=== PATIENT | female | born 1995 | race Caucasian/White ===

== ENCOUNTER 2021-02-17 10:00 | Outpatient (CLI) | payer BC, SELFPAY ==
--- NOTE | ~2021-02-17 | US_ITS ---
EXAMINATION: US OB <=14 wk fetus w TV EXAM DATE: 02/17/2021 10:38 INDICATION: Threatened miscarriage. 1st trimester. TECHNIQUE: Pelvic obstetrical transabdominal and transvaginal sonogram was performed by a technkami rosado. There are multiple grayscale and Doppler images available for interpretation. There are no marina ier studies of this gestation for comparison. FINDINGS: Uterus measures 8.9 x 5.7 x 3.7 cm. There is intrauterine gestation sac. pole with heart rate confirmed at 122 beats per minute. The 6 mm crown-rump length corresponds to estimated ge stational age by ultrasound of 6 weeks 2 days. Yolk sac is identified. There is sizable heterogeneous hyperechoic region from subchorionic location extending along the lowe r uterine segment endometrium, region measuring 2.3 x 1.3 x 0.5 cm, suspicious for acute moderate siz e subchorionic hematoma. The ovaries are morphologically normal. IMPRESSION: Heterogeneously hyperechoic region suspicious for moderate-sized acute subchorionic praveen layla. Recommend follow-up exam. Reviewed, dictated and finalized at location B. [employer] IMPRESSION: Heterogeneously hyperechoic region suspicious for moderate-sized a cute subchorionic hematoma. Recommend follow-up exam.
== END 2021-02-17 10:01 | disposition home or self-care (01) ==
PROVIDERS: PCP Obstetrics & Gynecology; Visit Provider Obstetrics & Gynecology
DX: O20.0 Threatened abortion (principal); Z3A.01 Less than 8 weeks gestation of pregnancy
CPT/HCPCS: 76801; 76817

== ENCOUNTER 2021-10-04 06:50 | Inpatient (IN) | payer BC, SELFPAY ==
[2021-10-04] VITALS (137 sets, daily range): BP systolic 71–147; BP diastolic 38–83; PULSE 57–263; RESP 14–18; TEMP 36.6–37.4; O2SAT 96–100; BMI 46.3
--- NOTE | 2021-10-04 07:22 | LDADM ---
This patient, Noble Gar, was admitted to Labor/Delivery/Recovery 105 on 10/04/21 at 06:50. Plans for labor, pain management and were discussed with patient. Patient/family oriented to hospital policies and general routines including ID bracelet, bed and alarms, visiting hours, pain management, procedures, bathroom and other care routines, personal items, smoking policy, room service/diet and guest tray routines, infant security routines, and visiting hours. Patient/Family are encouraged to report perceived risks to care and to ask questions if they do not understand what they are told or what they should do. See OBIX for further documentation.
[2021-10-04 07:51] LABS: Basophils Percent Auto 0.2 % (0.2-1.2); Eosinophils Percent Auto 0.2 % (0-4.4); Hematocrit 36.8 % (37.0-47.0); Immature Granulocyte Absolute 0.04 K/mm3 (0.00-0.031); Immature Granulocyte Percent A 0.4 % (0-0.5); Lymphocytes Absolute Auto 2.19 K/mm3 (0.9-3.2); Lymphocytes Percent Auto 22.6 % (18.3-44.2); Mean Corpuscular HGB Conc 32.6 g/dl (32-36); Mean Corpuscular Volume 88.9 fl (80-100); Mean Platelet Volume 10.5 fl (7.4-10.4); Monocytes Absolute Auto 0.6 K/mm3 (0.1-0.6); Monocytes Percent Auto 5.7 % (2.6-8.5); Neutrophils Absolute Auto 6.9 K/mm3 (1.3-6.7); Neutrophils Percent Auto 70.9 % (45.5-73.1); Platelet Count Result 360 k/mm3 (150-375); Red Blood Count 4.14 M/mm3 (4.2-5.4); White Blood Count 9.7 K/mm3 (4.5-10.0)
--- NOTE | 2021-10-04 07:52 | WPDHPUPDATE1 ---
History and Physical Update Update Date/Time: 10/04/21 07:52This patient is a 25-year-old 1 at 39 weeks gestation who presents for elective induction of labor . Her cervix is 4 cm, 50%, -2. AROM was performed. Clear fluid. Reassuring heart tones. Pitocin started, expected management. History and Physical has been reviewed, including an updated exam of the patient. There are NO changes in the patient's condition. Risks, benefits, and alternatives have been discussed and questions answered. Patient agrees to proceed with procedure.
[2021-10-04] MEDS: LACTATED RINGERS 1,000 ML 125 ML IV CONT ×3 (08:21→18:05)
[2021-10-04] MEDS: OXYTOCIN 30 UNITS/NS 500 ML 30 UNITS/500 ML BAG 6 UNITS IV CONT (08:21)
--- NOTE | 2021-10-04 13:46 | WPDANESEPPF ---
Anes - Initial Pre Proc Eval Procedure: Labor epidural Date/Time: 10/04/21 13:46 Surgeon: Viki Awad CNM Pre Op Diagnosis: Labor pain Pre Op Diagnosis: IOL Patient Data Age: 25 Gender: F Height: 1.63 m Weight: 122.5 kg Last Vital Signs Temp 37.1 C 10/04/21 11:08 Pulse 70 10/04/21 13:45 BP 106/42 L 10/04/21 13:45 Pulse Ox 100 10/04/21 13:43 O2 Del Method Room Air 10/04/21 07:20 Allergies Allergy/AdvReac Type Severity Reaction Status Date / Time No Known Allergies Allergy Verified 09/15/21 12:29 Home Medications Medication Instructions Recorded Confirmed Type vits no.126-ferrous fum 1 tablet PO DAILY 10/04/21 10/04/21 History 28 mg iron-folic acid 800 mcg tablet (Classic ) Laboratory Tests 10/04/21 10/04/21 10/04/21 07:42 07:42 07:42 WBC 9.7 K/mm3 K/mm3 (4.5-10.0) RBC 4.14 M/mm3 L M/mm3 (4.2-5.4) Hgb 12.0 g/dL g/dL (12.0-15.0) Hct 36.8 % L % (37.0-47.0) MCV 88.9 fl fl (80-100) MCH 29.0 pg pg (26-34) MCHC 32.6 g/dl g/dl (32-36) RDW 15.0 % H % (11.5-14.5) Plt Count 360 k/mm3 k/mm3 (150-375) MPV 10.5 fl H fl (7.4-10.4) Immature Gran % (Auto) 0.4 % % (0-0.5) Neut % (Auto) 70.9 % % (45.5-73.1) Lymph % (Auto) 22.6 % % (18.3-44.2) Perkins % (Auto) 5.7 % % (2.6-8.5) Eos % (Auto) 0.2 % % (0-4.4) Baso % (Auto) 0.2 % % (0.2-1.2) Lymph # (Auto) 2.19 K/mm3 K/mm3 (0.9-3.2) Perkins # (Auto) 0.6 K/mm3 K/mm3 (0.1-0.6) Eos # (Auto) 0.0 K/mm3 K/mm3 (0-0.3) Baso # (Auto) 0.0 K/mm3 K/mm3 (0.0-0.1) Abs Immat Gran (auto) 0.04 K/mm3 H K/mm3 (0.00-0.031) Absolute Neuts (auto) 6.9 K/mm3 H K/mm3 (1.3-6.7) Absolute Nucleated RBC 0.0 K/mm3 K/mm3 (0.0-0.012) Nucleated RBC % 0.0 % % (0.0-0.2) RPR Pending Blood Type A Positive Antibody Screen Negative Patient hx anesthesia problems: none Family hx anesthesia problems: none Results Review: All pre-operative results and documents have been reviewed as part of the pre-operative evaluation. [facility] Family History Family History Father Multiple sclerosis Mother Diabetes mellitus Social History Social History Smoking status: Never smoker Substance use: never Spiritual care concerns: No Anes - Eval Final PreProcedure Day of Procedure 10/04/21 13:46 Heart: regular rate and rhythm Lungs: clear to auscultation and normal air movement Airway: Mallampati scale class II Neurological: alert and oriented Results Review: All pre-operative results and documents have been reviewed as part of the pre-operative evaluation. Informed Consent: The patient's anesthetic plan and its attendant risks and benefits were discussed with the patient/family/POA. Questions were solicited and answers provided to the satisfaction of the patient/family/POA.
--- NOTE | 2021-10-04 19:10 | PM.OBPRVD ---
OB - Delivery Note Procedure Delivery date: 10/04/21 Procedure: Induction method: AROM and Per Misoprostol Protocol Delivery monitor: External FHT and Internal Uterine Route of delivery: Episiotomy description: None Laceration Description: Perineal - 2nd Degree Delivery repair: vicryl Specimen: No Quantitative Blood Loss (ml): 300 Anesthesia type: Epidural Disposition: Floor Complications: none Baby Date of : 10/04/21 Time of : 18:50 Weeks of gestation at delivery: 39 gender: Female Weight (pounds): 7 Weight (ounces): 7 score one minute: 9 score five minutes: 9
[2021-10-04] MEDS: OXYTOCIN 30 UNITS/NS 500 ML 30 UNITS/500 ML BAG 125 UNITS IV CONT (19:19)
[2021-10-04] MEDS: IBUPROFEN 600 MG TABLET PO (21:02)
[2021-10-04] MEDS: BENZOCAINE 20% AER SPR (*SP) 56 GM CAN 1 SPRAY TOPICAL (21:03)
[2021-10-04] MEDS: WITCH HAZEL 40 PADS 1 PAD TOPICAL (21:03)
[2021-10-05 05:30] VITALS: BP 132/77; PULSE 74; RESP 16; TEMP 36.8; O2SAT 98
[2021-10-05 05:59] LABS: Hematocrit 29.3 % (37.0-47.0); Hemoglobin 9.4 g/dL (12.0-15.0)
[2021-10-05 08:00] VITALS: BP 131/72; PULSE 72; RESP 18; TEMP 36.6; O2SAT 98
[2021-10-05] MEDS: IBUPROFEN 600 MG TABLET PO ×2 (08:04→19:12)
[2021-10-05] MEDS: POLYSACCHARIDE IRON COMPLEX 150 MG CAPSULE PO ×2 (08:04→16:28)
--- NOTE | 2021-10-05 09:02 | PM.OBPNVD ---
OB - PN: Subj Subjective Date/time seen: 10/05/21 09:02 Patient comments: no complaints, pain well controlled, incisional pain, tolerating diet and flatus present OB - PN: Obj Data Labs CBC & Chem 7: 10/05/21 05:45 Labs: Laboratory Results - last 24 hr 10/05/21 05:45 Hgb 9.4 L Hct 29.3 L OB - PN A/P Plan day: 1 Plan: routine care Comments: No problems, routine care Time Spent With Patient Time: Total time spent is greater than 50% in coordination of care (as documented) at patient's floor/unit and/or counseling patient: Exam Const: General: comfortable, no acute distress and alert Resp: Effort & Inspection: normal respiratory effort Auscultation: no crackles, no rales and no rhonchi Cardio: Rate: regular rate Heart sounds: no click, no murmurs and no rubs GI: Inspection: non-distended GI Palp: No Tenderness to palpation present (GI) Auscultation: normal bowel sounds Other: Incision - CDI Extrem: General: normal to inspection, no pedal edema and no calf tenderness
--- NOTE | 2021-10-05 11:06 | WPDANLDPN2 ---
Anes-Prog Note L&D Date/Time: 10/05/21 11:06 Comfortable throughout: labor and delivery Neuraxial method: epidural Epidural/Spinal procedure site: clean & non-tender Neuro status: Neuro function grossly intact. Cardiovascular status: normal Respiratory status: normal Airway patency: baseline Mental status: baseline Post-Op hydration status: normal Vital Signs: Last Vital Signs Temp 36.6 C 10/05/21 08:00 Pulse 72 10/05/21 08:00 Resp 18 10/05/21 08:00 BP 131/72 10/05/21 08:00 Pulse Ox 98 10/05/21 08:00 O2 Del Method Room Air 10/04/21 07:20 Pain score (VAS): 03/17 I/O: Intake & Output 10/04/21 10/05/21 10/05/21 23:59 07:59 15:59 Intake Total 1600 240 Output Total 300 Balance 1300 240 Post-procedural complaints: none Patient feedback: Patient satisfied with anesthetic care.
[2021-10-05 12:00] VITALS: BP 119/74; PULSE 70; RESP 16; TEMP 36.8; O2SAT 99
[2021-10-05 16:00] VITALS: BP 116/62; PULSE 72; RESP 16; TEMP 36.7; O2SAT 100
[2021-10-05 19:15] VITALS: BP 128/65; PULSE 67; RESP 16; TEMP 36.5
[2021-10-06 07:35] VITALS: BP 124/74; PULSE 78; RESP 18; TEMP 36.7; O2SAT 95
--- NOTE | 2021-10-06 08:36 | PM.OBPNVD ---
OB - PN: Subj Subjective Date/time seen: 10/06/21 08:36 Patient comments: no complaints, pain well controlled and tolerating diet OB - PN: Obj Data Labs CBC & Chem 7: 10/05/21 05:45 OB - PN A/P Plan day: 2 Plan: routine care and discharge home Time Spent With Patient Time: Total time spent is greater than 50% in coordination of care (as documented) at patient's floor/unit and/or counseling patient: Exam Const: General: comfortable and no acute distress Resp: Effort & Inspection: normal respiratory effort Auscultation: no rales, no rhonchi and no wheezes Cardio: Rate: regular rate Heart sounds: no click, no murmurs and no rubs GI: GI Palp: Yes Soft to palpation and No Tenderness to palpation present (GI) Auscultation: normal bowel sounds Extrem: General: normal to inspection, no pedal edema and no calf tenderness
--- NOTE | 2021-10-06 08:37 | PM.OBDSVD ---
DS: Admitting Diagnosis Discharge Date 10/06/21 Admitting Diagnosis term OB - DS: Summary OB Procedures : None OB Procedures Intrapartum: Spontaneous Vag Delivery OB Procedures: : None Time Spent with Patient Time attestation: Total time spent providing and/or coordinating discharge services: Discharge Plan Discharge Attending physician on discharge: Georgia Rosas Discharging Clinician: Georgia Rosas Patient Disposition: Home, Self-Care Activity: pelvic rest Diet: regular Patient Instructions: Antibiotic Form Stand Alone Forms: General Discharge Information Follow-up/Referrals: Georgia Rosas MD [Primary Care Provider] - Discharge Medications: Continued Classic 28 mg iron- 800 mcg Tablet 1 tablet PO DAILY Date of admission: 10/04/21 06:50 Primary Care Provider: Georgia Rosas Admitting Provider: Georgia Rosas Attending physician on admission: Viki Awad Condition: Stable
[2021-10-06] MEDS: POLYSACCHARIDE IRON COMPLEX 150 MG CAPSULE PO (08:50)
[2021-10-06] MEDS: IBUPROFEN 600 MG TABLET PO (08:50)
--- NOTE | 2021-10-06 10:27 | PC.NURSE ---
Patient viewed the discharge video Mother & Baby Care, The First Two Weeks . Patient was given the opportunity and encouraged to ask questions. Patient verbalized understanding of information shared and has been given the mother/baby guide for home reference.
--- NOTE | 2021-10-06 11:37 | PC.NURSE ---
[id number] Introductions were made, then consulted with patient to assess needs related to . Mother led the conversation with her?plans to feed?her infant, the?experience so far, and question answered. Resources provided for inpatient and outpatient services using a resource guide and mom/baby guide. Mother voiced understanding of information and will call if there is a request for assistance. Reported to primary RN. [id number] Consulted with patient to assess needs related to . Mother works well with her infant and is on the right breast using football positioning. Educated mother on detaching related to latch observed less than 90 degrees. Nipples was slightly misshaped like new lipstick. Reviewed working with infant, breast, nipples and how to protect the nipples with an optimal deep latch, good positioning, and good hand washing. Encouraged understanding the benefits of skin to skin, responding to feeding cues, frequencies of feeding 8-12 times in 24 hours (approximately 2-3 hours), duration of feedings, milk production, intake/output feeding sheet and signs of adequate intake encouraging swallowing at the breast. Reviewed positioning and alignment, supporting breast, off-centered (asymmetrical latch) and leading with the chin with big open wide gape. latched optimally to the right breast in football position. Education given to the parents of how to visualize suck/swallow ratios and drinking at the breast. was able to maintain latch without discomfort to mother. After 20 minutes mother detached and placed skin to skin stimulating for a burp and feeding cues. demonstrated feeding cues, then mother positioned to the left breast using football positioning. latched with big, open , wide gape, maintained a rocking suck/swallow ratio of 2:1 and 3:1. Nipple care reviewed with optimal latch and good positioning. Mother is feeding appropriately for growth of and understands stimulating to eat if needed. has had appropriate feedings in the last 24 hours meets the outcomes for weight, output and jaundice at this time. Mother states she is confident to continue effectively her at home or when to call for assistance and denies any additional assistance or education at this time. Reinforced understanding of milk production, transition of milk, signs of adequate intake, prevention/relief of engorgement, responsive after visualizing feeding cues, the different methods of stimulating to breastfeed 2-3 hours after the start of the last feeding, community resources, medication information reviewed per [employer] and when to call a provider using the resource of the mom and baby guide/[facility] website. Reviewed educational resources from the visual handout and mom and baby guide. Parents voiced understanding of the education shared, calling for assistance if the does not latch or if there is discomfort with . Reported to the primary RN.
[2021-10-06 12:01] LABS: Rapid Plasma Reagin Non-Reactive (NonReactive)
[2021-10-08 10:31] VITALS: BP 136/77; PULSE 65; RESP 20; TEMP 36.9; O2SAT 99
== END 2021-10-06 11:55 | disposition home or self-care (01) | DRG 807 ==
LOC: ANHOB2 10-06 09:28 → ANHLDR 10-08 11:40
PROVIDERS: Advanced Practice Midwife; Admitting Provider Obstetrics & Gynecology; PCP Obstetrics & Gynecology; Visit Provider Obstetrics & Gynecology
DX: O69.81X0 Labor and delivery complicated by cord around neck, without compression, not applicable or unspecified (principal); Z37.0 Single live birth; O70.1 Second degree perineal laceration during delivery; Z3A.39 39 weeks gestation of pregnancy
CPT/HCPCS: 36415; 85014; 85018; 85025; 86592; 86850; 86900; 86901; A9270; J2590; J2795; J7120

== ENCOUNTER 2024-02-17 00:44 | Inpatient (IN) | payer BC, SELFPAY ==
[2024-02-17] VITALS (53 sets, daily range): BP systolic 91–149; BP diastolic 41–97; PULSE 42–142; RESP 16; TEMP 36.6–36.8; O2SAT 81–100; BMI 47.2
--- OUTSIDE RECORDS SUMMARY | 2024-02-17 01:18 | XMS_ITS | Continuity of Care Document ---
Author Organization [facility] [place] Address [address] [place] [address] Care Team Providers Care Tool Mechanic Name Role Phone PETE MARTINEZ Primary Care Provider [phone] Assessment No assessment recorded. Plan of Treatment Reminders Order Date Submit Date Provider Last Modified By Organization Details Last Modified Time Details Appointments INDUCTION 2023 12:01A Archie GALVAN MD Not available Not available Not available Lab None recorded. Referral None recorded. Procedures None recorded. Surgeries None recorded. Imaging None recorded. Medication Orders None recorded. Patient TargetsNo targets recorded. Patient InstructionsNo instructions recorded. Reason for Referral None Reported. Results Created Date Observation Date Name Description Value Unit Range Abnormal Flag Note LastModifiedBy Organization Detail LastModifiedTime 08/16/19 24 08/16/2023 US, obste tric, nucha l trans lucen cy No observ ation record ed. [email or web address] [place] [address], [place], [address], 08/16/2023 10:17:57 08/16/19 24 08/16/2023 US, obste tric, 1st trime ster No observ ation record ed. [email or web address] [place] [address], [place], [address], 08/16/2023 10:17:45 08/16/19 24 08/16/2023 US, obste tric, nucha l trans lucen cy No observ ation record ed. [email or web address] [address], [place], [address], 08/16/2023 20:31:53 10/12/19 24 10/12/2023 US, obste tric, 2nd or 3rd trime ster No observ ation record ed. [email or web address] [place] [address], [place], [address], 10/12/2023 12:33:34 10/12/19 24 10/12/2023 US, obste tric, 2nd or 3rd trime ster No observ ation record ed. [email or web address] [address], [place], [address], 10/13/2023 14:01:11 10/12/19 24 10/12/2023 US, obste tric, 2nd or 3rd trime ster No observ ation record ed. [email or web address] [address], [place], [address], 10/13/2023 07:42:16 11/09/19 24 11/09/2023 US, obste tric, follo w-up No observ ation record ed. [email or web address] [place] [address], [place], [address], 11/09/2023 18:27:48 11/09/19 24 11/09/2023 US, obste tric, follo w-up No observ ation record ed. [email or web address] [address], [place], [address], 11/10/2023 15:36:54 01/04/20 24 01/04/2024 US, obste tric, follo w-up No observ ation record ed. [email or web address] [place] [address], [place], [address], 01/04/2024 13:22:26 01/04/20 24 01/04/2024 US, obste tric, follo w-up No observ ation record ed. [email or web address] [address], [place], [address], 01/04/2024 12:54:21 01/18/20 24 01/18/2024 US, obste tric, bioph ysica l profi le + non-s tress test No observ ation record ed. [email or web address] [place] [address], [place], [address], 01/18/2024 10:54:49 01/18/20 24 01/18/2024 US, obste tric, bioph ysica l profi le + non-s tress test No observ ation record ed. [email or web address] [address], [place], [address], 01/20/2024 00:28:05 01/18/20 24 01/18/2024 non-s tress test No observ ation record ed. [email or web address] [place] [address], [place], [address], 01/18/2024 10:35:29 01/25/20 24 01/25/2024 non-s tress test No observ ation record ed. [email or web address] [place] [address], [place], [address], 01/25/2024 10:50:05 01/25/20 24 01/25/2024 US, obste tric, bioph ysica l profi le + non-s tress test No observ ation record ed. [email or web address] [place] [address], [place], [address], 01/25/2024 12:36:03 01/25/20 24 01/25/2024 US, obste tric, bioph ysica l profi le + non-s tress test No observ ation record ed. [email or web address] [address], [place], [address], 01/26/2024 05:27:30 02/01/20 24 02/01/2024 US, obste tric, follo w-up No observ ation record ed. [email or web address] [place] [address], [place], [address], 02/01/2024 14:50:11 02/01/20 24 02/01/2024 non-s tress test No observ ation record ed. [email or web address] [place] [address], [place], [address], 02/01/2024 10:39:26 02/01/2002/01/2024 US, obstdylan tric, follo w-up No observ ation record ed. IAN [address], [place], [address], 02/02/2024 10:36:33 02/08/20 24 02/08/2024 US, obste tric, bioph ysica l profi le + non-s tress test No observ ation record ed. [email or web address] [place] [address], [place], [address], 02/08/2024 13:02:43 02/08/20 24 02/08/2024 US, obste tric, bioph ysica l profi le + non-s tress test No observ ation record ed. [email or web address] [address], [place], [address], 02/10/2024 11:57:49 02/08/20 24 02/08/2024 non-s tress test No observ ation record ed. [email or web address] [place] [address], [place], [address], 02/08/2024 11:12:55 02/15/20 24 02/15/2024 US, obste tric, bioph ysica l profi le + non-s tress test No observ ation record ed. [email or web address] [place] [address], [place], [address], 02/15/2024 12:00:41 02/15/20 24 02/15/2024 US, obste tric, bioph ysica l profi le + non-s tress test No observ ation record ed. [email or web address] [address], [place], [address], 02/15/2024 21:51:48 02/15/20 24 02/15/2024 non-s tress test No observ ation record ed. [place] [address], [place], [address], 02/15/2024 19:02:15 02/15/20 non-s tress test No observ ation record ed. [email or web address] [place] [address], [place], [address], 02/15/2024 19:06:30 Result Notes None recorded. Problems Name Problem SNOMED Code Status Onset Date Resolution Date Notes Provider Name and Address Organization Details Recorded Time Subchori onic hematoma 661707259 Active 2020 Dixie Chavez [facility] 1 10:44:01 Pregnanc y 32876765 Completed 202110/24/2021 Shaneka Cuevas [facility] 4 09:59:33 Maternal obesity complica ting pregnanc y, childbir th and the puerperi um, antepart um 4838858644 07 Active BMI 44- ante testing at 34w Anca babb [facility] 2 13:48:38 Maternal obesity complica ting pregnanc y, childbir th and the puerperi um, antepart um 5778392627 07 Completed BMI 44- ante testing at 34w Anca babb [facility], [facility] 2 13:48:38 COVID-19 038451956 Completed 2021 Pt informed to take ASA per SP. Serial growth Anca babb [facility], [facility] 2 13:48:38 Pregnanc y 31774605 Active 2023 Shanekapedro luis Cuevas [facility], [facility] 4 09:59:33 Obesity 040117169 Active Antenata l testing 34wks AALIYAH GALVAN MD [address], [place], [address], [facility] 4 10:04:23 Prediabe [place] 876179523 Active A1c 5.7 - early GTT at 20wks AALIYAH GALVAN MD [address], [place], [address], [facility] 4 10:04:23 Problem Notes None recorded. Procedures Surgical History Date Name Laterality Status Provider Name and Address Organization Details Recorded Time 06/01/19 24 Date of Last Pap Smear completed Olga Larson [facility] 12/10/2023 10:42:52 03/08/19 02 Tonsillectomy completed Dixie Chavez [facility] 02/19/2021 09:31:00 Imaging Results None recorded. Procedure Notes None recorded. Medical Equipment None Reported. Allergies No known drug allergies Medications Name Sig Start Date Stop Date Status Note LastModified by Organization Details LastModified Time prednisone 20 mg tablet TAKE 3 TABLETS BY MOUTH EVERY DAY FOR 5 DAYS 02/18 completed Not Available Not Available Not Available methocarbam ol 750 mg tablet TAKE 2 TABLETS BY MOUTH THREE TIMES DAILY NEEDED 02/18 completed Not Available Not Available Not Available cephalexin 500 mg capsule TAKE 1 CAPSULE BY MOUTH THREE TIMES DAILY FOR 7 DAYS DIRECTED 01/23 completed Not Available Not Available Not Available cyclobenzap rine 5 mg tablet TAKE 1 TABLET BY MOUTH EVERY 8 HOURS NEEDED FOR HEADACHE 01/23 completed Not Available Not Available Not Available Tri-Sprinte c (28) 0.18 mg(7)/0.215 mg(7)/0.25 mg(7)-35 mcg tablet TAKE 1 TABLET BY MOUTH EVERY DAY 02/18 completed Not Available Not Available Not Available active Not Available Not Avai lable Not Available multivitami n 05/30 completed Not Available Not Available Not Available Classic 12/20 completed Not Available Not Available Not Available Hair, Skin and Nails (biotin) 05/30 completed Not Available Not Available Not Available Vitals Date Recorded Body height Body mass index (BMI) Body weight Systolic blood pressure Diastolic blood pressure Provider Name and Address Organization Details Last Updated DateTime 02/15/2024 162.56 cm 47 kg/m2 050369.3 0938 g 109 mm[Hg] 75 mm[Hg] Olga Larson [facility] 4 10:34:53 Date Recorded Body height Body mass index (BMI) Body weight Systolic blood pressure Diastolic blood pressure Provider Name and Address Organization Details Last Updated DateTime 02/15/2024 162.56 cm 47 kg/m2 696729.3 1 g 109 mm[Hg] 75 mm[Hg] Sylvie Reich [facility] 4 19:00:39 Social History Question Answer Notes LastModified by Organizat ion Details LastModified Time Tobacco Smoking Status Never Smoker Fartun Carmen [facility] 01/23/2022 12:22:48 Do You Have An Advance Directive? No Information n ot available 02/19/2021 What Is Your Level Of Alcohol Consumption? None [email or web address] Information not available 09/14/2023 If You Are , What Was Your Level Of Alcohol Consumption Prior To ? Occasional Information not available 01/23/2022 How Many Years Have You Consumed Alcohol? 10 [email or web address] Information not available 02/19/2021 Are You Blind Or Do You Have Difficulty Seeing? No [email or web address] Information n ot available 02/19/2021 What Is Your Level Of Caffeine Consumption? None [email or web address] Information not available 12/21/2023 How Much Tobacco Do You Chew? None [email or web address] Information not available 02/19/2021 In The 14 Days Before Symptom Onset, Have You Had Close Contact With A Laboratory-confirm ed COVID-19 While That Case Was Ill? No Information n ot available 02/19/2021 In The 14 Days Before Symptom Onset, Have You Had Close Contact With A Person Who Is Under Investigation For COVID-19 While That Person Was Ill? No Information not available 02/19/2021 Have You Been To An Area Known To Be High Risk For COVID-19? No Information not available 02/19/2021 Are You Deaf Or Do You Have Serious Difficulty Hearing? No [email or web address] Information not available 02/19/2021 What Type Of Diet Are You Following? REGULAR [email or web address] Information n ot available 02/19/2021 What Is The Highest Grade Or Level Of School You Have Completed Or The Highest Degree You Have Received? 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 No [email or web address] Information not available 02/19/2021 Do You Use Protection During Sex? No Information not available 02/19/2021 Do You Use Your Seat Belt Or Car Seat Routinely? Yes [email or web address] Information not available 02/19/2021 Do You Have Smoke And Carbon Monoxide Detectors In Your Home? Yes [email or web address] Information not available 02/19/2021 How Much Tobacco Do You Smoke? No [email or web address] Information not available 02/19/2021 Do You Feel Stressed (tense, Restless, Nervous, Or Anxious, Or Unable To Sleep At Night)? [id number] [email or web address] Information not available 02/19/2021 Do You Use Any Illicit Or Recreational Drugs? No [email or web address] Information not available 02/19/2021 Do You Use Sunscreen Routinely? No [email or web address] Information not available 02/19/2021 Have You Used IV Drugs? No [email or web address] Information not available 02/19/2021 Sex: Unknown Functional Status Question Answer Note LastModified by Organizat ion Details LastModified Time Do you have difficulty walking or climbing stairs? No [email or web address] Information not available 01/23/2022 Are you able to walk? YESWOREST [email or web address] Information not available 02/19/2021 Are you able to care for yourself? Yes [email or web address] Information not available 01/23/2022 Do you have difficulty dressing or bathing? No [email or web address] Information not available 01/23/2022 What is your exercise level? Occasional [email or web address] Information not available 02/19/2021 Mental Status None recorded. Family History Relationship Description Onset Age of this Age Resolved Age Notes LastModified by Organization Details LastModified Time Father Disorder of nervous system [email or web address] Not available 2020 09:30:09 Father Multiple sclerosis [email or web address] Not available 2020 09:30:09 Mother Diabetes mellitus [email or web address] Not available 2020 09:30:09 Mother High risk [email or web address] Not available 2020 09:30:09 Sister Substance abuse [email or web address] Not available 2020 09:30:09 Paternal Uncle Substance abuse [email or web address] Not available 2020 09:30:09 Notes:Cancer form complete 1 04/21/2020 Medical History Condition Response Allergies (Food, seasonal, environmental ) N Other Y Drug/Latex Allergies/Reactions N Blood Transfusion N Breast Cancer N Dermatologic Disorders N Lung Disease N Defects or Inherited Disease N Breast Problem N Gestational Diabetes N Hematologic disorders N Anesthesia Complications N History of STI N Deep Vein Thrombosis N Polycystic ovary syndrome N Anxiety Disorder N Autoimmune disease N Arthritis N Polyps N Infertility N Acid Reflux (GERD) N History of abnormal pap N Cancer N Varicosities N Stroke N Neurologic/Epilepsy Y Endometriosis N High Cholesterol N Fibromyalgia N Headaches N Kidney Disease N Heart Problems N Thyroid Problems N Kidney or Bladder Problems N GI Problems N Eating Disorder N Anemia N Art (IVF or FET) N Psychiatric Illness N Ovarian Cancer N Diabetes N Pulmonary (TB, Asthma) N Hepatitis/Liver Disease N No Past Medical History N Eczema N Urinary Tract Infection N Abuse/Domestic Violence N Asthma N Trauma/Violence N Depression/ depression N Heart Disease N Pre-Eclampsia N Hypertension N Osteoporosis N Thrombophilias N Gynecological History Statement/Question Response Date of Last Mammogram Flow Moderate Date of LMP 05/21/2023 N Was last menstrual period normal Y STIs/STDs N Desired Control Method None Abnormal Pap N On BCP's at Conception? N HPV Vaccine Y Duration of Flow (days) 4 Current Control Method Age at First Child 25 Are cycles usually normal Y Frequency of Cycle (Q days) 27 Sexually Active? Y Menses Monthly Y Date of DEXA bone scan Age of first menstrual cycle 11 Date of Last Pap Smear 06/01/2023 Sexual Problems? N LMP Definite N Obstetrics History GPAL:G 2 P 1 0 0 1 Type Value Full Term 1 Living 1 Total 2 Past Encounters Encounter ID Performer Location Encounter Start Date Encounter Closed Date Diagnosis/Indication Diagnosis SNOMED-CT Code Diagnosis ICD10 Code [id number] Jenna Velazquez [place] [address],[place] [address] 01/18/2024 09:18:59 01/18/2024 10:25:52 Maternal obesity complicating , childbirth and the puerperium, antepartum 9694599586 07 O99.213 O99.891 Z3A.34 [id number] Ruth Meaghan [place] [address],[place] [address] 01/18/2024 09:20:07 01/18/2024 10:36:16 Maternal obesity complicating , childbirth and the puerperium, antepartum 9742009407 07 O99.213 O36.60X0 Z3A.32 [id number] AALIYAH GALVAN MD [place] [address],[place] [address] 01/18/2024 09:20:25 01/18/2024 11:27:10 Polyhydramnios 49749188 O40.3XX0 Maternal o besity complicating , childbirth and the puerperium, antepartum 5463983306 07 O99.213 O36.60X0 Z3A.32 Gestation period, 34 weeks 87387792 Z3A.34 [id number] Ruchi Martinez [place] [address],[place] [address] 01/25/2024 09:18:22 01/25/2024 10:11:43 Maternal obesity complicating , childbirth and the puerperium, antepartum 6134092408 07 O99.213 Z3A.[id number] [facility] [address],[place] [address] 01/25/2024 09:18:50 01/25/2024 10:55:21 Maternal obesity complicating , childbirth and the puerperium, antepartum 9733588599 07 O99.213 O36.60X0 Z3A.32 [id number] AALIYAH GALVAN MD [place] [address],[place] [address] 01/25/2024 09:19:07 01/25/2024 10:59:24 Maternal obesity complicating , childbirth and the puerperium, antepartum 3940387591 07 O99.213 Z3A.35 Gestation period, 35 weeks 88858099 Z3A.35 [id number] [facility] [address],[place] [address] 02/01/2024 09:19:27 02/01/2024 10:06:24 Maternal obesity complicating , childbirth and the puerperium, antepartum 6912429862 07 O99.213 Z3A.[id number] [facility] [address],[place] [address] 02/01/2024 09:20:04 02/01/2024 10:43:00 Maternal obesity complicating , childbirth and the puerperium, antepartum 1915929156 07 O99.213 Z3A.35 [id number] AALIYAH GALVAN MD [place] [address] [place] [address] 02/01/2024 09:20:22 02/01/2024 11:13:01 Excessive growth affecting management of mother 55029492 O36.62X0 Gestation period, 36 weeks 37454432 Z3A.36 Polyhydramnios 99288037 O40.3XX0 [id number] [facility] [address],[place] [address] 02/08/2024 09:16:54 02/08/2024 10:17:19 Maternal obesity complicating , childbirth and the puerperium, antepartum 7475335606 07 O99.213 Z3A.37 [id number] Olga Larson [place] [address],[place] [address] 02/08/2024 09:17:13 02/08/2024 11:16:09 Maternal obesity complicating , childbirth and the puerperium, antepartum 2937030079 07 O99.213 Z3A.35 [id number] AALIYAH GALVAN MD [place] [address],[place] [address] 02/08/2024 09:17:28 02/08/2024 11:33:44 Maternal obesity complicating , childbirth and the puerperium, antepartum 5784562900 07 O99.213 Z3A.35 Gestation period, 37 weeks 05664370 Z3A.37 [id number] Jenna Velazquez [place] [address],[place] [address] 02/15/2024 09:23:22 02/15/2024 10:02:58 Maternal obesity complicating , childbirth and the puerperium, antepartum 9757370001 07 O99.213 Z3A.38 [id number] Sylvie Reich [place] [address],[place] [address] 02/15/2024 09:24:03 02/16/2024 09:44:34 Maternal obesity complicating , childbirth and the puerperium, antepartum 3825155318 07 O99.213 [id number] AALIYAH GALVAN MD [place] [address],[place] [address] 02/15/2024 09:25:10 02/15/2024 11:08:21 Maternal obesity complicating , childbirth and the puerperium, antepartum 3261743653 07 O99.213 Z3A.38 Gestation period, 38 weeks 96605929 Z3A.38 Health Concerns Section Related Observation LastModified by Organization Detai ls LastModified Time None Recorded Concern Status LastModified by Organization Details LastModified Time None Recorded Payers Encounter Date Sequence Insurance Name Policy Number Policy Patino Covered Member ID Patino Member ID Guarantor Name 02/15/2024 1 [place] [id number] Logyn Whitney Cong [id number] [employer]ck[employer] OBGyn Episode Ob Episode Information Episode Created Date Number of Fetuses Patient Bloodtype Patient rh Status Prepregnancy Weight lbs Domestic Partner Domestic Partner Phone Father Name Mechanical Handyman Status 08/16/19 24 1 A Positive 250.8 OPEN Fetus Data First Name Last Name Admitted to NICU Weight (g) Sex Living Outcome Pediatric Complications Fetus ID Race Codes Race Delivery Type [id number] Problems Problem Notes Problem Name Start Date End Date Resolution Snomed Code Not e Obesity 611921599 testing 34wks Prediabetes 284514159 A1c 5.7 - early GTT at 20wks Radha Calculation RADHA Calculation Method Initial Radha Date Initial Exam Date Initial Exam Provider Initial Ultrasound Date Last Menstrual Period Date Ultra Sound Weeks Gestation Conception by IVF Embryo Age at Transfer Date of Transfer 02/25/20 24 08/16/19 24 07/16/2023 05/21/2023 8 Eighteen To Twenty Week Radha Update Ultra Sound Date Fundal Height At Umbil Quickening Date Ultra Sound Latest Weeks Gestation Final Radha Confirmed By Final Radha Confirmed Date Final Radha Date Ultra Sound Latest Days Gestation 0 [email or web address] 08/16/2023 02/25/20 24 0 Pre- Flowsheet Flowsheet Date 08/16/2023 Castro Score Blood Edema Fundus Height Fundus Units Glucose Ketones Leukocytes Nitrite Labor Signs Protein Cervic Dilation Cervic Effacement Cervic Station Type Weight in lbs Pre/Post Dialysis Refused Weight 245.53054124735 BP Diastolic BP Location Tested BP Systolic BP Type 79 121 Fetus Heart Rate Present A 154 Fetus Movement Comments Presents to establish prenat al care. has been thus far uncomplicated. Nausea improved. Increased congestion, discussed symptomatic relief. hx significant for normal . PMH/PSH noncontributory. LR female NIPT! New OB labs wnl aside fraom prediabetic A1c. Discussed early 1h GCT at 20 weeks. RTC 4 weeks. Flowsheet Date 09/14/2023 Castro Score Blood Edema Fundus Height Fundus Units Glucose Ketones Leukocytes Nitrite Labor Signs Protein Cervic Dilation Cervic Effacement Cervic Station Type Weight in lbs Pre/Post Dialysis Refused Weight 251.953678261155 BP Diastolic BP Location Tested BP Systolic BP Type 83 119 Fetus Heart Rate Present A 145 Fetus Movement A Yes Comments Doing well, some flutters fe lt. No cramping or bleeding. Nausea resolved. Discussed anatomy US and early 1h GCT next visit. RTC 4 weeks. Flowsheet Date 10/12/2023 Castro Score Blood Edema Fundus Height Fundus Units Glucose Ketones Leukocytes Nitrite Labor Signs Protein Cervic Dilation Cervic Effacement Cervic Station Type Weight in lbs Pre/Post Dialysis Refused BP Diastolic BP Location Tested BP Systolic BP Type Fetus Heart Rate Present Fetus Movement Comments Flowsheet Date 10/12/2023 Castro Score Blood Edema Fundus Height Fundus Units Glucose Ketones Leukocytes Nitrite Labor Signs Protein Cervic Dilation Cervic Effacement Cervic Station Type Weight in lbs Pre/Post Dialysis Refused Weight 252.175355424815 BP Diastolic BP Location Tested BP Systolic BP Type 74 112 Fetus Heart Rate Present A 130 Fetus Movement A Yes Comments Good movement. No cram ping or bleeding. Early 1h GCT today. Discussed repeat at 28 weeks if normal. Anatomy US complete and normal today, aside from EFW 92%. Will schedule repeat growth US in 4 weeks to trend growth. RTC 4 weeks. Flowsheet Date 11/09/2023 Castro Score Blood Edema Fundus Height Fundus Units Glucose Ketones Leukocytes Nitrite Labor Signs Protein Cervic Dilation Cervic Effacement Cervic Station Type Weight in lbs Pre/Post Dialysis Refused BP Diastolic BP Location Tested BP Systolic BP Type Fetus Heart Rate Present Fetus Movement Comments Flowsheet Date 11/09/2023 Castro Score Blood Edema Fundus Height Fundus Units Glucose Ketones Leukocytes Nitrite Labor Signs Protein Cervic Dilation Cervic Effacement Cervic Station Type Weight in lbs Pre/Post Dialysis Refused Weight 256.004686786249 BP Diastolic BP Location Tested BP Systolic BP Type 82 119 Fetus Heart Rate Present Fetus Movement A Yes Comments Doing well, feeling dehydrat ed but drinking water. EFW 89%, stable from prior visit. Normal JEET. Passed GCT, will repeat next visit. Will repeat anatomy US at 32 weeks. Discussed travel restrictions around the holidays due to advanced gestation. RTC 4 weeks. Flowsheet Date 12/10/2023 Castro Score Blood Edema Fundus Height Fundus Units Glucose Ketones Leukocytes Nitrite Labor Signs Protein Cervic Dilation Cervic Effacement Cervic Station neg none none trace Type Weight in lbs Pre/Post Dialysis Refused 257.915370939742 BP Diastolic BP Location Tested BP Systolic BP Type 80 L arm 121 sitting Fetus Heart Rate Present A 145 Fetus Movement A Yes Comments Has a boil on her labia, has been present for 1 week. Painful with wiping and intercourse. Now draining spontaneously. Good movement. No cramping or bleeding. Tdap, flu and covid vaccine received. Labs and GCT today. RTC 2 weeks. Flowsheet Date 12/21/2023 Castro Score Blood Edema Fundus Height Fundus Units Glucose Ketones Leukocytes Nitrite Labor Signs Protein Cervic Dilation Cervic Effacement Cervic Station neg none none trace Type Weight in lbs Pre/Post Dialysis Refused Weight 257.929677464252 BP Diastolic BP Location Tested BP Systolic BP Type 74 L arm 109 sitting Fetus Heart Rate Present Fetus Movement A Yes Comments Doing well, good movem ent. Some BH contractions, no bleeding. No further boils. Passed GCT and labs. Discussed repeat growth US next visit. Will start testing at 34 weeks. RTC 2 weeks. Flowsheet Date 01/04/2024 Castro Score Blood Edema Fundus Height Fundus Units Glucose Ketones Leukocytes Nitrite Labor Signs Protein Cervic Dilation Cervic Effacement Cervic Station Type Weight in lbs Pre/Post Dialysis Refused BP Diastolic BP Location Tested BP Systolic BP Type Fetus Heart Rate Present Fetus Movement Comments Flowsheet Date 01/04/2024 Castro Score Blood Edema Fundus Height Fundus Units Glucose Ketones Leukocytes Nitrite Labor Signs Protein Cervic Dilation Cervic Effacement Cervic Station neg none none trace Type Weight in lbs Pre/Post Dialysis Refused Weight 262.230661614797 BP Diastolic BP Location Tested BP Systolic BP Type 76 L arm 112 sitting Fetus Heart Rate Present A 143 Fetus Movement A Yes Comments Patient c/o of [place] . Having some fatigue. Good movement. No cramping or bleeding. Growth US with EFW 82%, AC 87%. Will start testing at 34 weeks. Would like EIL at 39 weeks (02/17). RTC 2 weeks. Flowsheet Date 01/18/2024 Castro Score Blood Edema Fundus Height Fundus Units Glucose Ketones Leukocytes Nitrite Labor Signs Protein Cervic Dilation Cervic Effacement Cervic Station Type Weight in lbs Pre/Post Dialysis Refused BP Diastolic BP Location Tested BP Systolic BP Type Fetus Heart Rate Present Fetus Movement Comments Flowsheet Date 01/18/2024 Castro Score Blood Edema Fundus Height Fundus Units Glucose Ketones Leukocytes Nitrite Labor Signs Protein Cervic Dilation Cervic Effacement Cervic Station Type Weight in lbs Pre/Post Dialysis Refused BP Diastolic BP Location Tested BP Systolic BP Type Fetus Heart Rate Present Fetus Movement Comments Flowsheet Date 01/18/2024 Castro Score Blood Edema Fundus Height Fundus Units Glucose Ketones Leukocytes Nitrite Labor Signs Protein Cervic Dilation Cervic Effacement Cervic Station neg none none trace Type Weight in lbs Pre/Post Dialysis Refused Weight 267.326476136681 BP Diastolic BP Location Tested BP Systolic BP Type 74 L arm 117 sitting Fetus Heart Rate Present A 140 Fetus Movement A Yes Comments Patient c/o of [place] . Good movement. No bleeding or LOF. BPP 10/10, polyhydramnios 30cm. RSV vaccine received. Preadmission scheduled. scheduled for vasectomy on Wednesday. RTC 1 week. Flowsheet Date 01/25/2024 Castro Score Blood Edema Fundus Height Fundus Units Glucose Ketones Leukocytes Nitrite Labor Signs Protein Cervic Dilation Cervic Effacement Cervic Station Type Weight in lbs Pre/Post Dialysis Refused BP Diastolic BP Location Tested BP Systolic BP Type Fetus Heart Rate Present Fetus Movement Comments Flowsheet Date 01/25/2024 Castro Score Blood Edema Fundus Height Fundus Units Glucose Ketones Leukocytes Nitrite Labor Signs Protein Cervic Dilation Cervic Effacement Cervic Station Type Weight in lbs Pre/Post Dialysis Refused BP Diastolic BP Location Tested BP Systolic BP Type Fetus Heart Rate Present Fetus Movement Comments Flowsheet Date 01/25/2024 Castro Score Blood Edema Fundus Height Fundus Units Glucose Ketones Leukocytes Nitrite Labor Signs Protein Cervic Dilation Cervic Effacement Cervic Station neg none none trace Type Weight in lbs Pre/Post Dialysis Refused Weight 268.10618688189 BP Diastolic BP Location Tested BP Systolic BP Type 78 L arm 113 sitting Fetus Heart Rate Present A 135 Fetus Movement A Yes Comments Good movement. No ctx, LOF, VB. BPP 10/10, JEET 20.82cm. Vasectomy done, doing well. EIL scheduled 02/17. Labor precautions reviewed. Discussed GBS and SVE for next visit. Flowsheet Date 02/01/2024 Castro Score Blood Edema Fundus Height Fundus Units Glucose Ketones Leukocytes Nitrite Labor Signs Protein Cervic Dilation Cervic Effacement Cervic Station Type Weight in lbs Pre/Post Dialysis Refused BP Diastolic BP Location Tested BP Systolic BP Type Fetus Heart Rate Present Fetus Movement Comments Flowsheet Date 02/01/2024 Castro Score Blood Edema Fundus Height Fundus Units Glucose Ketones Leukocytes Nitrite Labor Signs Protein Cervic Dilation Cervic Effacement Cervic Station Type Weight in lbs Pre/Post Dialysis Refused BP Diastolic BP Location Tested BP Systolic BP Type Fetus Heart Rate Present Fetus Movement Comments Flowsheet Date 02/01/2024 Castro Score Blood Edema Fundus Height Fundus Units Glucose Ketones Leukocytes Nitrite Labor Signs Protein Cervic Dilation Cervic Effacement Cervic Station neg none none trace 3cm 50% -2 Type Weight in lbs Pre/Post Dialysis Refused Weight 268.01138206106 BP Diastolic BP Location Tested BP Systolic BP Type 80 L arm 115 sitting Fetus Heart Rate Present A 135 Fetus Movement A Yes Comments Patient c/o of [place] and swelling in hands and feet. Good movement. Had some irregular contractions over the weekend. No bleeding or LOF. GBS collected, SVE performed. EFW 92%, vertex, borderline high JEET. BPP 8/10. Continue weekly testing. RTC 1 week. Labor precautions reviewed. Flowsheet Date 02/08/2024 Castro Score Blood Edema Fundus Height Fundus Units Glucose Ketones Leukocytes Nitrite Labor Signs Protein Cervic Dilation Cervic Effacement Cervic Station Type Weight in lbs Pre/Post Dialysis Refused BP Diastolic BP Location Tested BP Systolic BP Type Fetus Heart Rate Present Fetus Movement Comments Flowsheet Date 02/08/2024 Castro Score Blood Edema Fundus Height Fundus Units Glucose Ketones Leukocytes Nitrite Labor Signs Protein Cervic Dilation Cervic Effacement Cervic Station Type Weight in lbs Pre/Post Dialysis Refused BP Diastolic BP Location Tested BP Systolic BP Type Fetus Heart Rate Present Fetus Movement Comments Flowsheet Date 02/08/2024 Castro Score Blood Edema Fundus Height Fundus Units Glucose Ketones Leukocytes Nitrite Labor Signs Protein Cervic Dilation Cervic Effacement Cervic Station neg none Type Weight in lbs Pre/Post Dialysis Refused Weight 271.047377152181 BP Diastolic BP Location Tested BP Systolic BP Type 77 L arm 111 sitting Fetus Heart Rate Present A 135 Fetus Movement A Yes Comments Patient c/o of [place] . Was diagnosed with COVID last week. Feeling better. Good movement. BPP 8/10, no movement. Labor precautions reviewed. Flowsheet Date 02/15/2024 Castro Score Blood Edema Fundus Height Fundus Units Glucose Ketones Leukocytes Nitrite Labor Signs Protein Cervic Dilation Cervic Effacement Cervic Station Type Weight in lbs Pre/Post Dialysis Refused BP Diastolic BP Location Tested BP Systolic BP Type Fetus Heart Rate Present Fetus Movement Comments Flowsheet Date 02/15/2024 Castro Score Blood Edema Fundus Height Fundus Units Glucose Ketones Leukocytes Nitrite Labor Signs Protein Cervic Dilation Cervic Effacement Cervic Station Type Weight in lbs Pre/Post Dialysis Refused Weight 274.166454994681 BP Diastolic BP Location Tested BP Systolic BP Type 75 109 Fetus Heart Rate Present Fetus Movement Comments Flowsheet Date 02/15/2024 Castro Score Blood Edema Fundus Height Fundus Units Glucose Ketones Leukocytes Nitrite Labor Signs Protein Cervic Dilation Cervic Effacement Cervic Station neg none Type Weight in lbs Pre/Post Dialysis Refused 274.743282125050 BP Diastolic BP Location Tested BP Systolic BP Type 75 L arm 109 sitting Fetus Heart Rate Present A 140 Fetus Movement A Yes Comments Patient c/o of [place] and swelling in hands and feet. Good movement. Intermittent contractions. No bleeding. Ready for induction Wednesday, plan for pitocin. Labor precautions reviewed. BPP 10. Menstrual History Last Menstrual Date Menses Monthly On Bcp Conception Prior Menses Frequency Hcg Plus Date Menarche Onset Age 0305/21/2023 Genetic Screening And Infection History Question Response Note Mental Retardation/Autism false Patient's Age Will Be 35 Years Or Older At Estim ated Date of Delivery false Thalassemia ([place], Occitan, Mediterranean, Or Background): MCV < 80 false Neural Tube Defect (Meningomyelocele, Spina Bifi da, Or Anencephaly) false Congenital Heart Defect false Down Syndrome false Domingo-Sachs (eg, Church, [place], [place]) f alse Donn Disease false Sickle Cell Disease Or Trait () false Hemophilia Or Other Blood Disorders false Muscular Dystrophy false Cystic Fibrosis false Ron's Chorea false Intellectual Disability/Autism false If Yes, Was Person Tested For Fragile X? false Other Inherited Genetic Or Chromosomal Disorder false Maternal Metabolic Disorder (eg, Type 1 Diabetes , PKU) false Patient Or Baby's Father Had A Child With Defects Not Listed Above false Recurrent Loss, Or A Stillbirth false Medications (including Suppl ements, Vitamins, Herbs, OTC Drugs), Illicit/Recreational Drugs, Alcohol false If Yes, Agent(s) And Strength/Dosage false Any Other Genetic History false Live With Someone With TB Or Exposed To TB false Patient Or Partner Has History Of Genital Herpes false Rash Or Viral Illness Since Last Menstrual Perio d false History Of STD, Gonorrhea, Chlamydia, HPV, Syphi lis false Other Infection History false History of HIV false History of Hepatitis false Prior GBS-infected child false Hemoglobinopathy Or Carrier false Other Structural Defect false Recent Travel History Outside of Country false Delivery Information Delivery Date Delivery Type Labor Anesthesia Weeks Gestation Incision Type Labor Labor Length Hrs Delivered By Post Complications Tubal Sterilization Discharge Date Comments Discharge Information Feeding Method Contraceptive Method Maternal HG B and HCT Levels
--- OUTSIDE RECORDS SUMMARY | 2024-02-17 01:18 | XMS_ITS | Data Portability ---
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 Plan of Treatment Reminders Order Date Submit Date Provider Last Modified By Organization Details Last Modified Time Details Appointments INDUCTION 2023 12:01A Archie GALVAN MD Not available Not available Not available Lab None recorded. Referral None recorded. Procedures None recorded. Surgeries None recorded. Imaging non-stres s test 20[email or web address], [address], [place], [address], 02/08/2024 23:25:05 US, obstetric , biophysic al profile + non-stres s test [address], [facility] [address], [place], [address], 02/08/2024 21:47:15 non-stres s test 2023 [email or web address], [facility] [address], [place], [address], 02/17/2024 00:04:49 US, obstetric , biophysic al profile + non-stres s test [email or web address] [facility] [address], [place], [address], 02/15/2024 18:03:42 Medication Orders None recorded. Patient TargetsNo targets recorded. Patient InstructionsNo instructions recorded. Reason for Referral None Reported. Results Created Date Observation Date Name Description Value Unit Range Abnormal Flag Note LastModifiedBy Organization Detail LastModifiedTime 02/01/20 24 02/01/2024 CULTU RE: GROUP B STREP SCREE N, REFLE X SUSCE PTIBI LITY result report SEE RESULT S BELOW Test: Cultu re: Group B Strep , Refle x Susce ptibi lity ([facility] ) Speci men Sourc e: Vagin a/Rec adelina Speci men Type: Vagin al/Re ctal Speci men Date: 01/31 1053 Resul t Date: 02/03 1109 Resul t Statu s: Final resul t Abnor mal: No Resul ting Lab: [facility] [address] [facility] [address] Tel: CULTU RE ----- ----- ----- --- No Group B strep isola bennie at 2 days (jessica ctive broth enhan cemen t) Not Available [facility] (Lab) [address] [facility], [place], [address], 02/04/2024 12:11:59 01/18/20 24 01/18/2024 US, wojciech thompson, bioph ysica l profi le + non-s tress test No observ ation record ed. [email or web address] [facility] [address], [place], [address], 01/18/2024 10:54:49 01/18/2001/18/2024 , wojciech thompson, bioph ysica l profi le + non-s tress test No observ ation record ed. [email or web address] [address], [place], [address], 01/20/2024 00:28:05 01/18/20 24 01/18/2024 non-s tress test No observ ation record ed. [email or web address] [facility] [address], [place], [address], 01/18/2024 10:35:29 01/25/20 24 01/25/2024 non-s tress test No observ ation record ed. [email or web address] [facility] [address], [place], [address], 01/25/2024 10:50:05 01/25/20 24 01/25/2024 US, obste tric, bioph ysica l profi le + non-s tress test No observ ation record ed. [email or web address] [facility] [address], [place], [address], 01/25/2024 12:36:03 01/25/20 24 01/25/2024 US, obste tric, bioph ysica l profi le + non-s tress test No observ ation record ed. [email or web address] [address], [place], [address], 01/26/2024 05:27:30 02/01/20 24 02/01/2024 US, obste tric, follo w-up No observ ation record ed. [email or web address] [facility] [address], [place], [address], 02/01/2024 14:50:11 02/01/20 24 02/01/2024 non-s tress test No observ ation record ed. [email or web address] [facility] [address], [place], [address], 02/01/2024 10:39:26 02/01/20 24 02/01/2024 US, obste tric, follo w-up No observ ation record ed. IAN [address], [place], [address], 02/02/2024 10:36:33 02/08/20 24 02/08/2024 US, obste tric, bioph ysica l profi le + non-s tress test No observ ation record ed. [email or web address] [facility] [address], [place], [address], 02/08/2024 13:02:43 02/08/20 24 02/08/2024 US, obste tric, bioph ysica l profi le + non-s tress test No observ ation record ed. [address], [place], [address], 02/10/2024 11:57:49 02/08/2002/08/2024 non-s tress test No observ ation record ed. [email or web address] [facility] [address], [place], [address], 02/08/2024 11:12:55 02/15/2002/15/2024 US, obste tric, bioph ysica l profi le + non-s tress test No observ ation record ed. [email or web address] [facility] [address], [place], [address], 02/15/2024 12:00:41 02/15/2002/15/2024 US, obste tric, bioph ysica l profi le + non-s tress test No observ ation record ed. [email or web address] [address], [place], [address], 02/15/2024 21:51:48 02/15/2002/15/2024 non-s tress test No observ ation record ed. [facility] [address], [place], [address], 02/15/2024 19:02:15 12/10/20 24 non-s tress test No observ ation record ed. [email or web address] [facility] [address], [place], [address], 02/15/2024 19:06:30 Result Notes None recorded. Problems Name Problem SNOMED Code Status Onset Date Resolution Date Notes Provider Name and Address Organization Details Recorded Time Subchori onic hematoma 438217356 Active 2020 Dixie Chavez [facility], [facility] 1 10:44:01 Pregnanc y 31229515 Completed 202110/24/2021 Shaneka Cuevas [facility] 4 09:59:33 Maternal obesity complica ting pregnanc y, childbir th and the puerperi um, antepart um 9995272023 07 Active BMI 44- ante testing at 34w Anca Blakevika babb [facility], [facility] 2 13:48:38 Maternal obesity complica ting pregnanc y, childbir th and the puerperi , antepart 8468160406 07 Completed BMI 44- ante testing at 34w Ancadaniella babb [facility], [facility] 2 13:48:38 COVID-19 484973391 Completed 2021 Pt informed to take ASA per SP. Serial growth Anca Blakevika babb [facility], [facility] 2 13:48:38 Pregnanc y 54278549 Active 2023 Shaneka Cuevas [facility], [facility] 4 09:59:33 Obesity 923671076 Active Antenata l testing 34wks AALIYAH GALVAN MD [address], [place], [address], , P.C. 4 10:04:23 Prediabe [place] 380621329 Active A1c 5.7 - early GTT at 20wks AALIYAH GALVAN MD [address], [place], [address], [place] [facility] 10:04:23 Problem Notes None recorded. Procedures Surgical History Date Name Laterality Status Provider Name and Address Organization Details Recorded Time 06/01/19 24 Date of Last Pap Smear completed Olga Larson [facility] 12/10/2023 10:42:52 03/08/19 02 Tonsillectomy completed Dixie Chavez [facility] 02/19/2021 09:31:00 Imaging Results Imaging Date Name Status LastModified by Organiz ation Details LastModified Time 01/18/2024 US, obstetric, biophysical profile + non-stress test completed [email or web address] [facility] [address], [place], [address], 01/18/2024 10:54:49 01/18/2024 US, obstetric, biophysical profile + non-stress test completed [email or web address] [address], [place], [address], 01/20/2024 00:28:05 01/18/2024 non-stress test completed [address], [place], [address], 01/18/2024 10:35:29 01/25/2024 non-stress test completed [facility] [address] [facility] [place] [address] [address], [place], [address], 01/25/2024 10:50:05 01/25/2024 US, obstetric, biophysical profile + non-stress test completed [email or web address] [facility] [address], [place], [address], 01/25/2024 12:36:03 01/25/2024 US, obstetric, biophysical profile + non-stress test completed [email or web address] [address], [place], [address], 01/26/2024 05:27:30 02/01/2024 US, obstetric, follow-up completed [email or web address] [place] [address], [place], [address], 02/01/2024 14:50:11 02/01/2024 non-stress test completed [email or web address] [address], [place], [address], 02/01/2024 10:39:26 02/01/2024 US, obstetric, follow-up completed IAN [address], [place], [address], 02/02/2024 10:36:33 02/08/2024 US, obstetric, biophysical profile + non-stress test completed [facility] [place] [address], [place], [address], 02/08/2024 13:02:43 02/08/2024 US, obstetric, biophysical profile + non-stress test completed [email or web address] [address], [place], [address], 02/10/2024 11:57:49 02/08/2024 non-stress test completed [email or web address] [place] [address], [place], [address], 02/08/2024 11:12:55 02/15/2024 US, obstetric, biophysical profile + non-stress test completed [place] [address], [place], [address], 02/15/2024 12:00:41 02/15/2024 US, obstetric, biophysical profile + non-stress test completed [email or web address] [address], [place], [address], 02/15/2024 21:51:48 02/15/2024 non-stress test completed [email or web address] [facility] [address], [place], [address], 02/15/2024 19:02:15 02/15/2024 non-stress test completed [email or web address] [facility] [address], [place], [address], 02/15/2024 19:06:30 Procedure Notes None recorded. Medical Equipment None [...] and Address Organization Details Last Updated DateTime 02/08/2024 162.56 cm 46.5 kg/m2 636893.5 3 g 111 mm[Hg] 77 mm[Hg] Olga Larson [facility] 10:49:57 Date Recorded Body height Body mass index (BMI) Body weight Systolic blood pressure Diastolic blood pressure Provider Name and Address Organization Details Last Updated DateTime 02/15/2024 162.56 cm 47 kg/m2 181897.3 0938 g 109 mm[Hg] 75 mm[Hg] Olga Marsha [facility] 4 10:34:53 Date Recorded Body height Body mass index (BMI) Body weight Systolic blood pressure Diastolic blood pressure Provider Name and Address Organization Details Last Updated DateTime 02/15/2024 162.56 cm 47 kg/m2 340055.3 1 g 109 mm[Hg] 75 mm[Hg] Sylvie Reich [facility] 4 19:00:39 Social History Question Answer Notes LastModified by Organizat ion Details LastModified Time Tobacco Smoking Status Never Smoker Fartun Carmen ana, [facility] 01/23/2022 12:22:48 Do You Have An Advance Directive? No Information n ot available 02/19/2021 What Is Your Level Of Alcohol Consumption? None [email or web address] Information not available 09/14/2023 If You Are , What Was Your Level Of Alcohol Consumption Prior To ? Occasional Information not available 01/23/2022 How Many Years Have You Consumed Alcohol? 10 Information not available 02/19/2021 Are You Blind Or Do You Have Difficulty Seeing? No [email or web address] Information n ot available 02/19/2021 What Is Your Level Of Caffeine Consumption? None [email or web address] Information not available 12/21/2023 How Much Tobacco Do You Chew? None [email or web address] Information not available 02/19/2021 In The 14 Days Before Symptom Onset, Have You Had Close Contact With A Laboratory-confirm ed COVID-19 While That Case Was Ill? No [email or web address] Information n ot available 02/19/2021 In The 14 Days Before Symptom Onset, Have You Had Close Contact With A Person Who Is Under Investigation For COVID-19 While That Person Was Ill? No Information not available 02/19/2021 Have You Been To An Area Known To Be High Risk For COVID-19? No [email or web address] Information not available 02/19/2021 Are You Deaf Or Do You Have Serious Difficulty Hearing? No Information not available 02/19/2021 What Type Of Diet Are You Following? REGULAR Information n ot available 02/19/2021 What Is The Highest Grade Or Level Of School You Have Completed Or The Highest Degree You Have Received? 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 No Information not available 02/19/2021 Do You Use Protection During Sex? No [email or web address] Information not available 02/19/2021 Do You Use Your Seat Belt Or Car Seat Routinely? Yes [email or web address] Information not available 02/19/2021 Do You Have Smoke And Carbon Monoxide Detectors In Your Home? Yes Information not available 02/19/2021 How Much Tobacco Do You Smoke? No [email or web address] Information not available 02/19/2021 Do You Feel Stressed (tense, Restless, Nervous, Or Anxious, Or Unable To Sleep At Night)? SC90885-1 [email or web address] Information not available 02/19/2021 Do You Use Any Illicit Or Recreational Drugs? No [email or web address] Information not available 02/19/2021 Do You Use Sunscreen Routinely? No Information not available 02/19/2021 Have You Used IV Drugs? No [email or web address] Information not available 02/19/2021 Sex: Unknown Functional Status Question Answer Note LastModified by Organizat ion Details LastModified Time Do you have difficulty walking or climbing stairs? No [email or web address] Information not available 01/23/2022 Are you able to walk? YESWOREST [email or web address] Information not available 02/19/2021 Are you able to care for yourself? Yes [email or web address] Information not available 01/23/2022 Do you have difficulty dressing or bathing? No Information not available 01/23/2022 What is your exercise level? Occasional [email or web address] Information not available 02/19/2021 Mental Status None recorded. Family History Relationship Description Onset Age of this Age Resolved Age Notes LastModified by Organization Details LastModified Time Father Disorder of nervous system Not available 2020 09:30:09 Father Multiple sclerosis [email or web address] Not available 2020 09:30:09 Mother Diabetes mellitus [email or web address] Not available 2020 09:30:09 Mother High risk [email or web address] Not available 2020 09:30:09 Sister Substance abuse [email or web address] Not available 2020 09:30:09 Paternal Uncle Substance abuse [email or web address] Not available 2020 09:30:09 Notes:Cancer form complete [...] Diagnosis/Indication Diagnosis SNOMED-CT Code Diagnosis ICD10 Code 77510 Viki Awad [facility] [address],[place] [address] 02/19/2021 09:17:28 02/19/2021 10:13:24 test positive 920331470 Z32.01 [id number] Jenna Velazquez [facility] [address],[place] [address] 02/24/2021 09:22:10 02/24/2021 10:03:26 [id number] Joellen Cormier [facility] [address],[place] [address] 03/21/2021 10:46:40 03/21/2021 11:33:16 [id number] Jazmyne Maldonado MD [facility] [address],[place] [address] 03/21/2021 10:46:57 03/21/2021 13:57:32 Routine care 702129252 Z34.91 Maternal o besity complicating , childbirth and the puerperium, antepartum 3933223607 07 O99.211 Subchorionic hematoma 60 1985256 O41.8X99 [id number] Radha Rivera CNM [facility] [address],[place] [address] 04/18/2021 14:45:34 04/18/2021 15:25:10 Routine care 386241126 Z34.92 [id number] Jazmyne Maldonado MD [facility] [address],[place] [address] 05/16/2021 12:16:35 07/07/2021 12:31:48 [id number] Radha Rivera CNM [facility] [address],[place] [address] 05/16/2021 12:50:48 05/16/2021 13:00:16 Routine care 048932691 Z34.92 [id number] Joellen Cormier [facility] [address],[place] [address] 05/30/2021 09:19:30 05/30/2021 10:39:07 screening 158916059 Z36.3 [id number] Radha [facility]hamDOMINGO [facility] [address],[place] [address] 05/30/2021 09:19:58 05/30/2021 10:53:00 Routine care 880022525 Z34.92 [id number] [facility] [address],[place] [address] 06/23/2021 16:34:30 06/24/2021 16:47:29 Routine care 300210913 Z34.92 [id number] [facility] [address],[place] [address] 06/23/2021 16:34:51 06/24/2021 15:40:59 screening 193349551 Z36.2 [id number] [facility] [address],[place] [address] 07/22/2021 09:30:15 07/24/2021 16:57:04 Routine care 954857377 Z34.92 [id number] [facility] [address],[place] [address] 08/07/2021 09:26:03 08/07/2021 10:17:58 Routine care 136442790 Z34.92 [id number] [facility] [address],[place] [address] 08/18/2021 09:50:44 08/18/2021 17:41:30 Routine care 865078293 Z34.92 [id number] Brie Lezama [facility] [address] [place] [place] [address] 09/01/2021 09:49:27 09/01/2021 12:03:10 Maternal obesity complicating , childbirth and the puerperium, antepartum 6940348382 07 O99.213 Z3A.34 [id number] [facility] [address] [place] [place] [address] 09/01/2021 09:49:49 09/01/2021 11:05:55 Maternal obesity complicating , childbirth and the puerperium, antepartum 8596724706 07 O99.213 Z3A.34 [id number] [facility] [address],[place] [address] 09/01/2021 09:50:06 09/01/2021 11:40:18 Routine care 094719615 Z34.92 [id number] Ruth Harding [facility] [address],[place] [address] 09/09/2021 10:49:23 09/09/2021 12:20:37 Maternal obesity complicating , childbirth and the puerperium, antepartum 1893170280 07 O99.213 Z3A.34 [id number] Joellen Cormier [facility] [address],[place] [address] 09/09/2021 10:50:16 09/09/2021 14:02:53 Maternal obesity complicating , childbirth and the puerperium, antepartum 9969784121 07 O99.213 Z3A.35 [id number] [facility] [address],[place] [address] 09/09/2021 10:50:29 09/10/2021 16:30:34 Routine care 089167329 Z34.92 [id number] [facility] [address],[place] [address] 09/22/2021 09:49:32 09/22/2021 10:32:27 Maternal obesity complicating , childbirth and the puerperium, antepartum 6913058176 07 O99.213 Z3A.37 [id number] Carlos Rosas MD [facility] [address],[place] [address] 09/22/2021 09:50:01 09/22/2021 11:28:34 Routine care 068914831 Z34.93 [id number] [facility] [address],[place] [address] 09/29/2021 09:50:22 09/29/2021 10:38:38 Maternal obesity complicating , childbirth and the puerperium, antepartum 5097904659 07 O99.213 U07.1 Z3A.38 [id number] Carlos Rosas MD [facility] [address],[place] [address] 09/29/2021 09:51:35 09/29/2021 11:48:11 Routine care 691996762 Z34.93 [id number] Carlos Rosas MD [facility] [address],[place] [address] 11/03/2021 12:20:14 11/03/2021 14:57:23 care 597574219 Z39.2 [id number] Carlos Rosas MD [facility] [address],[place] [address] 01/23/2022 12:22:33 01/23/2022 14:31:04 Gynecologic examination 98670179 Z01.419 [id number] BENNY Bertrand [facility] [address],[place] [address] 06/01/2023 10:57:16 06/01/2023 11:36:48 Gynecologic examination 80662493 Z01.419 Reproducti ve care management 803854211 Z31.9 [id number] Ruchi Martinez [facility] [address],[place] [address] 07/16/2023 11:14:51 07/16/2023 11:39:14 [id number] AALIYAH GALVAN MD [facility] [address],[place] [address] 07/19/2023 09:17:49 07/19/2023 11:15:24 Maternal obesity complicating , childbirth and the puerperium, antepartum 6836067372 07 O99.213 U07.1 Z3A.38 test positive 035479527 Z32.01 [id number] Jenna Velazquez [facility] [address],[place] [address] 08/16/2023 09:16:08 08/16/2023 09:41:47 screening 175751292 Z36.82 Z36.87 Z3A.12 [id number] Shaneka Cuevas [facility] [address],[place] [address] 08/16/2023 09:16:37 08/16/2023 10:47:07 Routine care 573659517 Z34.81 [id number] AALIYAH GALVAN MD [facility] [address],[place] [address] 09/14/2023 09:30:40 09/14/2023 10:09:53 Maternal obesity complicating , childbirth and the puerperium, antepartum 5339344768 07 O99.213 U07.1 Z3A.38 Prediabetes 972237512 R7 3.03 Gestation period, 16 weeks 86676917 Z3A.16 [id number] [facility] [address],[place] [address] 10/12/2023 09:16:03 10/12/2023 10:24:14 screening for malformation 161986407 Z36.3 O99.210 Z3A.20 [id number] AALIYAH GALVAN MD [facility] [address],[place] [address] 10/12/2023 09:16:53 10/12/2023 11:25:12 Excessive growth affecting management of mother 53390692 O36.62X0 Prediabetes 375892874 R7 3.03 Gestation period, 20 weeks 95843597 Z3A.20 [id number] Jenna Velazquez [facility] [address],[place] [address] 11/09/2023 14:54:24 11/09/2023 16:11:52 Large for gestation age fetus 289167892 O36.62X0 Z3A.24 [id number] AALIYAH GALVAN MD [facility] [address],[place] [address] 11/09/2023 14:54:46 11/09/2023 16:49:25 Prediabetes 992392491 R73.03 Gestation period, 24 weeks 949383002 Z3A.24 [id number] AALIYAH GALVAN MD [facility] [address],[place] [address] 12/10/2023 10:40:50 12/10/2023 12:00:58 Maternal obesity complicating , childbirth and the puerperium, antepartum 6873761481 07 O99.213 U07.1 Z3A.38 Prediabetes 851772785 R7 3.03 Gestation period, 29 weeks 15934830 Z3A.29 [id number] AALIYAH GALVAN MD [facility] [address],[place] [address] 12/21/2023 10:32:33 12/21/2023 11:16:14 Maternal obesity complicating , childbirth and the puerperium, antepartum 1847303092 07 O99.213 Gestation period, 30 weeks 74904197 Z3A.30 [id number] [facility] [address],[place] [address] 01/04/2024 09:41:43 01/04/2024 10:16:29 Maternal obesity complicating , childbirth and the puerperium, antepartum 8008971843 07 O99.213 O36.60X0 Z3A.32 [id number] AALIYAH GALVAN MD [facility] [address],[place] [address] 01/04/2024 09:42:01 01/04/2024 11:10:53 Maternal obesity complicating , childbirth and the puerperium, antepartum 9967458642 07 O99.213 O36.60X0 Z3A.32 Gestation period, 32 weeks 5297451 Z3A.32 [id number] Jenna Velazquez [facility] [address],[place] [address] 01/18/2024 09:18:59 01/18/2024 10:25:52 Maternal obesity complicating , childbirth and the puerperium, antepartum 8283194546 07 O99.213 O99.891 Z3A.34 [id number] Ruth Harding [facility] [address],[place] [address] 01/18/2024 09:20:07 01/18/2024 10:36:16 Maternal obesity complicating , childbirth and the puerperium, antepartum 0626097991 07 O99.213 O36.60X0 Z3A.32 [id number] AALIYAH GALVAN MD [facility] [address],[place] [address] 01/18/2024 09:20:25 01/18/2024 11:27:10 Polyhydramnios 57676996 O40.3XX0 Maternal o besity complicating , childbirth and the puerperium, antepartum 7221550646 07 O99.213 O36.60X0 Z3A.32 Gestation period, 34 weeks 89185281 Z3A.34 [id number] Ruchinasir Eduardoalexey [facility] [address],[place] [address] 01/25/2024 09:18:22 01/25/2024 10:11:43 Maternal obesity complicating , childbirth and the puerperium, antepartum [id number] 07 O99.213 Z3A.35 [id number] Ruth Meaghan Hoffmeister [address],[place] [address] 01/25/2024 09:18:50 01/25/2024 10:55:21 Maternal obesity complicating , childbirth and the puerperium, antepartum [id number] 07 O99.213 O36.60X0 Z3A.32 [id number] AALIYAH GALVAN MD Hoffmeister [address],[place] [address] 01/25/2024 09:19:07 01/25/2024 10:59:24 Maternal obesity complicating , childbirth and the puerperium, antepartum [id number] 07 O99.213 Z3A.35 Gestation period, 35 weeks [id number] Z3A.35 [id number] Jennadinah Velazquez Hoffmeister [address],[place] [address] 02/01/2024 09:19:27 02/01/2024 10:06:24 Maternal obesity complicating , childbirth and the puerperium, antepartum [id number] 07 O99.213 Z3A.36 [id number] Ruth Harding [facility] [address],[place] [address] 02/01/2024 09:20:04 02/01/2024 10:43:00 Maternal obesity complicating , childbirth and the puerperium, antepartum [id number] 07 O99.213 Z3A.35 [id number] AALIYAH GALVAN MD [facility] [address],[place] [address] 02/01/2024 09:20:22 02/01/2024 11:13:01 Excessive growth affecting management of mother [id number] O36.62X0 Gestation period, 36 weeks 99010428 Z3A.36 Polyhydramnios [id number] O40.3XX0 [id number] [facility] [address],[place] [address] 02/08/2024 09:16:54 02/08/2024 10:17:19 Maternal obesity complicating , childbirth and the puerperium, antepartum [id number] 07 O99.213 Z3A.37 [id number] Olgabari Larson [facility] [address],[place] [address] 02/08/2024 09:17:13 02/08/2024 11:16:09 Maternal obesity complicating , childbirth and the puerperium, antepartum [id number] 07 O99.213 Z3A.35 [id number] AALIYAH GALVAN MD [facility] [address],[place] [address] 02/08/2024 09:17:28 02/08/2024 11:33:44 Maternal obesity complicating , childbirth and the puerperium, antepartum [id number] 07 O99.213 Z3A.35 Gestation period, 37 weeks [id number] Z3A.37 [id number] [facility] [address],[place] [address] 02/15/2024 09:23:22 02/15/2024 10:02:58 Maternal obesity complicating , childbirth and the puerperium, antepartum [id number] 07 O99.213 Z3A.38 [id number] Sylvie Reich [facility] [address],[place] [address] 02/15/2024 09:24:03 02/16/2024 09:44:34 Maternal obesity complicating , childbirth and the puerperium, antepartum [id number] 07 O99.213 [id number] AALIYAH GALVAN MD [facility] [address],[place] [address] 02/15/2024 09:25:10 02/15/2024 11:08:21 Maternal obesity complicating , childbirth and the puerperium, antepartum [id number] 07 O99.213 Z3A.38 Gestation period, 38 weeks [id number] Z3A.38 Health Concerns Section Related Observation LastModified by Organization Detai ls LastModified Time None Recorded Concern Status LastModified by Organization Details LastModified Time None Recorded Advance Directives Directive N: Payers Encounter Date Sequence Insurance Name Policy Number Policy Patino Covered Member ID Patino Member ID Guarantor Name 02/08/2024 1 [place] [id number] Logyn A Gar [id number] Logyn Gar 02/08/2024 1 [place] [id number] Logyn A Gar [id number] Logyn Gar 02/15/2024 1 [place] [id number] Logyn A Gar [id number] Logyn Gar 02/15/2024 1 [place] [id number] Logyn A Gar [id number] Logyn Gar 02/15/2024 1 [place] [id number] Logyn A Gar [id number] Logyn Gar OBGyn Episode Ob Episode Information Episode Created Date Number of Fetuses Patient Bloodtype Patient rh Status Prepregnancy Weight lbs Domestic Partner Domestic Partner Phone Father Name Assistant Professor Of Nursing Status 03/21/19 22 1 A Positive 264 CLOSED Fetus Data First Name Last Name Admitted to NICU Weight (g) Sex Living Outcome Pediatric Complications Fetus ID Race Codes Race Delivery Type 3373.59 05 F true Full Term terminal meconium [id number] Vaginal Delivery Problems Problem Notes PNL WNL Problem Name Start Date End Date Resolution Snomed Code Not e Maternal obesity complicating , childbirth and the puerperium, antepartum 056068012579 BMI 4 4- ante testing at 34w COVID-19 09/14/2021 [id number] Pt inform ed to take ASA per SP. Serial growth Radha Calculation RADHA Calculation Method Initial Radha Date Initial Exam Date Initial Exam Provider Initial Ultrasound Date Last Menstrual Period Date Ultra Sound Weeks Gestation Conception by IVF Embryo Age at Transfer Date of Transfer 10/12/19 22 03/21/19 22 02/17/2021 12/29/2020 6 Eighteen To Twenty Week Radha Update Ultra Sound Date Fundal Height At Umbil Quickening Date Ultra Sound Latest Weeks Gestation Final Radha Confirmed By Final Radha Confirmed Date Final Radha Date Ultra Sound Latest Days Gestation 0 [email or web address] 03/21/2021 10/12/19 22 0 Pre- Flowsheet Flowsheet Date 03/21/2021 Castro Score Blood Edema Fundus Height Fundus Units Glucose Ketones Leukocytes Nitrite Labor Signs Protein Cervic Dilation Cervic Effacement Cervic Station neg none none trace Type Weight in lbs Pre/Post Dialysis Refused Weight 261.62773283855 BP Diastolic BP Location Tested BP Systolic BP Type 78 119 Fetus Heart Rate Present A 155 Fetus Movement A No Comments Noble is a 25yo G1 at 10.6 b y 6w US for care. Discussed the change in her dates due to early US not cw LMP. She had HAWA earlier which has resolved. US today normal progression but needs NT unable to be done. Pt declines repeat due to doing NIPT today with PNL. BMI 44- discussed risks of obesity in and testing at 34w. Flu shot done, COVID done and booster done. Questions answered. Flowsheet Date 04/18/2021 Castro Score Blood Edema Fundus Height Fundus Units Glucose Ketones Leukocytes Nitrite Labor Signs Protein Cervic Dilation Cervic Effacement Cervic Station neg none trace Type Weight in lbs Pre/Post Dialysis Refused Weight 261.35366181489 BP Diastolic BP Location Tested BP Systolic BP Type 80 118 Fetus Heart Rate Present Fetus Movement A Yes Comments patient states that having s ome hip pain, discharge and nausea. 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 Flowsheet Date 05/16/2021 Castro Score Blood Edema Fundus Height Fundus Units Glucose Ketones Leukocytes Nitrite Labor Signs Protein Cervic Dilation Cervic Effacement Cervic Station Type Weight in lbs Pre/Post Dialysis Refused BP Diastolic BP Location Tested BP Systolic BP Type Fetus Heart Rate Present Fetus Movement Comments Flowsheet Date 05/30/2021 Castro Score Blood Edema Fundus Height Fundus Units Glucose Ketones Leukocytes Nitrite Labor Signs Protein Cervic Dilation Cervic Effacement Cervic Station Type Weight in lbs Pre/Post Dialysis Refused BP Diastolic BP Location Tested BP Systolic BP Type Fetus Heart Rate Present Fetus Movement Comments Flowsheet Date 05/30/2021 Castro Score Blood Edema Fundus Height Fundus Units Glucose Ketones Leukocytes Nitrite Labor Signs Protein Cervic Dilation Cervic Effacement Cervic Station neg none trace Type Weight in lbs Pre/Post Dialysis Refused Weight 259.851819023591 BP Diastolic BP Location Tested BP Systolic BP Type 73 119 Fetus Heart Rate Present Fetus Movement A Yes Comments anatomy incomplete, cant nolan w labs today will be late for work, plan to draw next visit, doing well +FM f/u 4 weeks with US Flowsheet Date 06/23/2021 Castro Score Blood Edema Fundus Height Fundus Units Glucose Ketones Leukocytes Nitrite Labor Signs Protein Cervic Dilation Cervic Effacement Cervic Station neg none trace Type Weight in lbs Pre/Post Dialysis Refused Weight 265.507924499145 BP Diastolic BP Location Tested BP Systolic BP Type 76 110 Fetus Heart Rate Present Fetus Movement A Yes Comments Doing well. Follow up u/s to day. Will await results. AFP today. Plan 1 hour gtt at next visit. Having a girl Gweniviere Flowsheet Date 06/23/2021 Castro Score Blood Edema Fundus Height Fundus Units Glucose Ketones Leukocytes Nitrite Labor Signs Protein Cervic Dilation Cervic Effacement Cervic Station Type Weight in lbs Pre/Post Dialysis Refused BP Diastolic BP Location Tested BP Systolic BP Type Fetus Heart Rate Present Fetus Movement Comments Flowsheet Date 07/22/2021 Castro Score Blood Edema Fundus Height Fundus Units Glucose Ketones Leukocytes Nitrite Labor Signs Protein Cervic Dilation Cervic Effacement Cervic Station trace trace 29 none trace Type Weight in lbs Pre/Post Dialysis Refused Weight 266.317674508790 BP Diastolic BP Location Tested BP Systolic BP Type 75 111 Fetus Heart Rate Present A 146 Fetus Movement A Yes Comments Doing well. 1 hour gtt today . Planning natural approach to labor. Encouraged tdap. Encouraged to decide on pedi. Flowsheet Date 08/07/2021 Castro Score Blood Edema Fundus Height Fundus Units Glucose Ketones Leukocytes Nitrite Labor Signs Protein Cervic Dilation Cervic Effacement Cervic Station neg trace 31 none trace Type Weight in lbs Pre/Post Dialysis Refused Weight 269.069167527201 BP Diastolic BP Location Tested BP Systolic BP Type 68 108 Fetus Heart Rate Present A 138 Fetus Movement A Yes Comments Doing well. TDAP done. Insur tiffanie active as of yesterday. Planning to go to [facility]. Planning to call next week to schedule pre admission. Will start testing at 34 weeks per recommendation. OB given paperwork to schedule. Flowsheet Date 08/18/2021 Castro Score Blood Edema Fundus Height Fundus Units Glucose Ketones Leukocytes Nitrite Labor Signs Protein Cervic Dilation Cervic Effacement Cervic Station neg trace 33 none trace Type Weight in lbs Pre/Post Dialysis Refused Weight 270.76980883169 BP Diastolic BP Location Tested BP Systolic BP Type 71 107 Fetus Heart Rate Present A 133 Fetus Movement A Yes Comments Doing well. No contractions. Will call for pre admit. Discussed testing. Pt has asked to do once weekly testing. We discussed recommendations including risks and benefits of weekly vs twice weekly. We have agreed to once weekly testing. Pt desires 8 week leave after . Will recommend d/t bonding and . Flowsheet Date 09/01/2021 Castro Score Blood Edema Fundus Height Fundus Units Glucose Ketones Leukocytes Nitrite Labor Signs Protein Cervic Dilation Cervic Effacement Cervic Station Type Weight in lbs Pre/Post Dialysis Refused BP Diastolic BP Location Tested BP Systolic BP Type Fetus Heart Rate Present Fetus Movement Comments Flowsheet Date 09/01/2021 Castro Score Blood Edema Fundus Height Fundus Units Glucose Ketones Leukocytes Nitrite Labor Signs Protein Cervic Dilation Cervic Effacement Cervic Station Type Weight in lbs Pre/Post Dialysis Refused BP Diastolic BP Location Tested BP Systolic BP Type Fetus Heart Rate Present Fetus Movement Comments Flowsheet Date 09/01/2021 Castro Score Blood Edema Fundus Height Fundus Units Glucose Ketones Leukocytes Nitrite Labor Signs Protein Cervic Dilation Cervic Effacement Cervic Station neg trace none trace Type Weight in lbs Pre/Post Dialysis Refused Weight 274.385780459756 BP Diastolic BP Location Tested BP Systolic BP Type 81 125 Fetus Heart Rate Present Fetus Movement A Yes Comments Doing well. Does have lower extremity edema. Discussed ways to minimize. Otherwise doing well. Does see chiro for hip discomfort (not new). Flowsheet Date 09/03/2021 Castro Score Blood Edema Fundus Height Fundus Units Glucose Ketones Leukocytes Nitrite Labor Signs Protein Cervic Dilation Cervic Effacement Cervic Station Type Weight in lbs Pre/Post Dialysis Refused BP Diastolic BP Location Tested BP Systolic BP Type Fetus Heart Rate Present Fetus Movement Comments Flowsheet Date 09/09/2021 Castro Score Blood Edema Fundus Height Fundus Units Glucose Ketones Leukocytes Nitrite Labor Signs Protein Cervic Dilation Cervic Effacement Cervic Station Type Weight in lbs Pre/Post Dialysis Refused BP Diastolic BP Location Tested BP Systolic BP Type Fetus Heart Rate Present Fetus Movement Comments Flowsheet Date 09/09/2021 Castro Score Blood Edema Fundus Height Fundus Units Glucose Ketones Leukocytes Nitrite Labor Signs Protein Cervic Dilation Cervic Effacement Cervic Station Type Weight in lbs Pre/Post Dialysis Refused BP Diastolic BP Location Tested BP Systolic BP Type Fetus Heart Rate Present Fetus Movement Comments Flowsheet Date 09/09/2021 Castro Score Blood Edema Fundus Height Fundus Units Glucose Ketones Leukocytes Nitrite Labor Signs Protein Cervic Dilation Cervic Effacement Cervic Station neg trace trace trace Type Weight in lbs Pre/Post Dialysis Refused Weight 276.697833149386 BP Diastolic BP Location Tested BP Systolic BP Type 78 115 Fetus Heart Rate Present Fetus Movement A Yes Comments Doing well. No contractions. Chiro helping with hip discomfort.Pt has been doing testing weekly for increased BMI. Insurance is only covering a small portion and pt feels that the testing is a little excessive considering bmi is the only risk factor. Pt understands the recommendation and verbalized understanding of recommendations but we have agreed to discontinue NST's and do only the BPP at this time. She is paying about $400 out of pocket each week for both. Flowsheet Date 09/22/2021 Castro Score Blood Edema Fundus Height Fundus Units Glucose Ketones Leukocytes Nitrite Labor Signs Protein Cervic Dilation Cervic Effacement Cervic Station Type Weight in lbs Pre/Post Dialysis Refused BP Diastolic BP Location Tested BP Systolic BP Type Fetus Heart Rate Present Fetus Movement Comments Flowsheet Date 09/22/2021 Castro Score Blood Edema Fundus Height Fundus Units Glucose Ketones Leukocytes Nitrite Labor Signs Protein Cervic Dilation Cervic Effacement Cervic Station 37 2cm 50% -2 Type Weight in lbs Pre/Post Dialysis Refused Weight 278.003574868062 BP Diastolic BP Location Tested BP Systolic BP Type 84 R arm 124 sitting Fetus Heart Rate Present A 145 Fetus Movement A Yes Comments gbs, elective induction on 0 10/04/2021, Flowsheet Date 09/29/2021 Castro Score Blood Edema Fundus Height Fundus Units Glucose Ketones Leukocytes Nitrite Labor Signs Protein Cervic Dilation Cervic Effacement Cervic Station Type Weight in lbs Pre/Post Dialysis Refused BP Diastolic BP Location Tested BP Systolic BP Type Fetus Heart Rate Present Fetus Movement Comments Flowsheet Date 09/29/2021 Castro Score Blood Edema Fundus Height Fundus Units Glucose Ketones Leukocytes Nitrite Labor Signs Protein Cervic Dilation Cervic Effacement Cervic Station Type Weight in lbs Pre/Post Dialysis Refused Weight 279.732932152157 BP Diastolic BP Location Tested BP Systolic BP Type 80 R arm 127 sitting Fetus Heart Rate Present A 145 Fetus Movement Comments no complains, discussed arminda ction of labor process, discussed epidural. Good growth, estimated weight was 3500 g Menstrual History Last Menstrual Date Menses Monthly On Bcp Conception Prior Menses Frequency Hcg Plus Date Menarche Onset Age 1012/29/2020 Genetic Screening And Infection History Question Response Note Mental Retardation/Autism false Patient's Age Will Be 35 Years Or Older At Estim ated Date of Delivery false Thalassemia (Solomon Islander, Senegalese, Mediterranean, Or Background): MCV < 80 false Neural Tube Defect (Meningomyelocele, Spina Bifi da, Or Anencephaly) false Congenital Heart Defect false Down Syndrome false Domingo-Sachs (eg, Yazdanism, Cajun, Citizen Of [place]-Maltese) f alse Donn Disease false Sickle Cell Disease Or Trait () false Hemophilia Or Other Blood Disorders false Muscular Dystrophy false Cystic Fibrosis false [place]'s Chorea false Intellectual Disability/Autism false If Yes, [...] Post Complications Tubal Sterilization Discharge Date Comments 2 Induce d Regional-Ep idural 39 false Carlos Rosas MD Maternal Obesity Discharge Information Feeding Method Contraceptive Method Maternal HG B and HCT Levels Ob Episode Information Episode Created Date Number of Fetuses Patient Bloodtype Patient rh Status Prepregnancy Weight lbs Domestic Partner Domestic Partner Phone Father Name Assistant Professor Of Nursing Status 08/16/19 24 1 A Positive 250.8 OPEN Fetus Data First Name Last Name Admitted to NICU Weight (g) Sex Living Outcome Pediatric Complications Fetus ID Race Codes Race Delivery Type [id number] Problems Problem Notes Problem Name Start Date End Date Resolution Snomed Code Not e Obesity [id number] testing 34wks Prediabetes 511604992 A1c 5.7 - early GTT at 20wks [...] Weeks Gestation Final Radha Confirmed By Final Rahda Confirmed Date Final Radha Date Ultra Sound Latest Days Gestation 0 [email or web address] 08/16/2023 02/25/20 24 0 Pre-elizabeth Flowsheet Flowsheet Date 08/16/2023 Castro Score Blood Edema Fundus Height Fundus Units Glucose Ketones Leukocytes Nitrite Labor Signs Protein Cervic Dilation Cervic Effacement Cervic Station Type Weight in lbs Pre/Post Dialysis Refused Weight 245.73717608758 BP Diastolic BP Location Tested BP Systolic BP Type 79 121 Fetus Heart Rate Present A 154 Fetus Movement Comments Presents to establish prenat co care. has been thus far uncomplicated. Nausea [...] Weight in lbs Pre/Post Dialysis Refused Weight 251.682077737706 BP Diastolic BP Location Tested BP Systolic [...] Weight in lbs Pre/Post Dialysis Refused Weight 252.319428600970 BP Diastolic BP Location Tested BP Systolic [...] Weight in lbs Pre/Post Dialysis Refused Weight 256.430583013287 BP Diastolic BP Location Tested BP Systolic [...] Type Weight in lbs Pre/Post Dialysis Refused 257.540019840124 BP Diastolic BP Location Tested BP Systolic [...] Weight in lbs Pre/Post Dialysis Refused Weight 257.929806353019 BP Diastolic BP Location Tested BP Systolic [...] Weight in lbs Pre/Post Dialysis Refused Weight 262.606105766220 BP Diastolic BP Location Tested BP Systolic BP Type 76 L arm 112 sitting Fetus Heart Rate Present A 143 Fetus Movement A Yes Comments Patient c/o of [place] Bonilla . Having some fatigue. Good movement. [...] Weight in lbs Pre/Post Dialysis Refused Weight 267.067539528751 BP Diastolic BP Location Tested BP Systolic BP Type 74 L arm 117 sitting Fetus Heart Rate Present A 140 Fetus Movement A Yes Comments Patient c/o of [place] . Good movement. No bleeding or [...] Weight in lbs Pre/Post Dialysis Refused Weight 268.06752044855 BP Diastolic BP Location Tested BP Systolic [...] Weight in lbs Pre/Post Dialysis Refused Weight 268.47848754821 BP Diastolic BP Location Tested BP Systolic BP Type 80 L arm 115 sitting Fetus Heart Rate Present A 135 Fetus Movement A Yes Comments Patient c/o of [place] and swelling in hands and feet. [...] Present Fetus Movement Comments Flowsheet Date 02/08/2024 Catsro Score Blood Edema Fundus Height Fundus Units [...] Weight in lbs Pre/Post Dialysis Refused Weight 271.955985565462 BP Diastolic BP Location Tested BP Systolic BP Type 77 L arm 111 sitting Fetus Heart Rate Present A 135 Fetus Movement A Yes Comments Patient c/o of [place] Bon[place] . Was diagnosed with COVID last [...] Weight in lbs Pre/Post Dialysis Refused Weight 274.705844285960 BP Diastolic BP Location Tested BP Systolic BP Type 75 109 Fetus Heart Rate Present Fetus Movement Comments Flowsheet Date 02/15/2024 Castro Score Blood Edema Fundus Height Fundus Units Glucose Ketones Leukocytes Nitrite Labor Signs Protein Cervic Dilation Cervic Effacement Cervic Station neg none Type Weight in lbs Pre/Post Dialysis Refused 274.541672864507 BP Diastolic BP Location Tested BP Systolic BP Type 75 L arm 109 sitting Fetus Heart Rate Present A 140 Fetus Movement A Yes Comments Patient c/o of Raj Bonilla and swelling in hands and feet. Good movement. Intermittent contractions. No bleeding. Ready for induction Wednesday, plan for pitocin. Labor precautions reviewed. BPP 12/15. Menstrual History Last Menstrual Date Menses Monthly On Bcp Conception Prior Menses Frequency Hcg Plus Date Menarche Onset Age 0305/21/2023 Genetic Screening And Infection History Question Response Note Mental Retardation/Autism false Patient's Age Will Be 35 Years Or Older At Estim ated Date of Delivery false Thalassemia (Solomon Islander, Senegalese, Mediterranean, Or Background): MCV < 80 false Neural Tube Defect (Meningomyelocele, Spina Bifi da, Or Anencephaly) false Congenital Heart Defect false Down Syndrome false Domingo-Sachs (eg, Yazdanism, Cajun, Citizen Of [place]-M[place]) f alse Donn Disease false Sickle Cell [...]
--- OUTSIDE RECORDS SUMMARY | 2024-02-17 01:18 | XMS_ITS | Continuity of Care Document ---
Author Organization [facility] [place] Address [address] [place] [address] Care Team Providers Care Customer Assistant Name Role Phone PETE MARTINEZ Primary Care Provider Assessment No assessment recorded. Plan of Treatment Reminders Order Date Submit Date Provider Last Modified By Organization Details Last Modified Time Details Appointments INDUCTION 2023 12:01A Archie GALVAN MD Not available Not available Not available Lab None recorded. Referral None recorded. Procedures None recorded. Surgeries None recorded. Imaging non-stres s test 2023 024 [email or web address] [place], [address], [place], [address], 02/17/2024 00:04:49 Medication Orders None recorded. Patient TargetsNo targets recorded. Patient InstructionsNo instructions recorded. Reason for Referral None Reported. Results Created Date Observation Date Name Description Value Unit Range Abnormal Flag Note LastModifiedBy Organization Detail LastModifiedTime 08/16/1908/16/2023 US, obste tric, nucha l trans lucen cy No observ ation record ed. [email or web address] [place] [address], [place], [address], 08/16/2023 10:17:57 08/16/19 24 08/16/2023 US, obste tric, 1st trime ster No observ ation record ed. [email or web address] [place] [address], [place], [address], 08/16/2023 10:17:45 08/16/19 24 08/16/2023 US, obste tric, nucha l trans lucen cy No observ ation record ed. [email or web address] [address], [place], [address], 08/16/2023 20:31:53 10/12/19 24 10/12/2023 US, obste tric, 2nd or 3rd trime ster No observ ation record ed. [email or web address] [place] [address], [place], [address], 10/12/2023 12:33:34 10/12/19 24 10/12/2023 US, obste tric, 2nd or 3rd trime ster No observ ation record ed. [email or web address] [address], [place], [address], 10/13/2023 14:01:11 10/12/19 24 10/12/2023 US, obste tric, 2nd or 3rd trime ster No observ ation record ed. [email or web address] [address], [place], [address], 10/13/2023 07:42:16 11/09/19 24 11/09/2023 US, obste tric, follo w-up No observ ation record ed. [email or web address] [place] [address], [place], [address], 11/09/2023 18:27:48 11/09/1911/09/2023 US, obste tric, follo w-up No observ ation record ed. [email or web address] [address], [place], [address], 11/10/2023 15:36:54 01/04/20 24 01/04/2024 US, obste tric, follo w-up No observ ation record ed. [email or web address] [place] [address], [place], [address], 01/04/2024 13:22:26 01/04/2001/04/2024 US, obste tric, follo w-up No observ ation record ed. [email or web address] [address], [place], [address], 01/04/2024 12:54:21 01/18/20 24 01/18/2024 US, obste tric, bioph ysica l profi le + non-s tress test No observ ation record ed. [email or web address] [place] [address], [place], [address], 01/18/2024 10:54:49 01/18/20 24 01/18/2024 US, obste tric, bioph ysica l profi le + non-s tress test No observ ation record ed. [email or web address] [address], [place], [address], 01/20/2024 00:28:05 01/18/2001/18/2024 non-s tress test No observ ation record ed. [email or web address] [place] [address], [place], [address], 01/18/2024 10:35:29 01/25/20 24 01/25/2024 non-s tress test No observ ation record ed. [email or web address] [place] [address], [place], [address], 01/25/2024 10:50:05 01/25/20 24 01/25/2024 US, obste tric, bioph ysica l profi le + non-s tress test No observ ation record ed. [email or web address] [place] [address], [place], [address], 01/25/2024 12:36:03 01/25/20 24 01/25/2024 US, obste tric, bioph ysica l profi le + non-s tress test No observ ation record ed. [email or web address] [address], [place], [address], 01/26/2024 05:27:30 02/01/20 24 02/01/2024 US, obste tric, follo w-up No observ ation record ed. [email or web address] [place] [address], [place], [address], 02/01/2024 14:50:11 02/01/2002/01/2024 non-s tress test No observ ation record ed. [email or web address] [place] [address], [place], [address], 02/01/2024 10:39:26 02/01/20 24 02/01/2024 US, obste tric, follo w-up No observ ation record ed. IAN [address], [place], [address], 02/02/2024 10:36:33 02/08/20 24 02/08/2024 US, obste tric, bioph ysica l profi le + non-s tress test No observ ation record ed. [email or web address] [place] [address], [place], [address], 02/08/2024 13:02:43 02/08/20 24 02/08/2024 US, obste tric, bioph ysica l profi le + non-s tress test No observ ation record ed. [email or web address] [address], [place], [address], 02/10/2024 11:57:49 02/08/20 24 02/08/2024 non-s tress test No observ ation record ed. [place] [address], [place], [address], 02/08/2024 11:12:55 02/15/20 24 02/15/2024 US, obste tric, bioph ysica l profi le + non-s tress test No observ ation record ed. [email or web address] [place] [address], [place], [address], 02/15/2024 12:00:41 02/15/20 24 02/15/2024 US, obste tric, bioph ysica l profi le + non-s tress test No observ ation record ed. [email or web address] [address], [place], [address], 02/15/2024 21:51:48 02/15/20 24 02/15/2024 non-s tress test No observ ation record ed. [place] [address], [place], [address], 02/15/2024 19:02:15 02/15/20 non-s tress test No observ ation record ed. [email or web address] [place] [address], [place], [address], 02/15/2024 19:06:30 Result Notes None recorded. Problems Name Problem SNOMED Code Status Onset Date Resolution Date Notes Provider Name and Address Organization Details Recorded Time Subchori onic hematoma 925803312 Active 2020 Dixie perez [facility] 1 10:44:01 Pregnanc y 65998421 Completed 202110/24/2021 Shaneka perez [facility] 4 09:59:33 Maternal obesity complica ting pregnanc y, childbir th and the puerperi um, antepart um 4855858862 07 Active BMI 44- ante testing at 34w Anca babb null, [facility] 2 13:48:38 Maternal obesity complica ting pregnanc y, childbir th and the puerperi um, antepart um 0036711219 07 Completed BMI 44- ante testing at 34w Anca babb null, [facility] 2 13:48:38 COVID-19 004791751 Completed 2021 Pt informed to take ASA per SP. Serial growth Anca babb [facility], [facility] 2 13:48:38 Pregnanc y 53461857 Active 2023 Shaneka Cuevas [facility], [facility] 4 09:59:33 Obesity 400847800 Active Antenata l testing 34wks AALIYAH GALVAN MD [address], [place], [address], [facility] 4 10:04:23 Prediabe [place] 656296329 Active A1c 5.7 - early GTT at 20wks AALIYAH GALVAN MD [address], [place], [address], [facility] 4 10:04:23 Problem Notes None recorded. Procedures Surgical History Date Name Laterality Status Provider Name and Address Organization Details Recorded Time 06/01/19 24 Date of Last Pap Smear completed Olga Larson [facility] 12/10/2023 10:42:52 03/08/19 02 Tonsillectomy completed Dixie Chavez [facility] 02/19/2021 09:31:00 Imaging Results Imaging Date Name Status LastModified by [email or web address] Details LastModified Time 02/15/2024 non-stress test completed [email or web address] [place] [address], [place], [address], 02/15/2024 19:02:15 Procedure Notes None recorded. Medical Equipment None [...] Updated DateTime 02/15/2024 162.56 cm 47 kg/m2 229637.3 0938 g 109 mm[Hg] 75 mm[Hg] Olga Larson [facility] 4 10:34:53 Date Recorded Body height Body mass index (BMI) Body weight Systolic blood pressure Diastolic blood pressure Provider Name and Address Organization Details Last Updated DateTime 02/15/2024 162.56 cm 47 kg/m2 348288.3 1 g 109 mm[Hg] 75 mm[Hg] Sylvie Reich [facility] 4 19:00:39 Social History Question Answer Notes LastModified by Organizat ion Details LastModified Time Tobacco Smoking Status Never Smoker Fartun Kermit [facility] 01/23/2022 12:22:48 Do You Have An Advance Directive? No [email or web address] Information n ot available 02/19/2021 What Is Your Level Of Alcohol Consumption? None [email or web address] Information not available 09/14/2023 If You Are , What Was Your Level Of Alcohol Consumption Prior To ? Occasional [email or web address] Information not available 01/23/2022 How Many Years Have You Consumed Alcohol? 10 [email or web address] Information not available 02/19/2021 Are You Blind Or Do You Have Difficulty Seeing? No [email or web address] Information n ot available 02/19/2021 What Is Your Level Of Caffeine Consumption? None [email or web address] Information not available 12/21/2023 How Much Tobacco Do You Chew? None Information not available 02/19/2021 In The 14 Days Before Symptom Onset, Have You Had Close Contact With A Laboratory-confirm ed COVID-19 While That Case Was Ill? No [email or web address] Information n ot available 02/19/2021 In The 14 Days Before Symptom Onset, Have You Had Close Contact With A Person Who Is Under Investigation For COVID-19 While That Person Was Ill? No Information not available 02/19/2021 Have You Been To An Area Known To Be High Risk For COVID-19? No [email or web address] Information not available 02/19/2021 Are You Deaf Or Do You Have Serious Difficulty Hearing? No [email or web address] Information not available 02/19/2021 What Type Of Diet Are You Following? REGULAR [email or web address] Information n ot available 02/19/2021 What Is The Highest Grade Or Level Of School You Have Completed Or The Highest Degree You Have Received? 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 No [email or web address] Information not available 02/19/2021 Do You Use Protection During Sex? No [email or web address] Information not available 02/19/2021 Do You Use Your Seat Belt Or Car Seat Routinely? Yes Information not available 02/19/2021 Do You Have Smoke And Carbon Monoxide Detectors In Your Home? Yes [email or web address] Information not available 02/19/2021 How Much Tobacco Do You Smoke? No [email or web address] Information not available 02/19/2021 Do You Feel Stressed (tense, Restless, Nervous, Or Anxious, Or Unable To Sleep At Night)? MC45976-1 [email or web address] Information not available 02/19/2021 Do You Use Any Illicit Or Recreational Drugs? No [email or web address] Information not available 02/19/2021 Do You Use Sunscreen Routinely? No [email or web address] Information not available 02/19/2021 Have You Used IV Drugs? No [email or web address] Information not available 02/19/2021 Sex: Unknown Functional Status Question Answer Note LastModified by Organizat ion Details LastModified Time Do you have difficulty walking or climbing stairs? No [email or web address] Information not available 01/23/2022 Are you able to walk? [email or web address] Information not available 02/19/2021 Are you able to care for yourself? Yes [email or web address] Information not available 01/23/2022 Do you have difficulty dressing or bathing? No [email or web address] Information not available 01/23/2022 What is your exercise level? Occasional Information not available 02/19/2021 Mental Status None recorded. Family History Relationship Description Onset Age of this Age Resolved Age Notes LastModified by Organization Details LastModified Time Father Disorder of nervous system [email or web address] Not available 2020 09:30:09 Father Multiple sclerosis [email or web address] Not available 2020 09:30:09 Mother Diabetes mellitus [email or web address] Not available 2020 09:30:09 Mother High risk [email or web address] Not available 2020 09:30:09 Sister Substance abuse [email or web address] Not available 2020 09:30:09 Paternal Uncle Substance abuse [email or web address] Not available 2020 09:30:09 Notes:Cancer form complete 1 04/21/2020 Medical History Condition Response Allergies (Food, seasonal, environmental ) N Other Y Drug/Latex Allergies/Reactions N Breast Cancer N Blood Transfusion N Lung Disease N Dermatologic Disorders N Defects or Inherited Disease N Breast [...] Diagnosis/Indication Diagnosis SNOMED-CT Code Diagnosis ICD10 Code [id number] Jenna Velazquez [place] [address],[place] [address] 01/18/2024 09:18:59 01/18/2024 10:25:52 Maternal obesity complicating , childbirth and the puerperium, antepartum 1609415828 07 O99.213 O99.891 Z3A.34 [id number] Ruth Meaghan [place] [address],[place] [address] 01/18/2024 09:20:07 01/18/2024 10:36:16 Maternal obesity complicating , childbirth and the puerperium, antepartum 1113860902 07 O99.213 O36.60X0 Z3A.32 [id number] AALIYAH GALVAN MD [place] [address],[place] [address] 01/18/2024 09:20:25 01/18/2024 11:27:10 Polyhydramnios 07409526 O40.3XX0 Maternal o besity complicating , childbirth and the puerperium, antepartum 3811774347 07 O99.213 O36.60X0 Z3A.32 Gestation period, 34 weeks 45095434 Z3A.34 [id number] Ruchi aMrtinez [place] [address],[place] [address] 01/25/2024 09:18:22 01/25/2024 10:11:43 Maternal obesity complicating , childbirth and the puerperium, antepartum 0704290474 07 O99.213 Z3A.35 [id number] Ruth [facility] [address],[place] [address] 01/25/2024 09:18:50 01/25/2024 10:55:21 Maternal obesity complicating , childbirth and the puerperium, antepartum 7084626887 07 O99.213 O36.60X0 Z3A.32 [id number] AALIYAH GALVAN MD [place] [address],[place] [address] 01/25/2024 09:19:07 01/25/2024 10:59:24 Maternal obesity complicating , childbirth and the puerperium, antepartum 5651548516 07 O99.213 Z3A.35 Gestation period, 35 weeks 42554741 Z3A.35 [id number] Jenna Velazquez [place] [address],[place] [address] 02/01/2024 09:19:27 02/01/2024 10:06:24 Maternal obesity complicating , childbirth and the puerperium, antepartum 7754939717 07 O99.213 Z3A.36 [id number] [facility] [address],[place] [address] 02/01/2024 09:20:04 02/01/2024 10:43:00 Maternal obesity complicating , childbirth and the puerperium, antepartum 4978471406 07 O99.213 Z3A.35 [id number] AALIYAH GALVAN MD [place] [address],[place] [address] 02/01/2024 09:20:22 02/01/2024 11:13:01 Excessive growth affecting management of mother 13220857 O36.62X0 Gestation period, 36 weeks 37886249 Z3A.36 Polyhydramnios 75575650 O40.3XX0 [id number] [facility] [address],[place] [address] 02/08/2024 09:16:54 02/08/2024 10:17:19 Maternal obesity complicating , childbirth and the puerperium, antepartum 2259790976 07 O99.213 Z3A.37 [id number] Olga Larson [place] [address],[place] [address] 02/08/2024 09:17:13 02/08/2024 11:16:09 Maternal obesity complicating , childbirth and the puerperium, antepartum 4783133970 07 O99.213 Z3A.35 [id number] AALIYAH GALVAN MD [place] [address],[place] [address] 02/08/2024 09:17:28 02/08/2024 11:33:44 Maternal obesity complicating , childbirth and the puerperium, antepartum 7349655131 07 O99.213 Z3A.35 Gestation period, 37 weeks 10252004 Z3A.37 [id number] [facility] [address],[place] [address] 02/15/2024 09:23:22 02/15/2024 10:02:58 Maternal obesity complicating , childbirth and the puerperium, antepartum 1454892097 07 O99.213 Z3A.38 [id number] Sylvie Reich [place] [address],[place] [address] 02/15/2024 09:24:03 02/16/2024 09:44:34 Maternal obesity complicating , childbirth and the puerperium, antepartum 8629402211 07 O99.213 [id number] AALIYAH GALVAN MD [place] [address] [address] 02/15/2024 09:25:10 02/15/2024 11:08:21 Maternal obesity complicating , childbirth and the puerperium, antepartum 1193398491 07 O99.213 Z3A.38 Gestation period, 38 weeks 44199693 Z3A.38 Health Concerns Section Related Observation LastModified by Organization Detai ls LastModified Time None Recorded Concern Status LastModified by Organization Details LastModified Time None Recorded Payers Encounter Date Sequence Insurance Name Policy Number Policy Patino Covered Member ID Patino Member ID Guarantor Name 02/15/2024 1 [place] [id number] Logyn Whitney Gar [id number] Logyn Cong OBGyn Episode Ob Episode Information Episode Created Date Number of Fetuses Patient Bloodtype Patient rh Status Prepregnancy Weight lbs Domestic Partner Domestic Partner Phone Father Name 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 Status 08/16/19 24 1 A Positive 250.8 OPEN Fetus Data First Name Last Name Admitted to NICU Weight (g) Sex Living Outcome Pediatric Complications Fetus ID Race Codes Race Delivery Type [id number] Problems Problem Notes Problem Name Start Date End Date Resolution Snomed Code Not e Obesity 258917499 testing 34wks Prediabetes 688742612 A1c 5.7 - early GTT at 20wks [...] Date Ultra Sound Latest Days Gestation 0 [email or web address] 08/16/2023 02/25/20 24 0 Pre-elizabeth Flowsheet Flowsheet Date 08/16/2023 Castro Score Blood Edema Fundus Height Fundus Units Glucose Ketones Leukocytes Nitrite Labor Signs Protein Cervic Dilation Cervic Effacement Cervic Station Type Weight in lbs Pre/Post Dialysis Refused Weight 245.00421254336 BP Diastolic BP Location Tested BP Systolic [...] Weight in lbs Pre/Post Dialysis Refused Weight 251.157033401540 BP Diastolic BP Location Tested BP Systolic [...] Weight in lbs Pre/Post Dialysis Refused Weight 252.198809878179 BP Diastolic BP Location Tested BP Systolic [...] Weight in lbs Pre/Post Dialysis Refused Weight 256.519208653370 BP Diastolic BP Location Tested BP Systolic [...] Type Weight in lbs Pre/Post Dialysis Refused 257.820126926752 BP Diastolic BP Location Tested BP Systolic [...] Weight in lbs Pre/Post Dialysis Refused Weight 257.940829616405 BP Diastolic BP Location Tested BP Systolic [...] Weight in lbs Pre/Post Dialysis Refused Weight 262.687765901274 BP Diastolic BP Location Tested BP Systolic BP Type 76 L arm 112 sitting Fetus Heart Rate Present A 143 Fetus Movement A Yes Comments Patient c/o of [place] . Having some fatigue. Good movement. [...] Weight in lbs Pre/Post Dialysis Refused Weight 267.348769253566 BP Diastolic BP Location Tested BP Systolic BP Type 74 L arm 117 sitting Fetus Heart Rate Present A 140 Fetus Movement A Yes Comments Patient c/o of [place] . Good movement. No bleeding or [...] Weight in lbs Pre/Post Dialysis Refused Weight 268.21275744801 BP Diastolic BP Location Tested BP Systolic [...] Present Fetus Movement Comments Flowsheet Date 02/01/2024 Casrto Score Blood Edema Fundus Height Fundus Units [...] Weight in lbs Pre/Post Dialysis Refused Weight 268.51357418761 BP Diastolic BP Location Tested BP Systolic BP Type 80 L arm 115 sitting Fetus Heart Rate Present A 135 Fetus Movement A Yes Comments Patient c/o of [place] and swelling in hands and feet. [...] Weight in lbs Pre/Post Dialysis Refused Weight 271.144643417069 BP Diastolic BP Location Tested BP Systolic BP Type 77 L arm 111 sitting Fetus Heart Rate Present A 135 Fetus Movement A Yes Comments Patient c/o of [place] . Was diagnosed with COVID last week. Feeling better. Good movement. BPP 10/15, no movement. Labor precautions reviewed. Flowsheet Date [...] Weight in lbs Pre/Post Dialysis Refused Weight 274.495929192403 BP Diastolic BP Location Tested BP Systolic BP Type 75 109 Fetus Heart Rate Present Fetus Movement Comments Flowsheet Date 02/15/2024 Castro Score Blood Edema Fundus Height Fundus Units Glucose Ketones Leukocytes Nitrite Labor Signs Protein Cervic Dilation Cervic Effacement Cervic Station neg none Type Weight in lbs Pre/Post Dialysis Refused 274.759586246786 BP Diastolic BP Location Tested BP Systolic [...] Estim ated Date of Delivery false Thalassemia (Vietnamese, Zambian, Mediterranean, Or Background): MCV < 80 false Neural Tube Defect (Meningomyelocele, Spina Bifi da, Or Anencephaly) false Congenital Heart Defect false Down Syndrome false Domingo-Sachs (eg, Baptist, Cajun, Monegasque-Archer) f alse Donn Disease false Sickle Cell Disease Or Trait () false Hemophilia Or Other Blood Disorders false Muscular Dystrophy false Cystic Fibrosis false Pierce's Chorea false Intellectual Disability/Autism false If Yes, [...]
--- OUTSIDE RECORDS SUMMARY | 2024-02-17 01:19 | XMS_ITS | Continuity of Care Document ---
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 [email or web address] [place] [address], [place], [address], 08/16/2023 10:17:57 08/16/19 24 08/16/2023 US, obste tric, 1st trime ster No observ ation record ed. [email or web address] [place] [address], [place], [address], 08/16/2023 10:17:45 08/16/19 24 08/16/2023 US, obste tric, nucha l trans lucen cy No observ ation record ed. [email or web address] [address], [place], [address], 08/16/2023 20:31:53 10/12/19 24 10/12/2023 US, obste tric, 2nd or 3rd trime ster No observ ation record ed. [email or web address] [place] [address], [place], [address], 10/12/2023 12:33:34 10/12/19 24 10/12/2023 US, obste tric, 2nd or 3rd trime ster No observ ation record ed. [email or web address] [address], [place], [address], 10/13/2023 14:01:11 10/12/19 24 10/12/2023 US, obste tric, 2nd or 3rd trime ster No observ ation record ed. [email or web address] [address], [place], [address], 10/13/2023 07:42:16 11/09/19 24 11/09/2023 US, obste tric, follo w-up No observ ation record ed. [email or web address] [place] [address], [place], [address], 11/09/2023 18:27:48 11/09/19 24 11/09/2023 US, obste tric, follo w-up No observ ation record ed. [email or web address] [address], [place], [address], 11/10/2023 15:36:54 01/04/20 24 01/04/2024 US, obste tric, follo w-up No observ ation record ed. [email or web address] [place] [address], [place], [address], 01/04/2024 13:22:26 01/04/20 24 01/04/2024 US, obste tric, follo w-up No observ ation record ed. [email or web address] [address], [place], [address], 01/04/2024 12:54:21 01/18/20 24 01/18/2024 US, obste tric, bioph ysica l profi le + non-s tress test No observ ation record ed. [email or web address] [place] [address], [place], [address], 01/18/2024 10:54:49 01/18/20 24 01/18/2024 US, obste tric, bioph ysica l profi le + non-s tress test No observ ation record ed. [email or web address] [address], [place], [address], 01/20/2024 00:28:05 01/18/20 24 01/18/2024 non-s tress test No observ ation record ed. [email or web address] [place] [address], [place], [address], 01/18/2024 10:35:29 01/25/20 24 01/25/2024 non-s tress test No observ ation record ed. [email or web address] [place] [address], [place], [address], 01/25/2024 10:50:05 01/25/20 24 01/25/2024 US, obste tric, bioph ysica l profi le + non-s tress test No observ ation record ed. [email or web address] [place] [address], [place], [address], 01/25/2024 12:36:03 01/25/20 24 01/25/2024 US, obste tric, bioph ysica l profi le + non-s tress test No observ ation record ed. [email or web address] [address], [place], [address], 01/26/2024 05:27:30 02/01/20 24 02/01/2024 US, obste tric, follo w-up No observ ation record ed. [email or web address] [place] [address], [place], [address], 02/01/2024 14:50:11 02/01/20 24 02/01/2024 non-s tress test No observ ation record ed. [email or web address] [place] [address], [place], [address], 02/01/2024 10:39:26 02/01/2002/01/2024 US, obstdylan tric, follo w-up No observ ation record ed. IAN [address], [place], [address], 02/02/2024 10:36:33 02/08/20 24 02/08/2024 US, obste tric, bioph ysica l profi le + non-s tress test No observ ation record ed. [email or web address] [place] [address], [place], [address], 02/08/2024 13:02:43 02/08/20 24 02/08/2024 US, obste tric, bioph ysica l profi le + non-s tress test No observ ation record ed. [email or web address] [address], [place], [address], 02/10/2024 11:57:49 02/08/20 24 02/08/2024 non-s tress test No observ ation record ed. [email or web address] [place] [address], [place], [address], 02/08/2024 11:12:55 02/15/20 24 02/15/2024 US, obste tric, bioph ysica l profi le + non-s tress test No observ ation record ed. [email or web address] [place] [address], [place], [address], 02/15/2024 12:00:41 02/15/20 24 02/15/2024 US, obste tric, bioph ysica l profi le + non-s tress test No observ ation record ed. [address], [place], [address], 02/15/2024 21:51:48 02/15/20 24 02/15/2024 non-s tress test No observ ation record ed. [place] [address], [place], [address], 02/15/2024 19:02:15 02/15/20 non-s tress test No observ ation record ed. [email or web address] [place] [address], [place], [address], 02/15/2024 19:06:30 Result Notes None recorded. Problems Name Problem SNOMED Code Status Onset Date Resolution Date Notes Provider Name and Address Organization Details Recorded Time Subchori onic hematoma 182938222 Active [address] [facility] 1 10:44:01 Pregnanc y 82707551 Completed 202110/24/[address] [facility] 4 09:59:33 Maternal obesity complica ting pregnanc y, childbir th and the puerperi um, antepart um 0477831789 07 Active BMI 44- ante testing at 34w Anca babb [facility] 2 13:48:38 Maternal obesity complica ting pregnanc y, childbir th and the puerperi um, antepart um 1790280384 07 Completed BMI 44- ante testing at 34w Anca babb [facility], [facility] 2 13:48:38 COVID-19 186139906 Completed 2021 Pt informed to take ASA per SP. Serial growth Anca babb [facility], [facility] 2 13:48:38 Pregnanc y 67368440 Active 2023 Shanekapedro luis Cuevas [facility], [facility] 4 09:59:33 Obesity 496111734 Active Antenata l testing 34wks AALIYAH GALVAN MD [address], [place], [address], [facility] 4 10:04:23 Prediabe [place] 526013610 Active A1c 5.7 - early GTT at 20wks AALIYAH GALVAN MD [address], [place], [address], [facility] 4 10:04:23 Problem Notes None recorded. Procedures Surgical History Date Name Laterality Status Provider Name and Address Organization Details Recorded Time 06/01/19 24 Date of Last Pap Smear completed Olga Larson [facility] 12/10/2023 10:42:52 03/08/19 02 Tonsillectomy completed Dixie Chavez [facility] 02/19/2021 09:31:00 Imaging Results None recorded. [...] Updated DateTime 02/08/2024 162.56 cm 46.5 kg/m2 668183.5 3 g 111 mm[Hg] 77 mm[Hg] Olga Larson [facility] 10:49:57 Social History Question Answer Notes LastModified by Organizat ion Details LastModified Time Tobacco Smoking Status Never Smoker [facility] 01/23/2022 12:22:48 Do You Have An Advance Directive? No [email or web address] Information n ot available 02/19/2021 What Is Your Level Of Alcohol Consumption? None [email or web address] Information not available 09/14/2023 If You Are , What Was Your Level Of Alcohol Consumption Prior To ? Occasional [email or web address] Information not available 01/23/2022 How Many Years Have You Consumed Alcohol? 10 [email or web address] Information not available 02/19/2021 Are You Blind Or Do You Have Difficulty Seeing? No [email or web address] Information n ot available 02/19/2021 What Is Your Level Of Caffeine Consumption? None [email or web address] Information not available 12/21/2023 How Much Tobacco Do You Chew? None [email or web address] Information not available 02/19/2021 In The 14 [...] Do You Have Serious Difficulty Hearing? No [email or web address] Information not available 02/19/2021 What Type Of Diet Are You Following? REGULAR [email or web address] Information n ot available 02/19/2021 What Is The Highest Grade Or Level Of School You Have Completed Or The Highest Degree You Have Received? 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 No Information not available 02/19/2021 Do You Use Protection During Sex? No [email or web address] Information not available 02/19/2021 Do You Use Your Seat Belt Or Car Seat Routinely? Yes [email or web address] Information not available 02/19/2021 Do You Have Smoke And Carbon Monoxide Detectors In Your Home? Yes [email or web address] Information not available 02/19/2021 How Much Tobacco Do You Smoke? No [email or web address] Information not available 02/19/2021 Do You Feel Stressed (tense, Restless, Nervous, Or Anxious, Or Unable To Sleep At Night)? [id number] [email or web address] Information not available 02/19/2021 Do You Use Any Illicit Or Recreational Drugs? No [email or web address] Information not available 02/19/2021 Do You Use Sunscreen Routinely? No [email or web address] Information not available 02/19/2021 Have You Used IV Drugs? No Information not available 02/19/2021 Sex: Unknown Functional Status Question Answer Note LastModified by Organizat ion Details LastModified Time Do you have difficulty walking or climbing stairs? No Information not available 01/23/2022 Are you able to walk? [email or web address] Information not available 02/19/2021 Are you able to care for yourself? Yes [email or web address] Information not available 01/23/2022 Do you have difficulty dressing or bathing? No Information not available 01/23/2022 What is your exercise level? Occasional [email or web address] Information not available 02/19/2021 Mental Status None recorded. Family History Relationship Description Onset Age of this Age Resolved Age Notes LastModified by Organization Details LastModified Time Father Disorder of nervous system [email or web address] Not available 2020 09:30:09 Father Multiple sclerosis Not available 2020 09:30:09 Mother Diabetes mellitus [email or web address] Not available 2020 09:30:09 Mother High risk Not available 2020 09:30:09 Sister Substance abuse Not available 2020 09:30:09 Paternal Uncle Substance abuse Not available 2020 09:30:09 Notes:Cancer form complete [...] Diagnosis/Indication Diagnosis SNOMED-CT Code Diagnosis ICD10 Code 825539 Jenna Velazquez [place] [address],[place] [address] 01/18/2024 09:18:59 01/18/2024 10:25:52 Maternal obesity complicating , childbirth and the puerperium, antepartum 8888688514 07 O99.213 O99.891 Z3A.34 [id number] [facility] [address],[place] [address] 01/18/2024 09:20:07 01/18/2024 10:36:16 Maternal obesity complicating , childbirth and the puerperium, antepartum 5988159318 07 O99.213 O36.60X0 Z3A.32 [id number] AALIYAH GALVAN MD [place] [address],[place] [address] 01/18/2024 09:20:25 01/18/2024 11:27:10 Polyhydramnios 31024695 O40.3XX0 Maternal o besity complicating , childbirth and the puerperium, antepartum 6953483463 07 O99.213 O36.60X0 Z3A.32 Gestation period, 34 weeks 63563976 Z3A.34 [id number] Ruchi Martinez [place] [address],[place] [address] 01/25/2024 09:18:22 01/25/2024 10:11:43 Maternal obesity complicating , childbirth and the puerperium, antepartum 2608648603 07 O99.213 Z3A.35 [id number] Ruth [facility] [address],[place] [address] 01/25/2024 09:18:50 01/25/2024 10:55:21 Maternal obesity complicating , childbirth and the puerperium, antepartum 6866200469 07 O99.213 O36.60X0 Z3A.32 [id number] AALIYAH GALVAN MD [place] [address],[place] [address] 01/25/2024 09:19:07 01/25/2024 10:59:24 Maternal obesity complicating , childbirth and the puerperium, antepartum 4340334439 07 O99.213 Z3A.35 Gestation period, 35 weeks 25950363 Z3A.35 [id number] [facility] [address],[place] [address] 02/01/2024 09:19:27 02/01/2024 10:06:24 Maternal obesity complicating , childbirth and the puerperium, antepartum 3358901157 07 O99.213 Z3A.36 [id number] Ruth Harding [place] [address],[place] [address] 02/01/2024 09:20:04 02/01/2024 10:43:00 Maternal obesity complicating , childbirth and the puerperium, antepartum 8811121059 07 O99.213 Z3A.35 [id number] AALIYAH GALVAN MD [place] [address],[place] [address] 02/01/2024 09:20:22 02/01/2024 11:13:01 Excessive growth affecting management of mother 38697907 O36.62X0 Gestation period, 36 weeks 40353177 Z3A.36 Polyhydramnios 94232199 O40.3XX0 [id number] [facility] [address],[place] [address] 02/08/2024 09:16:54 02/08/2024 10:17:19 Maternal obesity complicating , childbirth and the puerperium, antepartum 5150687928 07 O99.213 Z3A.37 [id number] Olga Larson [place] [address],[place] [address] 02/08/2024 09:17:13 02/08/2024 11:16:09 Maternal obesity complicating , childbirth and the puerperium, antepartum 6182359643 07 O99.213 Z3A.35 [id number] AALIYAH GALVAN MD [place] [address] [address] 02/08/2024 09:17:28 02/08/2024 11:33:44 Maternal obesity complicating , childbirth and the puerperium, antepartum 4195590987 07 O99.213 Z3A.35 Gestation period, 37 weeks 68240429 Z3A.37 Health Concerns Section Related Observation LastModified by Organization Detai ls LastModified Time None Recorded Concern Status LastModified by Organization Details LastModified Time None Recorded Payers Encounter Date Sequence Insurance Name Policy Number Policy Patino Covered Member ID Patino Member ID Guarantor Name 02/08/2024 1 [place] [id number] Logyn Whitney Gar [id number] Logyn Cong OBGyn Episode Ob Episode Information Episode Created Date Number of Fetuses Patient Bloodtype Patient rh Status Prepregnancy Weight lbs Domestic Partner Domestic Partner Phone Father Name Lookback Coordinator Status 08/16/19 24 1 A Positive 250.8 OPEN Fetus Data First Name Last Name Admitted to NICU Weight (g) Sex Living Outcome Pediatric Complications Fetus ID Race Codes Race Delivery Type [id number] Problems Problem Notes Problem Name Start Date End Date Resolution Snomed Code Not e Obesity 794294392 testing 34wks Prediabetes 178651223 A1c 5.7 - early GTT at 20wks [...] Date Ultra Sound Latest Days Gestation 0 [email or web address] 08/16/2023 02/25/20 24 0 Pre- Flowsheet Flowsheet Date 08/16/2023 Castro Score Blood Edema Fundus Height Fundus Units Glucose Ketones Leukocytes Nitrite Labor Signs Protein Cervic Dilation Cervic Effacement Cervic Station Type Weight in lbs Pre/Post Dialysis Refused Weight 245.57964325075 BP Diastolic BP Location Tested BP Systolic BP Type 79 121 Fetus Heart Rate Present A 154 Fetus Movement Comments Presents to establish prenat oh care. has been thus far uncomplicated. Nausea [...] Weight in lbs Pre/Post Dialysis Refused Weight 251.180814896771 BP Diastolic BP Location Tested BP Systolic [...] Weight in lbs Pre/Post Dialysis Refused Weight 252.997278121210 BP Diastolic BP Location Tested BP Systolic [...] Weight in lbs Pre/Post Dialysis Refused Weight 256.018160451194 BP Diastolic BP Location Tested BP Systolic [...] Type Weight in lbs Pre/Post Dialysis Refused 257.171801405788 BP Diastolic BP Location Tested BP Systolic [...] Weight in lbs Pre/Post Dialysis Refused Weight 257.283230896542 BP Diastolic BP Location Tested BP Systolic [...] Weight in lbs Pre/Post Dialysis Refused Weight 262.971012798993 BP Diastolic BP Location Tested BP Systolic BP Type 76 L arm 112 sitting Fetus Heart Rate Present A 143 Fetus Movement A Yes Comments Patient c/o of Raj Bonilla . Having some fatigue. Good movement. [...] Weight in lbs Pre/Post Dialysis Refused Weight 267.821906325628 BP Diastolic BP Location Tested BP Systolic BP Type 74 L arm 117 sitting Fetus Heart Rate Present A 140 Fetus Movement A Yes Comments Patient c/o of Raj Bonilla . Good movement. No bleeding or [...] Weight in lbs Pre/Post Dialysis Refused Weight 268.60653520737 BP Diastolic BP Location Tested BP Systolic [...] Weight in lbs Pre/Post Dialysis Refused Weight 268.51137512283 BP Diastolic BP Location Tested BP Systolic BP Type 80 L arm 115 sitting Fetus Heart Rate Present A 135 Fetus Movement A Yes Comments Patient c/o of [place] Bonilla and swelling in hands and feet. [...] Weight in lbs Pre/Post Dialysis Refused Weight 271.489409927997 BP Diastolic BP Location Tested BP Systolic [...] Weight in lbs Pre/Post Dialysis Refused Weight 274.243699851672 BP Diastolic BP Location Tested BP Systolic BP Type 75 109 Fetus Heart Rate Present Fetus Movement Comments Flowsheet Date 02/15/2024 Castro Score Blood Edema Fundus Height Fundus Units Glucose Ketones Leukocytes Nitrite Labor Signs Protein Cervic Dilation Cervic Effacement Cervic Station neg none Type Weight in lbs Pre/Post Dialysis Refused 274.968669517094 BP Diastolic BP Location Tested BP Systolic BP Type 75 L arm 109 sitting Fetus Heart Rate Present A 140 Fetus Movement A Yes Comments Patient c/o of [place] Bon[place] and swelling in hands and feet. [...] Estim ated Date of Delivery false Thalassemia (Armenian, Italian, Mediterranean, Or Background): MCV < 80 false Neural Tube Defect (Meningomyelocele, Spina Bifi da, Or Anencephaly) false Congenital Heart Defect false Down Syndrome false Domingo-Sachs (eg, Latter-Day, Cajun, Portuguese-[place]) f alse Donn Disease false Sickle Cell Disease Or Trait () false Hemophilia Or Other Blood Disorders false Muscular Dystrophy false Cystic Fibrosis false [place]'s Chorea false Intellectual Disability/Autism false If Yes, [...]
--- OUTSIDE RECORDS SUMMARY | 2024-02-17 01:19 | XMS_ITS | Continuity of Care Document ---
Author Organization [facility] [place] Address [address] [place] [address] [place] [address] Care Team Providers Care Activity Therapist Name Role Phone PETE MARTINEZ Primary Care Provider [phone] Assessment No assessment recorded. Plan of Treatment Reminders Order Date Submit Date Provider Last Modified By Organization Details Last Modified Time Details Appointments INDUCTION 2023 12:01A Archie GALVAN MD Not available Not available Not available Lab None recorded. Referral None recorded. Procedures None recorded. Surgeries None recorded. Imaging US, obstetric , biophysic al profile + non-stres s test 2023 024 [email or web address] [address], [place], [address], 02/08/2024 21:47:15 Medication Orders None recorded. Patient TargetsNo targets recorded. Patient InstructionsNo instructions recorded. Reason for Referral None Reported. Results Created Date Observation Date Name Description Value Unit Range Abnormal Flag Note LastModifiedBy Organization Detail LastModifiedTime 08/16/19 24 08/16/2023 US, obste tric, nucha l trans lucen cy No observ ation record ed. [email or web address] [place] [address], [place], [address], 08/16/2023 10:17:57 08/16/19 24 08/16/2023 US, obste tric, 1st trime ster No observ ation record ed. [email or web address] [place] [address], [place], [address], 08/16/2023 10:17:45 08/16/19 24 08/16/2023 US, obste tric, nucha l trans lucen cy No observ ation record ed. [email or web address] [address], [place], [address], 08/16/2023 20:31:53 10/12/19 24 10/12/2023 US, obste tric, 2nd or 3rd trime ster No observ ation record ed. [email or web address] [place] [address], [place], [address], 10/12/2023 12:33:34 10/12/19 24 10/12/2023 US, obste tric, 2nd or 3rd trime ster No observ ation record ed. [email or web address] [address], [place], [address], 10/13/2023 14:01:11 10/12/19 24 10/12/2023 US, obste tric, 2nd or 3rd trime ster No observ ation record ed. [email or web address] [address], [place], [address], 10/13/2023 07:42:16 11/09/19 24 11/09/2023 US, obste tric, follo w-up No observ ation record ed. [email or web address] [place] [address], [place], [address], 11/09/2023 18:27:48 11/09/19 24 11/09/2023 US, obste tric, follo w-up No observ ation record ed. [email or web address] [address], [place], [address], 11/10/2023 15:36:54 01/04/20 24 01/04/2024 US, obste tric, follo w-up No observ ation record ed. [email or web address] [place] [address], [place], [address], 01/04/2024 13:22:26 01/04/2001/04/2024 US, obste tric, follo w-up No observ ation record ed. [email or web address] [address], [place], [address], 01/04/2024 12:54:21 01/18/2001/18/2024 US, obste tric, bioph ysica l profi le + non-s tress test No observ ation record ed. [email or web address] [place] [address], [place], [address], 01/18/2024 10:54:49 01/18/2001/18/2024 US, obste tric, bioph ysica l profi le + non-s tress test No observ ation record ed. [email or web address] [address], [place], [address], 01/20/2024 00:28:05 01/18/2001/18/2024 non-s tress test No observ ation record ed. [email or web address] [place] [address], [place], [address], 01/18/2024 10:35:29 01/25/20 24 01/25/2024 non-s tress test No observ ation record ed. [email or web address] [place] [address], [place], [address], 01/25/2024 10:50:05 01/25/20 24 01/25/2024 US, obste tric, bioph ysica l profi le + non-s tress test No observ ation record ed. [email or web address] [place] [address], [place], [address], 01/25/2024 12:36:03 01/25/20 24 01/25/2024 US, obste tric, bioph ysica l profi le + non-s tress test No observ ation record ed. [email or web address] [address], [place], [address], 01/26/2024 05:27:30 02/01/20 24 02/01/2024 US, obste tric, follo w-up No observ ation record ed. [email or web address] [place] [address], [place], [address], 02/01/2024 14:50:11 02/01/2002/01/2024 non-s tress test No observ ation record ed. [email or web address] [place] [address], [place], [address], 02/01/2024 10:39:26 02/01/20 24 02/01/2024 US, obste tric, follo w-up No observ ation record ed. IAN [address], [place], [address], 02/02/2024 10:36:33 02/08/20 24 02/08/2024 US, obste tric, bioph ysica l profi le + non-s tress test No observ ation record ed. [email or web address] [place] [address], [place], [address], 02/08/2024 13:02:43 02/08/20 24 02/08/2024 US, obste tric, bioph ysica l profi le + non-s tress test No observ ation record ed. [email or web address] [address], [place], [address], 02/10/2024 11:57:49 02/08/20 24 02/08/2024 non-s tress test No observ ation record ed. [email or web address] [place] [address], [place], [address], 02/08/2024 11:12:55 02/15/20 24 02/15/2024 US, obste tric, bioph ysica l profi le + non-s tress test No observ ation record ed. [email or web address] [place] [address], [place], [address], 02/15/2024 12:00:41 02/15/20 24 02/15/2024 US, obste tric, bioph ysica l profi le + non-s tress test No observ ation record ed. [email or web address] [address], [place], [address], 02/15/2024 21:51:48 02/15/20 24 02/15/2024 non-s tress test No observ ation record ed. [email or web address] [place] [address], [place], [address], 02/15/2024 19:02:15 02/15/20 non-s tress test No observ ation record ed. [email or web address] [place] [address], [place], [address], 02/15/2024 19:06:30 Result Notes None recorded. Problems Name Problem SNOMED Code Status Onset Date Resolution Date Notes Provider Name and Address Organization Details Recorded Time Subchori onic hematoma 134704030 Active 2020 Dixie perez [facility] 1 10:44:01 Pregnanc y 44236579 Completed 202110/24/2021 Shaneka perez [facility] 4 09:59:33 Maternal obesity complica ting pregnanc y, childbir th and the puerperi um, antepart um 0225052152 07 Active BMI 44- ante testing at 34w Anca Bohnenstieh l null, [facility] 2 13:48:38 Maternal obesity complica ting pregnanc y, childbir th and the puerperi um, antepart um 9924719784 07 Completed BMI 44- ante testing at 34w Anca babb null, [facility] 2 13:48:38 COVID-19 329832204 Completed 2021 Pt informed to take ASA per SP. Serial growth [facility], [facility] 2 13:48:38 Pregnanc y 57248186 Active 2023 [facility], [facility] 4 09:59:33 Obesity 675286446 Active Antenata l testing 34wks AALIYAH GALVAN MD [address], [place], [address], [facility] 4 10:04:23 Prediabe [place] 275117392 Active A1c 5.7 - early GTT at 20wks AALIYAH GALVAN MD [address], [place], [address], [facility] 4 10:04:23 Problem Notes None recorded. Procedures Surgical History Date Name Laterality Status Provider Name and Address Organization Details Recorded Time 06/01/19 24 Date of Last Pap Smear completed Olga Larson [facility] 12/10/2023 10:42:52 03/08/19 02 Tonsillectomy completed Dixie Chavez [facility] 02/19/2021 09:31:00 Imaging Results Imaging Date Name Status LastModified by Organiz ation Details LastModified Time 02/08/2024 US, obstetric, biophysical profile + non-stress test completed [email or web address] [place] [address], [place], [address], 02/08/2024 13:02:43 02/08/2024 US, obstetric, biophysical profile + non-stress test completed [email or web address] [address], [place], [address], 02/10/2024 11:57:49 Procedure Notes None recorded. Medical Equipment None [...] Updated DateTime 02/08/2024 162.56 cm 46.5 kg/m2 599473.5 3 g 111 mm[Hg] 77 mm[Hg] Olga Larson [facility] 10:49:57 Social History Question Answer Notes LastModified by Organizat ion Details LastModified Time Tobacco Smoking Status Never Smoker Fartun Kermit perez, [facility] 01/23/2022 12:22:48 Do You Have An Advance Directive? No [email or web address] Information n ot available 02/19/2021 What Is Your Level Of Alcohol Consumption? None [email or web address] Information not available 09/14/2023 If You Are , What Was Your Level Of Alcohol Consumption Prior To ? Occasional [email or web address] Information not available 01/23/2022 How Many Years Have You Consumed Alcohol? 10 Information not available 02/19/2021 Are You Blind Or Do You Have Difficulty Seeing? No [email or web address] Information n ot available 02/19/2021 What Is Your Level Of Caffeine Consumption? None [email or web address] Information not available 12/21/2023 How Much Tobacco Do You Chew? None [email or web address] Information not available 02/19/2021 In The 14 Days Before Symptom Onset, Have You Had Close Contact With A Laboratory-confirm ed COVID-19 While That Case Was Ill? No [email or web address] Information n ot available 02/19/2021 In The 14 Days Before Symptom Onset, Have You Had Close Contact With A Person Who Is Under Investigation For COVID-19 While That Person Was Ill? No Information not available 02/19/2021 Have You Been To An Area Known To Be High Risk For COVID-19? No [email or web address] Information not available 02/19/2021 Are You Deaf Or Do You Have Serious Difficulty Hearing? No [email or web address] Information not available 02/19/2021 What Type Of Diet Are You Following? REGULAR [email or web address] Information n ot available 02/19/2021 What Is The Highest Grade Or Level Of School You Have Completed Or The Highest Degree You Have Received? 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 No [email or web address] Information not available 02/19/2021 Do You Use Protection During Sex? No [email or web address] Information not available 02/19/2021 Do You Use Your Seat Belt Or Car Seat Routinely? Yes [email or web address] Information not available 02/19/2021 Do You Have Smoke And Carbon Monoxide Detectors In Your Home? Yes Information not available 02/19/2021 How Much Tobacco Do You Smoke? No [email or web address] Information not available 02/19/2021 Do You Feel Stressed (tense, Restless, Nervous, Or Anxious, Or Unable To Sleep At Night)? [id number] [email or web address] Information not available 02/19/2021 Do You Use Any Illicit Or Recreational Drugs? No Information not available 02/19/2021 Do You Use Sunscreen Routinely? No [email or web address] Information not available 02/19/2021 Have You Used IV Drugs? No [email or web address] Information not available 02/19/2021 Sex: Unknown Functional Status Question Answer Note LastModified by Organizat ion Details LastModified Time Do you have difficulty walking or climbing stairs? No Information not available 01/23/2022 Are you able to walk? YESWOREST [email or web address] Information not available 02/19/2021 Are you able to care for yourself? Yes [email or web address] Information not available 01/23/2022 Do you have difficulty dressing or bathing? No [email or web address] Information not available 01/23/2022 What is your exercise level? Occasional Information not available 02/19/2021 Mental Status None recorded. Family History Relationship Description Onset Age of this Age Resolved Age Notes LastModified by Organization Details LastModified Time Father Disorder of nervous system Not available 2020 09:30:09 Father Multiple sclerosis [email or web address] Not available 2020 09:30:09 Mother Diabetes mellitus [email or web address] Not available 2020 09:30:09 Mother High risk [email or web address] Not available 2020 09:30:09 Sister Substance abuse Not available 2020 09:30:09 Paternal Uncle Substance abuse [email or web address] Not available 2020 09:30:09 Notes:Cancer form complete [...] Diagnosis/Indication Diagnosis SNOMED-CT Code Diagnosis ICD10 Code [id number] Jenna Velazquez [place] [address] [address] 01/18/2024 09:18:59 01/18/2024 10:25:52 Maternal obesity complicating , childbirth and the puerperium, antepartum 2750261082 07 O99.213 O99.891 Z3A.34 [id number] Ruth Harding [place] [address],[place] [address] 01/18/2024 09:20:07 01/18/2024 10:36:16 Maternal obesity complicating , childbirth and the puerperium, antepartum 6499186534 07 O99.213 O36.60X0 Z3A.32 [id number] AALIYAH GALVAN MD [place] [address],[place] [address] 01/18/2024 09:20:25 01/18/2024 11:27:10 Polyhydramnios 30290452 O40.3XX0 Maternal o besity complicating , childbirth and the puerperium, antepartum 3257105566 07 O99.213 O36.60X0 Z3A.32 Gestation period, 34 weeks 56914206 Z3A.34 [id number] Ruchi Martinez [place] [address],[place] [address] 01/25/2024 09:18:22 01/25/2024 10:11:43 Maternal obesity complicating , childbirth and the puerperium, antepartum 7380146192 07 O99.213 Z3A.35 [id number] [facility] [address],[place] [address] 01/25/2024 09:18:50 01/25/2024 10:55:21 Maternal obesity complicating , childbirth and the puerperium, antepartum 8999752308 07 O99.213 O36.60X0 Z3A.32 [id number] AALIYAH GALVAN MD [place] [address],[place] [address] 01/25/2024 09:19:07 01/25/2024 10:59:24 Maternal obesity complicating , childbirth and the puerperium, antepartum 8712852399 07 O99.213 Z3A.35 Gestation period, 35 weeks 31094274 Z3A.35 [id number] Jenna Velazquez [place] [address],[place] [address] 02/01/2024 09:19:27 02/01/2024 10:06:24 Maternal obesity complicating , childbirth and the puerperium, antepartum 2475030912 07 O99.213 Z3A.36 [id number] [facility] [address],[place] [address] 02/01/2024 09:20:04 02/01/2024 10:43:00 Maternal obesity complicating , childbirth and the puerperium, antepartum 9701387146 07 O99.213 Z3A.35 [id number] AALIYAH GALVAN MD [place] [address],[place] [address] 02/01/2024 09:20:22 02/01/2024 11:13:01 Excessive growth affecting management of mother 08739645 O36.62X0 Gestation period, 36 weeks 27776802 Z3A.36 Polyhydramnios 72743954 O40.3XX0 [id number] Jenna Velazquez [place] [address],[place] [address] 02/08/2024 09:16:54 02/08/2024 10:17:19 Maternal obesity complicating , childbirth and the puerperium, antepartum 7554447830 07 O99.213 Z3A.37 [id number] Olga Larson [place] [address],[place] [address] 02/08/2024 09:17:13 02/08/2024 11:16:09 Maternal obesity complicating , childbirth and the puerperium, antepartum 1625839907 07 O99.213 Z3A.35 [id number] AALIYAH GALVAN MD [place] [address],[place] [address] 02/08/2024 09:17:28 02/08/2024 11:33:44 Maternal obesity complicating , childbirth and the puerperium, antepartum 9878976131 07 O99.213 Z3A.35 Gestation period, 37 weeks 62492781 Z3A.37 Health Concerns Section Related Observation LastModified by Organization Detai ls LastModified Time None Recorded Concern Status LastModified by Organization Details LastModified Time None Recorded Payers Encounter Date Sequence Insurance Name Policy Number Policy Patino Covered Member ID Patino Member ID Guarantor Name 02/08/2024 1 [place] [id number] Logyn Whitney Gar [id number] [place] Gar OBGylaya Episode Ob Episode Information Episode Created Date Number of Fetuses Patient Bloodtype Patient rh Status Prepregnancy Weight lbs Domestic Partner Domestic Partner Phone Father Name Rn Production Status 08/16/19 24 1 A Positive 250.8 OPEN Fetus Data First Name Last Name Admitted to NICU Weight (g) Sex Living Outcome Pediatric Complications Fetus ID Race Codes Race Delivery Type [id number] Problems Problem Notes Problem Name Start Date End Date Resolution Snomed Code Not e Obesity 192848309 testing 34wks Prediabetes 250753219 A1c 5.7 - early GTT at 20wks [...] Date Ultra Sound Latest Days Gestation 0 [email or web address] 08/16/2023 02/25/20 24 0 Pre- Flowsheet Flowsheet Date 08/16/2023 Castro Score Blood Edema Fundus Height Fundus Units Glucose Ketones Leukocytes Nitrite Labor Signs Protein Cervic Dilation Cervic Effacement Cervic Station Type Weight in lbs Pre/Post Dialysis Refused Weight 245.38292575495 BP Diastolic BP Location Tested BP Systolic BP Type 79 121 Fetus Heart Rate Present A 154 Fetus Movement Comments Presents to establish prenat or care. has been thus far uncomplicated. Nausea [...] Weight in lbs Pre/Post Dialysis Refused Weight 251.744899852692 BP Diastolic BP Location Tested BP Systolic [...] Weight in lbs Pre/Post Dialysis Refused Weight 252.155356370494 BP Diastolic BP Location Tested BP Systolic [...] Weight in lbs Pre/Post Dialysis Refused Weight 256.140640636400 BP Diastolic BP Location Tested BP Systolic [...] Type Weight in lbs Pre/Post Dialysis Refused 257.067389149833 BP Diastolic BP Location Tested BP Systolic [...] Weight in lbs Pre/Post Dialysis Refused Weight 257.048587110103 BP Diastolic BP Location Tested BP Systolic [...] Weight in lbs Pre/Post Dialysis Refused Weight 262.739833143279 BP Diastolic BP Location Tested BP Systolic BP Type 76 L arm 112 sitting Fetus Heart Rate Present A 143 Fetus Movement A Yes Comments Patient c/o of Wilburn Bonilla . Having some fatigue. Good movement. [...] Weight in lbs Pre/Post Dialysis Refused Weight 267.612187737285 BP Diastolic BP Location Tested BP Systolic [...] Weight in lbs Pre/Post Dialysis Refused Weight 268.53957497518 BP Diastolic BP Location Tested BP Systolic [...] Weight in lbs Pre/Post Dialysis Refused Weight 268.65026708691 BP Diastolic BP Location Tested BP Systolic BP Type 80 L arm 115 sitting Fetus Heart Rate Present A 135 Fetus Movement A Yes Comments Patient c/o of Wilburn Bonilla and swelling in hands and feet. [...] Weight in lbs Pre/Post Dialysis Refused Weight 271.951277580828 BP Diastolic BP Location Tested BP Systolic BP Type 77 L arm 111 sitting Fetus Heart Rate Present A 135 Fetus Movement A Yes Comments Patient c/o of Wilburn Bonilla . Was diagnosed with COVID last [...] Weight in lbs Pre/Post Dialysis Refused Weight 274.566803918798 BP Diastolic BP Location Tested BP Systolic BP Type 75 109 Fetus Heart Rate Present Fetus Movement Comments Flowsheet Date 02/15/2024 Castro Score Blood Edema Fundus Height Fundus Units Glucose Ketones Leukocytes Nitrite Labor Signs Protein Cervic Dilation Cervic Effacement Cervic Station neg none Type Weight in lbs Pre/Post Dialysis Refused 274.799311675377 BP Diastolic BP Location Tested BP Systolic [...] Estim ated Date of Delivery false Thalassemia (Australian, Maori, Mediterranean, Or Background): MCV < 80 false Neural Tube Defect (Meningomyelocele, Spina Bifi da, Or Anencephaly) false Congenital Heart Defect false Down Syndrome false Domingo-Sachs (eg, Moravian, Cajun, Albanian-[place]) f alse Donn Disease false Sickle Cell [...]
--- OUTSIDE RECORDS SUMMARY | 2024-02-17 01:19 | XMS_ITS | Continuity of Care Document ---
Author Organization [facility] [place] Address [address] [address] Care Team Providers Care Sales Manager [place] Name Role Phone PETE MARTINEZ Primary Care [...] + non-stres s test 2023 024 [email or web address] [place] [facility] [place] [address], [place], [address], 02/15/2024 18:03:42 Medication Orders None recorded. Patient TargetsNo targets recorded. Patient InstructionsNo instructions recorded. Reason for Referral None Reported. Results Created Date Observation Date Name Description Value Unit Range Abnormal Flag Note LastModifiedBy Organization Detail LastModifiedTime 08/16/19 24 08/16/2023 US, obste tric, nucha l trans lucen cy No observ ation record ed. [email or web address] [place] [address], [place], [address], 08/16/2023 10:17:57 08/16/19 24 08/16/2023 US, obste tric, 1st trime ster No observ ation record ed. [email or web address] [place] [address], [place], [address], 08/16/2023 10:17:45 08/16/19 24 08/16/2023 US, obste tric, nucha l trans lucen cy No observ ation record ed. [email or web address] [address], [place], [address], 08/16/2023 20:31:53 10/12/19 24 10/12/2023 US, obste tric, 2nd or 3rd trime ster No observ ation record ed. [email or web address] [place] [address], [place], [address], 10/12/2023 12:33:34 10/12/19 24 10/12/2023 US, obste tric, 2nd or 3rd trime ster No observ ation record ed. [email or web address] [address], [place], [address], 10/13/2023 14:01:11 10/12/19 24 10/12/2023 US, obste tric, 2nd or 3rd trime ster No observ ation record ed. [email or web address] [address], [place], [address], 10/13/2023 07:42:16 11/09/19 24 11/09/2023 US, obste tric, follo w-up No observ ation record ed. [email or web address] [place] [address], [place], [address], 11/09/2023 18:27:48 11/09/19 24 11/09/2023 US, obste tric, follo w-up No observ ation record ed. [email or web address] [address], [place], [address], 11/10/2023 15:36:54 01/04/20 24 01/04/2024 US, obste tric, follo w-up No observ ation record ed. [email or web address] [place] [address], [place], [address], 01/04/2024 13:22:26 01/04/2001/04/2024 US, obste tric, follo w-up No observ ation record ed. [email or web address] [address], [place], [address], 01/04/2024 12:54:21 01/18/2001/18/2024 US, obste tric, bioph ysica l profi le + non-s tress test No observ ation record ed. [email or web address] [place] [address], [place], [address], 01/18/2024 10:54:49 01/18/2001/18/2024 US, obste tric, bioph ysica l profi le + non-s tress test No observ ation record ed. [address], [place], [address], 01/20/2024 00:28:05 01/18/2001/18/2024 non-s tress test No observ ation record ed. [email or web address] [place] [address], [place], [address], 01/18/2024 10:35:29 01/25/20 24 01/25/2024 non-s tress test No observ ation record ed. [email or web address] [place] [address], [place], [address], 01/25/2024 10:50:05 01/25/20 24 01/25/2024 US, obste tric, bioph ysica l profi le + non-s tress test No observ ation record ed. [email or web address] [place] [address], [place], [address], 01/25/2024 12:36:03 01/25/20 24 01/25/2024 US, obste tric, bioph ysica l profi le + non-s tress test No observ ation record ed. [email or web address] [address], [place], [address], 01/26/2024 05:27:30 02/01/20 24 02/01/2024 US, obste tric, follo w-up No observ ation record ed. [email or web address] [place] [address], [place], [address], 02/01/2024 14:50:11 02/01/2002/01/2024 non-s tress test No observ ation record ed. [email or web address] [place] [address], [place], [address], 02/01/2024 10:39:26 02/01/20 24 02/01/2024 US, obste tric, follo w-up No observ ation record ed. IAN [address], [place], [address], 02/02/2024 10:36:33 02/08/20 24 02/08/2024 US, obste tric, bioph ysica l profi le + non-s tress test No observ ation record ed. [email or web address] [place] [address], [place], [address], 02/08/2024 13:02:43 02/08/20 24 02/08/2024 US, obste tric, bioph ysica l profi le + non-s tress test No observ ation record ed. [email or web address] [address], [place], [address], 02/10/2024 11:57:49 02/08/20 24 02/08/2024 non-s tress test No observ ation record ed. [email or web address] [place] [address], [place], [address], 02/08/2024 11:12:55 02/15/20 24 02/15/2024 US, obste tric, bioph ysica l profi le + non-s tress test No observ ation record ed. [email or web address] [place] [address], [place], [address], 02/15/2024 12:00:41 02/15/20 24 02/15/2024 US, obste tric, bioph ysica l profi le + non-s tress test No observ ation record ed. [email or web address] [address], [place], [address], 02/15/2024 21:51:48 02/15/20 24 02/15/2024 non-s tress test No observ ation record ed. [email or web address] [place] [address], [place], [address], 02/15/2024 19:02:15 02/15/20 non-s tress test No observ ation record ed. [email or web address] [place] [address], [place], [address], 02/15/2024 19:06:30 Result Notes None recorded. Problems Name Problem SNOMED Code Status Onset Date Resolution Date Notes Provider Name and Address Organization Details Recorded Time Subchori onic hematoma 121750404 Active 2020 Dixie perez [facility] 1 10:44:01 Pregnanc y 09825707 Completed 202110/24/2021 Shaneka perez [facility] 4 09:59:33 Maternal obesity complica ting pregnanc y, childbir th and the puerperi um, antepart um 6801313997 07 Active BMI 44- ante testing at 34w Anca Bohnenstieh l null, [facility] 2 13:48:38 Maternal obesity complica ting pregnanc y, childbir th and the puerperi um, antepart um 8903641099 07 Completed BMI 44- ante testing at 34w Anca babb null, [facility] 2 13:48:38 COVID-19 402602121 Completed 2021 Pt informed to take ASA per SP. Serial growth Anca babb [facility], [facility] 2 13:48:38 Pregnanc y 80586817 Active 2023 Shaneka Cuevas [facility], [facility] 4 09:59:33 Obesity 217375908 Active Antenata l testing 34wks AALIYAH GALVAN MD [address], [place], [address], [facility] 4 10:04:23 Prediabe [place] 052916295 Active A1c 5.7 - early GTT at 20wks AALIYAH GALVAN MD [address], [place], [address], [facility] 4 10:04:23 Problem Notes None recorded. Procedures Surgical History Date Name Laterality Status Provider Name and Address Organization Details Recorded Time 06/01/19 24 Date of Last Pap Smear completed Olga Larson [facility] 12/10/2023 10:42:52 03/08/19 02 Tonsillectomy completed Dixie Chavez [facility] 02/19/2021 09:31:00 Imaging Results Imaging Date Name Status LastModified by Organiz ation Details LastModified Time 02/15/2024 US, obstetric, biophysical profile + non-stress test completed [email or web address] [place] [address], [place], [address], 02/15/2024 12:00:41 02/15/2024 US, obstetric, biophysical profile + non-stress test completed [email or web address] [address], [place], [address], 02/15/2024 21:51:48 Procedure Notes None recorded. Medical Equipment None [...] Updated DateTime 02/15/2024 162.56 cm 47 kg/m2 389356.3 0938 g 109 mm[Hg] 75 mm[Hg] Olga Larson [facility] 10:34:53 Date Recorded Body height Body mass index (BMI) Body weight Systolic blood pressure Diastolic blood pressure Provider Name and Address Organization Details Last Updated DateTime 02/15/2024 162.56 cm 47 kg/m2 189104.3 1 g 109 mm[Hg] 75 mm[Hg] Sylvie Reich [facility] 19:00:39 Social History Question Answer Notes LastModified by Organizat ion Details LastModified Time Tobacco Smoking Status Never Smoker Fartun Carmen null, [facility] 01/23/2022 12:22:48 Do You Have An Advance Directive? No [email or web address] Information n ot available 02/19/2021 What Is Your Level Of Alcohol Consumption? None [email or web address] Information not available 09/14/2023 If You Are , What Was Your Level Of Alcohol Consumption Prior To ? Occasional [email or web address] Information not available 01/23/2022 How Many Years Have You Consumed Alcohol? 10 [email or web address] Information not available 02/19/2021 Are You Blind Or Do You Have Difficulty Seeing? No Information n ot available 02/19/2021 What Is Your Level Of Caffeine Consumption? None [email or web address] Information not available 12/21/2023 How Much Tobacco Do You Chew? None [email or web address] Information not available 02/19/2021 In The 14 Days Before Symptom Onset, Have You Had Close Contact With A Laboratory-confirm ed COVID-19 While That Case Was Ill? No Information n ot available 02/19/2021 In The 14 Days Before Symptom Onset, Have You Had Close Contact With A Person Who Is Under Investigation For COVID-19 While That Person Was Ill? No [email or web address] Information not available 02/19/2021 Have You Been To An Area Known To Be High Risk For COVID-19? No [email or web address] Information not available 02/19/2021 Are You Deaf Or Do You Have Serious Difficulty Hearing? No [email or web address] Information not available 02/19/2021 What Type Of Diet Are You Following? REGULAR [email or web address] Information n ot available 02/19/2021 What Is The Highest Grade Or Level Of School You Have Completed Or The Highest Degree You Have Received? 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 No Information not available 02/19/2021 Do You Use Protection During Sex? No [email or web address] Information not available 02/19/2021 Do You Use Your Seat Belt Or Car Seat Routinely? Yes Information not available 02/19/2021 Do You Have Smoke And Carbon Monoxide Detectors In Your Home? Yes [email or web address] Information not available 02/19/2021 How Much Tobacco Do You Smoke? No [email or web address] Information not available 02/19/2021 Do You Feel Stressed (tense, Restless, Nervous, Or Anxious, Or Unable To Sleep At Night)? [id number] Information not available 02/19/2021 Do You Use Any Illicit Or Recreational Drugs? No [email or web address] Information not available 02/19/2021 Do You Use Sunscreen Routinely? No [email or web address] Information not available 02/19/2021 Have You Used IV Drugs? No [email or web address] Information not available 02/19/2021 Sex: Unknown Functional Status Question Answer Note LastModified by Organizat ion Details LastModified Time Do you have difficulty walking or climbing stairs? No [email or web address] Information not available 01/23/2022 Are you able to walk? [email or web address] Information not available 02/19/2021 Are you able to care for yourself? Yes Information not available 01/23/2022 Do you have difficulty dressing or bathing? No [email or web address] Information not available 01/23/2022 What is your exercise level? Occasional [email or web address] Information not available 02/19/2021 Mental Status None recorded. Family History Relationship Description Onset Age of this Age Resolved Age Notes LastModified by Organization Details LastModified Time Father Disorder of nervous system [email or web address] Not available 2020 09:30:09 Father Multiple sclerosis [email or web address] Not available 2020 09:30:09 Mother Diabetes mellitus [email or web address] Not available 2020 09:30:09 Mother High risk [email or web address] Not available 2020 09:30:09 Sister Substance abuse [email or web address] Not available 2020 09:30:09 Paternal Uncle Substance abuse [email or web address] Not available 2020 09:30:09 Notes:Cancer form complete [...] Diagnosis/Indication Diagnosis SNOMED-CT Code Diagnosis ICD10 Code [id number] Jenna Velazquez [place] [address] [address] 01/18/2024 09:18:59 01/18/2024 10:25:52 Maternal obesity complicating , childbirth and the puerperium, antepartum 9078404511 07 O99.213 O99.891 Z3A.34 [id number] Ruth Harding [place] [address] [address] 01/18/2024 09:20:07 01/18/2024 10:36:16 Maternal obesity complicating , childbirth and the puerperium, antepartum 8304099683 07 O99.213 O36.60X0 Z3A.32 [id number] AALIYAH GALVAN MD [place] [address],[place] [address] 01/18/2024 09:20:25 01/18/2024 11:27:10 Polyhydramnios 99029215 O40.3XX0 Maternal o besity complicating , childbirth and the puerperium, antepartum 9542025708 07 O99.213 O36.60X0 Z3A.32 Gestation period, 34 weeks 39896094 Z3A.34 [id number] Ruchi Martinez [place] [address],[place] [address] 01/25/2024 09:18:22 01/25/2024 10:11:43 Maternal obesity complicating , childbirth and the puerperium, antepartum 3203079409 07 O99.213 Z3A.35 [id number] [facility] [address],[place] [address] 01/25/2024 09:18:50 01/25/2024 10:55:21 Maternal obesity complicating , childbirth and the puerperium, antepartum 6483737306 07 O99.213 O36.60X0 Z3A.32 [id number] AALIYAH GALVAN MD [place] [address],[place] [address] 01/25/2024 09:19:07 01/25/2024 10:59:24 Maternal obesity complicating , childbirth and the puerperium, antepartum 4812190963 07 O99.213 Z3A.35 Gestation period, 35 weeks 06486683 Z3A.35 [id number] Jenna Velazquez [place] [address],[place] [address] 02/01/2024 09:19:27 02/01/2024 10:06:24 Maternal obesity complicating , childbirth and the puerperium, antepartum 5539666821 07 O99.213 Z3A.36 [id number] Ruth [facility] [address],[place] [address] 02/01/2024 09:20:04 02/01/2024 10:43:00 Maternal obesity complicating , childbirth and the puerperium, antepartum 1773317544 07 O99.213 Z3A.35 [id number] AALIYAH GALVAN MD [place] [address],[place] [address] 02/01/2024 09:20:22 02/01/2024 11:13:01 Excessive growth affecting management of mother 05079220 O36.62X0 Gestation period, 36 weeks 99899013 Z3A.36 Polyhydramnios 04543310 O40.3XX0 [id number] [facility] [address],[place] [address] 02/08/2024 09:16:54 02/08/2024 10:17:19 Maternal obesity complicating , childbirth and the puerperium, antepartum 5995427813 07 O99.213 Z3A.37 [id number] Olgabari Larson [place] [address],[place] [address] 02/08/2024 09:17:13 02/08/2024 11:16:09 Maternal obesity complicating , childbirth and the puerperium, antepartum 7180842253 07 O99.213 Z3A.35 [id number] AALIYAH GALVAN MD [place] [address],[place] [address] 02/08/2024 09:17:28 02/08/2024 11:33:44 Maternal obesity complicating , childbirth and the puerperium, antepartum 4567705127 07 O99.213 Z3A.35 Gestation period, 37 weeks 57196486 Z3A.37 [id number] [facility] [address],[place] [address] 02/15/2024 09:23:22 02/15/2024 10:02:58 Maternal obesity complicating , childbirth and the puerperium, antepartum 4204285742 07 O99.213 Z3A.38 [id number] Sylvie Harristz [place] [address] [address] 02/15/2024 09:24:03 02/16/2024 09:44:34 Maternal obesity complicating , childbirth and the puerperium, antepartum 7026264279 07 O99.213 [id number] AALIYAH GALVAN MD [place] [address] [address] 02/15/2024 09:25:10 02/15/2024 11:08:21 Maternal obesity complicating , childbirth and the puerperium, antepartum 7276497256 07 O99.213 Z3A.38 Gestation period, 38 weeks 30269132 Z3A.38 Health Concerns Section Related Observation LastModified by Organization Detai ls LastModified Time None Recorded Concern Status LastModified by Organization Details LastModified Time None Recorded Payers Encounter Date Sequence Insurance Name Policy Number Policy Patino Covered Member ID Patino Member ID Guarantor Name 02/15/2024 1 [place] [id number] Logyn Whitney Gar [id number] [place] Gar OBGyn Episode Ob Episode Information Episode Created Date Number of Fetuses Patient Bloodtype Patient rh Status Prepregnancy Weight lbs Domestic Partner Domestic Partner Phone Father Name Credit Director Status 08/16/19 24 1 A Positive 250.8 OPEN Fetus Data First Name Last Name Admitted to NICU Weight (g) Sex Living Outcome Pediatric Complications Fetus ID Race Codes Race Delivery Type [id number] Problems Problem Notes Problem Name Start Date End Date Resolution Snomed Code Not e Obesity 837981575 testing 34wks Prediabetes 867363149 A1c 5.7 - early GTT at 20wks [...] Date Ultra Sound Latest Days Gestation 0 [email or web address] 08/16/2023 02/25/20 24 0 Pre- Flowsheet Flowsheet Date 08/16/2023 Castro Score Blood Edema Fundus Height Fundus Units Glucose Ketones Leukocytes Nitrite Labor Signs Protein Cervic Dilation Cervic Effacement Cervic Station Type Weight in lbs Pre/Post Dialysis Refused Weight 245.99843187754 BP Diastolic BP Location Tested BP Systolic [...] Weight in lbs Pre/Post Dialysis Refused Weight 251.248445508939 BP Diastolic BP Location Tested BP Systolic [...] Weight in lbs Pre/Post Dialysis Refused Weight 252.728719452814 BP Diastolic BP Location Tested BP Systolic [...] Weight in lbs Pre/Post Dialysis Refused Weight 256.911134146070 BP Diastolic BP Location Tested BP Systolic [...] Type Weight in lbs Pre/Post Dialysis Refused 257.668233857437 BP Diastolic BP Location Tested BP Systolic [...] Weight in lbs Pre/Post Dialysis Refused Weight 257.838995541723 BP Diastolic BP Location Tested BP Systolic [...] Weight in lbs Pre/Post Dialysis Refused Weight 262.981283443194 BP Diastolic BP Location Tested BP Systolic BP Type 76 L arm 112 sitting Fetus Heart Rate Present A 143 Fetus Movement A Yes Comments Patient c/o of [place] . Having some fatigue. Good movement. [...] Weight in lbs Pre/Post Dialysis Refused Weight 267.288212121937 BP Diastolic BP Location Tested BP Systolic BP Type 74 L arm 117 sitting Fetus Heart Rate Present A 140 Fetus Movement A Yes Comments Patient c/o of [place] . Good movement. No bleeding or [...] Weight in lbs Pre/Post Dialysis Refused Weight 268.85815820329 BP Diastolic BP Location Tested BP Systolic [...] Weight in lbs Pre/Post Dialysis Refused Weight 268.14503397969 BP Diastolic BP Location Tested BP Systolic BP Type 80 L arm 115 sitting Fetus Heart Rate Present A 135 Fetus Movement A Yes Comments Patient c/o of [place] and swelling in hands and feet. [...] Weight in lbs Pre/Post Dialysis Refused Weight 271.450541797528 BP Diastolic BP Location Tested BP Systolic BP Type 77 L arm 111 sitting Fetus Heart Rate Present A 135 Fetus Movement A Yes Comments Patient c/o of [place] . Was diagnosed with COVID last [...] Weight in lbs Pre/Post Dialysis Refused Weight 274.243616219968 BP Diastolic BP Location Tested BP Systolic BP Type 75 109 Fetus Heart Rate Present Fetus Movement Comments Flowsheet Date 02/15/2024 Castro Score Blood Edema Fundus Height Fundus Units Glucose Ketones Leukocytes Nitrite Labor Signs Protein Cervic Dilation Cervic Effacement Cervic Station neg none Type Weight in lbs Pre/Post Dialysis Refused 274.670756917763 BP Diastolic BP Location Tested BP Systolic [...] Estim ated Date of Delivery false Thalassemia (Paraguayan, Serbian, Mediterranean, Or Background): MCV < 80 false Neural Tube Defect (Meningomyelocele, Spina Bifi da, Or Anencephaly) false Congenital Heart Defect false Down Syndrome false Domingo-Sachs (eg, Spiritism, Cajun, Nauruan-[place]) f alse Donn Disease false Sickle Cell Disease Or Trait () false Hemophilia Or Other Blood Disorders false Muscular Dystrophy false Cystic Fibrosis false Lanier's Chorea false Intellectual Disability/Autism false If Yes, [...]
--- OUTSIDE RECORDS SUMMARY | 2024-02-17 01:19 | XMS_ITS | Continuity of Care Document ---
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 Plan of Treatment Reminders Order Date Submit Date Provider Last Modified By Organization Details Last Modified Time Details Appointments INDUCTION 2023 12:01A Archie GALVAN MD Not available Not available Not available Lab None recorded. Referral None recorded. Procedures None recorded. Surgeries None recorded. Imaging non-stres s test 2023 024 [email or web address] [place], [address], [place], [address], 02/08/2024 23:25:05 Medication Orders None recorded. Patient TargetsNo targets recorded. Patient InstructionsNo instructions recorded. Reason for Referral None Reported. Results Created Date Observation Date Name Description Value Unit Range Abnormal Flag Note LastModifiedBy Organization Detail LastModifiedTime 08/16/19 24 08/16/2023 US, obste tric, nucha l trans lucen cy No observ ation record ed. [email or web address] [place] [address], [place], [address], 08/16/2023 10:17:57 08/16/19 24 08/16/2023 US, obste tric, 1st trime ster No observ ation record ed. [email or web address] [place] [address], [place], [address], 08/16/2023 10:17:45 08/16/19 24 08/16/2023 US, obste tric, nucha l trans lucen cy No observ ation record ed. [email or web address] [address], [place], [address], 08/16/2023 20:31:53 10/12/19 24 10/12/2023 US, obste tric, 2nd or 3rd trime ster No observ ation record ed. [email or web address] [place] [address], [place], [address], 10/12/2023 12:33:34 10/12/19 24 10/12/2023 US, obste tric, 2nd or 3rd trime ster No observ ation record ed. [email or web address] [address], [place], [address], 10/13/2023 14:01:11 10/12/19 24 10/12/2023 US, obste tric, 2nd or 3rd trime ster No observ ation record ed. [email or web address] [address], [place], [address], 10/13/2023 07:42:16 11/09/19 24 11/09/2023 US, obste tric, follo w-up No observ ation record ed. [email or web address] [place] [address], [place], [address], 11/09/2023 18:27:48 11/09/1911/09/2023 US, obste tric, follo w-up No observ ation record ed. [email or web address] [address], [place], [address], 11/10/2023 15:36:54 01/04/20 24 01/04/2024 US, obste tric, follo w-up No observ ation record ed. [email or web address] [place] [address], [place], [address], 01/04/2024 13:22:26 01/04/2001/04/2024 US, obste tric, follo w-up No observ ation record ed. [email or web address] [address], [place], [address], 01/04/2024 12:54:21 01/18/20 24 01/18/2024 US, obste tric, bioph ysica l profi le + non-s tress test No observ ation record ed. [email or web address] [place] [address], [place], [address], 01/18/2024 10:54:49 01/18/20 24 01/18/2024 US, obste tric, bioph ysica l profi le + non-s tress test No observ ation record ed. [email or web address] [address], [place], [address], 01/20/2024 00:28:05 01/18/2001/18/2024 non-s tress test No observ ation record ed. [email or web address] [place] [address], [place], [address], 01/18/2024 10:35:29 01/25/20 24 01/25/2024 non-s tress test No observ ation record ed. [email or web address] [place] [address], [place], [address], 01/25/2024 10:50:05 01/25/20 24 01/25/2024 US, obste tric, bioph ysica l profi le + non-s tress test No observ ation record ed. [email or web address] [place] [address], [place], [address], 01/25/2024 12:36:03 01/25/20 24 01/25/2024 US, obste tric, bioph ysica l profi le + non-s tress test No observ ation record ed. [email or web address] [address], [place], [address], 01/26/2024 05:27:30 02/01/20 24 02/01/2024 US, obste tric, follo w-up No observ ation record ed. [email or web address] [place] [address], [place], [address], 02/01/2024 14:50:11 02/01/2002/01/2024 non-s tress test No observ ation record ed. [email or web address] [place] [address], [place], [address], 02/01/2024 10:39:26 02/01/20 24 02/01/2024 US, obste tric, follo w-up No observ ation record ed. IAN [address], [place], [address], 02/02/2024 10:36:33 02/08/20 24 02/08/2024 US, obste tric, bioph ysica l profi le + non-s tress test No observ ation record ed. [email or web address] [place] [address], [place], [address], 02/08/2024 13:02:43 02/08/20 24 02/08/2024 US, obste tric, bioph ysica l profi le + non-s tress test No observ ation record ed. [address], [place], [address], 02/10/2024 11:57:49 02/08/20 24 02/08/2024 non-s tress test No observ ation record ed. [email or web address] [place] [address], [place], [address], 02/08/2024 11:12:55 02/15/20 24 02/15/2024 US, obste tric, bioph ysica l profi le + non-s tress test No observ ation record ed. [email or web address] [place] [address], [place], [address], 02/15/2024 12:00:41 02/15/20 24 02/15/2024 US, obste tric, bioph ysica l profi le + non-s tress test No observ ation record ed. [email or web address] [address], [place], [address], 02/15/2024 21:51:48 02/15/20 24 02/15/2024 non-s tress test No observ ation record ed. [email or web address] [place] [address], [place], [address], 02/15/2024 19:02:15 02/15/20 non-s tress test No observ ation record ed. [email or web address] [place] [address], [place], [address], 02/15/2024 19:06:30 Result Notes None recorded. Problems Name Problem SNOMED Code Status Onset Date Resolution Date Notes Provider Name and Address Organization Details Recorded Time Subchori onic hematoma 390176906 Active 2020 Dixie perez [facility] 1 10:44:01 Pregnanc y 84152463 Completed 202110/24/2021 Shaneka perez [facility] 4 09:59:33 Maternal obesity complica ting pregnanc y, childbir th and the puerperi um, antepart um 0153486503 07 Active BMI 44- ante testing at 34w Anca babb null, [facility] 2 13:48:38 Maternal obesity complica ting pregnanc y, childbir th and the puerperi um, antepart um 4039200405 07 Completed BMI 44- ante testing at 34w Anca babb null, [facility] 2 13:48:38 COVID-19 340018087 Completed 2021 Pt informed to take ASA per SP. Serial growth Anca babb [facility], [facility] 2 13:48:38 Pregnanc y 48134878 Active 2023 Shaneka Cuevas [facility], [facility] 4 09:59:33 Obesity 202185215 Active Antenata l testing 34wks AALIYAH GALVAN MD [address], [place], [address], [facility] 4 10:04:23 Prediabe [place] 079246900 Active A1c 5.7 - early GTT at 20wks AALIYAH GALVAN MD [address], [place], [address], [facility] 4 10:04:23 Problem Notes None recorded. Procedures Surgical History Date Name Laterality Status Provider Name and Address Organization Details Recorded Time 06/01/19 24 Date of Last Pap Smear completed Olga Larson [facility] 12/10/2023 10:42:52 03/08/19 02 Tonsillectomy completed Dixie Chavez [facility] 02/19/2021 09:31:00 Imaging Results Imaging Date Name Status [facility] Details LastModified Time 02/08/2024 non-stress test completed [email or web address] [place] [address], [place], [address], 02/08/2024 11:12:55 Procedure Notes None recorded. Medical Equipment None [...] Updated DateTime 02/08/2024 162.56 cm 46.5 kg/m2 767706.5 3 g 111 mm[Hg] 77 mm[Hg] Olga Larson [facility] 10:49:57 Social History Question Answer Notes LastModified by Organizat ion Details LastModified Time Tobacco Smoking Status Never Smoker Fartun Carmen ana [facility] 01/23/2022 12:22:48 Do You Have An Advance Directive? No [email or web address] Information n ot available 02/19/2021 What Is Your Level Of Alcohol Consumption? None [email or web address] Information not available 09/14/2023 If You Are , What Was Your Level Of Alcohol Consumption Prior To ? Occasional Information not available 01/23/2022 How Many Years Have You Consumed Alcohol? 10 Information not available 02/19/2021 Are You Blind Or Do You Have Difficulty Seeing? No [email or web address] Information n ot available 02/19/2021 What Is Your Level Of Caffeine Consumption? None Information not available 12/21/2023 How Much Tobacco [...] To Be High Risk For COVID-19? No [email or web address] Information not available 02/19/2021 Are You Deaf Or Do You Have Serious Difficulty Hearing? No Information not available 02/19/2021 What Type Of Diet Are You Following? REGULAR [email or web address] Information n ot available 02/19/2021 What Is The Highest Grade Or Level Of School You Have Completed Or The Highest Degree You Have Received? 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 No [email or web address] Information not available 02/19/2021 Do You Use Protection During Sex? No [email or web address] Information not available 02/19/2021 Do You Use Your Seat Belt Or Car Seat Routinely? Yes [email or web address] Information not available 02/19/2021 Do You Have Smoke And Carbon Monoxide Detectors In Your Home? Yes Information not available 02/19/2021 How Much Tobacco Do You Smoke? No Information not available 02/19/2021 Do You Feel Stressed (tense, Restless, Nervous, Or Anxious, Or Unable To Sleep At Night)? [id number] [email or web address] Information not available 02/19/2021 Do You Use Any Illicit Or Recreational Drugs? No [email or web address] Information not available 02/19/2021 Do You Use Sunscreen Routinely? No Information not available 02/19/2021 Have You Used IV Drugs? No [email or web address] Information not available 02/19/2021 Sex: Unknown Functional Status Question Answer Note LastModified by Organizat ion Details LastModified Time Do you have difficulty walking or climbing stairs? No [email or web address] Information not available 01/23/2022 Are you able to walk? YESWOREST [email or web address] Information not available 02/19/2021 Are you able to care for yourself? Yes [email or web address] Information not available 01/23/2022 Do you have difficulty dressing or bathing? No [email or web address] Information not available 01/23/2022 What is your exercise level? Occasional [email or web address] Information not available 02/19/2021 Mental Status None recorded. Family History Relationship Description Onset Age of this Age Resolved Age Notes LastModified by Organization Details LastModified Time Father Disorder of nervous system [email or web address] Not available 2020 09:30:09 Father Multiple sclerosis [email or web address] Not available 2020 09:30:09 Mother Diabetes mellitus [email or web address] Not available 2020 09:30:09 Mother High risk [email or web address] Not available 2020 09:30:09 Sister Substance abuse [email or web address] Not available 2020 09:30:09 Paternal Uncle Substance abuse [email or web address] Not available 2020 09:30:09 Notes:Cancer form complete [...] Diagnosis/Indication Diagnosis SNOMED-CT Code Diagnosis ICD10 Code [id number] Jenna Velazquez [place] [address],[place] [address] 01/18/2024 09:18:59 01/18/2024 10:25:52 Maternal obesity complicating , childbirth and the puerperium, antepartum 5852005544 07 O99.213 O99.891 Z3A.34 [id number] Ruth Harding [place] [address],[place] [address] 01/18/2024 09:20:07 01/18/2024 10:36:16 Maternal obesity complicating , childbirth and the puerperium, antepartum 8535610287 07 O99.213 O36.60X0 Z3A.32 [id number] AALIYAH GALVAN MD [place] [address],[place] [address] 01/18/2024 09:20:25 01/18/2024 11:27:10 Polyhydramnios 91482276 O40.3XX0 Maternal o besity complicating , childbirth and the puerperium, antepartum 0658611729 07 O99.213 O36.60X0 Z3A.32 Gestation period, 34 weeks 64611299 Z3A.34 [id number] [facility] [address],[place] [address] 01/25/2024 09:18:22 01/25/2024 10:11:43 Maternal obesity complicating , childbirth and the puerperium, antepartum 0480773275 [id number] [facility] [address],[place] [address] 01/25/2024 09:18:50 01/25/2024 10:55:21 Maternal obesity complicating , childbirth and the puerperium, antepartum 5110482286 07 O99.213 O36.60X0 Z3A.32 [id number] AALIYAH GALVAN MD [place] [address],[place] [address] 01/25/2024 09:19:07 01/25/2024 10:59:24 Maternal obesity complicating , childbirth and the puerperium, antepartum 8854011669 07 O99.213 Z3A.35 Gestation period, 35 weeks 46035426 Z3A.35 [id number] Jennadinah Velazquez [place] [address],[place] [address] 02/01/2024 09:19:27 02/01/2024 10:06:24 Maternal obesity complicating , childbirth and the puerperium, antepartum 9448189762 07 O99.213 Z3A.36 [id number] [facility] [address],[place] [address] 02/01/2024 09:20:04 02/01/2024 10:43:00 Maternal obesity complicating , childbirth and the puerperium, antepartum 9181902756 07 O99.213 Z3A.35 [id number] AALIYAH GALVAN MD [place] [address],[place] [address] 02/01/2024 09:20:22 02/01/2024 11:13:01 Excessive growth affecting management of mother 70016914 O36.62X0 Gestation period, 36 weeks 39927451 Z3A.36 Polyhydramnios 83640617 O40.3XX0 [id number] Jenna Velazquez [place] [address],[place] [address] 02/08/2024 09:16:54 02/08/2024 10:17:19 Maternal obesity complicating , childbirth and the puerperium, antepartum 9883201825 07 O99.213 Z3A.37 [id number] Olga Larson [place] [address],[place] [address] 02/08/2024 09:17:13 02/08/2024 11:16:09 Maternal obesity complicating , childbirth and the puerperium, antepartum 3468318120 07 O99.213 Z3A.35 [id number] AALIYAH GALVAN MD [place] [address],[place] [address] 02/08/2024 09:17:28 02/08/2024 11:33:44 Maternal obesity complicating , childbirth and the puerperium, antepartum 5228019965 07 O99.213 Z3A.35 Gestation period, 37 weeks 21290124 Z3A.37 Health Concerns Section Related Observation LastModified by Organization Detai ls LastModified Time None Recorded Concern Status LastModified by Organization Details LastModified Time None Recorded Payers Encounter Date Sequence Insurance Name Policy Number Policy Patino Covered Member ID Patino Member ID Guarantor Name 02/08/2024 1 [place] [id number] Logmaya Gar [id number] [place] Gar [employer] Episode Ob Episode Information Episode Created Date Number of Fetuses Patient Bloodtype Patient rh Status Prepregnancy Weight lbs Domestic Partner Domestic Partner Phone Father Name Flower Stripper Status 08/16/19 24 1 A Positive 250.8 OPEN Fetus Data First Name Last Name Admitted to NICU Weight (g) Sex Living Outcome Pediatric Complications Fetus ID Race Codes Race Delivery Type [id number] Problems Problem Notes Problem Name Start Date End Date Resolution Snomed Code Not e Obesity 499985481 testing 34wks Prediabetes 739127071 A1c 5.7 - early GTT at 20wks [...] Date Ultra Sound Latest Days Gestation 0 [email or web address] 08/16/2023 02/25/20 24 0 Pre-elizabeth Flowsheet Flowsheet Date 08/16/2023 Castro Score Blood Edema Fundus Height Fundus Units Glucose Ketones Leukocytes Nitrite Labor Signs Protein Cervic Dilation Cervic Effacement Cervic Station Type Weight in lbs Pre/Post Dialysis Refused Weight 245.41791094450 BP Diastolic BP Location Tested BP Systolic [...] Weight in lbs Pre/Post Dialysis Refused Weight 251.293104082994 BP Diastolic BP Location Tested BP Systolic [...] Weight in lbs Pre/Post Dialysis Refused Weight 252.707595927005 BP Diastolic BP Location Tested BP Systolic [...] Weight in lbs Pre/Post Dialysis Refused Weight 256.617242939033 BP Diastolic BP Location Tested BP Systolic [...] Type Weight in lbs Pre/Post Dialysis Refused 257.057243774039 BP Diastolic BP Location Tested BP Systolic [...] Weight in lbs Pre/Post Dialysis Refused Weight 257.882855031582 BP Diastolic BP Location Tested BP Systolic [...] Weight in lbs Pre/Post Dialysis Refused Weight 262.706857991796 BP Diastolic BP Location Tested BP Systolic BP Type 76 L arm 112 sitting Fetus Heart Rate Present A 143 Fetus Movement A Yes Comments Patient c/o of Simla Bonilla . Having some fatigue. Good movement. [...] Weight in lbs Pre/Post Dialysis Refused Weight 267.738410481504 BP Diastolic BP Location Tested BP Systolic BP Type 74 L arm 117 sitting Fetus Heart Rate Present A 140 Fetus Movement A Yes Comments Patient c/o of Simla Bonilla . Good movement. No bleeding or LOF. BPP 12/15, polyhydramnios 30cm. RSV vaccine received. Preadmission scheduled. [...] Weight in lbs Pre/Post Dialysis Refused Weight 268.73516302362 BP Diastolic BP Location Tested BP Systolic [...] Weight in lbs Pre/Post Dialysis Refused Weight 268.22387177204 BP Diastolic BP Location Tested BP Systolic BP Type 80 L arm 115 sitting Fetus Heart Rate Present A 135 Fetus Movement A Yes Comments Patient c/o of Simla Bonilla and swelling in hands and feet. [...] Weight in lbs Pre/Post Dialysis Refused Weight 271.778494143407 BP Diastolic BP Location Tested BP Systolic [...] Weight in lbs Pre/Post Dialysis Refused Weight 274.587265296107 BP Diastolic BP Location Tested BP Systolic BP Type 75 109 Fetus Heart Rate Present Fetus Movement Comments Flowsheet Date 02/15/2024 Castro Score Blood Edema Fundus Height Fundus Units Glucose Ketones Leukocytes Nitrite Labor Signs Protein Cervic Dilation Cervic Effacement Cervic Station neg none Type Weight in lbs Pre/Post Dialysis Refused 274.111509273039 BP Diastolic BP Location Tested BP Systolic BP Type 75 L arm 109 sitting Fetus Heart Rate Present A 140 Fetus Movement A Yes Comments Patient c/o of Simla Bonilla and swelling in hands and feet. Good movement. Intermittent contractions. No bleeding. Ready for induction Wednesday, plan for pitocin. Labor precautions reviewed. BP 12/15. Menstrual History Last Menstrual Date Menses Monthly On Bcp Conception Prior Menses Frequency Hcg Plus Date Menarche Onset Age 0305/21/2023 Genetic Screening And Infection History Question Response Note Mental Retardation/Autism false Patient's Age Will Be 35 Years Or Older At Estim ated Date of Delivery false Thalassemia (Malay, Spanish, Mediterranean, Or Background): MCV < 80 false Neural Tube Defect (Meningomyelocele, Spina Bifi da, Or Anencephaly) false Congenital Heart Defect false Down Syndrome false Domingo-Sachs (eg, Yarsanism, Cajun, Trinidadian-[place]) f alse Donn Disease false Sickle Cell Disease Or Trait () false Hemophilia Or Other Blood Disorders false Muscular Dystrophy false Cystic Fibrosis false Whatcom's Chorea false Intellectual Disability/Autism false If Yes, [...]
--- OUTSIDE RECORDS SUMMARY | 2024-02-17 01:20 | XMS_ITS | Continuity of Care Document ---
Author Organization [facility] [place] Address [address] [place] [address] Care Team Providers Care Quality Assurance Intern Name Role Phone PETE MARTINEZ Primary Care Provider Assessment No assessment recorded. Plan of Treatment Reminders Order Date Submit Date Provider Last Modified By Organization Details Last Modified Time Details Appointments INDUCTION 2023 12:01A Archie GALVAN MD Not available Not available Not available Lab None recorded. Referral None recorded. Procedures None recorded. Surgeries None recorded. Imaging US, obstetric , follow-up 2023 024 [email or web address] [address], [place], [address], 02/01/2024 18:14:52 Medication Orders None recorded. Patient TargetsNo targets recorded. Patient InstructionsNo instructions recorded. Reason for Referral None Reported. Results Created Date Observation Date Name Description Value Unit Range Abnormal Flag Note LastModifiedBy Organization Detail LastModifiedTime 08/16/19 24 08/16/2023 US, obste tric, nucha l trans lucen cy No observ ation record ed. [email or web address] [place] [address], [place], [address], 08/16/2023 10:17:57 08/16/19 24 08/16/2023 US, obste tric, 1st trime ster No observ ation record ed. [email or web address] [place] [address], [place], [address], 08/16/2023 10:17:45 08/16/19 24 08/16/2023 US, obste tric, nucha l trans lucen cy No observ ation record ed. [email or web address] [address], [place], [address], 08/16/2023 20:31:53 10/12/19 24 10/12/2023 US, obste tric, 2nd or 3rd trime ster No observ ation record ed. [email or web address] [place] [address], [place], [address], 10/12/2023 12:33:34 10/12/19 24 10/12/2023 US, obste tric, 2nd or 3rd trime ster No observ ation record ed. [email or web address] [address], [place], [address], 10/13/2023 14:01:11 10/12/19 24 10/12/2023 US, obste tric, 2nd or 3rd trime ster No observ ation record ed. [email or web address] [address], [place], [address], 10/13/2023 07:42:16 11/09/19 24 11/09/2023 US, obste tric, follo w-up No observ ation record ed. [email or web address] [place] [address], [place], [address], 11/09/2023 18:27:48 11/09/19 24 11/09/2023 US, obste tric, follo w-up No observ ation record ed. [email or web address] [address], [place], [address], 11/10/2023 15:36:54 01/04/20 24 01/04/2024 US, obste tric, follo w-up No observ ation record ed. [email or web address] [place] [address], [place], [address], 01/04/2024 13:22:26 01/04/2001/04/2024 US, obste tric, follo w-up No observ ation record ed. [email or web address] [address], [place], [address], 01/04/2024 12:54:21 01/18/20 24 01/18/2024 US, obste tric, bioph ysica l profi le + non-s tress test No observ ation record ed. [email or web address] [place] [address], [place], [address], 01/18/2024 10:54:49 01/18/20 24 01/18/2024 US, obste tric, bioph ysica l profi le + non-s tress test No observ ation record ed. [email or web address] [address], [place], [address], 01/20/2024 00:28:05 01/18/20 24 01/18/2024 non-s tress test No observ ation record ed. [email or web address] [place] [address], [place], [address], 01/18/2024 10:35:29 01/25/20 24 01/25/2024 non-s tress test No observ ation record ed. [email or web address] [place] [address], [place], [address], 01/25/2024 10:50:05 01/25/20 24 01/25/2024 US, obste tric, bioph ysica l profi le + non-s tress test No observ ation record ed. [email or web address] [place] [address], [place], [address], 01/25/2024 12:36:03 01/25/20 24 01/25/2024 US, obste tric, bioph ysica l profi le + non-s tress test No observ ation record ed. [email or web address] [address], [place], [address], 01/26/2024 05:27:30 02/01/20 24 02/01/2024 US, obste tric, follo w-up No observ ation record ed. [email or web address] [place] [address], [place], [address], 02/01/2024 14:50:11 02/01/2002/01/2024 non-s tress test No observ ation record ed. [email or web address] [place] [address], [place], [address], 02/01/2024 10:39:26 02/01/20 24 02/01/2024 US, obste tric, follo w-up No observ ation record ed. IAN [address], [place], [address], 02/02/2024 10:36:33 02/08/20 24 02/08/2024 US, obste tric, bioph ysica l profi le + non-s tress test No observ ation record ed. [email or web address] [place] [address], [place], [address], 02/08/2024 13:02:43 02/08/20 24 02/08/2024 US, obste tric, bioph ysica l profi le + non-s tress test No observ ation record ed. [email or web address] [address], [place], [address], 02/10/2024 11:57:49 02/08/20 24 02/08/2024 non-s tress test No observ ation record ed. [place] [address], [place], [address], 02/08/2024 11:12:55 02/15/20 24 02/15/2024 US, obste tric, bioph ysica l profi le + non-s tress test No observ ation record ed. [email or web address] [place] [address], [place], [address], 02/15/2024 12:00:41 02/15/20 24 02/15/2024 US, obste tric, bioph ysica l profi le + non-s tress test No observ ation record ed. [email or web address] [address], [place], [address], 02/15/2024 21:51:48 02/15/20 24 02/15/2024 non-s tress test No observ ation record ed. [email or web address] [place] [address], [place], [address], 02/15/2024 19:02:15 02/15/20 non-s tress test No observ ation record ed. [place] [address], [place], [address], 02/15/2024 19:06:30 Result Notes None recorded. Problems Name Problem SNOMED Code Status Onset Date Resolution Date Notes Provider Name and Address Organization Details Recorded Time Subchori onic hematoma 069406817 Active 2020 Dixie perez [facility] 1 10:44:01 Pregnanc y 52609955 Completed 202110/24/2021 Shaneka perez [facility] 4 09:59:33 Maternal obesity complica ting pregnanc y, childbir th and the puerperi um, antepart um 0890724086 07 Active BMI 44- ante testing at 34w Anca perez, [facility] 2 13:48:38 Maternal obesity complica ting pregnanc y, childbir th and the puerperi um, antepart um 6686259059 07 Completed BMI 44- ante testing at 34w Anca perez, [facility] 2 13:48:38 COVID-19 063409560 Completed 2021 Pt informed to take ASA per SP. Serial growth Anca babb null, [facility] 2 13:48:38 Pregnanc y 59090246 Active 2023 Shaneka Cuevas [facility], [facility] 4 09:59:33 Obesity 996782782 Active Antenata l testing 34wks AALIYAH GALVAN MD [address], [place], [address], [facility] 4 10:04:23 Prediabe [place] 918973314 Active A1c 5.7 - early GTT at 20wks AALIYAH GALVAN MD [address], [place], [address], [facility] 4 10:04:23 Problem Notes None recorded. Procedures Surgical History Date Name Laterality Status Provider Name and Address Organization Details Recorded Time 06/01/19 24 Date of Last Pap Smear completed Olga Larson [facility] 12/10/2023 10:42:52 03/08/19 02 Tonsillectomy completed Dixie Chavez [facility] 02/19/2021 09:31:00 Imaging Results Imaging Date Name Status LastModified by Organiz ation Details LastModified Time 02/01/2024 US, obstetric, follow-up completed [email or web address] [place] [address], [place], [address], 02/01/2024 14:50:11 02/01/2024 US, obstetric, follow-up completed IAN [address], [place], [address], 02/02/2024 10:36:33 Procedure Notes None recorded. Medical Equipment None [...] and Address Organization Details Last Updated DateTime 02/01/2024 162.56 cm 46 kg/m2 288655.7 6 g 115 mm[Hg] 80 mm[Hg] Olga Larson [facility] 10:41:31 Social History Question Answer Notes LastModified by Organizat ion Details LastModified Time Tobacco Smoking Status Never Smoker Fartun Carmen ana, [facility] 01/23/2022 12:22:48 Do You Have An Advance Directive? No [email or web address] Information n ot available 02/19/2021 What Is Your Level Of Alcohol Consumption? None [email or web address] Information not available 09/14/2023 If You Are , What Was Your Level Of Alcohol Consumption Prior To ? Occasional [email or web address] Information not available 01/23/2022 How Many Years Have You Consumed Alcohol? 10 Information not available 02/19/2021 Are You Blind Or Do You Have Difficulty Seeing? No [email or web address] Information n ot available 02/19/2021 What Is Your Level Of Caffeine Consumption? None [email or web address] Information not available 12/21/2023 How Much Tobacco Do You Chew? None [email or web address] Information not available 02/19/2021 In The 14 [...] To Be High Risk For COVID-19? No [email or web address] Information not available 02/19/2021 Are You Deaf Or Do You Have Serious Difficulty Hearing? No [email or web address] Information not available 02/19/2021 What Type Of Diet Are You Following? REGULAR [email or web address] Information n ot available 02/19/2021 What Is The Highest Grade Or Level Of School You Have Completed Or The Highest Degree You Have Received? 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 No [email or web address] Information not available 02/19/2021 Do You Use Protection During Sex? No Information not available 02/19/2021 Do You Use Your Seat Belt Or Car Seat Routinely? Yes [email or web address] Information not available 02/19/2021 Do You Have Smoke And Carbon Monoxide Detectors In Your Home? Yes [email or web address] Information not available 02/19/2021 How Much Tobacco Do You Smoke? No [email or web address] Information not available 02/19/2021 Do You Feel Stressed (tense, Restless, Nervous, Or Anxious, Or Unable To Sleep At Night)? OK03727-9 [email or web address] Information not available 02/19/2021 Do You Use Any Illicit Or Recreational Drugs? No [email or web address] Information not available 02/19/2021 Do You Use Sunscreen Routinely? No [email or web address] Information not available 02/19/2021 Have You Used IV Drugs? No [email or web address] Information not available 02/19/2021 Sex: Unknown Functional Status Question Answer Note LastModified by Organizat ion Details LastModified Time Do you have difficulty walking or climbing stairs? No [email or web address] Information not available 01/23/2022 Are you able to walk? YESWOREST [email or web address] Information not available 02/19/2021 Are you able to care for yourself? Yes [email or web address] Information not available 01/23/2022 Do you have difficulty dressing or bathing? No [email or web address] Information not available 01/23/2022 What is your exercise level? Occasional [email or web address] Information not available 02/19/2021 Mental Status None recorded. Family History Relationship Description Onset Age of this Age Resolved Age Notes LastModified by Organization Details LastModified Time Father Disorder of nervous system [email or web address] Not available 2020 09:30:09 Father Multiple sclerosis Not available 2020 09:30:09 Mother Diabetes mellitus [email or web address] Not available 2020 09:30:09 Mother High risk [email or web address] Not available 2020 09:30:09 Sister Substance abuse [email or web address] Not available 2020 09:30:09 Paternal Uncle Substance [...] Diagnosis/Indication Diagnosis SNOMED-CT Code Diagnosis ICD10 Code [id number] Ruchi Martinez [place] [address] [address] 01/04/2024 09:41:43 01/04/2024 10:16:29 Maternal obesity complicating , childbirth and the puerperium, antepartum 0053553578 07 O99.213 O36.60X0 Z3A.32 [id number] AALIYAH GALVAN MD [place] [address],[facility] [place] [address] 01/04/2024 09:42:01 01/04/2024 11:10:53 Maternal obesity complicating , childbirth and the puerperium, antepartum 2200538822 07 O99.213 O36.60X0 Z3A.32 Gestation period, 32 weeks 4076021 Z3A.32 [id number] Jenna Velazquez [place] [address],[facility] [place] [address] 01/18/2024 09:18:59 01/18/2024 10:25:52 Maternal obesity complicating , childbirth and the puerperium, antepartum 2775897692 07 O99.213 O99.891 Z3A.34 [id number] [facility] [address],[place] [address] 01/18/2024 09:20:07 01/18/2024 10:36:16 Maternal obesity complicating , childbirth and the puerperium, antepartum 5974848176 07 O99.213 O36.60X0 Z3A.32 [id number] AALIYAH GALVAN MD [place] [address],[place] [address] 01/18/2024 09:20:25 01/18/2024 11:27:10 Polyhydramnios 39101540 O40.3XX0 Maternal o besity complicating , childbirth and the puerperium, antepartum 3476204139 07 O99.213 O36.60X0 Z3A.32 Gestation period, 34 weeks 70869115 Z3A.34 [id number] Ruchi Martinez [place] [address],[place] [address] 01/25/2024 09:18:22 01/25/2024 10:11:43 Maternal obesity complicating , childbirth and the puerperium, antepartum 3037710572 07 O99.213 Z3A.35 [id number] [facility] [address],[place] [address] 01/25/2024 09:18:50 01/25/2024 10:55:21 Maternal obesity complicating , childbirth and the puerperium, antepartum 1103456866 07 O99.213 O36.60X0 Z3A.32 [id number] AALIYAH GALVAN MD [place] [address],[place] [address] 01/25/2024 09:19:07 01/25/2024 10:59:24 Maternal obesity complicating , childbirth and the puerperium, antepartum 5609024486 07 O99.213 Z3A.35 Gestation period, 35 weeks 73166122 Z3A.35 [id number] Jenna Velazquez [place] [address] [address] 02/01/2024 09:19:27 02/01/2024 10:06:24 Maternal obesity complicating , childbirth and the puerperium, antepartum 8656608322 07 O99.213 Z3A.36 [id number] Ruth Harding [place] [address],[facility] [place] [address] 02/01/2024 09:20:04 02/01/2024 10:43:00 Maternal obesity complicating , childbirth and the puerperium, antepartum 8320207025 07 O99.213 Z3A.35 [id number] AALIYAH GALVAN MD [place] [address],[place] [address] 02/01/2024 09:20:22 02/01/2024 11:13:01 Excessive growth affecting management of mother 61133965 O36.62X0 Gestation period, 36 weeks 32354761 Z3A.36 Polyhydramnios 85997136 O40.3XX0 Health Concerns Section Related Observation LastModified by Organization Detai ls LastModified Time None Recorded Concern Status LastModified by Organization Details LastModified Time None Recorded Payers Encounter Date Sequence Insurance Name Policy Number Policy Patino Covered Member ID Patino Member ID Guarantor Name 02/01/2024 1 [place] [id number] Logyn Whitney Gar [id number] [place] Gar OBGyn Episode Ob Episode Information Episode Created Date Number of Fetuses Patient Bloodtype Patient rh Status Prepregnancy Weight lbs Domestic Partner Domestic Partner Phone Father Name 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 Status 08/16/19 24 1 A Positive 250.8 OPEN Fetus Data First Name Last Name Admitted to NICU Weight (g) Sex Living Outcome Pediatric Complications Fetus ID Race Codes Race Delivery Type [id number] Problems Problem Notes Problem Name Start Date End Date Resolution Snomed Code Not e Obesity 426420036 testing 34wks Prediabetes 506719648 A1c 5.7 - early GTT at 20wks [...] Date Ultra Sound Latest Days Gestation 0 [email or web address] 08/16/2023 02/25/20 24 0 Pre-elizabeth Flowsheet Flowsheet Date 08/16/2023 Castro Score Blood Edema Fundus Height Fundus Units Glucose Ketones Leukocytes Nitrite Labor Signs Protein Cervic Dilation Cervic Effacement Cervic Station Type Weight in lbs Pre/Post Dialysis Refused Weight 245.87127434826 BP Diastolic BP Location Tested BP Systolic BP Type 79 121 Fetus Heart Rate Present A 154 Fetus Movement Comments Presents to establish prenat id care. has been thus far uncomplicated. Nausea [...] Weight in lbs Pre/Post Dialysis Refused Weight 251.803926433211 BP Diastolic BP Location Tested BP Systolic [...] Weight in lbs Pre/Post Dialysis Refused Weight 252.741081368516 BP Diastolic BP Location Tested BP Systolic [...] Weight in lbs Pre/Post Dialysis Refused Weight 256.993919348263 BP Diastolic BP Location Tested BP Systolic [...] Type Weight in lbs Pre/Post Dialysis Refused 257.035032376464 BP Diastolic BP Location Tested BP Systolic [...] Weight in lbs Pre/Post Dialysis Refused Weight 257.046191207820 BP Diastolic BP Location Tested BP Systolic [...] Weight in lbs Pre/Post Dialysis Refused Weight 262.655873437976 BP Diastolic BP Location Tested BP Systolic [...] Weight in lbs Pre/Post Dialysis Refused Weight 267.553204807227 BP Diastolic BP Location Tested BP Systolic BP Type 74 L arm 117 sitting Fetus Heart Rate Present A 140 Fetus Movement A Yes Comments Patient c/o of [place] . Good movement. No bleeding or [...] Weight in lbs Pre/Post Dialysis Refused Weight 268.55093427756 BP Diastolic BP Location Tested BP Systolic BP Type 78 L arm 113 sitting Fetus Heart Rate Present A 135 Fetus Movement A Yes Comments Good movement. No ctx, LOF, VB. BPP 10/, JEET 20.82cm. Vasectomy done, doing well. EIL [...] Weight in lbs Pre/Post Dialysis Refused Weight 268.09999550710 BP Diastolic BP Location Tested BP Systolic [...] Weight in lbs Pre/Post Dialysis Refused Weight 271.258177799120 BP Diastolic BP Location Tested BP Systolic [...] Weight in lbs Pre/Post Dialysis Refused Weight 274.695845263161 BP Diastolic BP Location Tested BP Systolic BP Type 75 109 Fetus Heart Rate Present Fetus Movement Comments Flowsheet Date 02/15/2024 Castro Score Blood Edema Fundus Height Fundus Units Glucose Ketones Leukocytes Nitrite Labor Signs Protein Cervic Dilation Cervic Effacement Cervic Station neg none Type Weight in lbs Pre/Post Dialysis Refused 274.174865464584 BP Diastolic BP Location Tested BP Systolic BP Type 75 L arm 109 sitting Fetus Heart Rate Present A 140 Fetus Movement A Yes Comments Patient c/o of [place] and swelling in hands and feet. [...] Estim ated Date of Delivery false Thalassemia (Romanian, Trinidadian, Mediterranean, Or Background): MCV < 80 false Neural Tube Defect (Meningomyelocele, Spina Bifi da, Or Anencephaly) false Congenital Heart Defect false Down Syndrome false Domingo-Sachs (eg, Anglican, Cajun, Turkish-Mcclain) f alse Donn Disease false Sickle Cell Disease Or Trait () false Hemophilia Or Other Blood Disorders false Muscular Dystrophy false Cystic Fibrosis false Lawrence's Chorea false Intellectual Disability/Autism false If Yes, [...]
--- OUTSIDE RECORDS SUMMARY | 2024-02-17 01:20 | XMS_ITS | Continuity of Care Document ---
Author Organization [facility] [place] Address [address] [place] [address] Care Team Providers Care [employer] Hand Finisher Name Role Phone PETE MARTINEZ Primary Care Provider [phone] Assessment No assessment recorded. Plan of Treatment Reminders Order Date Submit Date Provider Last Modified By Organization Details Last Modified Time Details Appointments INDUCTION 2023 12:01A Archie GALVAN MD Not available Not available Not available Lab None recorded. Referral None recorded. Procedures None recorded. Surgeries None recorded. Imaging non-stres s test 2023 024 [email or web address] [place], [address], [place], [address], 01/26/2024 06:08:58 Medication Orders None recorded. Patient TargetsNo targets recorded. Patient InstructionsNo instructions recorded. Reason for Referral None Reported. Results Created Date Observation Date Name Description Value Unit Range Abnormal Flag Note LastModifiedBy Organization Detail LastModifiedTime 08/16/1908/16/2023 US, obste tric, nucha l trans lucen cy No observ ation record ed. [email or web address] [place] [address], [place], [address], 08/16/2023 10:17:57 08/16/19 24 08/16/2023 US, obste tric, 1st trime ster No observ ation record ed. [email or web address] [place] [address], [place], [address], 08/16/2023 10:17:45 08/16/19 24 08/16/2023 US, obste tric, nucha l trans lucen cy No observ ation record ed. [email or web address] [address], [place], [address], 08/16/2023 20:31:53 10/12/19 24 10/12/2023 US, obste tric, 2nd or 3rd trime ster No observ ation record ed. [email or web address] [place] [address], [place], [address], 10/12/2023 12:33:34 10/12/19 24 10/12/2023 US, obste tric, 2nd or 3rd trime ster No observ ation record ed. [email or web address] [address], [place], [address], 10/13/2023 14:01:11 10/12/19 24 10/12/2023 US, obste tric, 2nd or 3rd trime ster No observ ation record ed. [email or web address] [address], [place], [address], 10/13/2023 07:42:16 11/09/19 24 11/09/2023 US, obste tric, follo w-up No observ ation record ed. [email or web address] [place] [address], [place], [address], 11/09/2023 18:27:48 11/09/1911/09/2023 US, obste tric, follo w-up No observ ation record ed. [address], [place], [address], 11/10/2023 15:36:54 01/04/20 24 01/04/2024 US, obste tric, follo w-up No observ ation record ed. [email or web address] [place] [address], [place], [address], 01/04/2024 13:22:26 01/04/2001/04/2024 US, obste tric, follo w-up No observ ation record ed. [email or web address] [address], [place], [address], 01/04/2024 12:54:21 01/18/20 24 01/18/2024 US, obste tric, bioph ysica l profi le + non-s tress test No observ ation record ed. [email or web address] [place] [address], [place], [address], 01/18/2024 10:54:49 01/18/20 24 01/18/2024 US, obste tric, bioph ysica l profi le + non-s tress test No observ ation record ed. [email or web address] [address], [place], [address], 01/20/2024 00:28:05 01/18/2001/18/2024 non-s tress test No observ ation record ed. [email or web address] [place] [address], [place], [address], 01/18/2024 10:35:29 01/25/20 24 01/25/2024 non-s tress test No observ ation record ed. [email or web address] [place] [address], [place], [address], 01/25/2024 10:50:05 01/25/20 24 01/25/2024 US, obste tric, bioph ysica l profi le + non-s tress test No observ ation record ed. [email or web address] [place] [address], [place], [address], 01/25/2024 12:36:03 01/25/20 24 01/25/2024 US, obste tric, bioph ysica l profi le + non-s tress test No observ ation record ed. [email or web address] [address], [place], [address], 01/26/2024 05:27:30 02/01/20 24 02/01/2024 US, obste tric, follo w-up No observ ation record ed. [email or web address] [place] [address], [place], [address], 02/01/2024 14:50:11 02/01/2002/01/2024 non-s tress test No observ ation record ed. [email or web address] [place] [address], [place], [address], 02/01/2024 10:39:26 02/01/20 24 02/01/2024 US, obste tric, follo w-up No observ ation record ed. IAN [address], [place], [address], 02/02/2024 10:36:33 02/08/20 24 02/08/2024 US, obste tric, bioph ysica l profi le + non-s tress test No observ ation record ed. [email or web address] [place] [address], [place], [address], 02/08/2024 13:02:43 02/08/20 24 02/08/2024 US, obste tric, bioph ysica l profi le + non-s tress test No observ ation record ed. [email or web address] [address], [place], [address], 02/10/2024 11:57:49 02/08/20 24 02/08/2024 non-s tress test No observ ation record ed. [email or web address] [place] [address], [place], [address], 02/08/2024 11:12:55 02/15/20 24 02/15/2024 US, obste tric, bioph ysica l profi le + non-s tress test No observ ation record ed. [email or web address] [place] [address], [place], [address], 02/15/2024 12:00:41 02/15/20 24 02/15/2024 US, obste tric, bioph ysica l profi le + non-s tress test No observ ation record ed. [email or web address] [address], [place], [address], 02/15/2024 21:51:48 02/15/20 24 02/15/2024 non-s tress test No observ ation record ed. [email or web address] [place] [address], [place], [address], 02/15/2024 19:02:15 02/15/20 non-s tress test No observ ation record ed. [email or web address] [place] [address], [place], [address], 02/15/2024 19:06:30 Result Notes None recorded. Problems Name Problem SNOMED Code Status Onset Date Resolution Date Notes Provider Name and Address Organization Details Recorded Time Subchori onic hematoma 192504771 Active 2020 Dixie perez [facility] 1 10:44:01 Pregnanc y 78139334 Completed 202110/24/2021 Shaneka perez [facility] 4 09:59:33 Maternal obesity complica ting pregnanc y, childbir th and the puerperi um, antepart um 7896954399 07 Active BMI 44- ante testing at 34w Anca babb null, [facility] 2 13:48:38 Maternal obesity complica ting pregnanc y, childbir th and the puerperi um, antepart um 6379912762 07 Completed BMI 44- ante testing at 34w Anca perez, [facility] 2 13:48:38 COVID-19 359616138 Completed 2021 Pt informed to take ASA per SP. Serial growth Anca babb [facility], [facility] 2 13:48:38 Pregnanc y 61892845 Active 2023 Shaneka Cuevas [facility], [facility] 4 09:59:33 Obesity 757185682 Active Antenata l testing 34wks AALIYAH GALVAN MD [address], [place], [address], [facility] 4 10:04:23 Prediabe [place] 352813415 Active A1c 5.7 - early GTT at 20wks AALIYAH GALVAN MD [address], [place], [address], [facility] 4 10:04:23 Problem Notes None recorded. Procedures Surgical History Date Name Laterality Status Provider Name and Address Organization Details Recorded Time 06/01/19 24 Date of Last Pap Smear completed Olga Larson [facility] 12/10/2023 10:42:52 03/08/19 02 Tonsillectomy completed Dixie Chavez [facility] 02/19/2021 09:31:00 Imaging Results Imaging Date Name Status LastModified by Organiz [facility] Details LastModified Time 01/25/2024 non-stress test completed [address], [place], [address], 01/25/2024 10:50:05 Procedure Notes None recorded. Medical Equipment None [...] and Address Organization Details Last Updated DateTime 01/25/2024 162.56 cm 46 kg/m2 331892.7 6 g 113 mm[Hg] 78 mm[Hg] Olga Larson [facility] 10:32:25 Social History Question Answer Notes LastModified by Organizat ion Details LastModified Time Tobacco Smoking Status Never Smoker Fartun Carmen ana [facility] 01/23/2022 12:22:48 Do You Have An Advance Directive? No [email or web address] Information n ot available 02/19/2021 What Is Your Level Of Alcohol Consumption? None [email or web address] Information not available 09/14/2023 If You Are , What Was Your Level Of Alcohol Consumption Prior To ? Occasional [email or web address] Information not available 01/23/2022 How Many Years Have You Consumed Alcohol? 10 [email or web address] Information not available 02/19/2021 Are You Blind Or Do You Have Difficulty Seeing? No [email or web address] Information n ot available 02/19/2021 What Is Your Level Of Caffeine Consumption? None [email or web address] Information not available 12/21/2023 How Much Tobacco Do You Chew? None Information not available 02/19/2021 In The 14 Days Before Symptom Onset, Have You Had Close Contact With A Laboratory-confirm ed COVID-19 While That Case Was Ill? No [email or web address] Information n ot available 02/19/2021 In The 14 Days Before Symptom Onset, Have You Had Close Contact With A Person Who Is Under Investigation For COVID-19 While That Person Was Ill? No [email or web address] Information not available 02/19/2021 Have You Been To An Area Known To Be High Risk For COVID-19? No [email or web address] Information not available 02/19/2021 Are You Deaf Or Do You Have Serious Difficulty Hearing? No Information not available 02/19/2021 What Type Of Diet Are You Following? REGULAR [email or web address] Information n ot available 02/19/2021 What Is The Highest Grade Or Level Of School You Have Completed Or The Highest Degree You Have Received? 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 No [email or web address] Information not available 02/19/2021 Do You Use Protection During Sex? No [email or web address] Information not available 02/19/2021 Do You Use Your Seat Belt Or Car Seat Routinely? Yes [email or web address] Information not available 02/19/2021 Do You Have Smoke And Carbon Monoxide Detectors In Your Home? Yes Information not available 02/19/2021 How Much Tobacco Do You Smoke? No [email or web address] Information not available 02/19/2021 Do You Feel Stressed (tense, Restless, Nervous, Or Anxious, Or Unable To Sleep At Night)? [id number] [email or web address] Information not available 02/19/2021 Do You Use Any Illicit Or Recreational Drugs? No [email or web address] Information not available 02/19/2021 Do You Use Sunscreen Routinely? No [email or web address] Information not available 02/19/2021 Have You Used IV Drugs? No [email or web address] Information not available 02/19/2021 Sex: Unknown Functional Status Question Answer Note LastModified by Organizat ion Details LastModified Time Do you have difficulty walking or climbing stairs? No Information not available 01/23/2022 Are you able to walk? YESWOREST [email or web address] Information not available 02/19/2021 Are you able to care for yourself? Yes [email or web address] Information not available 01/23/2022 Do you have difficulty dressing or bathing? No [email or web address] Information not available 01/23/2022 What is your exercise level? Occasional [email or web address] Information not available 02/19/2021 Mental Status None recorded. Family History Relationship Description Onset Age of this Age Resolved Age Notes LastModified by Organization Details LastModified Time Father Disorder of nervous system [email or web address] Not available 2020 09:30:09 Father Multiple sclerosis Not available 2020 09:30:09 Mother Diabetes mellitus [email or web address] Not available 2020 09:30:09 Mother High risk [email or web address] Not available 2020 09:30:09 Sister Substance abuse [email or web address] Not available 2020 09:30:09 Paternal Uncle Substance abuse [email or web address] Not available 2020 09:30:09 Notes:Cancer form complete [...] Diagnosis/Indication Diagnosis SNOMED-CT Code Diagnosis ICD10 Code [id number] Ruchi Martinez [place] [address],[place] [address] 01/04/2024 09:41:43 01/04/2024 10:16:29 Maternal obesity complicating , childbirth and the puerperium, antepartum 0747515530 07 O99.213 O36.60X0 Z3A.32 [id number] AALIYAH GALVAN MD [place] [address],[place] [address] 01/04/2024 09:42:01 01/04/2024 11:10:53 Maternal obesity complicating , childbirth and the puerperium, antepartum 6495893474 07 O99.213 O36.60X0 Z3A.32 Gestation period, 32 weeks 4545558 Z3A.32 [id number] Jenna Moss [place] [address],[place] [address] 01/18/2024 09:18:59 01/18/2024 10:25:52 Maternal obesity complicating , childbirth and the puerperium, antepartum 9010680563 07 O99.213 O99.891 Z3A.34 [id number] Ruth Harding [place] [address],[place] [address] 01/18/2024 09:20:07 01/18/2024 10:36:16 Maternal obesity complicating , childbirth and the puerperium, antepartum 9547169569 07 O99.213 O36.60X0 Z3A.32 [id number] AALIYAH GALVAN MD [place] [address],[place] [address] 01/18/2024 09:20:25 01/18/2024 11:27:10 Polyhydramnios 11595028 O40.3XX0 Maternal o besity complicating , childbirth and the puerperium, antepartum 1324613197 07 O99.213 O36.60X0 Z3A.32 Gestation period, 34 weeks 59187049 Z3A.34 [id number] Ruchi Martinez [place] [address],[place] [address] 01/25/2024 09:18:22 01/25/2024 10:11:43 Maternal obesity complicating , childbirth and the puerperium, antepartum 6436382061 07 O99.213 Z3A.35 [id number] Ruth Harding [place] [address],[place] [address] 01/25/2024 09:18:50 01/25/2024 10:55:21 Maternal obesity complicating , childbirth and the puerperium, antepartum 8704278833 07 O99.213 O36.60X0 Z3A.32 [id number] AALIYAH GALVAN MD [place] [address],[place] [address] 01/25/2024 09:19:07 01/25/2024 10:59:24 Maternal obesity complicating , childbirth and the puerperium, antepartum 7851168727 07 O99.213 Z3A.35 Gestation period, 35 weeks 81068813 Z3A.35 Health Concerns Section Related Observation LastModified by Organization Detai ls LastModified Time None Recorded Concern Status LastModified by Organization Details LastModified Time None Recorded Payers Encounter Date Sequence Insurance Name Policy Number Policy Patino Covered Member ID Patino Member ID Guarantor Name 01/25/2024 1 [place] [id number] Logmaya Gar [id number] [place] [facility] OBGyn Episode Ob Episode Information Episode Created Date Number of Fetuses Patient Bloodtype Patient rh Status Prepregnancy Weight lbs Domestic Partner Domestic Partner Phone Father Name Product Finisher Status 08/16/19 24 1 A Positive 250.8 OPEN Fetus Data First Name Last Name Admitted to NICU Weight (g) Sex Living Outcome Pediatric Complications Fetus ID Race Codes Race Delivery Type [id number] Problems Problem Notes Problem Name Start Date End Date Resolution Snomed Code Not e Obesity 876799617 testing 34wks Prediabetes 441541803 A1c 5.7 - early GTT at 20wks [...] Date Ultra Sound Latest Days Gestation 0 [email or web address] 08/16/2023 02/25/20 24 0 Pre-elizabeth Flowsheet Flowsheet Date 08/16/2023 Castro Score Blood Edema Fundus Height Fundus Units Glucose Ketones Leukocytes Nitrite Labor Signs Protein Cervic Dilation Cervic Effacement Cervic Station Type Weight in lbs Pre/Post Dialysis Refused Weight 245.74877372759 BP Diastolic BP Location Tested BP Systolic BP Type 79 121 Fetus Heart Rate Present A 154 Fetus Movement Comments Presents to establish prenat wa care. has been thus far uncomplicated. Nausea [...] Weight in lbs Pre/Post Dialysis Refused Weight 251.717163405777 BP Diastolic BP Location Tested BP Systolic [...] Weight in lbs Pre/Post Dialysis Refused Weight 252.104266121013 BP Diastolic BP Location Tested BP Systolic [...] Weight in lbs Pre/Post Dialysis Refused Weight 256.814224201508 BP Diastolic BP Location Tested BP Systolic [...] Type Weight in lbs Pre/Post Dialysis Refused 257.593216748511 BP Diastolic BP Location Tested BP Systolic [...] Weight in lbs Pre/Post Dialysis Refused Weight 257.418758666422 BP Diastolic BP Location Tested BP Systolic [...] Weight in lbs Pre/Post Dialysis Refused Weight 262.152411747452 BP Diastolic BP Location Tested BP Systolic [...] Weight in lbs Pre/Post Dialysis Refused Weight 267.333674614863 BP Diastolic BP Location Tested BP Systolic [...] Weight in lbs Pre/Post Dialysis Refused Weight 268.20937514045 BP Diastolic BP Location Tested BP Systolic [...] Weight in lbs Pre/Post Dialysis Refused Weight 268.83488125925 BP Diastolic BP Location Tested BP Systolic [...] Weight in lbs Pre/Post Dialysis Refused Weight 271.608990923443 BP Diastolic BP Location Tested BP Systolic [...] Weight in lbs Pre/Post Dialysis Refused Weight 274.533568628982 BP Diastolic BP Location Tested BP Systolic BP Type 75 109 Fetus Heart Rate Present Fetus Movement Comments Flowsheet Date 02/15/2024 Castro Score Blood Edema Fundus Height Fundus Units Glucose Ketones Leukocytes Nitrite Labor Signs Protein Cervic Dilation Cervic Effacement Cervic Station neg none Type Weight in lbs Pre/Post Dialysis Refused 274.169542663911 BP Diastolic BP Location Tested BP Systolic BP Type 75 L arm 109 sitting Fetus Heart Rate Present A 140 Fetus Movement A Yes Comments Patient c/o of [place] and swelling in hands and feet. [...] Estim ated Date of Delivery false Thalassemia (Cuban, Swedish, Mediterranean, Or Background): MCV < 80 false Neural Tube Defect (Meningomyelocele, Spina Bifi da, Or Anencephaly) false Congenital Heart Defect false Down Syndrome false Domingo-Sachs (eg, Religious, Cajun, Icelandic-Conyers) f alse Donn Disease false Sickle Cell [...]
--- OUTSIDE RECORDS SUMMARY | 2024-02-17 01:20 | XMS_ITS | Continuity of Care Document ---
Author Organization [facility] [place] Address [address] [place] [address] Care Team Providers Care Relocation Associate Name Role Phone PETE MARTINEZ Primary Care Provider Assessment No assessment recorded. Plan of Treatment Reminders Order Date Submit Date Provider Last Modified By Organization Details Last Modified Time Details Appointments INDUCTION 2023 12:01A Archie GALVAN MD Not available Not available Not available Lab None recorded. Referral None recorded. Procedures None recorded. Surgeries None recorded. Imaging non-stres s test 2023 024 [email or web address] [place], [address], [place], [address], 02/03/2024 01:56:59 Medication Orders None recorded. Patient TargetsNo targets recorded. Patient InstructionsNo instructions recorded. Reason for Referral None Reported. Results Created Date Observation Date Name Description Value Unit Range Abnormal Flag Note LastModifiedBy Organization Detail LastModifiedTime 08/16/1908/16/2023 US, obste tric, nucha l trans lucen cy No observ ation record ed. [email or web address] [place] [address], [place], [address], 08/16/2023 10:17:57 08/16/1908/16/2023 US, obste tric, 1st trime ster No observ ation record ed. [email or web address] [place] [address], [place], [address], 08/16/2023 10:17:45 08/16/19 24 08/16/2023 US, obste tric, nucha l trans lucen cy No observ ation record ed. [email or web address] [address], [place], [address], 08/16/2023 20:31:53 10/12/19 24 10/12/2023 US, obste tric, 2nd or 3rd trime ster No observ ation record ed. [email or web address] [place] [address], [place], [address], 10/12/2023 12:33:34 10/12/19 24 10/12/2023 US, obste tric, 2nd or 3rd trime ster No observ ation record ed. [email or web address] [address], [place], [address], 10/13/2023 14:01:11 10/12/19 24 10/12/2023 US, obste tric, 2nd or 3rd trime ster No observ ation record ed. [address], [place], [address], 10/13/2023 07:42:16 11/09/19 24 11/09/2023 US, obste tric, follo w-up No observ ation record ed. [email or web address] [place] [address], [place], [address], 11/09/2023 18:27:48 11/09/1911/09/2023 US, obste tric, follo w-up No observ ation record ed. [email or web address] [address], [place], [address], 11/10/2023 15:36:54 01/04/20 24 01/04/2024 US, obste tric, follo w-up No observ ation record ed. [email or web address] [place] [address], [place], [address], 01/04/2024 13:22:26 01/04/2001/04/2024 US, obste tric, follo w-up No observ ation record ed. [email or web address] [address], [place], [address], 01/04/2024 12:54:21 01/18/20 24 01/18/2024 US, obste tric, bioph ysica l profi le + non-s tress test No observ ation record ed. [email or web address] [place] [address], [place], [address], 01/18/2024 10:54:49 01/18/20 24 01/18/2024 US, obste tric, bioph ysica l profi le + non-s tress test No observ ation record ed. [email or web address] [address], [place], [address], 01/20/2024 00:28:05 01/18/2001/18/2024 non-s tress test No observ ation record ed. [email or web address] [place] [address], [place], [address], 01/18/2024 10:35:29 01/25/20 24 01/25/2024 non-s tress test No observ ation record ed. [email or web address] [place] [address], [place], [address], 01/25/2024 10:50:05 01/25/20 24 01/25/2024 US, obste tric, bioph ysica l profi le + non-s tress test No observ ation record ed. [email or web address] [place] [address], [place], [address], 01/25/2024 12:36:03 01/25/20 24 01/25/2024 US, obste tric, bioph ysica l profi le + non-s tress test No observ ation record ed. [email or web address] [address], [place], [address], 01/26/2024 05:27:30 02/01/20 24 02/01/2024 US, obste tric, follo w-up No observ ation record ed. [email or web address] [place] [address], [place], [address], 02/01/2024 14:50:11 02/01/2002/01/2024 non-s tress test No observ ation record ed. [email or web address] [place] [address], [place], [address], 02/01/2024 10:39:26 02/01/20 24 02/01/2024 US, obste tric, follo w-up No observ ation record ed. [email or web address] [address], [place], [address], 02/02/2024 10:36:33 02/08/20 24 02/08/2024 US, obste tric, bioph ysica l profi le + non-s tress test No observ ation record ed. [email or web address] [place] [address], [place], [address], 02/08/2024 13:02:43 02/08/20 24 02/08/2024 US, obste tric, bioph ysica l profi le + non-s tress test No observ ation record ed. [email or web address] [address], [place], [address], 02/10/2024 11:57:49 02/08/20 24 02/08/2024 non-s tress test No observ ation record ed. [email or web address] [place] [address], [place], [address], 02/08/2024 11:12:55 02/15/20 24 02/15/2024 US, obste tric, bioph ysica l profi le + non-s tress test No observ ation record ed. [email or web address] [place] [address], [place], [address], 02/15/2024 12:00:41 02/15/20 24 02/15/2024 US, obste tric, bioph ysica l profi le + non-s tress test No observ ation record ed. [email or web address] [address], [place], [address], 02/15/2024 21:51:48 02/15/20 24 02/15/2024 non-s tress test No observ ation record ed. [email or web address] [place] [address], [place], [address], 02/15/2024 19:02:15 02/15/20 non-s tress test No observ ation record ed. [email or web address] [place] [address], [place], [address], 02/15/2024 19:06:30 Result Notes None recorded. Problems Name Problem SNOMED Code Status Onset Date Resolution Date Notes Provider Name and Address Organization Details Recorded Time Subchori onic hematoma 177497966 Active 2020 Dixie perez [facility] 1 10:44:01 Pregnanc y 97464329 Completed 202110/24/2021 Shaneka perez [facility] 4 09:59:33 Maternal obesity complica ting pregnanc y, childbir th and the puerperi um, antepart um 6854816478 07 Active BMI 44- ante testing at 34w Anca babb null, [facility] 2 13:48:38 Maternal obesity complica ting pregnanc y, childbir th and the puerperi um, antepart um 0947012910 07 Completed BMI 44- ante testing at 34w Anca babb null, [facility] 2 13:48:38 COVID-19 150117480 Completed 2021 Pt informed to take ASA per SP. Serial growth Anca babb [facility], [facility] 2 13:48:38 Pregnanc y 79456294 Active 2023 Shaneka Cuevas [facility], [facility] 4 09:59:33 Obesity 166518288 Active Antenata l testing 34wks AALIYAH GALVAN MD [address], [place], [address], [facility] 4 10:04:23 Prediabe [place] 890938211 Active A1c 5.7 - early GTT at 20wks AALIYAH GALVAN MD [address], [place], [address], [facility] 4 10:04:23 Problem Notes None recorded. Procedures Surgical History Date Name Laterality Status Provider Name and Address Organization Details Recorded Time 06/01/19 24 Date of Last Pap Smear completed Olga Larson [facility] 12/10/2023 10:42:52 03/08/19 02 Tonsillectomy completed Dixie Chavez [facility] 02/19/2021 09:31:00 Imaging Results Imaging Date Name Status LastModified by [facility] Details LastModified Time 02/01/2024 non-stress test completed [address], [place], [address], 02/01/2024 10:39:26 Procedure Notes None recorded. Medical Equipment None [...] Updated DateTime 02/01/2024 162.56 cm 46 kg/m2 864475.7 6 g 115 mm[Hg] 80 mm[Hg] Olga Larson [facility] 10:41:31 Social History Question Answer Notes LastModified by Organizat ion Details LastModified Time Tobacco Smoking Status Never Smoker Fartun Carmen ana [facility] 01/23/2022 12:22:48 Do You Have An Advance Directive? No Information n ot available 02/19/2021 What Is Your Level Of Alcohol Consumption? None [email or web address] Information not available 09/14/2023 If You Are , What Was Your Level Of Alcohol Consumption Prior To ? Occasional Information not available 01/23/2022 How Many Years Have You Consumed Alcohol? 10 [email or web address] Information not available 02/19/2021 Are You Blind Or Do You Have Difficulty Seeing? No [email or web address] Information n ot available 02/19/2021 What Is Your Level Of Caffeine Consumption? None [email or web address] Information not available 12/21/2023 How Much Tobacco Do You Chew? None [email or web address] Information not available 02/19/2021 In The 14 Days Before Symptom Onset, Have You Had Close Contact With A Laboratory-confirm ed COVID-19 While That Case Was Ill? No [email or web address] Information n ot available 02/19/2021 In The 14 Days Before Symptom Onset, Have You Had Close Contact With A Person Who Is Under Investigation For COVID-19 While That Person Was Ill? No [email or web address] Information not available 02/19/2021 Have You Been To An Area Known To Be High Risk For COVID-19? No [email or web address] Information not available 02/19/2021 Are You Deaf Or Do You Have Serious Difficulty Hearing? No [email or web address] Information not available 02/19/2021 What Type Of Diet Are You Following? REGULAR [email or web address] Information n ot available 02/19/2021 What Is The Highest Grade Or Level Of School You Have Completed Or The Highest Degree You Have Received? 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 No [email or web address] Information not available 02/19/2021 Do You Use Protection During Sex? No [email or web address] Information not available 02/19/2021 Do You Use Your Seat Belt Or Car Seat Routinely? Yes [email or web address] Information not available 02/19/2021 Do You Have Smoke And Carbon Monoxide Detectors In Your Home? Yes [email or web address] Information not available 02/19/2021 How Much Tobacco Do You Smoke? No [email or web address] Information not available 02/19/2021 Do You Feel Stressed (tense, Restless, Nervous, Or Anxious, Or Unable To Sleep At Night)? [id number] Information not available 02/19/2021 Do You Use Any Illicit Or Recreational Drugs? No [email or web address] Information not available 02/19/2021 Do You Use Sunscreen Routinely? No [email or web address] Information not available 02/19/2021 Have You Used IV Drugs? No [email or web address] Information not available 02/19/2021 Sex: Unknown Functional Status Question Answer Note LastModified by Organizat ion Details LastModified Time Do you have difficulty walking or climbing stairs? No [email or web address] Information not available 01/23/2022 Are you able to walk? YESWOREST [email or web address] Information not available 02/19/2021 Are you able to care for yourself? Yes [email or web address] Information not available 01/23/2022 Do you have difficulty dressing or bathing? No [email or web address] Information not available 01/23/2022 What is your exercise level? Occasional [email or web address] Information not available 02/19/2021 Mental Status None recorded. Family History Relationship Description Onset Age of this Age Resolved Age Notes LastModified by Organization Details LastModified Time Father Disorder of nervous system Not available 2020 09:30:09 Father Multiple sclerosis [email or web address] Not available 2020 09:30:09 Mother Diabetes mellitus [email or web address] Not available 2020 09:30:09 Mother High risk [email or web address] Not available 2020 09:30:09 Sister Substance abuse [email or web address] Not available 2020 09:30:09 Paternal Uncle Substance abuse [email or web address] Not available 2020 09:30:09 Notes:Cancer form complete [...] Diagnosis/Indication Diagnosis SNOMED-CT Code Diagnosis ICD10 Code [id number] Ruchi Martinez [place] [address] [address] 01/04/2024 09:41:43 01/04/2024 10:16:29 Maternal obesity complicating , childbirth and the puerperium, antepartum 0220509475 07 O99.213 O36.60X0 Z3A.32 [id number] AALIYAH GALVAN MD [place] [address],[place] [address] 01/04/2024 09:42:01 01/04/2024 11:10:53 Maternal obesity complicating , childbirth and the puerperium, antepartum 4773826172 07 O99.213 O36.60X0 Z3A.32 Gestation period, 32 weeks 2828149 Z3A.32 [id number] Jenna Moss [place] [address],[place] [address] 01/18/2024 09:18:59 01/18/2024 10:25:52 Maternal obesity complicating , childbirth and the puerperium, antepartum 8666101229 07 O99.213 O99.891 Z3A.34 [id number] Ruth Harding [place] [address],[place] [address] 01/18/2024 09:20:07 01/18/2024 10:36:16 Maternal obesity complicating , childbirth and the puerperium, antepartum 8141742292 07 O99.213 O36.60X0 Z3A.32 [id number] AALIYAH GALVAN MD [place] [address],[place] [address] 01/18/2024 09:20:25 01/18/2024 11:27:10 Polyhydramnios 93569210 O40.3XX0 Maternal o besity complicating , childbirth and the puerperium, antepartum 2309581801 07 O99.213 O36.60X0 Z3A.32 Gestation period, 34 weeks 17037848 Z3A.34 [id number] Ruchi Eduardoalexey [place] [address],[place] [address] 01/25/2024 09:18:22 01/25/2024 10:11:43 Maternal obesity complicating , childbirth and the puerperium, antepartum 0055885866 07 O99.213 Z3A.35 [id number] Ruth Meaghan [place] [address],[place] [address] 01/25/2024 09:18:50 01/25/2024 10:55:21 Maternal obesity complicating , childbirth and the puerperium, antepartum 3393331466 07 O99.213 O36.60X0 Z3A.32 [id number] AALIYAH GALVAN MD [place] [address],[place] [address] 01/25/2024 09:19:07 01/25/2024 10:59:24 Maternal obesity complicating , childbirth and the puerperium, antepartum 8521179787 07 O99.213 Z3A.35 Gestation period, 35 weeks 70532915 Z3A.35 [id number] Jennadinah Velazquez [place] [address],[place] [address] 02/01/2024 09:19:27 02/01/2024 10:06:24 Maternal obesity complicating , childbirth and the puerperium, antepartum 7691822504 07 O99.213 Z3A.36 [id number] Ruth Harding [place] [address],[place] [address] 02/01/2024 09:20:04 02/01/2024 10:43:00 Maternal obesity complicating , childbirth and the puerperium, antepartum 1863813980 07 O99.213 Z3A.35 [id number] AALIYAH GALVAN MD [place] [address] [address] 02/01/2024 09:20:22 02/01/2024 11:13:01 Excessive growth affecting management of mother 59146759 O36.62X0 Gestation period, 36 weeks 56430595 Z3A.36 Polyhydramnios 88342967 O40.3XX0 Health Concerns Section Related Observation LastModified by Organization Detai ls LastModified Time None Recorded Concern Status LastModified by Organization Details LastModified Time None Recorded Payers Encounter Date Sequence Insurance Name Policy Number Policy Patino Covered Member ID Patino Member ID Guarantor Name 02/01/2024 1 [place] [id number] Logyn Whitney Gar [id number] Logyn Cong OBGyn Episode Ob Episode Information Episode Created Date Number of Fetuses Patient Bloodtype Patient rh Status Prepregnancy Weight lbs Domestic Partner Domestic Partner Phone Father Name Legal Manager Status 08/16/19 24 1 A Positive 250.8 OPEN Fetus Data First Name Last Name Admitted to NICU Weight (g) Sex Living Outcome Pediatric Complications Fetus ID Race Codes Race Delivery Type [id number] Problems Problem Notes Problem Name Start Date End Date Resolution Snomed Code Not e Obesity 551265526 testing 34wks Prediabetes 419201923 A1c 5.7 - early GTT at 20wks [...] Date Ultra Sound Latest Days Gestation 0 [email or web address] 08/16/2023 12/20/20 24 0 Pre-elizabeth Flowsheet Flowsheet Date 08/16/2023 Castro Score Blood Edema Fundus Height Fundus Units Glucose Ketones Leukocytes Nitrite Labor Signs Protein Cervic Dilation Cervic Effacement Cervic Station Type Weight in lbs Pre/Post Dialysis Refused Weight 245.06435218547 BP Diastolic BP Location Tested BP Systolic BP Type 79 121 Fetus Heart Rate Present A 154 Fetus Movement Comments Presents to establish [facility] [address] [facility]. has been thus far uncomplicated. Nausea [...] Weight in lbs Pre/Post Dialysis Refused Weight 251.135495783182 BP Diastolic BP Location Tested BP Systolic [...] Weight in lbs Pre/Post Dialysis Refused Weight 252.870262985454 BP Diastolic BP Location Tested BP Systolic [...] Weight in lbs Pre/Post Dialysis Refused Weight 256.765214681855 BP Diastolic BP Location Tested BP Systolic [...] Type Weight in lbs Pre/Post Dialysis Refused 257.157580287411 BP Diastolic BP Location Tested BP Systolic [...] Weight in lbs Pre/Post Dialysis Refused Weight 257.951654712081 BP Diastolic BP Location Tested BP Systolic [...] Weight in lbs Pre/Post Dialysis Refused Weight 262.696033488392 BP Diastolic BP Location Tested BP Systolic BP Type 76 L arm 112 sitting Fetus Heart Rate Present A 143 Fetus Movement A Yes Comments Patient c/o of [place] . Having some fatigue. Good movement. [...] Weight in lbs Pre/Post Dialysis Refused Weight 267.755664168358 BP Diastolic BP Location Tested BP Systolic [...] Weight in lbs Pre/Post Dialysis Refused Weight 268.31272050586 BP Diastolic BP Location Tested BP Systolic [...] Weight in lbs Pre/Post Dialysis Refused Weight 268.46659809434 BP Diastolic BP Location Tested BP Systolic [...] Weight in lbs Pre/Post Dialysis Refused Weight 271.603136003009 BP Diastolic BP Location Tested BP Systolic [...] Weight in lbs Pre/Post Dialysis Refused Weight 274.192108124229 BP Diastolic BP Location Tested BP Systolic BP Type 75 109 Fetus Heart Rate Present Fetus Movement Comments Flowsheet Date 02/15/2024 Castro Score Blood Edema Fundus Height Fundus Units Glucose Ketones Leukocytes Nitrite Labor Signs Protein Cervic Dilation Cervic Effacement Cervic Station neg none Type Weight in lbs Pre/Post Dialysis Refused 274.323722728041 BP Diastolic BP Location Tested BP Systolic [...] Estim ated Date of Delivery false Thalassemia (Greek, Macanese, Mediterranean, Or Background): MCV < 80 false Neural Tube Defect (Meningomyelocele, Spina Bifi da, Or Anencephaly) false Congenital Heart Defect false Down Syndrome false Domingo-Sachs (eg, Buddhism, Cajun, Romansh-Romanian) f alse Donn Disease false Sickle Cell Disease Or Trait () false Hemophilia Or Other Blood Disorders false Muscular Dystrophy false Cystic Fibrosis false Clifton's Chorea false Intellectual Disability/Autism false If Yes, [...]
--- OUTSIDE RECORDS SUMMARY | 2024-02-17 01:20 | XMS_ITS | Continuity of Care Document ---
Author Organization [facility] [place] Address [address] [address] Care Team Providers Care Arts Therapist Name Role Phone PETE MARTINEZ Primary [...] cy No observ ation record ed. [email or web address] [place] [address], [place], [address], 08/16/2023 10:17:57 08/16/19 24 08/16/2023 US, obste tric, 1st trime ster No observ ation record ed. [email or web address] [place] [address], [place], [address], 08/16/2023 10:17:45 08/16/19 24 08/16/2023 US, obste tric, nucha l trans lucen cy No observ ation record ed. [email or web address] [address], [place], [address], 08/16/2023 20:31:53 10/12/19 24 10/12/2023 US, obste tric, 2nd or 3rd trime ster No observ ation record ed. [email or web address] [place] [address], [place], [address], 10/12/2023 12:33:34 10/12/19 24 10/12/2023 US, obste tric, 2nd or 3rd trime ster No observ ation record ed. [email or web address] [address], [place], [address], 10/13/2023 14:01:11 10/12/19 24 10/12/2023 US, obste tric, 2nd or 3rd trime ster No observ ation record ed. [email or web address] [address], [place], [address], 10/13/2023 07:42:16 11/09/19 24 11/09/2023 US, obste tric, follo w-up No observ ation record ed. [email or web address] [place] [address], [place], [address], 11/09/2023 18:27:48 11/09/19 24 11/09/2023 US, obste tric, follo w-up No observ ation record ed. [email or web address] [address], [place], [address], 11/10/2023 15:36:54 01/04/20 24 01/04/2024 US, obste tric, follo w-up No observ ation record ed. [email or web address] [place] [address], [place], [address], 01/04/2024 13:22:26 01/04/20 24 01/04/2024 US, obste tric, follo w-up No observ ation record ed. [email or web address] [address], [place], [address], 01/04/2024 12:54:21 01/18/20 24 01/18/2024 US, obste tric, bioph ysica l profi le + non-s tress test No observ ation record ed. [email or web address] [place] [address], [place], [address], 01/18/2024 10:54:49 01/18/20 24 01/18/2024 US, obste tric, bioph ysica l profi le + non-s tress test No observ ation record ed. [email or web address] [address], [place], [address], 01/20/2024 00:28:05 01/18/20 24 01/18/2024 non-s tress test No observ ation record ed. [email or web address] [place] [address], [place], [address], 01/18/2024 10:35:29 01/25/20 24 01/25/2024 non-s tress test No observ ation record ed. [email or web address] [place] [address], [place], [address], 01/25/2024 10:50:05 01/25/20 24 01/25/2024 US, obste tric, bioph ysica l profi le + non-s tress test No observ ation record ed. [email or web address] [place] [address], [place], [address], 01/25/2024 12:36:03 01/25/20 24 01/25/2024 US, obste tric, bioph ysica l profi le + non-s tress test No observ ation record ed. [address], [place], [address], 01/26/2024 05:27:30 02/01/20 24 02/01/2024 US, obste tric, follo w-up No observ ation record ed. [email or web address] [place] [address], [place], [address], 02/01/2024 14:50:11 02/01/20 24 02/01/2024 non-s tress test No observ ation record ed. [email or web address] [place] [address], [place], [address], 02/01/2024 10:39:26 02/01/2002/01/2024 US, obstdylan tric, follo w-up No observ ation record ed. IAN [address], [place], [address], 02/02/2024 10:36:33 02/08/20 24 02/08/2024 US, obste tric, bioph ysica l profi le + non-s tress test No observ ation record ed. [email or web address] [place] [address], [place], [address], 02/08/2024 13:02:43 02/08/20 24 02/08/2024 US, obste tric, bioph ysica l profi le + non-s tress test No observ ation record ed. [email or web address] [address], [place], [address], 02/10/2024 11:57:49 02/08/20 24 02/08/2024 non-s tress test No observ ation record ed. [email or web address] [place] [address], [place], [address], 02/08/2024 11:12:55 02/15/20 24 02/15/2024 US, obste tric, bioph ysica l profi le + non-s tress test No observ ation record ed. [email or web address] [place] [address], [place], [address], 02/15/2024 12:00:41 02/15/20 24 02/15/2024 US, obste tric, bioph ysica l profi le + non-s tress test No observ ation record ed. [email or web address] [address], [place], [address], 02/15/2024 21:51:48 02/15/20 24 02/15/2024 non-s tress test No observ ation record ed. [email or web address] [place] [address], [place], [address], 02/15/2024 19:02:15 02/15/20 non-s tress test No observ ation record ed. [email or web address] [place] [address], [place], [address], 02/15/2024 19:06:30 Result Notes None recorded. Problems Name Problem SNOMED Code Status Onset Date Resolution Date Notes Provider Name and Address Organization Details Recorded Time Subchori onic hematoma 205365891 Active [address] [facility] 1 10:44:01 Pregnanc y 52991300 Completed 202110/24/[address] [facility] 4 09:59:33 Maternal obesity complica ting pregnanc y, childbir th and the puerperi um, antepart um 5361499959 07 Active BMI 44- ante testing at 34w Anca babb [facility] 2 13:48:38 Maternal obesity complica ting pregnanc y, childbir th and the puerperi um, antepart um 6326905652 07 Completed BMI 44- ante testing at 34w Anca babb [facility], [facility] 2 13:48:38 COVID-19 472232915 Completed 2021 Pt informed to take ASA per SP. Serial growth Anca babb [facility], [facility] 2 13:48:38 Pregnanc y 28294499 Active 2023 Shanekapedro luis Cuevas [facility], [facility] 4 09:59:33 Obesity 114776708 Active Antenata l testing 34wks AALIYAH GALVAN MD [address], [place], [address], [facility] 4 10:04:23 Prediabe [place] 858848192 Active A1c 5.7 - early GTT at 20wks AALIYAH GALAVN MD [address], [place], [address], [facility] 4 10:04:23 Problem Notes None recorded. Procedures Surgical History Date Name Laterality Status Provider Name and Address Organization Details Recorded Time 06/01/19 24 Date of Last Pap Smear completed Olga Larson [facility] 12/10/2023 10:42:52 03/08/19 02 Tonsillectomy completed Dxiie Chavez [facility] 02/19/2021 09:31:00 Imaging Results [...] Updated DateTime 02/01/2024 162.56 cm 46 kg/m2 721718.7 6 g 115 mm[Hg] 80 mm[Hg] Olga Larson [facility] 10:41:31 Social History Question Answer Notes LastModified by Organizat ion Details LastModified Time Tobacco Smoking Status Never Smoker Fartun Carmen ana, [facility] 01/23/2022 12:22:48 Do You Have An Advance Directive? No [email or web address] Information n ot available 02/19/2021 What Is Your Level Of Alcohol Consumption? None [email or web address] Information not available 09/14/2023 If You Are , What Was Your Level Of Alcohol Consumption Prior To ? Occasional [email or web address] Information not available 01/23/2022 How Many Years Have You Consumed Alcohol? 10 [email or web address] Information not available 02/19/2021 Are You Blind Or Do You Have Difficulty Seeing? No [email or web address] Information n ot available 02/19/2021 What Is Your Level Of Caffeine Consumption? None [email or web address] Information not available 12/21/2023 How Much Tobacco Do You Chew? None [email or web address] Information not available 02/19/2021 In The 14 Days Before Symptom Onset, Have You Had Close Contact With A Laboratory-confirm ed COVID-19 While That Case Was Ill? No [email or web address] Information n ot available 02/19/2021 In The 14 Days Before Symptom Onset, Have You Had Close Contact With A Person Who Is Under Investigation For COVID-19 While That Person Was Ill? No [email or web address] Information not available 02/19/2021 Have You Been To An Area Known To Be High Risk For COVID-19? No [email or web address] Information not available 02/19/2021 Are You Deaf Or Do You Have Serious Difficulty Hearing? No Information not available 02/19/2021 What Type Of Diet Are You Following? REGULAR [email or web address] Information n ot available 02/19/2021 What Is The Highest Grade Or Level Of School You Have Completed Or The Highest Degree You Have Received? 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 No [email or web address] Information not available 02/19/2021 Do You Use Protection During Sex? No [email or web address] Information not available 02/19/2021 Do You Use Your Seat Belt Or Car Seat Routinely? Yes Information not available 02/19/2021 Do You Have Smoke And Carbon Monoxide Detectors In Your Home? Yes [email or web address] Information not available 02/19/2021 How Much Tobacco Do You Smoke? No [email or web address] Information not available 02/19/2021 Do You Feel Stressed (tense, Restless, Nervous, Or Anxious, Or Unable To Sleep At Night)? [id number] [email or web address] Information not available 02/19/2021 Do You Use Any Illicit Or Recreational Drugs? No [email or web address] Information not available 02/19/2021 Do You Use Sunscreen Routinely? No [email or web address] Information not available 02/19/2021 Have You Used IV Drugs? No [email or web address] Information not available 02/19/2021 Sex: Unknown Functional Status Question Answer Note LastModified by Organizat ion Details LastModified Time Do you have difficulty walking or climbing stairs? No [email or web address] Information not available 01/23/2022 Are you able to walk? YESWOREST [email or web address] Information not available 02/19/2021 Are you able to care for yourself? Yes [email or web address] Information not available 01/23/2022 Do you have difficulty dressing or bathing? No [email or web address] Information not available 01/23/2022 What is your exercise level? Occasional [email or web address] Information not available 02/19/2021 Mental Status None recorded. Family History Relationship Description Onset Age of this Age Resolved Age Notes LastModified by Organization Details LastModified Time Father Disorder of nervous system [email or web address] Not available 2020 09:30:09 Father Multiple sclerosis Not available 2020 09:30:09 Mother Diabetes mellitus [email or web address] Not available 2020 09:30:09 Mother High risk [email or web address] Not available 2020 09:30:09 Sister Substance abuse [email or web address] Not available 2020 09:30:09 Paternal Uncle Substance abuse Not available 2020 09:30:09 Notes:Cancer form complete 1 04/21/2020 Medical History Condition Response Allergies (Food, seasonal, environmental ) N Other Y Breast Cancer N Blood Transfusion N Drug/Latex Allergies/Reactions N Dermatologic Disorders N Lung Disease N [...] Diagnosis/Indication Diagnosis SNOMED-CT Code Diagnosis ICD10 Code [id number] Ruchi Martinez [place] [address],[place] [address] 01/04/2024 09:41:43 01/04/2024 10:16:29 Maternal obesity complicating , childbirth and the puerperium, antepartum 1924865920 07 O99.213 O36.60X0 Z3A.32 [id number] AALIYAH GALVAN MD [place] [address],[place] [address] 01/04/2024 09:42:01 01/04/2024 11:10:53 Maternal obesity complicating , childbirth and the puerperium, antepartum 2911591200 07 O99.213 O36.60X0 Z3A.32 Gestation period, 32 weeks 2998541 Z3A.32 [id number] Jenna Velazquez [place] [address],[place] [address] 01/18/2024 09:18:59 01/18/2024 10:25:52 Maternal obesity complicating , childbirth and the puerperium, antepartum 3164473111 07 O99.213 O99.891 Z3A.34 [id number] Ruth Meaghan [place] [address],[place] [address] 01/18/2024 09:20:07 01/18/2024 10:36:16 Maternal obesity complicating , childbirth and the puerperium, antepartum 4559438487 07 O99.213 O36.60X0 Z3A.32 [id number] AALIYAH GALVAN MD [place] [address],[place] [address] 01/18/2024 09:20:25 01/18/2024 11:27:10 Polyhydramnios 82365284 O40.3XX0 Maternal o besity complicating , childbirth and the puerperium, antepartum 1867500615 07 O99.213 O36.60X0 Z3A.32 Gestation period, 34 weeks 28879110 Z3A.34 [id number] Ruchi Martinez [place] [address],[place] [address] 01/25/2024 09:18:22 01/25/2024 10:11:43 Maternal obesity complicating , childbirth and the puerperium, antepartum 6414346671 07 O99.213 Z3A.35 [id number] [facility] [address],[place] [address] 01/25/2024 09:18:50 01/25/2024 10:55:21 Maternal obesity complicating , childbirth and the puerperium, antepartum 7378762848 07 O99.213 O36.60X0 Z3A.32 [id number] AALIYAH GALVAN MD [place] [address],[place] [address] 01/25/2024 09:19:07 01/25/2024 10:59:24 Maternal obesity complicating , childbirth and the puerperium, antepartum 2985637653 07 O99.213 Z3A.35 Gestation period, 35 weeks 02761018 Z3A.35 [id number] Jenna Velazquez [place] [address],[place] [address] 02/01/2024 09:19:27 02/01/2024 10:06:24 Maternal obesity complicating , childbirth and the puerperium, antepartum 7779515471 07 O99.213 Z3A.36 [id number] [facility] [address],[place] [address] 02/01/2024 09:20:04 02/01/2024 10:43:00 Maternal obesity complicating , childbirth and the puerperium, antepartum 0390261112 07 O99.213 Z3A.35 [id number] AALIYAH GALVAN MD [place] [address],[place] [address] 02/01/2024 09:20:22 02/01/2024 11:13:01 Excessive growth affecting management of mother 46179055 O36.62X0 Gestation period, 36 weeks 94278952 Z3A.36 Polyhydramnios 13749019 O40.3XX0 Health Concerns Section Related Observation LastModified by Organization Detai ls LastModified Time None Recorded Concern Status LastModified by Organization Details LastModified Time None Recorded Payers Encounter Date Sequence Insurance Name Policy Number Policy Patino Covered Member ID Patino Member ID Guarantor Name 02/01/2024 1 [place] [id number] Logyn A Cong [id number] Logyn Cong OBGyn Episode Ob Episode Information Episode Created Date Number of Fetuses Patient Bloodtype Patient rh Status Prepregnancy Weight lbs Domestic Partner Domestic Partner Phone Father Name Mammography Tech Status 08/16/19 24 1 A Positive 250.8 OPEN Fetus Data First Name Last Name Admitted to NICU Weight (g) Sex Living Outcome Pediatric Complications Fetus ID Race Codes Race Delivery Type [id number] Problems Problem Notes Problem Name Start Date End Date Resolution Snomed Code Not e Obesity 266713480 testing 34wks Prediabetes 177103888 A1c 5.7 - early GTT at 20wks [...] Date Ultra Sound Latest Days Gestation 0 [email or web address] 08/16/2023 02/25/20 24 0 Pre-elizabeth Flowsheet Flowsheet Date 08/16/2023 Castro Score Blood Edema Fundus Height Fundus Units Glucose Ketones Leukocytes Nitrite Labor Signs Protein Cervic Dilation Cervic Effacement Cervic Station Type Weight in lbs Pre/Post Dialysis Refused Weight 245.58877645495 BP Diastolic BP Location Tested BP Systolic [...] Weight in lbs Pre/Post Dialysis Refused Weight 251.924697872264 BP Diastolic BP Location Tested BP Systolic [...] Weight in lbs Pre/Post Dialysis Refused Weight 252.631539792657 BP Diastolic BP Location Tested BP Systolic [...] Weight in lbs Pre/Post Dialysis Refused Weight 256.072083673980 BP Diastolic BP Location Tested BP Systolic [...] Type Weight in lbs Pre/Post Dialysis Refused 257.755812777357 BP Diastolic BP Location Tested BP Systolic [...] Weight in lbs Pre/Post Dialysis Refused Weight 257.265196648233 BP Diastolic BP Location Tested BP Systolic [...] Weight in lbs Pre/Post Dialysis Refused Weight 262.231913421895 BP Diastolic BP Location Tested BP Systolic BP Type 76 L arm 112 sitting Fetus Heart Rate Present A 143 Fetus Movement A Yes Comments Patient c/o of [place] . Having some fatigue. Good movement. [...] Weight in lbs Pre/Post Dialysis Refused Weight 267.212006342604 BP Diastolic BP Location Tested BP Systolic BP Type 74 L arm 117 sitting Fetus Heart Rate Present A 140 Fetus Movement A Yes Comments Patient c/o of [place] . Good movement. No bleeding or [...] Weight in lbs Pre/Post Dialysis Refused Weight 268.42069106831 BP Diastolic BP Location Tested BP Systolic [...] Weight in lbs Pre/Post Dialysis Refused Weight 268.85153020673 BP Diastolic BP Location Tested BP Systolic BP Type 80 L arm 115 sitting Fetus Heart Rate Present A 135 Fetus Movement A Yes Comments Patient c/o of [place] and swelling in hands and feet. [...] Weight in lbs Pre/Post Dialysis Refused Weight 271.298359214092 BP Diastolic BP Location Tested BP Systolic [...] Weight in lbs Pre/Post Dialysis Refused Weight 274.918305583372 BP Diastolic BP Location Tested BP Systolic BP Type 75 109 Fetus Heart Rate Present Fetus Movement Comments Flowsheet Date 02/15/2024 Castro Score Blood Edema Fundus Height Fundus Units Glucose Ketones Leukocytes Nitrite Labor Signs Protein Cervic Dilation Cervic Effacement Cervic Station neg none Type Weight in lbs Pre/Post Dialysis Refused 274.330976718128 BP Diastolic BP Location Tested BP Systolic BP Type 75 L arm 109 sitting Fetus Heart Rate Present A 140 Fetus Movement A Yes Comments Patient c/o of [place] and swelling in hands and feet. [...] Estim ated Date of Delivery false Thalassemia (Kosovan, Montenegrin, Mediterranean, Or Background): MCV < 80 false Neural Tube Defect (Meningomyelocele, Spina Bifi da, Or Anencephaly) false Congenital Heart Defect false Down Syndrome false Domingo-Sachs (eg, Amish, Cajun, Moldovan-Maldivian) f alse Donn Disease false Sickle Cell Disease Or Trait () false Hemophilia Or Other Blood Disorders false Muscular Dystrophy false Cystic Fibrosis false Young's Chorea false Intellectual Disability/Autism false If Yes, [...]
--- OUTSIDE RECORDS SUMMARY | 2024-02-17 01:20 | XMS_ITS | Continuity of Care Document ---
Author Organization [facility] [place] Address [address] [place] [address] Care Team Providers Care Molecular Physicist Name Role Phone PETE MARTINEZ Primary Care Provider [phone] Assessment No assessment recorded. Plan of Treatment [...] cy No observ ation record ed. [email or web address] [place] [address], [place], [address], 08/16/2023 10:17:57 08/16/19 24 08/16/2023 US, obste tric, 1st trime ster No observ ation record ed. [email or web address] [place] [address], [place], [address], 08/16/2023 10:17:45 08/16/19 24 08/16/2023 US, obste tric, nucha l trans lucen cy No observ ation record ed. [email or web address] [address], [place], [address], 08/16/2023 20:31:53 10/12/19 24 10/12/2023 US, obste tric, 2nd or 3rd trime ster No observ ation record ed. [email or web address] [place] [address], [place], [address], 10/12/2023 12:33:34 10/12/19 24 10/12/2023 US, obste tric, 2nd or 3rd trime ster No observ ation record ed. [email or web address] [address], [place], [address], 10/13/2023 14:01:11 10/12/19 24 10/12/2023 US, obste tric, 2nd or 3rd trime ster No observ ation record ed. [email or web address] [address], [place], [address], 10/13/2023 07:42:16 11/09/19 24 11/09/2023 US, obste tric, follo w-up No observ ation record ed. [email or web address] [place] [address], [place], [address], 11/09/2023 18:27:48 11/09/19 24 11/09/2023 US, obste tric, follo w-up No observ ation record ed. [email or web address] [address], [place], [address], 11/10/2023 15:36:54 01/04/20 24 01/04/2024 US, obste tric, follo w-up No observ ation record ed. [email or web address] [place] [address], [place], [address], 01/04/2024 13:22:26 01/04/20 24 01/04/2024 US, obste tric, follo w-up No observ ation record ed. [email or web address] [address], [place], [address], 01/04/2024 12:54:21 01/18/20 24 01/18/2024 US, obste tric, bioph ysica l profi le + non-s tress test No observ ation record ed. [email or web address] [place] [address], [place], [address], 01/18/2024 10:54:49 01/18/20 24 01/18/2024 US, obste tric, bioph ysica l profi le + non-s tress test No observ ation record ed. [email or web address] [address], [place], [address], 01/20/2024 00:28:05 01/18/20 24 01/18/2024 non-s tress test No observ ation record ed. [email or web address] [place] [address], [place], [address], 01/18/2024 10:35:29 01/25/20 24 01/25/2024 non-s tress test No observ ation record ed. [email or web address] [place] [address], [place], [address], 01/25/2024 10:50:05 01/25/20 24 01/25/2024 US, obste tric, bioph ysica l profi le + non-s tress test No observ ation record ed. [email or web address] [place] [address], [place], [address], 01/25/2024 12:36:03 01/25/20 24 01/25/2024 US, obste tric, bioph ysica l profi le + non-s tress test No observ ation record ed. [email or web address] [address], [place], [address], 01/26/2024 05:27:30 02/01/20 24 02/01/2024 US, obste tric, follo w-up No observ ation record ed. [email or web address] [place] [address], [place], [address], 02/01/2024 14:50:11 02/01/20 24 02/01/2024 non-s tress test No observ ation record ed. [email or web address] [place] [address], [place], [address], 02/01/2024 10:39:26 02/01/2002/01/2024 US, obstdylan tric, follo w-up No observ ation record ed. IAN [address], [place], [address], 02/02/2024 10:36:33 02/08/20 24 02/08/2024 US, obste tric, bioph ysica l profi le + non-s tress test No observ ation record ed. [email or web address] [place] [address], [place], [address], 02/08/2024 13:02:43 02/08/20 24 02/08/2024 US, obste tric, bioph ysica l profi le + non-s tress test No observ ation record ed. [address], [place], [address], 02/10/2024 11:57:49 02/08/20 24 02/08/2024 non-s tress test No observ ation record ed. [email or web address] [place] [address], [place], [address], 02/08/2024 11:12:55 02/15/20 24 02/15/2024 US, obste tric, bioph ysica l profi le + non-s tress test No observ ation record ed. [email or web address] [place] [address], [place], [address], 02/15/2024 12:00:41 02/15/20 24 02/15/2024 US, obste tric, bioph ysica l profi le + non-s tress test No observ ation record ed. [email or web address] [address], [place], [address], 02/15/2024 21:51:48 02/15/20 24 02/15/2024 non-s tress test No observ ation record ed. [email or web address] [place] [address], [place], [address], 02/15/2024 19:02:15 02/15/20 non-s tress test No observ ation record ed. [email or web address] [place] [address], [place], [address], 02/15/2024 19:06:30 Result Notes None recorded. Problems Name Problem SNOMED Code Status Onset Date Resolution Date Notes Provider Name and Address Organization Details Recorded Time Subchori onic hematoma 168735403 Active 2020 Dixie Chavez [facility] 1 10:44:01 Pregnanc y 61997380 Completed 202110/24/2021 Shaneka Cuevas [facility] 4 09:59:33 Maternal obesity complica ting pregnanc y, childbir th and the puerperi um, antepart um 2918847675 07 Active BMI 44- ante testing at 34w Anca babb [facility] 2 13:48:38 Maternal obesity complica ting pregnanc y, childbir th and the puerperi um, antepart um 4926489564 07 Completed BMI 44- ante testing at 34w Anca babb [facility], [facility] 2 13:48:38 COVID-19 941938673 Completed 2021 Pt informed to take ASA per SP. Serial growth Anca babb [facility], [facility] 2 13:48:38 Pregnanc y 37056847 Active 2023 Shanekapedro luis Cuevas [facility], [facility] 4 09:59:33 Obesity 769780279 Active Antenata l testing 34wks AALIYAH GALVAN MD [address], [place], [address], [facility] 4 10:04:23 Prediabe [place] 570374721 Active A1c 5.7 - early GTT at 20wks AALIYAH GALVAN MD [address], [place], [address], [facility] 4 10:04:23 Problem Notes None recorded. Procedures Surgical History Date Name Laterality Status Provider Name and Address Organization Details Recorded Time 06/01/19 24 Date of Last Pap Smear completed Olga Larson [facility] 12/10/2023 10:42:52 03/08/19 02 Tonsillectomy completed Dixie Chavez [facility] 02/19/2021 09:31:00 Imaging Results None [...] Updated DateTime 01/25/2024 162.56 cm 46 kg/m2 190379.7 6 g 113 mm[Hg] 78 mm[Hg] Olga Larson [facility] 10:32:25 Social History Question Answer Notes LastModified by Organizat ion Details LastModified Time Tobacco Smoking Status Never Smoker Fartun Carmen ana, [facility] 01/23/2022 12:22:48 Do You Have An Advance Directive? No [email or web address] Information n ot available 02/19/2021 What Is Your Level Of Alcohol Consumption? None [email or web address] Information not available 09/14/2023 If You Are , What Was Your Level Of Alcohol Consumption Prior To ? Occasional [email or web address] Information not available 01/23/2022 How Many Years Have You Consumed Alcohol? 10 [email or web address] Information not available 02/19/2021 Are You Blind Or Do You Have Difficulty Seeing? No [email or web address] Information n ot available 02/19/2021 What Is Your Level Of Caffeine Consumption? None [email or web address] Information not available 12/21/2023 How Much Tobacco Do You Chew? None [email or web address] Information not available 02/19/2021 In The 14 Days Before Symptom Onset, Have You Had Close Contact With A Laboratory-confirm ed COVID-19 While That Case Was Ill? No [email or web address] Information n ot available 02/19/2021 In The 14 Days Before Symptom Onset, Have You Had Close Contact With A Person Who Is Under Investigation For COVID-19 While That Person Was Ill? No Information not available 02/19/2021 Have You Been To An Area Known To Be High Risk For COVID-19? No [email or web address] Information not available 02/19/2021 Are You Deaf Or Do You Have Serious Difficulty Hearing? No [email or web address] Information not available 02/19/2021 What Type Of Diet Are You Following? REGULAR [email or web address] Information n ot available 02/19/2021 What Is The Highest Grade Or Level Of School You Have Completed Or The Highest Degree You Have Received? 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 No [email or web address] Information not available 02/19/2021 Do You Use Protection During Sex? No [email or web address] Information not available 02/19/2021 Do You Use Your Seat Belt Or Car Seat Routinely? Yes [email or web address] Information not available 02/19/2021 Do You Have Smoke And Carbon Monoxide Detectors In Your Home? Yes Information not available 02/19/2021 How Much Tobacco Do You Smoke? No [email or web address] Information not available 02/19/2021 Do You Feel Stressed (tense, Restless, Nervous, Or Anxious, Or Unable To Sleep At Night)? SD77923-4 [email or web address] Information not available 02/19/2021 Do You Use Any Illicit Or Recreational Drugs? No [email or web address] Information not available 02/19/2021 Do You Use Sunscreen Routinely? No [email or web address] Information not available 02/19/2021 Have You Used IV Drugs? No [email or web address] Information not available 02/19/2021 Sex: Unknown Functional Status Question Answer Note LastModified by Organizat ion Details LastModified Time Do you have difficulty walking or climbing stairs? No [email or web address] Information not available 01/23/2022 Are you able to walk? YESWOREST [email or web address] Information not available 02/19/2021 Are you able to care for yourself? Yes [email or web address] Information not available 01/23/2022 Do you have difficulty dressing or bathing? No [email or web address] Information not available 01/23/2022 What is your exercise level? Occasional [email or web address] Information not available 02/19/2021 Mental Status None recorded. Family History Relationship Description Onset Age of this Age Resolved Age Notes LastModified by Organization Details LastModified Time Father Disorder of nervous system [email or web address] Not available 2020 09:30:09 Father Multiple sclerosis [email or web address] Not available 2020 09:30:09 Mother Diabetes mellitus [email or web address] Not available 2020 09:30:09 Mother High risk [email or web address] Not available 2020 09:30:09 Sister Substance abuse [email or web address] Not available 2020 09:30:09 Paternal Uncle Substance abuse [email or web address] Not available 2020 09:30:09 Notes:Cancer form complete [...] Diagnosis/Indication Diagnosis SNOMED-CT Code Diagnosis ICD10 Code [id number] Ruchi Martinez [place] [address],[place] [address] 01/04/2024 09:41:43 01/04/2024 10:16:29 Maternal obesity complicating , childbirth and the puerperium, antepartum 0328525474 07 O99.213 O36.60X0 Z3A.32 [id number] AALIYAH GALVAN MD [place] [address],[place] [address] 01/04/2024 09:42:01 01/04/2024 11:10:53 Maternal obesity complicating , childbirth and the puerperium, antepartum 6141123705 07 O99.213 O36.60X0 Z3A.32 Gestation period, 32 weeks 5538373 Z3A.32 [id number] Jenna Velazquez [place] [address],[place] [address] 01/18/2024 09:18:59 01/18/2024 10:25:52 Maternal obesity complicating , childbirth and the puerperium, antepartum 0029228827 07 O99.213 O99.891 Z3A.34 [id number] Ruth Meaghan [place] [address],[place] [address] 01/18/2024 09:20:07 01/18/2024 10:36:16 Maternal obesity complicating , childbirth and the puerperium, antepartum 3986959823 07 O99.213 O36.60X0 Z3A.32 [id number] AALIYAH GALVAN MD [place] [address],[place] [address] 01/18/2024 09:20:25 01/18/2024 11:27:10 Polyhydramnios 77970377 O40.3XX0 Maternal o besity complicating , childbirth and the puerperium, antepartum 6454642992 07 O99.213 O36.60X0 Z3A.32 Gestation period, 34 weeks 05590211 Z3A.34 [id number] Ruchi Martniez [place] [address],[place] [address] 01/25/2024 09:18:22 01/25/2024 10:11:43 Maternal obesity complicating , childbirth and the puerperium, antepartum 5178679487 07 O99.213 Z3A.35 [id number] Ruth Hard[address] [place] [address],[place] [address] 01/25/2024 09:18:50 01/25/2024 10:55:21 Maternal obesity complicating , childbirth and the puerperium, antepartum 3904622213 07 O99.213 O36.60X0 Z3A.32 [id number] AALIYAH GALVAN MD [place] [address],[place] [address] 01/25/2024 09:19:07 01/25/2024 10:59:24 Maternal obesity complicating , childbirth and the puerperium, antepartum 1028089667 07 O99.213 Z3A.35 Gestation period, 35 weeks 50628122 Z3A.35 Health Concerns Section Related Observation LastModified by Organization Detai ls LastModified Time None Recorded Concern Status LastModified by Organization Details LastModified Time None Recorded Payers Encounter Date Sequence Insurance Name Policy Number Policy Patino Covered Member ID Patino Member ID Guarantor Name 01/25/2024 1 [place] [id number] Logyn Whitney Gar [id number] Logyn Cong OBGyn Episode Ob Episode Information Episode Created Date Number of Fetuses Patient Bloodtype Patient rh Status Prepregnancy Weight lbs Domestic Partner Domestic Partner Phone Father Name Marketing Database Consultant Status 08/16/19 24 1 A Positive 250.8 OPEN Fetus Data First Name Last Name Admitted to NICU Weight (g) Sex Living Outcome Pediatric Complications Fetus ID Race Codes Race Delivery Type [id number] Problems Problem Notes Problem Name Start Date End Date Resolution Snomed Code Not e Obesity 017411019 testing 34wks Prediabetes 560527945 A1c 5.7 - early GTT at 20wks Rahda Calculation RADHA Calculation Method Initial Radha Date [...] Date Ultra Sound Latest Days Gestation 0 [email or web address] 08/16/2023 02/25/20 24 0 Pre- Flowsheet Flowsheet Date 08/16/2023 Castro Score Blood Edema Fundus Height Fundus Units Glucose Ketones Leukocytes Nitrite Labor Signs Protein Cervic Dilation Cervic Effacement Cervic Station Type Weight in lbs Pre/Post Dialysis Refused Weight 245.65710227017 BP Diastolic BP Location Tested BP Systolic BP Type 79 121 Fetus Heart Rate Present A 154 Fetus Movement Comments Presents to establish prenat sd care. has been thus far uncomplicated. Nausea [...] Weight in lbs Pre/Post Dialysis Refused Weight 251.723721944954 BP Diastolic BP Location Tested BP Systolic [...] Weight in lbs Pre/Post Dialysis Refused Weight 252.648035885336 BP Diastolic BP Location Tested BP Systolic [...] Weight in lbs Pre/Post Dialysis Refused Weight 256.557308559245 BP Diastolic BP Location Tested BP Systolic [...] Type Weight in lbs Pre/Post Dialysis Refused 257.871454506137 BP Diastolic BP Location Tested BP Systolic [...] Weight in lbs Pre/Post Dialysis Refused Weight 257.320114170198 BP Diastolic BP Location Tested BP Systolic [...] Weight in lbs Pre/Post Dialysis Refused Weight 262.898460752523 BP Diastolic BP Location Tested BP Systolic BP Type 76 L arm 112 sitting Fetus Heart Rate Present A 143 Fetus Movement A Yes Comments Patient c/o of [place] . Having some fatigue. Good movement. [...] Weight in lbs Pre/Post Dialysis Refused Weight 267.115397676657 BP Diastolic BP Location Tested BP Systolic BP Type 74 L arm 117 sitting Fetus Heart Rate Present A 140 Fetus Movement A Yes Comments Patient c/o of [place] . Good movement. No bleeding or [...] Weight in lbs Pre/Post Dialysis Refused Weight 268.89194817147 BP Diastolic BP Location Tested BP Systolic [...] Weight in lbs Pre/Post Dialysis Refused Weight 268.59494912198 BP Diastolic BP Location Tested BP Systolic BP Type 80 L arm 115 sitting Fetus Heart Rate Present A 135 Fetus Movement A Yes Comments Patient c/o of [place] and swelling in hands and feet. [...] Weight in lbs Pre/Post Dialysis Refused Weight 271.598290819238 BP Diastolic BP Location Tested BP Systolic BP Type 77 L arm 111 sitting Fetus Heart Rate Present A 135 Fetus Movement A Yes Comments Patient c/o of [place] . Was diagnosed with COVID last [...] Weight in lbs Pre/Post Dialysis Refused Weight 274.550161246922 BP Diastolic BP Location Tested BP Systolic BP Type 75 109 Fetus Heart Rate Present Fetus Movement Comments Flowsheet Date 02/15/2024 Castro Score Blood Edema Fundus Height Fundus Units Glucose Ketones Leukocytes Nitrite Labor Signs Protein Cervic Dilation Cervic Effacement Cervic Station neg none Type Weight in lbs Pre/Post Dialysis Refused 274.385982634082 BP Diastolic BP Location Tested BP Systolic [...] Estim ated Date of Delivery false Thalassemia (Wolof, Georgian, Mediterranean, Or Background): MCV < 80 false Neural Tube Defect (Meningomyelocele, Spina Bifi da, Or Anencephaly) false Congenital Heart Defect false Down Syndrome false Domingo-Sachs (eg, Presybeterian, Cajun, Welsh-Icelandic) f alse Donn Disease false Sickle Cell [...]
--- NOTE | 2024-02-17 01:21 | LDADM ---
This patient, Noble Gar, was admitted to Labor/Delivery/Recovery 105 on 02/17/24 at 00:44. Plans for labor, pain management and were discussed with patient. Patient/family oriented to hospital policies and general routines including ID bracelet, bed and alarms, visiting hours, pain management, procedures, bathroom and other care routines, personal items, smoking policy, room service/diet and guest tray routines, infant security routines, and visiting hours. Patient/Family are encouraged to report perceived risks to care and to ask questions if they do not understand what they are told or what they should do. See OBIX for further documentation.
--- OUTSIDE RECORDS SUMMARY | 2024-02-17 01:21 | XMS_ITS | Continuity of Care Document ---
Author Organization [facility] [place] Address [address] [place] [address] Care Team Providers Care Commercial Reporter Name Role Phone PETE MARTINEZ Primary Care [...] cy No observ ation record ed. [email or web address] [place] [address], [place], [address], 08/16/2023 10:17:57 08/16/19 24 08/16/2023 US, obste tric, 1st trime ster No observ ation record ed. [email or web address] [place] [address], [place], [address], 08/16/2023 10:17:45 08/16/19 24 08/16/2023 US, obste tric, nucha l trans lucen cy No observ ation record ed. [email or web address] [address], [place], [address], 08/16/2023 20:31:53 10/12/19 24 10/12/2023 US, obste tric, 2nd or 3rd trime ster No observ ation record ed. [email or web address] [place] [address], [place], [address], 10/12/2023 12:33:34 10/12/19 24 10/12/2023 US, obste tric, 2nd or 3rd trime ster No observ ation record ed. [email or web address] [address], [place], [address], 10/13/2023 14:01:11 10/12/19 24 10/12/2023 US, obste tric, 2nd or 3rd trime ster No observ ation record ed. [email or web address] [address], [place], [address], 10/13/2023 07:42:16 11/09/19 24 11/09/2023 US, obste tric, follo w-up No observ ation record ed. [email or web address] [place] [address], [place], [address], 11/09/2023 18:27:48 11/09/19 24 11/09/2023 US, obste tric, follo w-up No observ ation record ed. [email or web address] [address], [place], [address], 11/10/2023 15:36:54 01/04/20 24 01/04/2024 US, obste tric, follo w-up No observ ation record ed. [email or web address] [place] [address], [place], [address], 01/04/2024 13:22:26 01/04/20 24 01/04/2024 US, obste tric, follo w-up No observ ation record ed. [email or web address] [address], [place], [address], 01/04/2024 12:54:21 01/18/20 24 01/18/2024 US, obste tric, bioph ysica l profi le + non-s tress test No observ ation record ed. [email or web address] [place] [address], [place], [address], 01/18/2024 10:54:49 01/18/20 24 01/18/2024 US, obste tric, bioph ysica l profi le + non-s tress test No observ ation record ed. [address], [place], [address], 01/20/2024 00:28:05 01/18/20 24 01/18/2024 non-s tress test No observ ation record ed. [email or web address] [place] [address], [place], [address], 01/18/2024 10:35:29 01/25/20 24 01/25/2024 non-s tress test No observ ation record ed. [email or web address] [place] [address], [place], [address], 01/25/2024 10:50:05 01/25/20 24 01/25/2024 US, obste tric, bioph ysica l profi le + non-s tress test No observ ation record ed. [email or web address] [place] [address], [place], [address], 01/25/2024 12:36:03 01/25/20 24 01/25/2024 US, obste tric, bioph ysica l profi le + non-s tress test No observ ation record ed. [email or web address] [address], [place], [address], 01/26/2024 05:27:30 02/01/20 24 02/01/2024 US, obste tric, follo w-up No observ ation record ed. [email or web address] [place] [address], [place], [address], 02/01/2024 14:50:11 02/01/20 24 02/01/2024 non-s tress test No observ ation record ed. [email or web address] [place] [address], [place], [address], 02/01/2024 10:39:26 02/01/2002/01/2024 US, obstdylan tric, follo w-up No observ ation record ed. IAN [address], [place], [address], 02/02/2024 10:36:33 02/08/20 24 02/08/2024 US, obste tric, bioph ysica l profi le + non-s tress test No observ ation record ed. [email or web address] [place] [address], [place], [address], 02/08/2024 13:02:43 02/08/20 24 02/08/2024 US, obste tric, bioph ysica l profi le + non-s tress test No observ ation record ed. [email or web address] [address], [place], [address], 02/10/2024 11:57:49 02/08/20 24 02/08/2024 non-s tress test No observ ation record ed. [email or web address] [place] [address], [place], [address], 02/08/2024 11:12:55 02/15/20 24 02/15/2024 US, obste tric, bioph ysica l profi le + non-s tress test No observ ation record ed. [email or web address] [place] [address], [place], [address], 02/15/2024 12:00:41 02/15/20 24 02/15/2024 US, obste tric, bioph ysica l profi le + non-s tress test No observ ation record ed. [email or web address] [address], [place], [address], 02/15/2024 21:51:48 02/15/20 24 02/15/2024 non-s tress test No observ ation record ed. [email or web address] [place] [address], [place], [address], 02/15/2024 19:02:15 02/15/20 non-s tress test No observ ation record ed. [email or web address] [place] [address], [place], [address], 02/15/2024 19:06:30 Result Notes None recorded. Problems Name Problem SNOMED Code Status Onset Date Resolution Date Notes Provider Name and Address Organization Details Recorded Time Subchori onic hematoma 402470151 Active 2020 Dixie Chavez [facility] 1 10:44:01 Pregnanc y 32601222 Completed 202110/24/2021 Shaneka Cuevsa [facility] 4 09:59:33 Maternal obesity complica ting pregnanc y, childbir th and the puerperi um, antepart um 6246635777 07 Active BMI 44- ante testing at 34w Anca babb [facility] 2 13:48:38 Maternal obesity complica ting pregnanc y, childbir th and the puerperi um, antepart um 2628533246 07 Completed BMI 44- ante testing at 34w Anca [facility]b [facility], [facility] 2 13:48:38 COVID-19 765998223 Completed 2021 Pt informed to take ASA per SP. Serial growth Anca babb [facility], [facility] 2 13:48:38 Pregnanc y 25145413 Active 2023 Shanekapedro luis Cuevas [facility], [facility] 4 09:59:33 Obesity 667867313 Active Antenata l testing 34wks AALIYAH GALVAN MD [address], [place], [address], [facility] 4 10:04:23 Prediabe [place] 269530171 Active A1c 5.7 - early GTT at 20wks AALIYAH GALVAN MD [address], [place], [address], [facility] 4 10:04:23 Problem Notes None recorded. Procedures Surgical History Date Name Laterality Status Provider Name and Address Organization Details Recorded Time 06/01/19 24 Date of Last Pap Smear completed Olga Larson [facility] 12/10/2023 10:42:52 03/08/19 02 Tonsillectomy completed Dixie Chavez [facility] 02/19/2021 09:31:00 Imaging Results None recorded. [...] and Address Organization Details Last Updated DateTime 01/18/2024 162.56 cm 45.8 kg/m2 860782.1 6 g 117 mm[Hg] 74 mm[Hg] Olga Larson [facility] 10:28:52 Social History Question Answer Notes LastModified by Organizat ion Details LastModified Time Tobacco Smoking Status Never Smoker [facility] 01/23/2022 12:22:48 Do You Have An Advance Directive? No [email or web address] Information n ot available 02/19/2021 What Is Your Level Of Alcohol Consumption? None [email or web address] Information not available 09/14/2023 If You Are , What Was Your Level Of Alcohol Consumption Prior To ? Occasional Information not available 01/23/2022 How Many Years Have You Consumed Alcohol? 10 [email or web address] Information not available 02/19/2021 Are You Blind Or Do You Have Difficulty Seeing? No Information n ot available 02/19/2021 What Is Your Level Of Caffeine Consumption? None [email or web address] Information not available 12/21/2023 How Much Tobacco Do You Chew? None [email or web address] Information not available 02/19/2021 In The 14 Days Before Symptom Onset, Have You Had Close Contact With A Laboratory-confirm ed COVID-19 While That Case Was Ill? No Information n ot available 02/19/2021 In The 14 Days Before Symptom Onset, Have You Had Close Contact With A Person Who Is Under Investigation For COVID-19 While That Person Was Ill? No [email or web address] Information not available 02/19/2021 Have You Been To An Area Known To Be High Risk For COVID-19? No [email or web address] Information not available 02/19/2021 Are You Deaf Or Do You Have Serious Difficulty Hearing? No [email or web address] Information not available 02/19/2021 What Type Of Diet Are You Following? REGULAR [email or web address] Information n ot available 02/19/2021 What Is The Highest Grade Or Level Of School You Have Completed Or The Highest Degree You Have Received? 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 No [email or web address] Information not available 02/19/2021 Do You Use Protection During Sex? No [email or web address] Information not available 02/19/2021 Do You Use Your Seat Belt Or Car Seat Routinely? Yes [email or web address] Information not available 02/19/2021 Do You Have Smoke And Carbon Monoxide Detectors In Your Home? Yes [email or web address] Information not available 02/19/2021 How Much Tobacco Do You Smoke? No [email or web address] Information not available 02/19/2021 Do You Feel Stressed (tense, Restless, Nervous, Or Anxious, Or Unable To Sleep At Night)? [id number] Information not available 02/19/2021 Do You Use Any Illicit Or Recreational Drugs? No [email or web address] Information not available 02/19/2021 Do You Use Sunscreen Routinely? No [email or web address] Information not available 02/19/2021 Have You Used IV Drugs? No [email or web address] Information not available 02/19/2021 Sex: Unknown Functional Status Question Answer Note LastModified by Organizat ion Details LastModified Time Do you have difficulty walking or climbing stairs? No [email or web address] Information not available 01/23/2022 Are you able to walk? [email or web address] Information not available 02/19/2021 Are you able to care for yourself? Yes [email or web address] Information not available 01/23/2022 Do you have difficulty dressing or bathing? No [email or web address] Information not available 01/23/2022 What is your exercise level? Occasional Information not available 02/19/2021 Mental Status None recorded. Family History Relationship Description Onset Age of this Age Resolved Age Notes LastModified by Organization Details LastModified Time Father Disorder of nervous system [email or web address] Not available 2020 09:30:09 Father Multiple sclerosis [email or web address] Not available 2020 09:30:09 Mother Diabetes mellitus [email or web address] Not available 2020 09:30:09 Mother High risk [email or web address] Not available 2020 09:30:09 Sister Substance abuse [email or web address] Not available 2020 09:30:09 Paternal Uncle Substance abuse [email or web address] Not available 2020 09:30:09 Notes:Cancer form complete 1 04/21/2020 Medical History Condition Response Allergies (Food, seasonal, environmental ) N Other Y Breast Cancer N Drug/Latex Allergies/Reactions N Blood Transfusion N Dermatologic Disorders N Lung Disease N Defects or Inherited Disease N Breast Problem N Gestational Diabetes N Hematologic disorders N Anesthesia Complications N History of STI N Deep Vein Thrombosis N Polycystic ovary syndrome N Anxiety Disorder N Autoimmune disease N Arthritis N Infertility N Polyps N Acid Reflux (GERD) N History of abnormal pap N Cancer N Stroke N Varicosities N Neurologic/Epilepsy Y Endometriosis N High Cholesterol N Headaches N Fibromyalgia N Kidney Disease N Heart Problems N Kidney or Bladder Problems N Thyroid Problems N GI Problems N Eating Disorder [...] Diagnosis/Indication Diagnosis SNOMED-CT Code Diagnosis ICD10 Code [id number] AALIYAH GALVAN MD [place] [address],[place] [address] 12/21/2023 10:32:33 12/21/2023 11:16:14 Maternal obesity complicating , childbirth and the puerperium, antepartum 8201760434 07 O99.213 Gestation period, 30 weeks 47448923 Z3A.30 [id number] Ruchi Martinez [place] [address],[place] [address] 01/04/2024 09:41:43 01/04/2024 10:16:29 Maternal obesity complicating , childbirth and the puerperium, antepartum 2218928675 07 O99.213 O36.60X0 Z3A.32 [id number] AALIYAH GALVAN MD [place] [address],[place] [address] 01/04/2024 09:42:01 01/04/2024 11:10:53 Maternal obesity complicating , childbirth and the puerperium, antepartum 6311080976 07 O99.213 O36.60X0 Z3A.32 Gestation period, 32 weeks 2639357 Z3A.32 [id number] Jenna [facility] [address],[place] [address] 01/18/2024 09:18:59 01/18/2024 10:25:52 Maternal obesity complicating , childbirth and the puerperium, antepartum 5418930809 07 O99.213 O99.891 Z3A.34 [id number] Ruth Meaghan [place] [address],[place] [address] 01/18/2024 09:20:07 01/18/2024 10:36:16 Maternal obesity complicating , childbirth and the puerperium, antepartum 2498748058 07 O99.213 O36.60X0 Z3A.32 [id number] AALIYAH GALVAN MD [place] [address] [address] 01/18/2024 09:20:25 01/18/2024 11:27:10 Polyhydramnios 99998164 O40.3XX0 Maternal o besity complicating , childbirth and the puerperium, antepartum 3326827542 07 O99.213 O36.60X0 Z3A.32 Gestation period, 34 weeks 10391446 Z3A.34 Health Concerns Section Related Observation LastModified by Organization Detai ls LastModified Time None Recorded Concern Status LastModified by Organization Details LastModified Time None Recorded Payers Encounter Date Sequence Insurance Name Policy Number Policy Patino Covered Member ID Patino Member ID Guarantor Name 01/18/2024 1 [place] [id number] Logyn Whitney Gar [id number] Logyn Cong OBGyn Episode Ob Episode Information Episode Created Date Number of Fetuses Patient Bloodtype Patient rh Status Prepregnancy Weight lbs Domestic Partner Domestic Partner Phone Father Name Development Architect Status 08/16/19 24 1 A Positive 250.8 OPEN Fetus Data First Name Last Name Admitted to NICU Weight (g) Sex Living Outcome Pediatric Complications Fetus ID Race Codes Race Delivery Type [id number] Problems Problem Notes Problem Name Start Date End Date Resolution Snomed Code Not e Obesity 783204013 testing 34wks Prediabetes 986068460 A1c 5.7 - early GTT at 20wks [...] Date Ultra Sound Latest Days Gestation 0 [email or web address] 08/16/2023 02/25/20 24 0 Pre- Flowsheet Flowsheet Date 08/16/2023 Castro Score Blood Edema Fundus Height Fundus Units Glucose Ketones Leukocytes Nitrite Labor Signs Protein Cervic Dilation Cervic Effacement Cervic Station Type Weight in lbs Pre/Post Dialysis Refused Weight 245.64884377780 BP Diastolic BP Location Tested BP Systolic BP Type 79 121 Fetus Heart Rate Present A 154 Fetus Movement Comments Presents to establish prenat ca care. has been thus far uncomplicated. Nausea [...] Weight in lbs Pre/Post Dialysis Refused Weight 251.721684281303 BP Diastolic BP Location Tested BP Systolic [...] Weight in lbs Pre/Post Dialysis Refused Weight 252.118528545333 BP Diastolic BP Location Tested BP Systolic [...] Weight in lbs Pre/Post Dialysis Refused Weight 256.227535689011 BP Diastolic BP Location Tested BP Systolic [...] Type Weight in lbs Pre/Post Dialysis Refused 257.091418292423 BP Diastolic BP Location Tested BP Systolic [...] Weight in lbs Pre/Post Dialysis Refused Weight 257.936679228601 BP Diastolic BP Location Tested BP Systolic [...] Weight in lbs Pre/Post Dialysis Refused Weight 262.733520512869 BP Diastolic BP Location Tested BP Systolic [...] Weight in lbs Pre/Post Dialysis Refused Weight 267.396514077433 BP Diastolic BP Location Tested BP Systolic BP Type 74 L arm 117 sitting Fetus Heart Rate Present A 140 Fetus Movement A Yes Comments Patient c/o of Kidder Bonilla . Good movement. No bleeding or [...] Weight in lbs Pre/Post Dialysis Refused Weight 268.00755025816 BP Diastolic BP Location Tested BP Systolic [...] Weight in lbs Pre/Post Dialysis Refused Weight 268.32936032543 BP Diastolic BP Location Tested BP Systolic BP Type 80 L arm 115 sitting Fetus Heart Rate Present A 135 Fetus Movement A Yes Comments Patient c/o of Kidder Bonilla and swelling in hands and feet. [...] Weight in lbs Pre/Post Dialysis Refused Weight 271.881968972784 BP Diastolic BP Location Tested BP Systolic BP Type 77 L arm 111 sitting Fetus Heart Rate Present A 135 Fetus Movement A Yes Comments Patient c/o of Kidder Bonilla . Was diagnosed with COVID last [...] Weight in lbs Pre/Post Dialysis Refused Weight 274.169907823231 BP Diastolic BP Location Tested BP Systolic BP Type 75 109 Fetus Heart Rate Present Fetus Movement Comments Flowsheet Date 02/15/2024 Castro Score Blood Edema Fundus Height Fundus Units Glucose Ketones Leukocytes Nitrite Labor Signs Protein Cervic Dilation Cervic Effacement Cervic Station neg none Type Weight in lbs Pre/Post Dialysis Refused 274.483061412670 BP Diastolic BP Location Tested BP Systolic BP Type 75 L arm 109 sitting Fetus Heart Rate Present A 140 Fetus Movement A Yes Comments Patient c/o of Kidder Bonilla and swelling in hands and feet. [...] Estim ated Date of Delivery false Thalassemia (Kiswahili, Slovak, Mediterranean, Or Background): MCV < 80 false Neural Tube Defect (Meningomyelocele, Spina Bifi da, Or Anencephaly) false Congenital Heart Defect false Down Syndrome false Domingo-Sachs (eg, Jain, Cajun, Bengali-Nicollet) f alse Donn Disease false Sickle Cell [...]
--- OUTSIDE RECORDS SUMMARY | 2024-02-17 01:21 | XMS_ITS | Continuity of Care Document ---
Author Organization [facility] [place] Address [address] [place] [address] Care Team Providers Care Sap Pi Developer Name Role Phone PETE MARTINEZ Primary Care Provider Assessment No assessment recorded. Plan of Treatment Reminders Order Date Submit Date Provider Last Modified By Organization Details Last Modified Time Details Appointments INDUCTION 2023 12:01A Archie GALVAN MD Not available Not available Not available Lab None recorded. Referral None recorded. Procedures None recorded. Surgeries None recorded. Imaging non-stres s test 2023 024 [email or web address] [place], [address], [place], [address], 01/19/2024 03:48:33 Medication Orders None recorded. Patient TargetsNo targets recorded. Patient InstructionsNo instructions recorded. Reason for Referral None Reported. Results Created Date Observation Date Name Description Value Unit Range Abnormal Flag Note LastModifiedBy Organization Detail LastModifiedTime 08/16/1908/16/2023 US, obste tric, nucha l trans lucen cy No observ ation record ed. [email or web address] [place] [address], [place], [address], 08/16/2023 10:17:57 08/16/19 24 08/16/2023 US, obste tric, 1st trime ster No observ ation record ed. [email or web address] [place] [address], [place], [address], 08/16/2023 10:17:45 08/16/19 24 08/16/2023 US, obste tric, nucha l trans lucen cy No observ ation record ed. [email or web address] [address], [place], [address], 08/16/2023 20:31:53 10/12/19 24 10/12/2023 US, obste tric, 2nd or 3rd trime ster No observ ation record ed. [email or web address] [place] [address], [place], [address], 10/12/2023 12:33:34 10/12/19 24 10/12/2023 US, obste tric, 2nd or 3rd trime ster No observ ation record ed. [email or web address] [address], [place], [address], 10/13/2023 14:01:11 10/12/19 24 10/12/2023 US, obste tric, 2nd or 3rd trime ster No observ ation record ed. [email or web address] [address], [place], [address], 10/13/2023 07:42:16 11/09/19 24 11/09/2023 US, obste tric, follo w-up No observ ation record ed. [email or web address] [place] [address], [place], [address], 11/09/2023 18:27:48 11/09/1911/09/2023 US, obste tric, follo w-up No observ ation record ed. [email or web address] [address], [place], [address], 11/10/2023 15:36:54 01/04/20 24 01/04/2024 US, obste tric, follo w-up No observ ation record ed. [email or web address] [place] [address], [place], [address], 01/04/2024 13:22:26 01/04/2001/04/2024 US, obste tric, follo w-up No observ ation record ed. [email or web address] [address], [place], [address], 01/04/2024 12:54:21 01/18/20 24 01/18/2024 US, obste tric, bioph ysica l profi le + non-s tress test No observ ation record ed. [email or web address] [place] [address], [place], [address], 01/18/2024 10:54:49 01/18/20 24 01/18/2024 US, obste tric, bioph ysica l profi le + non-s tress test No observ ation record ed. [email or web address] [address], [place], [address], 01/20/2024 00:28:05 01/18/2001/18/2024 non-s tress test No observ ation record ed. [email or web address] [place] [address], [place], [address], 01/18/2024 10:35:29 01/25/20 24 01/25/2024 non-s tress test No observ ation record ed. [email or web address] [place] [address], [place], [address], 01/25/2024 10:50:05 01/25/20 24 01/25/2024 US, obste tric, bioph ysica l profi le + non-s tress test No observ ation record ed. [email or web address] [place] [address], [place], [address], 01/25/2024 12:36:03 01/25/20 24 01/25/2024 US, obste tric, bioph ysica l profi le + non-s tress test No observ ation record ed. [email or web address] [address], [place], [address], 01/26/2024 05:27:30 02/01/20 24 02/01/2024 US, obste tric, follo w-up No observ ation record ed. [email or web address] [place] [address], [place], [address], 02/01/2024 14:50:11 02/01/2002/01/2024 non-s tress test No observ ation record ed. [email or web address] [place] [address], [place], [address], 02/01/2024 10:39:26 02/01/20 24 02/01/2024 US, obste tric, follo w-up No observ ation record ed. IAN [address], [place], [address], 02/02/2024 10:36:33 02/08/20 24 02/08/2024 US, obste tric, bioph ysica l profi le + non-s tress test No observ ation record ed. [email or web address] [place] [address], [place], [address], 02/08/2024 13:02:43 02/08/20 24 02/08/2024 US, obste tric, bioph ysica l profi le + non-s tress test No observ ation record ed. [email or web address] [address], [place], [address], 02/10/2024 11:57:49 02/08/20 24 02/08/2024 non-s tress test No observ ation record ed. [email or web address] [place] [address], [place], [address], 02/08/2024 11:12:55 02/15/20 24 02/15/2024 US, obste tric, bioph ysica l profi le + non-s tress test No observ ation record ed. [email or web address] [place] [address], [place], [address], 02/15/2024 12:00:41 02/15/20 24 02/15/2024 US, obste tric, bioph ysica l profi le + non-s tress test No observ ation record ed. [email or web address] [address], [place], [address], 02/15/2024 21:51:48 02/15/20 24 02/15/2024 non-s tress test No observ ation record ed. [email or web address] [place] [address], [place], [address], 02/15/2024 19:02:15 02/15/20 non-s tress test No observ ation record ed. [email or web address] [place] [address], [place], [address], 02/15/2024 19:06:30 Result Notes None recorded. Problems Name Problem SNOMED Code Status Onset Date Resolution Date Notes Provider Name and Address Organization Details Recorded Time Subchori onic hematoma 985058561 Active 2020 Dixie perez [facility] 1 10:44:01 Pregnanc y 60077739 Completed 202110/24/2021 Shaneka perez [facility] 4 09:59:33 Maternal obesity complica ting pregnanc y, childbir th and the puerperi um, antepart um 1218196340 07 Active BMI 44- ante testing at 34w Anca babb null, [facility] 2 13:48:38 Maternal obesity complica ting pregnanc y, childbir th and the puerperi um, antepart um 5662500666 07 Completed BMI 44- ante testing at 34w Anca babb null, [facility] 2 13:48:38 COVID-19 564101538 Completed 2021 Pt informed to take ASA per SP. Serial growth Anca babb [facility], [facility] 2 13:48:38 Pregnanc y 62341054 Active 2023 Shaneka Cuevas [facility], [facility] 4 09:59:33 Obesity 665331408 Active Antenata l testing 34wks AALIYAH GALVAN MD [address], [place], [address], [facility] 4 10:04:23 Prediabe [place] 809834652 Active A1c 5.7 - early GTT at 20wks AALIYAH GALVAN MD [address], [place], [address], [facility] 4 10:04:23 Problem Notes None recorded. Procedures Surgical History Date Name Laterality Status Provider Name and Address Organization Details Recorded Time 06/01/19 24 Date of Last Pap Smear completed Olga Larson [facility] 12/10/2023 10:42:52 03/08/19 02 Tonsillectomy completed Dixie Chavez [facility] 02/19/2021 09:31:00 Imaging Results Imaging Date Name Status LastModified by Organiz [facility] Details LastModified Time 01/18/2024 non-stress test completed [address], [place], [address], 01/18/2024 10:35:29 Procedure Notes None recorded. Medical Equipment None [...] Updated DateTime 01/18/2024 162.56 cm 45.8 kg/m2 869639.1 6 g 117 mm[Hg] 74 mm[Hg] Olga Larson [facility] 10:28:52 Social History Question Answer Notes LastModified by Organizat ion Details LastModified Time Tobacco Smoking Status Never Smoker Fartun Carmen ana [facility] 01/23/2022 12:22:48 Do You Have An Advance Directive? No [email or web address] Information n ot available 02/19/2021 What Is Your Level Of Alcohol Consumption? None [email or web address] Information not available 09/14/2023 If You Are , What Was Your Level Of Alcohol Consumption Prior To ? Occasional [email or web address] Information not available 01/23/2022 How Many Years Have You Consumed Alcohol? 10 [email or web address] Information not available 02/19/2021 Are You Blind Or Do You Have Difficulty Seeing? No [email or web address] Information n ot available 02/19/2021 What Is Your Level Of Caffeine Consumption? None [email or web address] Information not available 12/21/2023 How Much Tobacco Do You Chew? None [email or web address] Information not available 02/19/2021 In The 14 Days Before Symptom Onset, Have You Had Close Contact With A Laboratory-confirm ed COVID-19 While That Case Was Ill? No [email or web address] Information n ot available 02/19/2021 In The 14 Days Before Symptom Onset, Have You Had Close Contact With A Person Who Is Under Investigation For COVID-19 While That Person Was Ill? No [email or web address] Information not available 02/19/2021 Have You Been [...] Or The Highest Degree You Have Received? 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 No Information not available 02/19/2021 Do You Use Protection During Sex? No [email or web address] Information not available 02/19/2021 Do You Use Your Seat Belt Or Car Seat Routinely? Yes Information not available 02/19/2021 Do You Have Smoke And Carbon Monoxide Detectors In Your Home? Yes Information not available 02/19/2021 How Much Tobacco Do You Smoke? No Information not available 02/19/2021 Do You Feel Stressed (tense, Restless, Nervous, Or Anxious, Or Unable To Sleep At Night)? [id number] Information not available 02/19/2021 Do You Use Any Illicit Or Recreational Drugs? No [email or web address] Information not available 02/19/2021 Do You Use Sunscreen Routinely? No [email or web address] Information not available 02/19/2021 Have You Used IV Drugs? No Information not available 02/19/2021 Sex: Unknown Functional Status Question Answer Note LastModified by Organizat ion Details LastModified Time Do you have difficulty walking or climbing stairs? No [email or web address] Information not available 01/23/2022 Are you able to walk? [email or web address] Information not available 02/19/2021 Are you able to care for yourself? Yes [email or web address] Information not available 01/23/2022 Do you have difficulty dressing or bathing? No [email or web address] Information not available 01/23/2022 What is your exercise level? Occasional [email or web address] Information not available 02/19/2021 Mental Status None recorded. Family History Relationship Description Onset Age of this Age Resolved Age Notes LastModified by Organization Details LastModified Time Father Disorder of nervous system [email or web address] Not available 2020 09:30:09 Father Multiple sclerosis Not available 2020 09:30:09 Mother Diabetes mellitus [email or web address] Not available 2020 09:30:09 Mother High risk [email or web address] Not available 2020 09:30:09 Sister Substance abuse [email or web address] Not available 2020 09:30:09 Paternal Uncle Substance abuse [email or web address] Not available 2020 09:30:09 Notes:Cancer form complete [...] N Arthritis N Polyps N Infertility N History of abnormal pap N Acid Reflux (GERD) N Cancer N Varicosities N Stroke N [...] Diagnosis/Indication Diagnosis SNOMED-CT Code Diagnosis ICD10 Code [id number] AALIYAH GALVAN MD [place] [address],[place] [address] 12/21/2023 10:32:33 12/21/2023 11:16:14 Maternal obesity complicating , childbirth and the puerperium, antepartum 0731235871 07 O99.213 Gestation period, 30 weeks 00002173 Z3A.30 [id number] Ruchi [facility] [address],[place] [address] 01/04/2024 09:41:43 01/04/2024 10:16:29 Maternal obesity complicating , childbirth and the puerperium, antepartum 9318029798 07 O99.213 O36.60X0 Z3A.32 [id number] AALIYAH GALVAN MD [place] [address],[place] [address] 01/04/2024 09:42:01 01/04/2024 11:10:53 Maternal obesity complicating , childbirth and the puerperium, antepartum 7801879082 07 O99.213 O36.60X0 Z3A.32 Gestation period, 32 weeks 4526471 Z3A.32 [id number] [facility] [address],[place] [address] 01/18/2024 09:18:59 01/18/2024 10:25:52 Maternal obesity complicating , childbirth and the puerperium, antepartum 1105558108 07 O99.213 O99.891 Z3A.34 [id number] Ruth Harding [place] [address],[facility] [place] [address] 01/18/2024 09:20:07 01/18/2024 10:36:16 Maternal obesity complicating , childbirth and the puerperium, antepartum 5832515862 07 O99.213 O36.60X0 Z3A.32 [id number] AALIYAH GALVAN MD [place] [address],[place] [address] 01/18/2024 09:20:25 01/18/2024 11:27:10 Polyhydramnios 82464993 O40.3XX0 Maternal o besity complicating , childbirth and the puerperium, antepartum 6975892379 07 O99.213 O36.60X0 Z3A.32 Gestation period, 34 weeks 37762645 Z3A.34 Health Concerns Section Related Observation LastModified by Organization Detai ls LastModified Time None Recorded Concern Status LastModified by Organization Details LastModified Time None Recorded Payers Encounter Date Sequence Insurance Name Policy Number Policy Patino Covered Member ID Patino Member ID Guarantor Name 01/18/2024 1 [place] [id number] Logmaya Gar [id number] OBGyn Episode Ob Episode Information Episode Created Date Number of Fetuses Patient Bloodtype Patient rh Status Prepregnancy Weight lbs Domestic Partner Domestic Partner Phone Father Name Sports Marketing Coordinator Status 08/16/19 24 1 A Positive 250.8 OPEN Fetus Data First Name Last Name Admitted to NICU Weight (g) Sex Living Outcome Pediatric Complications Fetus ID Race Codes Race Delivery Type [id number] Problems Problem Notes Problem Name Start Date End Date Resolution Snomed Code Not e Obesity 789328490 testing 34wks Prediabetes 082346144 A1c 5.7 - early GTT at 20wks [...] Date Ultra Sound Latest Days Gestation 0 [email or web address] 08/16/2023 02/25/20 24 0 Pre- Flowsheet Flowsheet Date 08/16/2023 Castro Score Blood Edema Fundus Height Fundus Units Glucose Ketones Leukocytes Nitrite Labor Signs Protein Cervic Dilation Cervic Effacement Cervic Station Type Weight in lbs Pre/Post Dialysis Refused Weight 245.76915825807 BP Diastolic BP Location Tested BP Systolic [...] Weight in lbs Pre/Post Dialysis Refused Weight 251.338862597563 BP Diastolic BP Location Tested BP Systolic [...] Weight in lbs Pre/Post Dialysis Refused Weight 252.316543905148 BP Diastolic BP Location Tested BP Systolic [...] Weight in lbs Pre/Post Dialysis Refused Weight 256.369352377287 BP Diastolic BP Location Tested BP Systolic [...] Type Weight in lbs Pre/Post Dialysis Refused 257.291405590188 BP Diastolic BP Location Tested BP Systolic [...] Weight in lbs Pre/Post Dialysis Refused Weight 257.030429893257 BP Diastolic BP Location Tested BP Systolic [...] Weight in lbs Pre/Post Dialysis Refused Weight 262.132207850548 BP Diastolic BP Location Tested BP Systolic BP Type 76 L arm 112 sitting Fetus Heart Rate Present A 143 Fetus Movement A Yes Comments Patient c/o of [place] . Having some fatigue. Good movement. [...] Weight in lbs Pre/Post Dialysis Refused Weight 267.817426621102 BP Diastolic BP Location Tested BP Systolic BP Type 74 L arm 117 sitting Fetus Heart Rate Present A 140 Fetus Movement A Yes Comments Patient c/o of [place] . Good movement. No bleeding [...] Weight in lbs Pre/Post Dialysis Refused Weight 268.55077151860 BP Diastolic BP Location Tested BP Systolic [...] Weight in lbs Pre/Post Dialysis Refused Weight 268.58369698251 BP Diastolic BP Location Tested BP Systolic BP Type 80 L arm 115 sitting Fetus Heart Rate Present A 135 Fetus Movement A Yes Comments Patient c/o of [place] and swelling in hands and [...] Weight in lbs Pre/Post Dialysis Refused Weight 271.723887402597 BP Diastolic BP Location Tested BP Systolic BP Type 77 L arm 111 sitting Fetus Heart Rate Present A 135 Fetus Movement A Yes Comments Patient c/o of [place] . Was diagnosed with COVID last [...] Weight in lbs Pre/Post Dialysis Refused Weight 274.764155685998 BP Diastolic BP Location Tested BP Systolic BP Type 75 109 Fetus Heart Rate Present Fetus Movement Comments Flowsheet Date 02/15/2024 Castro Score Blood Edema Fundus Height Fundus Units Glucose Ketones Leukocytes Nitrite Labor Signs Protein Cervic Dilation Cervic Effacement Cervic Station neg none Type Weight in lbs Pre/Post Dialysis Refused 274.092105057859 BP Diastolic BP Location Tested BP Systolic [...] Estim ated Date of Delivery false Thalassemia (Jordanian, Tongan, Mediterranean, Or Background): MCV < 80 false Neural Tube Defect (Meningomyelocele, Spina Bifi da, Or Anencephaly) false Congenital Heart Defect false Down Syndrome false Domingo-Sachs (eg, Christianity, Cajun, Syriac-Zimbabwean) f alse Donn Disease false Sickle Cell Disease Or Trait () false Hemophilia Or Other Blood Disorders false Muscular Dystrophy false Cystic Fibrosis false [place]'s Chorea false Intellectual Disability/Autism false If Yes, [...]
--- OUTSIDE RECORDS SUMMARY | 2024-02-17 01:21 | XMS_ITS | Continuity of Care Document ---
Author Organization [facility] [place] Address [address] [place] [address] Care Team Providers Care Loan Originator Name Role Phone PETE MARTINEZ Primary Care Provider [phone] Assessment No assessment recorded. Plan of Treatment Reminders Order Date Submit Date Provider Last Modified By Organization Details Last Modified Time Details Appointments INDUCTION 2023 12:01A Archie GALVAN MD Not available Not available Not available Lab None recorded. Referral None recorded. Procedures None recorded. Surgeries None recorded. Imaging US, obstetric , biophysic al profile + non-stres s test 2023 024 [email or web address] [place], [address], [place], [address], 01/18/2024 15:42:49 Medication Orders None recorded. Patient TargetsNo targets recorded. Patient InstructionsNo instructions recorded. Reason for Referral None Reported. Results Created Date Observation Date Name Description Value Unit Range Abnormal Flag Note LastModifiedBy Organization Detail LastModifiedTime 08/16/19 24 08/16/2023 US, obste tric, nucha l trans lucen cy No observ ation record ed. [email or web address] [place] [address], [place], [address], 08/16/2023 10:17:57 08/16/19 24 08/16/2023 US, obste tric, 1st trime ster No observ ation record ed. [email or web address] [place] [address], [place], [address], 08/16/2023 10:17:45 08/16/19 24 08/16/2023 US, obste tric, nucha l trans lucen cy No observ ation record ed. [email or web address] [address], [place], [address], 08/16/2023 20:31:53 10/12/19 24 10/12/2023 US, obste tric, 2nd or 3rd trime ster No observ ation record ed. [email or web address] [place] [address], [place], [address], 10/12/2023 12:33:34 10/12/19 24 10/12/2023 US, obste tric, 2nd or 3rd trime ster No observ ation record ed. [email or web address] [address], [place], [address], 10/13/2023 14:01:11 10/12/19 24 10/12/2023 US, obste tric, 2nd or 3rd trime ster No observ ation record ed. [address], [place], [address], 10/13/2023 07:42:16 11/09/19 24 11/09/2023 US, obste tric, follo w-up No observ ation record ed. [email or web address] [place] [address], [place], [address], 11/09/2023 18:27:48 11/09/19 24 11/09/2023 US, obste tric, follo w-up No observ ation record ed. [email or web address] [address], [place], [address], 11/10/2023 15:36:54 01/04/20 24 01/04/2024 US, obste tric, follo w-up No observ ation record ed. [email or web address] [place] [address], [place], [address], 01/04/2024 13:22:26 01/04/2001/04/2024 US, obste tric, follo w-up No observ ation record ed. [email or web address] [address], [place], [address], 01/04/2024 12:54:21 01/18/2001/18/2024 US, obste tric, bioph ysica l profi le + non-s tress test No observ ation record ed. [email or web address] [place] [address], [place], [address], 01/18/2024 10:54:49 01/18/2001/18/2024 US, obste tric, bioph ysica l profi le + non-s tress test No observ ation record ed. [address], [place], [address], 01/20/2024 00:28:05 01/18/2001/18/2024 non-s tress test No observ ation record ed. [email or web address] [place] [address], [place], [address], 01/18/2024 10:35:29 01/25/20 24 01/25/2024 non-s tress test No observ ation record ed. [email or web address] [place] [address], [place], [address], 01/25/2024 10:50:05 01/25/20 24 01/25/2024 US, obste tric, bioph ysica l profi le + non-s tress test No observ ation record ed. [email or web address] [place] [address], [place], [address], 01/25/2024 12:36:03 01/25/20 24 01/25/2024 US, obste tric, bioph ysica l profi le + non-s tress test No observ ation record ed. [email or web address] [address], [place], [address], 01/26/2024 05:27:30 02/01/20 24 02/01/2024 US, obste tric, follo w-up No observ ation record ed. [email or web address] [place] [address], [place], [address], 02/01/2024 14:50:11 02/01/2002/01/2024 non-s tress test No observ ation record ed. [email or web address] [place] [address], [place], [address], 02/01/2024 10:39:26 02/01/20 24 02/01/2024 US, obste tric, follo w-up No observ ation record ed. IAN [address], [place], [address], 02/02/2024 10:36:33 02/08/20 24 02/08/2024 US, obste tric, bioph ysica l profi le + non-s tress test No observ ation record ed. [email or web address] [place] [address], [place], [address], 02/08/2024 13:02:43 02/08/20 24 02/08/2024 US, obste tric, bioph ysica l profi le + non-s tress test No observ ation record ed. [email or web address] [address], [place], [address], 02/10/2024 11:57:49 02/08/20 24 02/08/2024 non-s tress test No observ ation record ed. [place] [address], [place], [address], 02/08/2024 11:12:55 02/15/20 24 02/15/2024 US, obste tric, bioph ysica l profi le + non-s tress test No observ ation record ed. [email or web address] [place] [address], [place], [address], 02/15/2024 12:00:41 02/15/20 24 02/15/2024 US, obste tric, bioph ysica l profi le + non-s tress test No observ ation record ed. [email or web address] [address], [place], [address], 02/15/2024 21:51:48 02/15/20 24 02/15/2024 non-s tress test No observ ation record ed. [email or web address] [place] [address], [place], [address], 02/15/2024 19:02:15 02/15/20 non-s tress test No observ ation record ed. [email or web address] [place] [address], [place], [address], 02/15/2024 19:06:30 Result Notes None recorded. Problems Name Problem SNOMED Code Status Onset Date Resolution Date Notes Provider Name and Address Organization Details Recorded Time Subchori onic hematoma 139913038 Active 2020 Dixie perez [facility] 1 10:44:01 Pregnanc y 18351661 Completed 202110/24/2021 Shaneka perez [facility] 4 09:59:33 Maternal obesity complica ting pregnanc y, childbir th and the puerperi um, antepart um 4214517497 07 Active BMI 44- ante testing at 34w Anca Bohnenstieh l null, [facility] 2 13:48:38 Maternal obesity complica ting pregnanc y, childbir th and the puerperi um, antepart um 2806362109 07 Completed BMI 44- ante testing at 34w Anca babb null, [facility] 2 13:48:38 COVID-19 499194070 Completed 2021 Pt informed to take ASA per SP. Serial growth Anca babb [facility], [facility] 2 13:48:38 Pregnanc y 68881071 Active 2023 Shaneka Cuevas [facility], [facility] 4 09:59:33 Obesity 802890627 Active Antenata l testing 34wks AALIYAH GALVAN MD [address], [place], [address], [facility] 4 10:04:23 Prediabe [place] 250574180 Active A1c 5.7 - early GTT at 20wks AALIYAH GALVAN MD [address], [place], [address], [facility] 4 10:04:23 Problem Notes None recorded. Procedures Surgical History Date Name Laterality Status Provider Name and Address Organization Details Recorded Time 06/01/19 24 Date of Last Pap Smear completed Olga Larson [facility] 12/10/2023 10:42:52 03/08/19 02 Tonsillectomy completed Dixie Chavez [facility] 02/19/2021 09:31:00 Imaging Results Imaging Date Name Status LastModified by Organiz ation Details LastModified Time 01/18/2024 US, obstetric, biophysical profile + non-stress test completed [email or web address] [place] [address], [place], [address], 01/18/2024 10:54:49 01/18/2024 US, obstetric, biophysical profile + non-stress test completed [email or web address] [address], [place], [address], 01/20/2024 00:28:05 Procedure Notes None recorded. Medical Equipment None [...] Updated DateTime 01/18/2024 162.56 cm 45.8 kg/m2 646157.1 6 g 117 mm[Hg] 74 mm[Hg] Olga Larson [facility] 10:28:52 Social History Question Answer Notes LastModified by Organizat ion Details LastModified Time Tobacco Smoking Status Never Smoker Fartun Kermit perez, [facility] 01/23/2022 12:22:48 Do You Have An Advance Directive? No Information n ot available 02/19/2021 What Is Your Level Of Alcohol Consumption? None [email or web address] Information not available 09/14/2023 If You Are , What Was Your Level Of Alcohol Consumption Prior To ? Occasional [email or web address] Information not available 01/23/2022 How Many Years Have You Consumed Alcohol? 10 [email or web address] Information not available 02/19/2021 Are You Blind Or Do You Have Difficulty Seeing? No Information n ot available 02/19/2021 What Is Your Level Of Caffeine Consumption? None [email or web address] Information not available 12/21/2023 How Much Tobacco Do You Chew? None Information not available 02/19/2021 In The 14 Days Before Symptom Onset, Have You Had Close Contact With A Laboratory-confirm ed COVID-19 While That Case Was Ill? No [email or web address] Information n ot available 02/19/2021 In The 14 Days Before Symptom Onset, Have You Had Close Contact With A Person Who Is Under Investigation For COVID-19 While That Person Was Ill? No [email or web address] Information not available 02/19/2021 Have You Been To An Area Known To Be High Risk For COVID-19? No Information not available 02/19/2021 Are You Deaf Or Do You Have Serious Difficulty Hearing? No Information not available 02/19/2021 What Type Of Diet Are You Following? REGULAR [email or web address] Information n ot available 02/19/2021 What Is The Highest Grade Or Level Of School You Have Completed Or The Highest Degree You Have Received? 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 No Information not available 02/19/2021 Do You Use Protection During Sex? No Information not available 02/19/2021 Do You Use Your Seat Belt Or Car Seat Routinely? Yes [email or web address] Information not available 02/19/2021 Do You Have Smoke And Carbon Monoxide Detectors In Your Home? Yes Information not available 02/19/2021 How Much Tobacco Do You Smoke? No Information not available 02/19/2021 Do You Feel Stressed (tense, Restless, Nervous, Or Anxious, Or Unable To Sleep At Night)? [id number] [email or web address] Information not available 02/19/2021 Do You Use Any Illicit Or Recreational Drugs? No [email or web address] Information not available 02/19/2021 Do You Use Sunscreen Routinely? No [email or web address] Information not available 02/19/2021 Have You Used IV Drugs? No [email or web address] Information not available 02/19/2021 Sex: Unknown Functional Status Question Answer Note LastModified by Organizat ion Details LastModified Time Do you have difficulty walking or climbing stairs? No [email or web address] Information not available 01/23/2022 Are you able to walk? YESWOREST [email or web address] Information not available 02/19/2021 Are you able to care for yourself? Yes [email or web address] Information not available 01/23/2022 Do you have difficulty dressing or bathing? No [email or web address] Information not available 01/23/2022 What is your exercise level? Occasional [email or web address] Information not available 02/19/2021 Mental Status None recorded. Family History Relationship Description Onset Age of this Age Resolved Age Notes LastModified by Organization Details LastModified Time Father Disorder of nervous system [email or web address] Not available 2020 09:30:09 Father Multiple sclerosis [email or web address] Not available 2020 09:30:09 Mother Diabetes mellitus [email or web address] Not available 2020 09:30:09 Mother High risk [email or web address] Not available 2020 09:30:09 Sister Substance abuse [email or web address] Not available 2020 09:30:09 Paternal Uncle Substance abuse [email or web address] Not available 2020 09:30:09 Notes:Cancer form complete 1 04/21/2020 Medical History Condition Response Allergies (Food, seasonal, environmental ) N Other Y Drug/Latex Allergies/Reactions N Breast Cancer N Blood Transfusion N Dermatologic Disorders N [...] Diagnosis/Indication Diagnosis SNOMED-CT Code Diagnosis ICD10 Code [id number] AALIYAH GALVAN MD [place] [address] [address] 12/21/2023 10:32:33 12/21/2023 11:16:14 Maternal obesity complicating , childbirth and the puerperium, antepartum 3106956164 07 O99.213 Gestation period, 30 weeks 84448715 Z3A.30 [id number] [facility] [address],[facility] [address] 01/04/2024 09:41:43 01/04/2024 10:16:29 Maternal obesity complicating , childbirth and the puerperium, antepartum 5407795069 07 O99.213 O36.60X0 Z3A.32 [id number] AALIYAH GALVAN MD [place] [address] [address] 01/04/2024 09:42:01 01/04/2024 11:10:53 Maternal obesity complicating , childbirth and the puerperium, antepartum 2712365864 07 O99.213 O36.60X0 Z3A.32 Gestation period, 32 weeks 6070774 Z3A.32 [id number] Jenna Velazquez [place] [address],[place] [address] 01/18/2024 09:18:59 01/18/2024 10:25:52 Maternal obesity complicating , childbirth and the puerperium, antepartum 3089503083 07 O99.213 O99.891 Z3A.34 [id number] Ruth Harding [place] [address],[place] [address] 01/18/2024 09:20:07 01/18/2024 10:36:16 Maternal obesity complicating , childbirth and the puerperium, antepartum 3710159501 07 O99.213 O36.60X0 Z3A.32 [id number] AALIYAH GALVAN MD [place] [address],[place] [address] 01/18/2024 09:20:25 01/18/2024 11:27:10 Polyhydramnios 57065541 O40.3XX0 Maternal o besity complicating , childbirth and the puerperium, antepartum 4815028029 07 O99.213 O36.60X0 Z3A.32 Gestation period, 34 weeks 37236731 Z3A.34 Health Concerns Section Related Observation LastModified by Organization Detai ls LastModified Time None Recorded Concern Status LastModified by Organization Details LastModified Time None Recorded Payers Encounter Date Sequence Insurance Name Policy Number Policy Patino Covered Member ID Patino Member ID Guarantor Name 01/18/2024 1 [place] [id number] Logmaya Gar [id number] [place] [facility] O[facility] Episode Ob Episode Information Episode Created Date Number of Fetuses Patient Bloodtype Patient rh Status Prepregnancy Weight lbs Domestic Partner Domestic Partner Phone Father Name Inspector [employer] Status 08/16/19 24 1 A Positive 250.8 OPEN Fetus Data First Name Last Name Admitted to NICU Weight (g) Sex Living Outcome Pediatric Complications Fetus ID Race Codes Race Delivery Type [id number] Problems Problem Notes Problem Name Start Date End Date Resolution Snomed Code Not e Obesity 553622712 testing 34wks Prediabetes 303988187 A1c 5.7 - early GTT at 20wks [...] Date Ultra Sound Latest Days Gestation 0 [email or web address] 08/16/2023 02/25/20 24 0 Pre- Flowsheet Flowsheet Date 08/16/2023 Castro Score Blood Edema Fundus Height Fundus Units Glucose Ketones Leukocytes Nitrite Labor Signs Protein Cervic Dilation Cervic Effacement Cervic Station Type Weight in lbs Pre/Post Dialysis Refused Weight 245.52250915118 BP Diastolic BP Location Tested BP Systolic [...] Weight in lbs Pre/Post Dialysis Refused Weight 251.858353033130 BP Diastolic BP Location Tested BP Systolic [...] Weight in lbs Pre/Post Dialysis Refused Weight 252.360451060928 BP Diastolic BP Location Tested BP Systolic [...] Weight in lbs Pre/Post Dialysis Refused Weight 256.437408895731 BP Diastolic BP Location Tested BP Systolic [...] Type Weight in lbs Pre/Post Dialysis Refused 257.046396980506 BP Diastolic BP Location Tested BP Systolic [...] Weight in lbs Pre/Post Dialysis Refused Weight 257.760253449038 BP Diastolic BP Location Tested BP Systolic [...] Weight in lbs Pre/Post Dialysis Refused Weight 262.236636067482 BP Diastolic BP Location Tested BP Systolic BP Type 76 L arm 112 sitting Fetus Heart Rate Present A 143 Fetus Movement A Yes Comments Patient c/o of [place] . Having some fatigue. Good movement. [...] Weight in lbs Pre/Post Dialysis Refused Weight 267.097550499666 BP Diastolic BP Location Tested BP Systolic [...] Weight in lbs Pre/Post Dialysis Refused Weight 268.37146693684 BP Diastolic BP Location Tested BP Systolic [...] Weight in lbs Pre/Post Dialysis Refused Weight 268.98920629521 BP Diastolic BP Location Tested BP Systolic [...] Weight in lbs Pre/Post Dialysis Refused Weight 271.479693895888 BP Diastolic BP Location Tested BP Systolic BP Type 77 L arm 111 sitting Fetus Heart Rate Present A 135 Fetus Movement A Yes Comments Patient c/o of [place] . Was diagnosed with COVID last [...] Weight in lbs Pre/Post Dialysis Refused Weight 274.341979103007 BP Diastolic BP Location Tested BP Systolic BP Type 75 109 Fetus Heart Rate Present Fetus Movement Comments Flowsheet Date 02/15/2024 Castro Score Blood Edema Fundus Height Fundus Units Glucose Ketones Leukocytes Nitrite Labor Signs Protein Cervic Dilation Cervic Effacement Cervic Station neg none Type Weight in lbs Pre/Post Dialysis Refused 274.998107891459 BP Diastolic BP Location Tested BP Systolic BP Type 75 L arm 109 sitting Fetus Heart Rate Present A 140 Fetus Movement A Yes Comments Patient c/o of [place] and swelling in hands and feet. [...] Estim ated Date of Delivery false Thalassemia (Bermudian, Urdu, Mediterranean, Or Background): MCV < 80 false Neural Tube Defect (Meningomyelocele, Spina Bifi da, Or Anencephaly) false Congenital Heart Defect false Down Syndrome false Domingo-Sachs (eg, Sikhism, Cajun, Tanzanian-[place]) f alse Donn Disease false Sickle Cell Disease Or Trait () false Hemophilia Or Other Blood Disorders false Muscular Dystrophy false Cystic Fibrosis false Yoakum's Chorea false Intellectual Disability/Autism false If Yes, [...]
--- OUTSIDE RECORDS SUMMARY | 2024-02-17 01:21 | XMS_ITS | Continuity of Care Document ---
Author Organization [facility] [place] Address [address] [place] [address] Care Team Providers Care Buckle Sewer Name Role Phone PETE MARTINEZ Primary Care Provider [phone] Assessment No assessment recorded. Plan of Treatment Reminders Order Date Submit Date Provider Last Modified By Organization Details Last Modified Time Details Appointments INDUCTION 2023 12:01A Archie GALVAN MD Not available Not available Not available Lab None recorded. Referral None recorded. Procedures None recorded. Surgeries None recorded. Imaging US, obstetric , biophysic al profile + non-stres s test 2023 024 [email or web address] [address], [address], [place], [address], 01/25/2024 19:54:30 Medication Orders None recorded. Patient TargetsNo targets recorded. Patient InstructionsNo instructions recorded. Reason for Referral None Reported. Results Created Date Observation Date Name Description Value Unit Range Abnormal Flag Note LastModifiedBy Organization Detail LastModifiedTime 08/16/19 24 08/16/2023 US, obste tric, nucha l trans lucen cy No observ ation record ed. [email or web address] [place] [address], [place], [address], 08/16/2023 10:17:57 08/16/19 24 08/16/2023 US, obste tric, 1st trime ster No observ ation record ed. [email or web address] [place] [address], [place], [address], 08/16/2023 10:17:45 08/16/19 24 08/16/2023 US, obste tric, nucha l trans lucen cy No observ ation record ed. [email or web address] [address], [place], [address], 08/16/2023 20:31:53 10/12/19 24 10/12/2023 US, obste tric, 2nd or 3rd trime ster No observ ation record ed. [email or web address] [place] [address], [place], [address], 10/12/2023 12:33:34 10/12/19 24 10/12/2023 US, obste tric, 2nd or 3rd trime ster No observ ation record ed. [email or web address] [address], [place], [address], 10/13/2023 14:01:11 10/12/19 24 10/12/2023 US, obste tric, 2nd or 3rd trime ster No observ ation record ed. [email or web address] [address], [place], [address], 10/13/2023 07:42:16 11/09/19 24 11/09/2023 US, obste tric, follo w-up No observ ation record ed. [email or web address] [place] [address], [place], [address], 11/09/2023 18:27:48 11/09/19 24 11/09/2023 US, obste tric, follo w-up No observ ation record ed. [email or web address] [address], [place], [address], 11/10/2023 15:36:54 01/04/20 24 01/04/2024 US, obste tric, follo w-up No observ ation record ed. [email or web address] [place] [address], [place], [address], 01/04/2024 13:22:26 01/04/2001/04/2024 US, obste tric, follo w-up No observ ation record ed. [email or web address] [address], [place], [address], 01/04/2024 12:54:21 01/18/2001/18/2024 US, obste tric, bioph ysica l profi le + non-s tress test No observ ation record ed. [email or web address] [place] [address], [place], [address], 01/18/2024 10:54:49 01/18/2001/18/2024 US, obste tric, bioph ysica l profi le + non-s tress test No observ ation record ed. [email or web address] [address], [place], [address], 01/20/2024 00:28:05 01/18/2001/18/2024 non-s tress test No observ ation record ed. [email or web address] [place] [address], [place], [address], 01/18/2024 10:35:29 01/25/20 24 01/25/2024 non-s tress test No observ ation record ed. [email or web address] [place] [address], [place], [address], 01/25/2024 10:50:05 01/25/20 24 01/25/2024 US, obste tric, bioph ysica l profi le + non-s tress test No observ ation record ed. [email or web address] [place] [address], [place], [address], 01/25/2024 12:36:03 01/25/20 24 01/25/2024 US, obste tric, bioph ysica l profi le + non-s tress test No observ ation record ed. [email or web address] [address], [place], [address], 01/26/2024 05:27:30 02/01/20 24 02/01/2024 US, obste tric, follo w-up No observ ation record ed. [email or web address] [place] [address], [place], [address], 02/01/2024 14:50:11 02/01/2002/01/2024 non-s tress test No observ ation record ed. [email or web address] [place] [address], [place], [address], 02/01/2024 10:39:26 02/01/20 24 02/01/2024 US, obste tric, follo w-up No observ ation record ed. IAN [address], [place], [address], 02/02/2024 10:36:33 02/08/20 24 02/08/2024 US, obste tric, bioph ysica l profi le + non-s tress test No observ ation record ed. [email or web address] [place] [address], [place], [address], 02/08/2024 13:02:43 02/08/20 24 02/08/2024 US, obste tric, bioph ysica l profi le + non-s tress test No observ ation record ed. [email or web address] [address], [place], [address], 02/10/2024 11:57:49 02/08/20 24 02/08/2024 non-s tress test No observ ation record ed. [email or web address] [place] [address], [place], [address], 02/08/2024 11:12:55 02/15/20 24 02/15/2024 US, obste tric, bioph ysica l profi le + non-s tress test No observ ation record ed. [email or web address] [place] [address], [place], [address], 02/15/2024 12:00:41 02/15/20 24 02/15/2024 US, obste tric, bioph ysica l profi le + non-s tress test No observ ation record ed. [address], [place], [address], 02/15/2024 21:51:48 02/15/20 24 02/15/2024 non-s tress test No observ ation record ed. [email or web address] [place] [address], [place], [address], 02/15/2024 19:02:15 02/15/20 non-s tress test No observ ation record ed. [email or web address] [place] [address], [place], [address], 02/15/2024 19:06:30 Result Notes None recorded. Problems Name Problem SNOMED Code Status Onset Date Resolution Date Notes Provider Name and Address Organization Details Recorded Time Subchori onic hematoma 447459785 Active 2020 Dixie perez [facility] 1 10:44:01 Pregnanc y 50379669 Completed 202110/24/2021 Shaneka perez [facility] 4 09:59:33 Maternal obesity complica ting pregnanc y, childbir th and the puerperi um, antepart um 5813039023 07 Active BMI 44- ante testing at 34w Anca Bohnenstieh l null, [facility] 2 13:48:38 Maternal obesity complica ting pregnanc y, childbir th and the puerperi um, antepart um 6520249718 07 Completed BMI 44- ante testing at 34w Anca babb null, [facility] 2 13:48:38 COVID-19 183723212 Completed 2021 Pt informed to take ASA per SP. Serial growth Anca babb [facility], [facility] 2 13:48:38 Pregnanc y 74627751 Active 2023 Shaneka Cuevas [facility], [facility] 4 09:59:33 Obesity 735678927 Active Antenata l testing 34wks AALIYAH GALVAN MD [address], [place], [address], [facility] 4 10:04:23 Prediabe [place] 924009903 Active A1c 5.7 - early GTT at 20wks AALIYAH GALVAN MD [address], [place], [address], [facility] 4 10:04:23 Problem Notes None recorded. Procedures Surgical History Date Name Laterality Status Provider Name and Address Organization Details Recorded Time 06/01/19 24 Date of Last Pap Smear completed Olga Larson [facility] 12/10/2023 10:42:52 03/08/19 02 Tonsillectomy completed Dixie Chavez [facility] 02/19/2021 09:31:00 Imaging Results Imaging Date Name Status LastModified by Organiz ation Details LastModified Time 01/25/2024 US, obstetric, biophysical profile + non-stress test completed [email or web address] [place] [address], [place], [address], 01/25/2024 12:36:03 01/25/2024 US, obstetric, biophysical profile + non-stress test completed [address], [place], [address], 01/26/2024 05:27:30 Procedure Notes None recorded. Medical Equipment None [...] Updated DateTime 01/25/2024 162.56 cm 46 kg/m2 858952.7 6 g 113 mm[Hg] 78 mm[Hg] Olga Larson [facility] 10:32:25 Social History Question Answer Notes LastModified by Organizat ion Details LastModified Time Tobacco Smoking Status Never Smoker Fartun perez [facility] 01/23/2022 12:22:48 Do You Have An Advance Directive? No [email or web address] Information n ot available 02/19/2021 What Is Your Level Of Alcohol Consumption? None [email or web address] Information not available 09/14/2023 If You Are , What Was Your Level Of Alcohol Consumption Prior To ? Occasional Information not available 01/23/2022 How Many Years Have You Consumed Alcohol? 10 [email or web address] Information not available 02/19/2021 Are You Blind Or Do You Have Difficulty Seeing? No [email or web address] Information n ot available 02/19/2021 What Is Your Level Of Caffeine Consumption? None [email or web address] Information not available 12/21/2023 How Much Tobacco Do You Chew? None [email or web address] Information not available 02/19/2021 In The 14 Days Before Symptom Onset, Have You Had Close Contact With A Laboratory-confirm ed COVID-19 While That Case Was Ill? No [email or web address] Information n ot available 02/19/2021 In The 14 Days Before Symptom Onset, Have You Had Close Contact With A Person Who Is Under Investigation For COVID-19 While That Person Was Ill? No Information not available 02/19/2021 Have You Been To An Area Known To Be High Risk For COVID-19? No [email or web address] Information not available 02/19/2021 Are You Deaf Or Do You Have Serious Difficulty Hearing? No [email or web address] Information not available 02/19/2021 What Type Of Diet Are You Following? REGULAR [email or web address] Information n ot available 02/19/2021 What Is The Highest Grade Or Level Of School You Have Completed Or The Highest Degree You Have Received? 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 No Information not available 02/19/2021 Do You Use Protection During Sex? No Information not available 02/19/2021 Do You Use Your Seat Belt Or Car Seat Routinely? Yes [email or web address] Information not available 02/19/2021 Do You Have Smoke And Carbon Monoxide Detectors In Your Home? Yes [email or web address] Information not available 02/19/2021 How Much Tobacco Do You Smoke? No [email or web address] Information not available 02/19/2021 Do You Feel Stressed (tense, Restless, Nervous, Or Anxious, Or Unable To Sleep At Night)? [id number] Information not available 02/19/2021 Do You Use Any Illicit Or Recreational Drugs? No [email or web address] Information not available 02/19/2021 Do You Use Sunscreen Routinely? No Information not available 02/19/2021 Have You Used IV Drugs? No [email or web address] Information not available 02/19/2021 Sex: Unknown Functional Status Question Answer Note LastModified by Organizat ion Details LastModified Time Do you have difficulty walking or climbing stairs? No Information not available 01/23/2022 Are you able to walk? [email or web address] Information not available 02/19/2021 Are you able to care for yourself? Yes Information not available 01/23/2022 Do you have difficulty dressing or bathing? No [email or web address] Information not available 01/23/2022 What is your exercise level? Occasional Information not available 02/19/2021 Mental Status None recorded. Family History Relationship Description Onset Age of this Age Resolved Age Notes LastModified by Organization Details LastModified Time Father Disorder of nervous system [email or web address] Not available 2020 09:30:09 Father Multiple sclerosis Not available 2020 09:30:09 Mother Diabetes mellitus [email or web address] Not available 2020 09:30:09 Mother High risk Not available 2020 09:30:09 Sister Substance abuse Not available 2020 09:30:09 Paternal Uncle Substance abuse [email or web address] Not available 2020 09:30:09 Notes:Cancer form complete [...] Diagnosis/Indication Diagnosis SNOMED-CT Code Diagnosis ICD10 Code [id number] Ruchi Martinez [place] [address],[facility] [place] [address] 01/04/2024 09:41:43 01/04/2024 10:16:29 Maternal obesity complicating , childbirth and the puerperium, antepartum 9551280662 07 O99.213 O36.60X0 Z3A.32 [id number] AALIYAH GALVAN MD [place] [address] [address] 01/04/2024 09:42:01 01/04/2024 11:10:53 Maternal obesity complicating , childbirth and the puerperium, antepartum 4085018354 07 O99.213 O36.60X0 Z3A.32 Gestation period, 32 weeks 8099370 Z3A.32 [id number] Jenna Velazquez [place] [address] [address] 01/18/2024 09:18:59 01/18/2024 10:25:52 Maternal obesity complicating , childbirth and the puerperium, antepartum 6714934916 07 O99.213 O99.891 Z3A.34 [id number] [facility] [address],[place] [address] 01/18/2024 09:20:07 01/18/2024 10:36:16 Maternal obesity complicating , childbirth and the puerperium, antepartum 5539735772 07 O99.213 O36.60X0 Z3A.32 [id number] AALIYAH GALVAN MD [place] [address],[place] [address] 01/18/2024 09:20:25 01/18/2024 11:27:10 Polyhydramnios 35340787 O40.3XX0 Maternal o besity complicating , childbirth and the puerperium, antepartum 3130850073 07 O99.213 O36.60X0 Z3A.32 Gestation period, 34 weeks 53238228 Z3A.34 [id number] Ruchi Martinez [place] [address],[place] [address] 01/25/2024 09:18:22 01/25/2024 10:11:43 Maternal obesity complicating , childbirth and the puerperium, antepartum 8184921010 07 O99.213 Z3A.35 [id number] [facility] [address],[place] [address] 01/25/2024 09:18:50 01/25/2024 10:55:21 Maternal obesity complicating , childbirth and the puerperium, antepartum 5783602432 07 O99.213 O36.60X0 Z3A.32 [id number] AALIYAH GALVAN MD [place] [address],[place] [address] 01/25/2024 09:19:07 01/25/2024 10:59:24 Maternal obesity complicating , childbirth and the puerperium, antepartum 5344015573 07 O99.213 Z3A.35 Gestation period, 35 weeks 67881100 Z3A.35 Health Concerns Section Related Observation LastModified by Organization Detai ls LastModified Time None Recorded Concern Status LastModified by Organization Details LastModified Time None Recorded Payers Encounter Date Sequence Insurance Name Policy Number Policy Patino Covered Member ID Patino Member ID Guarantor Name 01/25/2024 1 [place] [id number] Logyn Whitney Gar [id number] Logyn Cong OBGyn Episode Ob Episode Information Episode Created Date Number of Fetuses Patient Bloodtype Patient rh Status Prepregnancy Weight lbs Domestic Partner Domestic Partner Phone Father Name Fur Mixer 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 Status 08/16/19 24 1 A Positive 250.8 OPEN Fetus Data First Name Last Name Admitted to NICU Weight (g) Sex Living Outcome Pediatric Complications Fetus ID Race Codes Race Delivery Type [id number] Problems Problem Notes Problem Name Start Date End Date Resolution Snomed Code Not e Obesity 805959094 testing 34wks Prediabetes 943019392 A1c 5.7 - early GTT at 20wks [...] Date Ultra Sound Latest Days Gestation 0 [email or web address] 08/16/2023 02/25/20 24 0 Pre- Flowsheet Flowsheet Date 08/16/2023 Castro Score Blood Edema Fundus Height Fundus Units Glucose Ketones Leukocytes Nitrite Labor Signs Protein Cervic Dilation Cervic Effacement Cervic Station Type Weight in lbs Pre/Post Dialysis Refused Weight 245.99912004697 BP Diastolic BP Location Tested BP Systolic [...] Weight in lbs Pre/Post Dialysis Refused Weight 251.339455625481 BP Diastolic BP Location Tested BP Systolic BP Type 83 119 Fetus Heart Rate Present A 145 Fetus Movement A Yes Comments Doing well, some flutters fe lt. No cramping or bleeding. Nausea resolved. Discussed anatomy US and early 1h GCT next visit. RTC 4 weeks. Flowsheet Date 10/12/2023 Csatro Score Blood Edema Fundus Height Fundus Units [...] Weight in lbs Pre/Post Dialysis Refused Weight 252.132522812641 BP Diastolic BP Location Tested BP Systolic [...] Weight in lbs Pre/Post Dialysis Refused Weight 256.499283871672 BP Diastolic BP Location Tested BP Systolic [...] Type Weight in lbs Pre/Post Dialysis Refused 257.519349089255 BP Diastolic BP Location Tested BP Systolic [...] Weight in lbs Pre/Post Dialysis Refused Weight 257.084096134679 BP Diastolic BP Location Tested BP Systolic [...] Weight in lbs Pre/Post Dialysis Refused Weight 262.005831550088 BP Diastolic BP Location Tested BP Systolic [...] Weight in lbs Pre/Post Dialysis Refused Weight 267.046313354415 BP Diastolic BP Location Tested BP Systolic BP Type 74 L arm 117 sitting Fetus Heart Rate Present A 140 Fetus Movement A Yes Comments Patient c/o of [place] . Good movement. No bleeding or [...] Weight in lbs Pre/Post Dialysis Refused Weight 268.27742213191 BP Diastolic BP Location Tested BP Systolic [...] Weight in lbs Pre/Post Dialysis Refused Weight 268.88194616617 BP Diastolic BP Location Tested BP Systolic BP Type 80 L arm 115 sitting Fetus Heart Rate Present A 135 Fetus Movement A Yes Comments Patient c/o of [place] and swelling in hands and feet. [...] Weight in lbs Pre/Post Dialysis Refused Weight 271.982222394890 BP Diastolic BP Location Tested BP Systolic BP Type 77 L arm 111 sitting Fetus Heart Rate Present A 135 Fetus Movement A Yes Comments Patient c/o of [place] . Was diagnosed with COVID last [...] Weight in lbs Pre/Post Dialysis Refused Weight 274.010284167193 BP Diastolic BP Location Tested BP Systolic BP Type 75 109 Fetus Heart Rate Present Fetus Movement Comments Flowsheet Date 02/15/2024 Castro Score Blood Edema Fundus Height Fundus Units Glucose Ketones Leukocytes Nitrite Labor Signs Protein Cervic Dilation Cervic Effacement Cervic Station neg none Type Weight in lbs Pre/Post Dialysis Refused 274.656200542157 BP Diastolic BP Location Tested BP Systolic [...] Estim ated Date of Delivery false Thalassemia (Hungarian, Slovenian, Mediterranean, Or Background): MCV < 80 false Neural Tube Defect (Meningomyelocele, Spina Bifi da, Or Anencephaly) false Congenital Heart Defect false Down Syndrome false Domingo-Sachs (eg, Taoism, Cajun, Japanese-Guinean) f alse Donn Disease false Sickle Cell Disease Or Trait () false Hemophilia Or Other Blood Disorders false Muscular Dystrophy false Cystic Fibrosis false [place]'s Chorea false Intellectual Disability/Autism false If Yes, [...]
--- OUTSIDE RECORDS SUMMARY | 2024-02-17 01:22 | XMS_ITS | Continuity of Care Document ---
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 Discussed plan. [email or web address] Not available 12/10/2023 10:51:40 Plan of Treatment Reminders Order Date Submit [...] cy No observ ation record ed. [email or web address] [place] [address], [place], [address], 08/16/2023 10:17:57 08/16/19 24 08/16/2023 US, obste tric, 1st trime ster No observ ation record ed. [email or web address] [place] [address], [place], [address], 08/16/2023 10:17:45 08/16/19 24 08/16/2023 US, obste tric, nucha l trans lucen cy No observ ation record ed. [email or web address] [address], [place], [address], 08/16/2023 20:31:53 10/12/1910/12/2023 US, obste tric, 2nd or 3rd trime ster No observ ation record ed. [email or web address] [place] [address], [place], [address], 10/12/2023 12:33:34 10/12/19 24 10/12/2023 US, obste tric, 2nd or 3rd trime ster No observ ation record ed. [email or web address] [address], [place], [address], 10/13/2023 14:01:11 10/12/19 24 10/12/2023 US, obste tric, 2nd or 3rd trime ster No observ ation record ed. [address], [place], [address], 10/13/2023 07:42:16 11/09/1911/09/2023 US, obste tric, follo w-up No observ ation record ed. [email or web address] [place] [address], [place], [address], 11/09/2023 18:27:48 11/09/1911/09/2023 US, obste tric, follo w-up No observ ation record ed. [email or web address] [address], [place], [address], 11/10/2023 15:36:54 01/04/20 24 01/04/2024 US, obste tric, follo w-up No observ ation record ed. [email or web address] [place] [address], [place], [address], 01/04/2024 13:22:26 01/04/20 24 01/04/2024 US, obste tric, follo w-up No observ ation record ed. [email or web address] [address], [place], [address], 01/04/2024 12:54:21 01/18/2001/18/2024 US, obste tric, bioph ysica l profi le + non-s tress test No observ ation record ed. [email or web address] [place] [address], [place], [address], 01/18/2024 10:54:49 01/18/2001/18/2024 US, obste tric, bioph ysica l profi le + non-s tress test No observ ation record ed. [address], [place], [address], 01/20/2024 00:28:05 01/18/20 24 01/18/2024 non-s tress test No observ ation record ed. [email or web address] [place] [address], [place], [address], 01/18/2024 10:35:29 01/25/20 24 01/25/2024 non-s tress test No observ ation record ed. [email or web address] [place] [address], [place], [address], 01/25/2024 10:50:05 01/25/20 24 01/25/2024 US, obste tric, bioph ysica l profi le + non-s tress test No observ ation record ed. [email or web address] [place] [address], [place], [address], 01/25/2024 12:36:03 01/25/20 24 01/25/2024 US, obste tric, bioph ysica l profi le + non-s tress test No observ ation record ed. [address], [place], [address], 01/26/2024 05:27:30 02/01/20 24 02/01/2024 US, obste tric, follo w-up No observ ation record ed. [email or web address] [place] [address], [place], [address], 02/01/2024 14:50:11 02/01/20 24 02/01/2024 non-s tress test No observ ation record ed. [email or web address] [place] [address], [place], [address], 02/01/2024 10:39:26 02/01/20 24 02/01/2024 US, obste tric, follo w-up No observ ation record ed. IAN [address], [place], [address], 02/02/2024 10:36:33 02/08/20 24 02/08/2024 US, obste tric, bioph ysica l profi le + non-s tress test No observ ation record ed. [email or web address] [place] [address], [place], [address], 02/08/2024 13:02:43 02/08/20 24 02/08/2024 US, obste tric, bioph ysica l profi le + non-s tress test No observ ation record ed. [address], [place], [address], 02/10/2024 11:57:49 02/08/20 24 02/08/2024 non-s tress test No observ ation record ed. [email or web address] [place] [address], [place], [address], 02/08/2024 11:12:55 02/15/20 24 02/15/2024 US, obste tric, bioph ysica l profi le + non-s tress test No observ ation record ed. [email or web address] [place] [address], [place], [address], 02/15/2024 12:00:41 02/15/20 24 02/15/2024 US, obste tric, bioph ysica l profi le + non-s tress test No observ ation record ed. [email or web address] [address], [place], [address], 02/15/2024 21:51:48 02/15/20 24 02/15/2024 non-s tress test No observ ation record ed. [email or web address] [place] [address], [place], [address], 02/15/2024 19:02:15 02/15/20 non-s tress test No observ ation record ed. [email or web address] [place] [address], [place], [address], 02/15/2024 19:06:30 Result Notes None recorded. Problems Name Problem SNOMED Code Status Onset Date Resolution Date Notes Provider Name and Address Organization Details Recorded Time Subchori onic hematoma 890358279 Active 2020 Dixie perez [facility] 1 10:44:01 Pregnanc y 68070105 Completed 202110/24/2021 Shaneka perez [facility] 4 09:59:33 Maternal obesity complica ting pregnanc y, childbir th and the puerperi um, antepart um 4517272243 07 Active BMI 44- ante testing at 34w Anca perez [facility] 2 13:48:38 Maternal obesity complica ting pregnanc y, childbir th and the puerperi um, antepart um 6236590193 07 Completed BMI 44- ante testing at 34w Anca perez, [facility] 2 13:48:38 COVID-19 528051074 Completed 2021 Pt informed to take ASA per SP. Serial growth Anca babb [facility], [facility] 2 13:48:38 Pregnanc y 43778993 Active 2023 Shanekara Cuevas [facility], [facility] 4 09:59:33 Obesity 796721995 Active Antenata l testing 34wks AALIYAH GALVAN MD [address], [place], [address], [facility] 4 10:04:23 Prediabe [place] 701517083 Active A1c 5.7 - early GTT at 20wks AALIYAH GALVAN MD [address], [place], [address], [facility] 4 10:04:23 Problem Notes None recorded. Procedures Surgical History Date Name Laterality Status Provider Name and Address Organization Details Recorded Time 06/01/19 24 Date of Last Pap Smear completed Olga Larson [facility] 12/10/2023 10:42:52 03/08/19 02 Tonsillectomy completed Dixie Chavez [facility] 02/19/2021 09:31:00 Imaging Results None [...] Recorded Body height Body mass index (BMI) Systolic blood pressure Diastolic blood pressure Provider Name and Address Organization Details Last Updated DateTime 12/10/2023 162.56 cm 44.1 kg/m2 121 mm[Hg] 80 mm[Hg] Olga Larson [facility] 12/10/2023 10:54:58 Date Recorded Body weight Provider Name an d Address Organization Details Last Updated DateTime 12/10/2023 908398.06163 g Archie BECERRA [address], [place], [address], [facility] 12/10/2023 11:41:09 Social History Question Answer Notes LastModified by Organizat ion Details LastModified Time Tobacco Smoking Status Never Smoker Fartun Carmen null, [facility] 01/23/2022 12:22:48 Do You Have An Advance Directive? No [email or web address] Information n ot available 02/19/2021 What Is Your Level Of Alcohol Consumption? None [email or web address] Information not available 09/14/2023 If You Are , What Was Your Level Of Alcohol Consumption Prior To ? Occasional [email or web address] Information not available 01/23/2022 How Many Years Have You Consumed Alcohol? 10 Information not available 02/19/2021 Are You Blind Or Do You Have Difficulty Seeing? No Information n ot available 02/19/2021 What Is Your Level Of Caffeine Consumption? None [email or web address] Information not available 12/21/2023 How Much Tobacco Do You Chew? None Information not available 02/19/2021 In The 14 Days Before Symptom Onset, Have You Had Close Contact With A Laboratory-confirm ed COVID-19 While That Case Was Ill? No [email or web address] Information n ot available 02/19/2021 In The [...] Do You Have Serious Difficulty Hearing? No [email or web address] Information not available 02/19/2021 What Type Of Diet Are You Following? REGULAR [email or web address] Information n ot available 02/19/2021 What Is The Highest Grade Or Level Of School You Have Completed Or The Highest Degree You Have Received? 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 No Information not available 02/19/2021 Do You Use Protection During Sex? No [email or web address] Information not available 02/19/2021 Do You Use Your Seat Belt Or Car Seat Routinely? Yes [email or web address] Information not available 02/19/2021 Do You Have Smoke And Carbon Monoxide Detectors In Your Home? Yes [email or web address] Information not available 02/19/2021 How Much Tobacco Do You Smoke? No [email or web address] Information not available 02/19/2021 Do You Feel Stressed (tense, Restless, Nervous, Or Anxious, Or Unable To Sleep At Night)? [id number] Information not available 02/19/2021 Do You Use Any Illicit Or Recreational Drugs? No [email or web address] Information not available 02/19/2021 Do You Use Sunscreen Routinely? No [email or web address] Information not available 02/19/2021 Have You Used IV Drugs? No Information not available 02/19/2021 Sex: Unknown Functional Status Question Answer Note LastModified by Organizat ion Details LastModified Time Do you have difficulty walking or climbing stairs? No [email or web address] Information not available 01/23/2022 Are you able to walk? YESWOREST [email or web address] Information not available 02/19/2021 Are you able to care for yourself? Yes [email or web address] Information not available 01/23/2022 Do you have difficulty dressing or bathing? No [email or web address] Information not available 01/23/2022 What is your exercise level? Occasional Information not available 02/19/2021 Mental Status None recorded. Family History Relationship Description Onset Age of this Age Resolved Age Notes LastModified by Organization Details LastModified Time Father Disorder of nervous system [email or web address] Not available 2020 09:30:09 Father Multiple sclerosis [email or web address] Not available 2020 09:30:09 Mother Diabetes mellitus [email or web address] Not available 2020 09:30:09 Mother High risk [email or web address] Not available 2020 09:30:09 Sister Substance abuse Not available 2020 09:30:09 Paternal Uncle Substance abuse [email or web address] Not available 2020 09:30:09 Notes:Cancer form complete [...] Diagnosis/Indication Diagnosis SNOMED-CT Code Diagnosis ICD10 Code 238471 AALIYAH GALVAN MD [place] [address] [address] 12/10/2023 10:40:50 12/10/2023 12:00:58 Maternal obesity complicating , childbirth and the puerperium, antepartum 9170742353 07 O99.213 U07.1 Z3A.38 Prediabetes 543021348 R7 3.03 Gestation period, 29 weeks 46043494 Z3A.29 Health Concerns Section Related Observation LastModified by Organization Detai ls LastModified Time None Recorded Concern Status LastModified by Organization Details LastModified Time None Recorded Payers Encounter Date Sequence Insurance Name Policy Number Policy Patino Covered Member ID Patino Member ID Guarantor Name 12/10/2023 1 [place] [id number] Logyn A Cong [id number] Logyn Cong OBGyn Episode Ob Episode Information Episode Created Date Number of Fetuses Patient Bloodtype Patient rh Status Prepregnancy Weight lbs Domestic Partner Domestic Partner Phone Father Name Heel Shaver Status 08/16/19 24 1 A Positive 250.8 OPEN Fetus Data First Name Last Name Admitted to NICU Weight (g) Sex Living Outcome Pediatric Complications Fetus ID Race Codes Race Delivery Type [id number] Problems Problem Notes Problem Name Start Date End Date Resolution Snomed Code Not e Obesity 786546564 testing 34wks Prediabetes 303049956 A1c 5.7 - early GTT at 20wks [...] Date Ultra Sound Latest Days Gestation 0 [email or web address] 08/16/2023 02/25/20 24 0 Pre- Flowsheet Flowsheet Date 08/16/2023 Castro Score Blood Edema Fundus Height Fundus Units Glucose Ketones Leukocytes Nitrite Labor Signs Protein Cervic Dilation Cervic Effacement Cervic Station Type Weight in lbs Pre/Post Dialysis Refused Weight 245.32050774030 BP Diastolic BP Location Tested BP Systolic BP Type 79 121 Fetus Heart Rate Present A 154 Fetus Movement Comments [facility] has been thus far uncomplicated. Nausea [...] Weight in lbs Pre/Post Dialysis Refused Weight 251.250914124435 BP Diastolic BP Location Tested BP Systolic [...] Weight in lbs Pre/Post Dialysis Refused Weight 252.049649324549 BP Diastolic BP Location Tested BP Systolic [...] Weight in lbs Pre/Post Dialysis Refused Weight 256.942923453943 BP Diastolic BP Location Tested BP Systolic [...] Type Weight in lbs Pre/Post Dialysis Refused 257.526364107410 BP Diastolic BP Location Tested BP Systolic [...] Weight in lbs Pre/Post Dialysis Refused Weight 257.603679933301 BP Diastolic BP Location Tested BP Systolic [...] Weight in lbs Pre/Post Dialysis Refused Weight 262.997120235864 BP Diastolic BP Location Tested BP Systolic [...] Weight in lbs Pre/Post Dialysis Refused Weight 267.488989875047 BP Diastolic BP Location Tested BP Systolic [...] Weight in lbs Pre/Post Dialysis Refused Weight 268.78419535625 BP Diastolic BP Location Tested BP Systolic [...] Weight in lbs Pre/Post Dialysis Refused Weight 268.63714426715 BP Diastolic BP Location Tested BP Systolic BP Type 80 L arm 115 sitting Fetus Heart Rate Present A 135 Fetus Movement A Yes Comments Patient c/o of [place] and swelling in hands and feet. [...] Weight in lbs Pre/Post Dialysis Refused Weight 271.668261755944 BP Diastolic BP Location Tested BP Systolic BP Type 77 L arm 111 sitting Fetus Heart Rate Present A 135 Fetus Movement A Yes Comments Patient c/o of [place] . Was diagnosed with COVID last [...] Weight in lbs Pre/Post Dialysis Refused Weight 274.399551721059 BP Diastolic BP Location Tested BP Systolic BP Type 75 109 Fetus Heart Rate Present Fetus Movement Comments Flowsheet Date 02/15/2024 Castro Score Blood Edema Fundus Height Fundus Units Glucose Ketones Leukocytes Nitrite Labor Signs Protein Cervic Dilation Cervic Effacement Cervic Station neg none Type Weight in lbs Pre/Post Dialysis Refused 274.058693846595 BP Diastolic BP Location Tested BP Systolic BP Type 75 L arm 109 sitting Fetus Heart Rate Present A 140 Fetus Movement A Yes Comments Patient c/o of [place] and swelling in hands and feet. [...] Estim ated Date of Delivery false Thalassemia (Belizean, Serbian, Mediterranean, Or Background): MCV < 80 false Neural Tube Defect (Meningomyelocele, Spina Bifi da, Or Anencephaly) false Congenital Heart Defect false Down Syndrome false Domingo-Sachs (eg, Bahai, Cajun, Nigerien-Nigerien) f alse Donn Disease false Sickle Cell [...]
--- OUTSIDE RECORDS SUMMARY | 2024-02-17 01:22 | XMS_ITS | Continuity of Care Document ---
Author Organization [facility] Address [address] [place] [address] Care Team Providers Care Mix Maker Name Role Phone PETE MARTINEZ Primary Care [...] cy No observ ation record ed. [email or web address] [facility] [address], [place], [address], 08/16/2023 10:17:57 08/16/19 24 08/16/2023 US, obste tric, 1st trime ster No observ ation record ed. [email or web address] [facility] [address], [place], [address], 08/16/2023 10:17:45 08/16/19 24 08/16/2023 US, obste tric, nucha l trans lucen cy No observ ation record ed. [email or web address] [address], [place], [address], 08/16/2023 20:31:53 10/12/19 24 10/12/2023 US, obste tric, 2nd or 3rd trime ster No observ ation record ed. [email or web address] [facility] [address], [place], [address], 10/12/2023 12:33:34 10/12/19 24 10/12/2023 US, obste tric, 2nd or 3rd trime ster No observ ation record ed. [email or web address] [address], [place], [address], 10/13/2023 14:01:11 10/12/19 24 10/12/2023 US, obste tric, 2nd or 3rd trime ster No observ ation record ed. [email or web address] [address], [place], [address], 10/13/2023 07:42:16 11/09/19 24 11/09/2023 US, obste tric, follo w-up No observ ation record ed. [email or web address] [facility] [address], [place], [address], 11/09/2023 18:27:48 11/09/19 24 11/09/2023 US, obste tric, follo w-up No observ ation record ed. [email or web address] [address], [place], [address], 11/10/2023 15:36:54 01/04/20 24 01/04/2024 US, obste tric, follo w-up No observ ation record ed. [email or web address] [facility] [address], [place], [address], 01/04/2024 13:22:26 01/04/20 24 01/04/2024 US, obste tric, follo w-up No observ ation record ed. [email or web address] [address], [place], [address], 01/04/2024 12:54:21 01/18/20 24 01/18/2024 US, obste tric, bioph ysica l profi le + non-s tress test No observ ation record ed. [email or web address] [facility] [address], [place], [address], 01/18/2024 10:54:49 01/18/20 24 01/18/2024 US, obste tric, bioph ysica l profi le + non-s tress test No observ ation record ed. [email or web address] [address], [place], [address], 01/20/2024 00:28:05 01/18/20 24 01/18/2024 non-s tress test No observ ation record ed. [email or web address] [facility] [address], [place], [address], 01/18/2024 10:35:29 01/25/20 24 01/25/2024 non-s tress test No observ ation record ed. [email or web address] [facility] [address], [place], [address], 01/25/2024 10:50:05 01/25/20 24 01/25/2024 US, obste tric, bioph ysica l profi le + non-s tress test No observ ation record ed. [email or web address] [facility] [address], [place], [address], 01/25/2024 12:36:03 01/25/20 24 01/25/2024 US, obste tric, bioph ysica l profi le + non-s tress test No observ ation record ed. [email or web address] [address], [place], [address], 01/26/2024 05:27:30 02/01/20 24 02/01/2024 US, obste tric, follo w-up No observ ation record ed. [email or web address] [facility] [address], [place], [address], 02/01/2024 14:50:11 02/01/20 24 02/01/2024 non-s tress test No observ ation record ed. [email or web address] [facility] [address], [place], [address], 02/01/2024 10:39:26 02/01/2002/01/2024 US, obstdylan tric, follo w-up No observ ation record ed. IAN [address], [place], [address], 02/02/2024 10:36:33 02/08/20 24 02/08/2024 US, obste tric, bioph ysica l profi le + non-s tress test No observ ation record ed. [email or web address] [facility] [address], [place], [address], 02/08/2024 13:02:43 02/08/20 24 02/08/2024 US, obste tric, bioph ysica l profi le + non-s tress test No observ ation record ed. [email or web address] [address], [place], [address], 02/10/2024 11:57:49 02/08/20 24 02/08/2024 non-s tress test No observ ation record ed. [email or web address] [facility] [address], [place], [address], 02/08/2024 11:12:55 02/15/20 24 02/15/2024 US, obste tric, bioph ysica l profi le + non-s tress test No observ ation record ed. [email or web address] [facility] [address], [place], [address], 02/15/2024 12:00:41 02/15/20 24 02/15/2024 US, obste tric, bioph ysica l profi le + non-s tress test No observ ation record ed. [email or web address] [address], [place], [address], 02/15/2024 21:51:48 02/15/20 24 02/15/2024 non-s tress test No observ ation record ed. [email or web address] [facility] [address], [place], [address], 02/15/2024 19:02:15 02/15/20 non-s tress test No observ ation record ed. [facility] [address], [place], [address], 02/15/2024 19:06:30 Result Notes None recorded. Problems Name Problem SNOMED Code Status Onset Date Resolution Date Notes Provider Name and Address Organization Details Recorded Time Subchori onic hematoma 763595708 Active 2020 Dixie Chavez [facility] 1 10:44:01 Pregnanc y 12686931 Completed 202110/24/2021 Shaneka Cuevas [facility] 4 09:59:33 Maternal obesity complica ting pregnanc y, childbir th and the puerperi um, antepart um 8328766289 07 Active BMI 44- ante testing at 34w Anca babb [facility] 2 13:48:38 Maternal obesity complica ting pregnanc y, childbir th and the puerperi um, antepart um 7126594434 07 Completed BMI 44- ante testing at 34w Anca babb [facility], [facility] 2 13:48:38 COVID-19 092071175 Completed 2021 Pt informed to take ASA per SP. Serial growth Anca babb [facility], [facility] 2 13:48:38 Pregnanc y 06166519 Active 2023 Shanekapedro luis Cuevas [facility], [facility] 4 09:59:33 Obesity 475148019 Active Antenata l testing 34wks AALIYAH GALVAN MD [address], [place], [address], [facility] 4 10:04:23 Prediabe [place] 884357754 Active A1c 5.7 - early GTT at 20wks AALIYAH GALVAN MD [address], [place], [address], [facility] 4 10:04:23 Problem Notes None recorded. Procedures Surgical History Date Name Laterality Status Provider Name and Address Organization Details Recorded Time 06/01/19 24 Date of Last Pap Smear completed Olga Larson [facility] 12/10/2023 10:42:52 03/08/19 02 Tonsillectomy completed Dixie Chavez [facility] 02/19/2021 09:31:00 Imaging Results None [...] and Address Organization Details Last Updated DateTime 01/04/2024 162.56 cm 45 kg/m2 657759.2 g 112 mm[Hg] 76 mm[Hg] Olga Larson [facility] 10:41:31 Social History Question Answer Notes LastModified by Organizat ion Details LastModified Time Tobacco Smoking Status Never Smoker Fartun Carmen ana, [facility] 01/23/2022 12:22:48 Do You Have An Advance Directive? No Information n ot available 02/19/2021 What Is Your Level Of Alcohol Consumption? None [email or web address] Information not available 09/14/2023 If You Are , What Was Your Level Of Alcohol Consumption Prior To ? Occasional [email or web address] Information not available 01/23/2022 How Many Years Have You Consumed Alcohol? 10 [email or web address] Information not available 02/19/2021 Are You Blind Or Do You Have Difficulty Seeing? No [email or web address] Information n ot available 02/19/2021 What Is Your Level Of Caffeine Consumption? None [email or web address] Information not available 12/21/2023 How Much Tobacco Do You Chew? None Information not available 02/19/2021 In The 14 Days Before Symptom Onset, Have You Had Close Contact With A Laboratory-confirm ed COVID-19 While That Case Was Ill? No [email or web address] Information n ot available 02/19/2021 In The 14 Days Before Symptom Onset, Have You Had Close Contact With A Person Who Is Under Investigation For COVID-19 While That Person Was Ill? No Information not available 02/19/2021 Have You Been To An Area Known To Be High Risk For COVID-19? No [email or web address] Information not available 02/19/2021 Are You Deaf Or Do You Have Serious Difficulty Hearing? No [email or web address] Information not available 02/19/2021 What Type Of Diet Are You Following? REGULAR [email or web address] Information n ot available 02/19/2021 What Is The Highest Grade Or Level Of School You Have Completed Or The Highest Degree You Have Received? 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 No Information not available 02/19/2021 Do You Use Protection During Sex? No [email or web address] Information not available 02/19/2021 Do You Use Your Seat Belt Or Car Seat Routinely? Yes [email or web address] Information not available 02/19/2021 Do You Have Smoke And Carbon Monoxide Detectors In Your Home? Yes [email or web address] Information not available 02/19/2021 How Much Tobacco Do You Smoke? No [email or web address] Information not available 02/19/2021 Do You Feel Stressed (tense, Restless, Nervous, Or Anxious, Or Unable To Sleep At Night)? [id number] [email or web address] Information not available 02/19/2021 Do You Use Any Illicit Or Recreational Drugs? No [email or web address] Information not available 02/19/2021 Do You Use Sunscreen Routinely? No [email or web address] Information not available 02/19/2021 Have You Used IV Drugs? No [email or web address] Information not available 02/19/2021 Sex: Unknown Functional Status Question Answer Note LastModified by Organizat ion Details LastModified Time Do you have difficulty walking or climbing stairs? No [email or web address] Information not available 01/23/2022 Are you able to walk? [email or web address] Information not available 02/19/2021 Are you able to care for yourself? Yes [email or web address] Information not available 01/23/2022 Do you have difficulty dressing or bathing? No [email or web address] Information not available 01/23/2022 What is your exercise level? Occasional [email or web address] Information not available 02/19/2021 Mental Status None recorded. Family History Relationship Description Onset Age of this Age Resolved Age Notes LastModified by Organization Details LastModified Time Father Disorder of nervous system [email or web address] Not available 2020 09:30:09 Father Multiple sclerosis [email or web address] Not available 2020 09:30:09 Mother Diabetes mellitus [email or web address] Not available 2020 09:30:09 Mother High risk [email or web address] Not available 2020 09:30:09 Sister Substance abuse [email or web address] Not available 2020 09:30:09 Paternal Uncle Substance abuse [email or web address] Not available 2020 09:30:09 Notes:Cancer form complete [...] Diagnosis/Indication Diagnosis SNOMED-CT Code Diagnosis ICD10 Code 331011 AALIYAH GALVAN MD [facility] [address],[place] [address] 12/10/2023 10:40:50 12/10/2023 12:00:58 Maternal obesity complicating , childbirth and the puerperium, antepartum 7753858404 07 O99.213 U07.1 Z3A.38 Prediabetes 949329856 R7 3.03 Gestation period, 29 weeks 53458257 Z3A.29 [id number] AALIYAH GALVAN MD [facility] [address],[place] [address] 12/21/2023 10:32:33 12/21/2023 11:16:14 Maternal obesity complicating , childbirth and the puerperium, antepartum 1823397690 07 O99.213 Gestation period, 30 weeks 77851270 Z3A.30 [id number] Ruchi Martinez [facility] [address],[place] [address] 01/04/2024 09:41:43 01/04/2024 10:16:29 Maternal obesity complicating , childbirth and the puerperium, antepartum 7888842608 07 O99.213 O36.60X0 Z3A.32 [id number] AALIYAH GALVAN MD [facility] [address],[place] [address] 01/04/2024 09:42:01 01/04/2024 11:10:53 Maternal obesity complicating , childbirth and the puerperium, antepartum 8946498350 07 O99.213 O36.60X0 Z3A.32 Gestation period, 32 weeks 9450758 Z3A.32 Health Concerns Section Related Observation LastModified by Organization Detai ls LastModified Time None Recorded Concern Status LastModified by Organization Details LastModified Time None Recorded Payers Encounter Date Sequence Insurance Name Policy Number Policy Patino Covered Member ID Patino Member ID Guarantor Name 01/04/2024 1 [place] [id number] Logyn Whitney Gar [id number] Logmaya Gar OBGyn Episode Ob Episode Information Episode Created Date Number of Fetuses Patient Bloodtype Patient rh Status Prepregnancy Weight lbs Domestic Partner Domestic Partner Phone Father Name 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 Status 08/16/19 24 1 A Positive 250.8 OPEN Fetus Data First Name Last Name Admitted to NICU Weight (g) Sex Living Outcome Pediatric Complications Fetus ID Race Codes Race Delivery Type [id number] Problems Problem Notes Problem Name Start Date End Date Resolution Snomed Code Not e Obesity 999367673 testing 34wks Prediabetes 082981820 A1c 5.7 - early GTT at 20wks [...] Date Ultra Sound Latest Days Gestation 0 [email or web address] 08/16/2023 02/25/20 24 0 Pre-elizabeth Flowsheet Flowsheet Date 08/16/2023 Castro Score Blood Edema Fundus Height Fundus Units Glucose Ketones Leukocytes Nitrite Labor Signs Protein Cervic Dilation Cervic Effacement Cervic Station Type Weight in lbs Pre/Post Dialysis Refused Weight 245.35574627097 BP Diastolic BP Location Tested BP Systolic [...] Weight in lbs Pre/Post Dialysis Refused Weight 251.394128519564 BP Diastolic BP Location Tested BP Systolic [...] Weight in lbs Pre/Post Dialysis Refused Weight 252.782500195397 BP Diastolic BP Location Tested BP Systolic [...] Weight in lbs Pre/Post Dialysis Refused Weight 256.254276647148 BP Diastolic BP Location Tested BP Systolic [...] Type Weight in lbs Pre/Post Dialysis Refused 257.950253604255 BP Diastolic BP Location Tested BP Systolic [...] Weight in lbs Pre/Post Dialysis Refused Weight 257.752414277001 BP Diastolic BP Location Tested BP Systolic [...] Weight in lbs Pre/Post Dialysis Refused Weight 262.910142915396 BP Diastolic BP Location Tested BP Systolic BP Type 76 L arm 112 sitting Fetus Heart Rate Present A 143 Fetus Movement A Yes Comments Patient c/o of Squires Bonilla . Having some fatigue. Good movement. [...] Weight in lbs Pre/Post Dialysis Refused Weight 267.336208020007 BP Diastolic BP Location Tested BP Systolic BP Type 74 L arm 117 sitting Fetus Heart Rate Present A 140 Fetus Movement A Yes Comments Patient c/o of Raj Bonilla . Good movement. No bleeding or LOF. BPP 10/10, polyhydramnios 30cm. RSV vaccine received. Preadmission scheduled. scheduled for vasectomy on Wednesday. RTC 1 week. Flowsheet Date 01/25/2024 Casrto Score Blood Edema Fundus Height Fundus [...] Weight in lbs Pre/Post Dialysis Refused Weight 268.83753133458 BP Diastolic BP Location Tested BP Systolic [...] Weight in lbs Pre/Post Dialysis Refused Weight 268.66797532386 BP Diastolic BP Location Tested BP Systolic BP Type 80 L arm 115 sitting Fetus Heart Rate Present A 135 Fetus Movement A Yes Comments Patient c/o of Squires Bonilla and swelling in hands and feet. [...] Weight in lbs Pre/Post Dialysis Refused Weight 271.692909207434 BP Diastolic BP Location Tested BP Systolic BP Type 77 L arm 111 sitting Fetus Heart Rate Present A 135 Fetus Movement A Yes Comments Patient c/o of Squires Bonilla . Was diagnosed with COVID last [...] Weight in lbs Pre/Post Dialysis Refused Weight 274.465328015886 BP Diastolic BP Location Tested BP Systolic BP Type 75 109 Fetus Heart Rate Present Fetus Movement Comments Flowsheet Date 02/15/2024 Castro Score Blood Edema Fundus Height Fundus Units Glucose Ketones Leukocytes Nitrite Labor Signs Protein Cervic Dilation Cervic Effacement Cervic Station neg none Type Weight in lbs Pre/Post Dialysis Refused 274.488616689388 BP Diastolic BP Location Tested BP Systolic BP Type 75 L arm 109 sitting Fetus Heart Rate Present A 140 Fetus Movement A Yes Comments Patient c/o of Squires Bonilla and swelling in hands and feet. [...] Estim ated Date of Delivery false Thalassemia (Indonesian, Ghanaian, Mediterranean, Or Background): MCV < 80 false Neural Tube Defect (Meningomyelocele, Spina Bifi da, Or Anencephaly) false Congenital Heart Defect false Down Syndrome false Domingo-Sachs (eg, Jehovah'S Witness, Cajun, Angolan-Togolese) f alse Donn Disease false Sickle Cell Disease Or Trait () false Hemophilia Or Other Blood Disorders false Muscular Dystrophy false Cystic Fibrosis false [place]'s Chorea false Intellectual Disability/Autism false If Yes, [...]
--- OUTSIDE RECORDS SUMMARY | 2024-02-17 01:22 | XMS_ITS | Continuity of Care Document ---
Author Organization [facility] [place] Address [address] [place] [address] Care Team Providers Care Telephone Operator Receptionist Name Role Phone PETE MARTINEZ Primary Care Provider Assessment No assessment recorded. Plan of Treatment Reminders Order Date Submit Date Provider Last Modified By Organization Details Last Modified Time Details Appointments INDUCTION 2023 12:01A Archie GALVAN MD Not available Not available Not available Lab None recorded. Referral None recorded. Procedures None recorded. Surgeries None recorded. Imaging US, obstetric , follow-up 2023 024 [email or web address] [place], [place], [address], 01/04/2024 11:04:54 Medication Orders None recorded. Patient TargetsNo targets recorded. Patient InstructionsNo instructions recorded. Reason for Referral None Reported. Results Created Date Observation Date Name Description Value Unit Range Abnormal Flag Note LastModifiedBy Organization Detail LastModifiedTime 08/16/1908/16/2023 US, obste tric, nucha l trans lucen cy No observ ation record ed. [email or web address] [place] [address], [place], [address], 08/16/2023 10:17:57 08/16/19 24 08/16/2023 US, obste tric, 1st trime ster No observ ation record ed. [email or web address] [place] [address], [place], [address], 08/16/2023 10:17:45 08/16/19 24 08/16/2023 US, obste tric, nucha l trans lucen cy No observ ation record ed. [email or web address] [address], [place], [address], 08/16/2023 20:31:53 10/12/19 24 10/12/2023 US, obste tric, 2nd or 3rd trime ster No observ ation record ed. [email or web address] [place] [address], [place], [address], 10/12/2023 12:33:34 10/12/19 24 10/12/2023 US, obste tric, 2nd or 3rd trime ster No observ ation record ed. [email or web address] [address], [place], [address], 10/13/2023 14:01:11 10/12/19 24 10/12/2023 US, obste tric, 2nd or 3rd trime ster No observ ation record ed. [address], [place], [address], 10/13/2023 07:42:16 11/09/19 24 11/09/2023 US, obste tric, follo w-up No observ ation record ed. [email or web address] [place] [address], [place], [address], 11/09/2023 18:27:48 11/09/1911/09/2023 US, obste tric, follo w-up No observ ation record ed. [email or web address] [address], [place], [address], 11/10/2023 15:36:54 01/04/20 24 01/04/2024 US, obste tric, follo w-up No observ ation record ed. [email or web address] [place] [address], [place], [address], 01/04/2024 13:22:26 01/04/2001/04/2024 US, obste tric, follo w-up No observ ation record ed. [email or web address] [address], [place], [address], 01/04/2024 12:54:21 01/18/20 24 01/18/2024 US, obste tric, bioph ysica l profi le + non-s tress test No observ ation record ed. [email or web address] [place] [address], [place], [address], 01/18/2024 10:54:49 01/18/20 24 01/18/2024 US, obste tric, bioph ysica l profi le + non-s tress test No observ ation record ed. [email or web address] [address], [place], [address], 01/20/2024 00:28:05 01/18/2001/18/2024 non-s tress test No observ ation record ed. [email or web address] [place] [address], [place], [address], 01/18/2024 10:35:29 01/25/20 24 01/25/2024 non-s tress test No observ ation record ed. [email or web address] [place] [address], [place], [address], 01/25/2024 10:50:05 01/25/20 24 01/25/2024 US, obste tric, bioph ysica l profi le + non-s tress test No observ ation record ed. [email or web address] [place] [address], [place], [address], 01/25/2024 12:36:03 11/19/01/25/2024 US, obste tric, bioph ysica l profi le + non-s tress test No observ ation record ed. [email or web address] [address], [place], [address], 01/26/2024 05:27:30 02/01/20 24 02/01/2024 US, obste tric, follo w-up No observ ation record ed. [email or web address] [place] [address], [place], [address], 02/01/2024 14:50:11 02/01/2002/01/2024 non-s tress test No observ ation record ed. [email or web address] [place] [address], [place], [address], 02/01/2024 10:39:26 02/01/20 24 02/01/2024 US, obste tric, follo w-up No observ ation record ed. IAN [address], [place], [address], 02/02/2024 10:36:33 02/08/20 24 02/08/2024 US, obste tric, bioph ysica l profi le + non-s tress test No observ ation record ed. [email or web address] [place] [address], [place], [address], 02/08/2024 13:02:43 02/08/20 24 02/08/2024 US, obste tric, bioph ysica l profi le + non-s tress test No observ ation record ed. [email or web address] [address], [place], [address], 02/10/2024 11:57:49 02/08/20 24 02/08/2024 non-s tress test No observ ation record ed. [email or web address] [place] [address], [place], [address], 02/08/2024 11:12:55 02/15/20 24 02/15/2024 US, obste tric, bioph ysica l profi le + non-s tress test No observ ation record ed. [email or web address] [place] [address], [place], [address], 02/15/2024 12:00:41 02/15/20 24 02/15/2024 US, obste tric, bioph ysica l profi le + non-s tress test No observ ation record ed. [address], [place], [address], 02/15/2024 21:51:48 02/15/20 24 02/15/2024 non-s tress test No observ ation record ed. [email or web address] [place] [address], [place], [address], 02/15/2024 19:02:15 02/15/20 non-s tress test No observ ation record ed. [place] [address], [place], [address], 02/15/2024 19:06:30 Result Notes None recorded. Problems Name Problem SNOMED Code Status Onset Date Resolution Date Notes Provider Name and Address Organization Details Recorded Time Subchori onic hematoma 005678018 Active 2020 Dixie perez [facility] 1 10:44:01 Pregnanc y 02052532 Completed 202110/24/2021 Shaneka perez [facility] 4 09:59:33 Maternal obesity complica ting pregnanc y, childbir th and the puerperi um, antepart um 9539695360 07 Active BMI 44- ante testing at 34w Anca babb null, [facility] 2 13:48:38 Maternal obesity complica ting pregnanc y, childbir th and the puerperi um, antepart um 8956785282 07 Completed BMI 44- ante testing at 34w Anca babb null, [facility] 2 13:48:38 COVID-19 699140799 Completed 2021 Pt informed to take ASA per SP. Serial growth Anca babb null, [facility] 2 13:48:38 Pregnanc y 02975351 Active 2023 Shaneka Cuevas [facility], [facility] 4 09:59:33 Obesity 557688865 Active Antenata l testing 34wks AALIYAH GALVAN MD [address], [place], [address], [facility] 4 10:04:23 Prediabe [place] 154693556 Active A1c 5.7 - early GTT at 20wks AALIYAH GALVAN MD [address], [place], [address], [facility] 4 10:04:23 Problem Notes None recorded. Procedures Surgical History Date Name Laterality Status Provider Name and Address Organization Details Recorded Time 06/01/19 24 Date of Last Pap Smear completed Olga Larson [facility] 12/10/2023 10:42:52 03/08/19 02 Tonsillectomy completed Dixie Chavez [facility] 02/19/2021 09:31:00 Imaging Results Imaging Date Name Status LastModified by Organiz ation Details LastModified Time 01/04/2024 US, obstetric, follow-up completed [email or web address] [place] [address], [place], [address], 01/04/2024 13:22:26 01/04/2024 US, obstetric, follow-up completed arnie De Sou[address], [place], [address], 01/04/2024 12:54:21 Procedure Notes None recorded. Medical Equipment None [...] Updated DateTime 01/04/2024 162.56 cm 45 kg/m2 961170.2 g 112 mm[Hg] 76 mm[Hg] Olga Larson [facility] 10:41:31 Social History Question Answer Notes LastModified by Organizat ion Details LastModified Time Tobacco Smoking Status Never Smoker Fartun Carmen ana [facility] 01/23/2022 12:22:48 Do You Have An Advance Directive? No [email or web address] Information n ot available 02/19/2021 What Is Your Level Of Alcohol Consumption? None [email or web address] Information not available 09/14/2023 If You Are , What Was Your Level Of Alcohol Consumption Prior To ? Occasional [email or web address] Information not available 01/23/2022 How Many Years Have You Consumed Alcohol? 10 [email or web address] Information not available 02/19/2021 Are You Blind Or Do You Have Difficulty Seeing? No [email or web address] Information n ot available 02/19/2021 What Is Your Level Of Caffeine Consumption? None [email or web address] Information not available 12/21/2023 How Much Tobacco Do You Chew? None Information not available 02/19/2021 In The 14 Days Before Symptom Onset, Have You Had Close Contact With A Laboratory-confirm ed COVID-19 While That Case Was Ill? No [email or web address] Information n ot available 02/19/2021 In The 14 Days Before Symptom Onset, Have You Had Close Contact With A Person Who Is Under Investigation For COVID-19 While That Person Was Ill? No [email or web address] Information not available 02/19/2021 Have You Been To An Area Known To Be High Risk For COVID-19? No [email or web address] Information not available 02/19/2021 Are You Deaf Or Do You Have Serious Difficulty Hearing? No [email or web address] Information not available 02/19/2021 What Type Of Diet Are You Following? REGULAR [email or web address] Information n ot available 02/19/2021 What Is The Highest Grade Or Level Of School You Have Completed Or The Highest Degree You Have Received? 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 No [email or web address] Information not available 02/19/2021 Do You Use Protection During Sex? No [email or web address] Information not available 02/19/2021 Do You Use Your Seat Belt Or Car Seat Routinely? Yes [email or web address] Information not available 02/19/2021 Do You Have Smoke And Carbon Monoxide Detectors In Your Home? Yes [email or web address] Information not available 02/19/2021 How Much Tobacco Do You Smoke? No Information not available 02/19/2021 Do You Feel Stressed (tense, Restless, Nervous, Or Anxious, Or Unable To Sleep At Night)? [id number] [email or web address] Information not available 02/19/2021 Do You Use Any Illicit Or Recreational Drugs? No [email or web address] Information not available 02/19/2021 Do You Use Sunscreen Routinely? No [email or web address] Information not available 02/19/2021 Have You Used IV Drugs? No Information not available 02/19/2021 Sex: Unknown Functional Status Question Answer Note LastModified by Organizat ion Details LastModified Time Do you have difficulty walking or climbing stairs? No [email or web address] Information not available 01/23/2022 Are you able to walk? YESWOREST [email or web address] Information not available 02/19/2021 Are you able to care for yourself? Yes [email or web address] Information not available 01/23/2022 Do you have difficulty dressing or bathing? No [email or web address] Information not available 01/23/2022 What is your exercise level? Occasional [email or web address] Information not available 02/19/2021 Mental Status None recorded. Family History Relationship Description Onset Age of this Age Resolved Age Notes LastModified by Organization Details LastModified Time Father Disorder of nervous system [email or web address] Not available 2020 09:30:09 Father Multiple sclerosis [email or web address] Not available 2020 09:30:09 Mother Diabetes mellitus [email or web address] Not available 2020 09:30:09 Mother High risk [email or web address] Not available 2020 09:30:09 Sister Substance abuse Not available 2020 09:30:09 Paternal Uncle Substance abuse [email or web address] Not available 2020 09:30:09 Notes:Cancer form complete [...] Diagnosis/Indication Diagnosis SNOMED-CT Code Diagnosis ICD10 Code [id number] AALIYAH GALVAN MD [place] [address] [address] 12/10/2023 10:40:50 12/10/2023 12:00:58 Maternal obesity complicating , childbirth and the puerperium, antepartum 5926694561 07 O99.213 U07.1 Z3A.38 Prediabetes 959429488 R7 3.03 Gestation period, 29 weeks 20313685 Z3A.29 [id number] AALIYAH GALVAN MD [place] [address],[facility] [address] 12/21/2023 10:32:33 12/21/2023 11:16:14 Maternal obesity complicating , childbirth and the puerperium, antepartum 3522588481 07 O99.213 Gestation period, 30 weeks 90168847 Z3A.30 [id number] Ruchi Michelle [place] [address],[place] [address] 01/04/2024 09:41:43 01/04/2024 10:16:29 Maternal obesity complicating , childbirth and the puerperium, antepartum 2546955114 07 O99.213 O36.60X0 Z3A.32 [id number] AALIYAH GALVAN MD [place] [address] [address] 01/04/2024 09:42:01 01/04/2024 11:10:53 Maternal obesity complicating , childbirth and the puerperium, antepartum 5029933960 07 O99.213 O36.60X0 Z3A.32 Gestation period, 32 weeks 2509251 Z3A.32 Health Concerns Section Related Observation LastModified by Organization Detai ls LastModified Time None Recorded Concern Status LastModified by Organization Details LastModified Time None Recorded Payers Encounter Date Sequence Insurance Name Policy Number Policy Patino Covered Member ID Patino Member ID Guarantor Name 01/04/2024 1 [place] [id number] Logyn Whitney Gar [id number] Logmaya Gar OBGyn Episode Ob Episode Information Episode Created Date Number of Fetuses Patient Bloodtype Patient rh Status Prepregnancy Weight lbs Domestic Partner Domestic Partner Phone Father Name Methods Study Analyst Status 08/16/19 24 1 A Positive 250.8 OPEN Fetus Data First Name Last Name Admitted to NICU Weight (g) Sex Living Outcome Pediatric Complications Fetus ID Race Codes Race Delivery Type [id number] Problems Problem Notes Problem Name Start Date End Date Resolution Snomed Code Not e Obesity 466198176 testing 34wks Prediabetes 827489978 A1c 5.7 - early GTT at 20wks [...] Date Ultra Sound Latest Days Gestation 0 [email or web address] 08/16/2023 02/25/20 24 0 Pre-elizabeth Flowsheet Flowsheet Date 08/16/2023 Castro Score Blood Edema Fundus Height Fundus Units Glucose Ketones Leukocytes Nitrite Labor Signs Protein Cervic Dilation Cervic Effacement Cervic Station Type Weight in lbs Pre/Post Dialysis Refused Weight 245.57027553011 BP Diastolic BP Location Tested BP Systolic [...] Weight in lbs Pre/Post Dialysis Refused Weight 251.421564595900 BP Diastolic BP Location Tested BP Systolic [...] Weight in lbs Pre/Post Dialysis Refused Weight 252.722195309651 BP Diastolic BP Location Tested BP Systolic [...] Weight in lbs Pre/Post Dialysis Refused Weight 256.541322753709 BP Diastolic BP Location Tested BP Systolic [...] Type Weight in lbs Pre/Post Dialysis Refused 257.100552403137 BP Diastolic BP Location Tested BP Systolic [...] Weight in lbs Pre/Post Dialysis Refused Weight 257.923884129190 BP Diastolic BP Location Tested BP Systolic [...] Weight in lbs Pre/Post Dialysis Refused Weight 262.421621840574 BP Diastolic BP Location Tested BP Systolic [...] Weight in lbs Pre/Post Dialysis Refused Weight 267.601390457973 BP Diastolic BP Location Tested BP Systolic [...] Weight in lbs Pre/Post Dialysis Refused Weight 268.83537873220 BP Diastolic BP Location Tested BP Systolic [...] Weight in lbs Pre/Post Dialysis Refused Weight 268.57315197179 BP Diastolic BP Location Tested BP Systolic [...] Weight in lbs Pre/Post Dialysis Refused Weight 271.571678668266 BP Diastolic BP Location Tested BP Systolic [...] Weight in lbs Pre/Post Dialysis Refused Weight 274.922845369240 BP Diastolic BP Location Tested BP Systolic BP Type 75 109 Fetus Heart Rate Present Fetus Movement Comments Flowsheet Date 02/15/2024 Castro Score Blood Edema Fundus Height Fundus Units Glucose Ketones Leukocytes Nitrite Labor Signs Protein Cervic Dilation Cervic Effacement Cervic Station neg none Type Weight in lbs Pre/Post Dialysis Refused 274.340084959614 BP Diastolic BP Location Tested BP Systolic [...] Estim ated Date of Delivery false Thalassemia (Moroccan, Latvian, Mediterranean, Or Background): MCV < 80 false Neural Tube Defect (Meningomyelocele, Spina Bifi da, Or Anencephaly) false Congenital Heart Defect false Down Syndrome false Domingo-Sachs (eg, Episcopalian, Cajun, Israeli-[place]) f alse Donn Disease false Sickle Cell Disease Or Trait () false Hemophilia Or Other Blood Disorders false Muscular Dystrophy false Cystic Fibrosis false Crisp's Chorea false Intellectual Disability/Autism false If Yes, [...]
--- OUTSIDE RECORDS SUMMARY | 2024-02-17 01:22 | XMS_ITS | Continuity of Care Document ---
Author Organization [facility] [place] Address [address] [place] [address] Care Team Providers Care Art Objects Salesperson Name Role Phone PETE MARTINEZ Primary Care [...] cy No observ ation record ed. [email or web address] [place] [address], [place], [address], 08/16/2023 10:17:57 08/16/19 24 08/16/2023 US, obste tric, 1st trime ster No observ ation record ed. [email or web address] [facility] [address], [place], [address], 08/16/2023 10:17:45 08/16/19 24 08/16/2023 US, obste tric, nucha l trans lucen cy No observ ation record ed. [email or web address] [address], [place], [address], 08/16/2023 20:31:53 10/12/19 24 10/12/2023 US, obste tric, 2nd or 3rd trime ster No observ ation record ed. [email or web address] [facility] [address], [place], [address], 10/12/2023 12:33:34 10/12/19 24 10/12/2023 US, obste tric, 2nd or 3rd trime ster No observ ation record ed. [email or web address] [address], [place], [address], 10/13/2023 14:01:11 10/12/19 24 10/12/2023 US, obste tric, 2nd or 3rd trime ster No observ ation record ed. [address], [place], [address], 10/13/2023 07:42:16 11/09/19 24 11/09/2023 US, obste tric, follo w-up No observ ation record ed. [email or web address] [place] [address], [place], [address], 11/09/2023 18:27:48 11/09/19 24 11/09/2023 US, obste tric, follo w-up No observ ation record ed. [email or web address] [address], [place], [address], 11/10/2023 15:36:54 01/04/20 24 01/04/2024 US, obste tric, follo w-up No observ ation record ed. [email or web address] [place] [address], [place], [address], 01/04/2024 13:22:26 01/04/20 24 01/04/2024 US, obste tric, follo w-up No observ ation record ed. [email or web address] [address], [place], [address], 01/04/2024 12:54:21 01/18/20 24 01/18/2024 US, obste tric, bioph ysica l profi le + non-s tress test No observ ation record ed. [email or web address] [place] [address], [place], [address], 01/18/2024 10:54:49 01/18/20 24 01/18/2024 US, obste tric, bioph ysica l profi le + non-s tress test No observ ation record ed. [address], [place], [address], 01/20/2024 00:28:05 01/18/20 24 01/18/2024 non-s tress test No observ ation record ed. [email or web address] [place] [address], [place], [address], 01/18/2024 10:35:29 01/25/20 24 01/25/2024 non-s tress test No observ ation record ed. [email or web address] [place] [address], [place], [address], 01/25/2024 10:50:05 01/25/20 24 01/25/2024 US, obste tric, bioph ysica l profi le + non-s tress test No observ ation record ed. [email or web address] [place] [address], [place], [address], 01/25/2024 12:36:03 01/25/20 24 01/25/2024 US, obste tric, bioph ysica l profi le + non-s tress test No observ ation record ed. [email or web address] [address], [place], [address], 01/26/2024 05:27:30 02/01/20 24 02/01/2024 US, obste tric, follo w-up No observ ation record ed. [email or web address] [place] [address], [place], [address], 02/01/2024 14:50:11 02/01/20 24 02/01/2024 non-s tress test No observ ation record ed. [email or web address] [place] [address], [place], [address], 02/01/2024 10:39:26 02/01/2002/01/2024 US, obstdylan tric, follo w-up No observ ation record ed. IAN [address], [place], [address], 02/02/2024 10:36:33 02/08/20 24 02/08/2024 US, obste tric, bioph ysica l profi le + non-s tress test No observ ation record ed. [email or web address] [place] [address], [place], [address], 02/08/2024 13:02:43 02/08/20 24 02/08/2024 US, obste tric, bioph ysica l profi le + non-s tress test No observ ation record ed. [email or web address] [address], [place], [address], 02/10/2024 11:57:49 02/08/20 24 02/08/2024 non-s tress test No observ ation record ed. [email or web address] [place] [address], [place], [address], 02/08/2024 11:12:55 02/15/20 24 02/15/2024 US, obste tric, bioph ysica l profi le + non-s tress test No observ ation record ed. [email or web address] [place] [address], [place], [address], 02/15/2024 12:00:41 02/15/20 24 02/15/2024 US, obste tric, bioph ysica l profi le + non-s tress test No observ ation record ed. [email or web address] [address], [place], [address], 02/15/2024 21:51:48 02/15/20 24 02/15/2024 non-s tress test No observ ation record ed. [email or web address] [place] [address], [place], [address], 02/15/2024 19:02:15 02/15/20 non-s tress test No observ ation record ed. [email or web address] [place] [address], [place], [address], 02/15/2024 19:06:30 Result Notes None recorded. Problems Name Problem SNOMED Code Status Onset Date Resolution Date Notes Provider Name and Address Organization Details Recorded Time Subchori onic hematoma 374033569 Active [address] [facility] 1 10:44:01 Pregnanc y 68252670 Completed 202110/24/[address] [facility] 4 09:59:33 Maternal obesity complica ting pregnanc y, childbir th and the puerperi um, antepart um 6335602931 07 Active BMI 44- ante testing at 34w Anca babb [facility] 2 13:48:38 Maternal obesity complica ting pregnanc y, childbir th and the puerperi um, antepart um 2845824384 07 Completed BMI 44- ante testing at 34w Anca babb [facility], [facility] 2 13:48:38 COVID-19 381793555 Completed 2021 Pt informed to take ASA per SP. Serial growth Anca babb [facility], [facility] 2 13:48:38 Pregnanc y 31345979 Active 2023 Shanekapedro luis Cuevas [facility], [facility] 4 09:59:33 Obesity 448494573 Active Antenata l testing 34wks AALIYAH GALVAN MD [address], [place], [address], [facility] 4 10:04:23 Prediabe [place] 229329890 Active A1c 5.7 - early GTT at 20wks AALIYAH GALVAN MD [address], [place], [address], [facility] 4 10:04:23 Problem Notes None recorded. Procedures Surgical History Date Name Laterality Status Provider Name and Address Organization Details Recorded Time 06/01/19 24 Date of Last Pap Smear completed Olga Larson [facility] 12/10/2023 10:42:52 03/08/19 02 Tonsillectomy completed Dixie Chavez [facility] 02/19/2021 09:31:00 Imaging Results None recorded. [...] and Address Organization Details Last Updated DateTime 12/21/2023 162.56 cm 44.1 kg/m2 310892.2 4 g 109 mm[Hg] 74 mm[Hg] Olga Larson [facility] 10:52:19 Social History Question Answer Notes LastModified by Organizat ion Details LastModified Time Tobacco Smoking Status Never Smoker [facility] 01/23/2022 12:22:48 Do You Have An Advance Directive? No [email or web address] Information n ot available 02/19/2021 What Is Your Level Of Alcohol Consumption? None [email or web address] Information not available 09/14/2023 If You Are , What Was Your Level Of Alcohol Consumption Prior To ? Occasional [email or web address] Information not available 01/23/2022 How Many Years Have You Consumed Alcohol? 10 [email or web address] Information not available 02/19/2021 Are You Blind Or Do You Have Difficulty Seeing? No Information n ot available 02/19/2021 What Is Your Level Of Caffeine Consumption? None [email or web address] Information not available 12/21/2023 How Much Tobacco Do You Chew? None [email or web address] Information not available 02/19/2021 In The 14 Days Before Symptom Onset, Have You Had Close Contact With A Laboratory-confirm ed COVID-19 While That Case Was Ill? No [email or web address] Information n ot available 02/19/2021 In The 14 Days Before Symptom Onset, Have You Had Close Contact With A Person Who Is Under Investigation For COVID-19 While That Person Was Ill? No [email or web address] Information not available 02/19/2021 Have You Been To An Area Known To Be High Risk For COVID-19? No [email or web address] Information not available 02/19/2021 Are You Deaf Or Do You Have Serious Difficulty Hearing? No [email or web address] Information not available 02/19/2021 What Type Of Diet Are You Following? REGULAR [email or web address] Information n ot available 02/19/2021 What Is The Highest Grade Or Level Of School You Have Completed Or The Highest Degree You Have Received? 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 No [email or web address] Information not available 02/19/2021 Do You Use Protection During Sex? No Information not available 02/19/2021 Do You Use Your Seat Belt Or Car Seat Routinely? Yes [email or web address] Information not available 02/19/2021 Do You Have Smoke And Carbon Monoxide Detectors In Your Home? Yes [email or web address] Information not available 02/19/2021 How Much Tobacco Do You Smoke? No [email or web address] Information not available 02/19/2021 Do You Feel Stressed (tense, Restless, Nervous, Or Anxious, Or Unable To Sleep At Night)? [id number] [email or web address] Information not available 02/19/2021 Do You Use Any Illicit Or Recreational Drugs? No [email or web address] Information not available 02/19/2021 Do You Use Sunscreen Routinely? No [email or web address] Information not available 02/19/2021 Have You Used IV Drugs? No [email or web address] Information not available 02/19/2021 Sex: Unknown Functional Status Question Answer Note LastModified by Organizat ion Details LastModified Time Do you have difficulty walking or climbing stairs? No [email or web address] Information not available 01/23/2022 Are you able to walk? [email or web address] Information not available 02/19/2021 Are you able to care for yourself? Yes Information not available 01/23/2022 Do you have difficulty dressing or bathing? No [email or web address] Information not available 01/23/2022 What is your exercise level? Occasional [email or web address] Information not available 02/19/2021 Mental Status None recorded. Family History Relationship Description Onset Age of this Age Resolved Age Notes LastModified by Organization Details LastModified Time Father Disorder of nervous system [email or web address] Not available 2020 09:30:09 Father Multiple sclerosis [email or web address] Not available 2020 09:30:09 Mother Diabetes mellitus Not available 2020 09:30:09 Mother High risk [email or web address] Not available 2020 09:30:09 Sister Substance abuse [email or web address] Not available 2020 09:30:09 Paternal Uncle Substance abuse [email or web address] Not available 2020 09:30:09 Notes:Cancer form complete [...] Diagnosis/Indication Diagnosis SNOMED-CT Code Diagnosis ICD10 Code [id number] AALIYAH GALVAN MD [facility] [address],[facility] [place] [address] 12/10/2023 10:40:50 12/10/2023 12:00:58 Maternal obesity complicating , childbirth and the puerperium, antepartum 2835027268 07 O99.213 U07.1 Z3A.38 Prediabetes 804329081 R7 3.03 Gestation period, 29 weeks 85343599 Z3A.29 [id number] AALIYAH GALVAN MD [place] [address],[facility] [place] [address] 12/21/2023 10:32:33 12/21/2023 11:16:14 Maternal obesity complicating , childbirth and the puerperium, antepartum 1483354908 07 O99.213 Gestation period, 30 weeks 91097903 Z3A.30 Health Concerns Section Related Observation LastModified by Organization Detai ls LastModified Time None Recorded Concern Status LastModified by Organization Details LastModified Time None Recorded Payers Encounter Date Sequence Insurance Name Policy Number Policy Patino Covered Member ID Patino Member ID Guarantor Name 12/21/2023 1 [place] [id number] Logmaya Gar [id number] [place] Gar OBGyn Episode Ob Episode Information Episode Created Date Number of Fetuses Patient Bloodtype Patient rh Status Prepregnancy Weight lbs Domestic Partner Domestic Partner Phone Father Name Contract Mail Carrier Status 08/16/19 24 1 A Positive 250.8 OPEN Fetus Data First Name Last Name Admitted to NICU Weight (g) Sex Living Outcome Pediatric Complications Fetus ID Race Codes Race Delivery Type [id number] Problems Problem Notes Problem Name Start Date End Date Resolution Snomed Code Not e Obesity 287145961 testing 34wks Prediabetes 606708856 A1c 5.7 - early GTT at 20wks [...] Date Ultra Sound Latest Days Gestation 0 [email or web address] 08/16/2023 02/25/20 24 0 Pre-elizabeth Flowsheet Flowsheet Date 08/16/2023 Castro Score Blood Edema Fundus Height Fundus Units Glucose Ketones Leukocytes Nitrite Labor Signs Protein Cervic Dilation Cervic Effacement Cervic Station Type Weight in lbs Pre/Post Dialysis Refused Weight 245.05982392116 BP Diastolic BP Location Tested BP Systolic [...] Weight in lbs Pre/Post Dialysis Refused Weight 251.571061596370 BP Diastolic BP Location Tested BP Systolic [...] Weight in lbs Pre/Post Dialysis Refused Weight 252.003163394223 BP Diastolic BP Location Tested BP Systolic [...] Weight in lbs Pre/Post Dialysis Refused Weight 256.009897852728 BP Diastolic BP Location Tested BP Systolic [...] Type Weight in lbs Pre/Post Dialysis Refused 257.788277033216 BP Diastolic BP Location Tested BP Systolic [...] Weight in lbs Pre/Post Dialysis Refused Weight 257.804152836884 BP Diastolic BP Location Tested BP Systolic [...] Weight in lbs Pre/Post Dialysis Refused Weight 262.897418959581 BP Diastolic BP Location Tested BP Systolic [...] Weight in lbs Pre/Post Dialysis Refused Weight 267.254468829753 BP Diastolic BP Location Tested BP Systolic BP Type 74 L arm 117 sitting Fetus Heart Rate Present A 140 Fetus Movement A Yes Comments Patient c/o of [place] . Good movement. No bleeding or [...] Weight in lbs Pre/Post Dialysis Refused Weight 268.29825059890 BP Diastolic BP Location Tested BP Systolic [...] Weight in lbs Pre/Post Dialysis Refused Weight 268.73895777529 BP Diastolic BP Location Tested BP Systolic [...] Weight in lbs Pre/Post Dialysis Refused Weight 271.654740651566 BP Diastolic BP Location Tested BP Systolic [...] Weight in lbs Pre/Post Dialysis Refused Weight 274.189480863847 BP Diastolic BP Location Tested BP Systolic BP Type 75 109 Fetus Heart Rate Present Fetus Movement Comments Flowsheet Date 02/15/2024 Castro Score Blood Edema Fundus Height Fundus Units Glucose Ketones Leukocytes Nitrite Labor Signs Protein Cervic Dilation Cervic Effacement Cervic Station neg none Type Weight in lbs Pre/Post Dialysis Refused 274.391052330672 BP Diastolic BP Location Tested BP Systolic [...] Estim ated Date of Delivery false Thalassemia (Azeri, Lao, Mediterranean, Or Background): MCV < 80 false Neural Tube Defect (Meningomyelocele, Spina Bifi da, Or Anencephaly) false Congenital Heart Defect false Down Syndrome false Domingo-Sachs (eg, Gnosticist, Cajun, Montenegrin-[place]) f alse Donn Disease false Sickle Cell Disease Or Trait () false Hemophilia Or Other Blood Disorders false Muscular Dystrophy false Cystic Fibrosis false [place]'s Chorea false Intellectual Disability/Autism false If Yes, [...]
[2024-02-17] MEDS: OXYTOCIN 30 UNITS/NS 500 ML 30 UNITS/500 ML BAG IV CONT (01:51)
[2024-02-17 01:52] LABS: Basophils Percent Auto 0.2 % (0.2-1.2); Eosinophils Percent Auto 0.1 % (0-4.4); Hematocrit 33.4 % (37.0-47.0); Hemoglobin 11.2 g/dL (12.0-15.0); Immature Granulocyte Absolute 0.04 K/mm3 (0.00-0.031); Immature Granulocyte Percent A 0.4 % (0-0.5); Lymphocytes Absolute Auto 2.73 K/mm3 (0.9-3.2); Lymphocytes Percent Auto 27.3 % (18.3-44.2); Mean Corpuscular HGB Conc 33.5 g/dl (32-36); Mean Corpuscular Hemoglobin 29.2 pg (26-34); Mean Corpuscular Volume 87.2 fl (80-100); Mean Platelet Volume 10.7 fl (7.4-10.4); Monocytes Absolute Auto 0.7 K/mm3 (0.1-0.6); Monocytes Percent Auto 6.8 % (2.6-8.5); Neutrophils Absolute Auto 6.5 K/mm3 (1.3-6.7); Neutrophils Percent Auto 65.2 % (45.5-73.1); Platelet Count Result 312 k/mm3 (150-375); Red Blood Count 3.83 M/mm3 (4.2-5.4); Red Cell Distribution Width 14.3 % (11.5-14.5)
[2024-02-17] MEDS: LACTATED RINGERS 1,000 ML 125 ML IV CONT (01:52)
[2024-02-17 02:56] LABS: HIV 1/2 Ab P24 Ag Result Negative (Negative)
[2024-02-17 04:14] LABS: Rapid Plasma Reagin Non-Reactive (NonReactive)
[2024-02-17] MEDS: LIDOCAINE 1% LOCAL INJ 20 ML VIAL (05:10)
--- NOTE | 2024-02-17 05:22 | WPDOBADMIT ---
Obstetrics - Admit Note Admission Note: record reviewed. No pertinent additions to the history and/or any subsequent changes in the physical findings that are not consistent with the expected course of the were found. Additions to the history and/or subsequent changes in the physical findings follow. Admit in labor, anticipate vaginal delivery
--- NOTE | 2024-02-17 05:22 | PM.OBPRVD ---
OB - Vaginal Delivery Note Procedure Delivery date: 02/17/24 Delivery augmentation: Rupture of Membranes Delivery monitor: External FHT and External Uterine Route of delivery: Laceration Description: Perineal - 1st Degree Delivery repair: vicryl Specimen: No Quantitative Blood Loss (ml): 100 Anesthesia type: Local Disposition: Floor Complications: No immediate complications [place] Baby Date of : 02/17/24 Time of : 05:05 Gestational Age by Date: 38 Infant gender: Female Weight (pounds): 8 Weight (ounces): 11 presentation: vertex position: Right Occiput Anterior (with compound presentation of posterior arm) Placenta delivery description: Spontaneous Cord Vessel Description: 3 Vessels, Clamped/Cut and Delayed Cord Clamping
[2024-02-17] MEDS: OXYTOCIN 30 UNITS/NS 500 ML 30 UNITS/500 ML BAG 125 UNITS IV CONT (05:40)
[2024-02-17] MEDS: IBUPROFEN 600 MG TABLET PO ×3 (05:41→19:45)
[2024-02-17] MEDS: ACETAMINOPHEN 325 MG TABLET 650 MG PO (19:45)
[2024-02-18 01:00] VITALS: BP 127/80; PULSE 90; RESP 16; TEMP 36.7; O2SAT 100
[2024-02-18] MEDS: IBUPROFEN 600 MG TABLET PO (01:29)
[2024-02-18] MEDS: ACETAMINOPHEN 325 MG TABLET 650 MG PO (01:29)
[2024-02-18 05:47] LABS: Hematocrit 28.3 % (37.0-47.0); Hemoglobin 9.1 g/dL (12.0-15.0)
[2024-02-18] MEDS: DOCUSATE SODIUM 100 MG CAPSULE PO (07:42)
[2024-02-18] MEDS: POLYSACCHARIDE IRON COMPLEX 150 MG CAPSULE PO (07:42)
--- NOTE | 2024-02-18 07:52 | P.PNOB_ITS ---
OB - PN: Subj Subjective Date/time seen: 02/18/24 07:52 Interval history: day 1 doing well desires d/c home OB - PN: Obj Data Labs 02/18/24 05:09 Labs: Laboratory Results - last 24 hr 02/18/24 05:09 Hgb 9.1 L Hct 28.3 L OB - PN A/P Plan day: 1 Plan: routine care and discharge home Time Spent With Patient Time: Total time spent is greater than 50% in coordination of care (as documented) at patient's floor/unit and/or counseling patient: Review of Systems 2 Review of Systems: All systems reviewed & are unremarkable except as noted in HPI and below Exam 2 Const: General: cooperative, healthy appearing and comfortable Chest: Chest palpation & inspection: normal inspection of the chest Resp: Effort & Inspection: normal respiratory effort Cardio: Rate: regular rate Back/Spine/Pelvis: Back: no CVA tenderness Skin: General skin exam: normal color Neuro: General: patient oriented x3
--- NOTE | 2024-02-18 07:54 | PM.OBDSVD ---
DS: Admitting Diagnosis Discharge Date 02/18/24 Admitting Diagnosis labor DS: Discharge Diagnosis Discharge Diagnosis (1) Vaginal delivery: Code(s): O80 - Encounter for full-term uncomplicated delivery Status: Acute OB - DS: Summary OB Procedures : None OB Procedures Intrapartum: Spontaneous Vag Delivery OB Procedures: : None Peripartum Data Laceration Description: Perineal - 1st Degree Time Spent with Patient Time attestation: Total time spent providing and/or coordinating discharge services: DS: Data Data Completed and Pending Labs on day of discharge: Labs from last 24 hours 02/18/24 05:09 Hgb 9.1 L Hct 28.3 L Discharge Plan Discharge Attending physician on discharge: Carlos Rosas Discharging Clinician: Radha Rivera Patient Disposition: Home, Self-Care Activity: pelvic rest Diet: regular Patient Instructions: Antibiotic Form Patient Language: Portuguese Stand Alone Forms: General Discharge Information Follow-up/Referrals: Radha Rivera, CNM [Certified Nurse Supply Technician] - 4 Weeks Discharge Medications: Continued Classic 28 mg iron- 800 mcg Tablet 1 tablet PO DAILY Date of admission: 02/17/24 00:44 Primary Care Provider: RickyBailey Admitting Provider: Wilfrid Duke Attending physician on admission: Wilfrid Duke Condition: Stable
[2024-02-18 08:00] VITALS: BP 129/73; PULSE 73; RESP 16; TEMP 36.4; O2SAT 99
[2024-02-19 09:21] VITALS: BP 128/78; PULSE 76; RESP 18; TEMP 36.9; O2SAT 98
== END 2024-02-18 10:09 | disposition home or self-care (01) | DRG 807 ==
LOC: ANHLDR 01:16 → ANHOB2 07:37
PROVIDERS: Advanced Practice Midwife; Admitting Provider Obstetrics & Gynecology; PCP Physician Assistant; Visit Provider Obstetrics & Gynecology
DX: O32.6XX0 Maternal care for compound presentation, not applicable or unspecified (principal); Z37.0 Single live birth; O70.0 First degree perineal laceration during delivery; Z3A.38 38 weeks gestation of pregnancy
CPT/HCPCS: 36415; 85014; 85018; 85025; 86592; 86703; 86850; 86900; 86901; A9270; G0432; J2003; J2590; J7120

== ENCOUNTER 2024-10-19 06:59 | Emergency (ER) | payer BC, SELFPAY ==
--- NOTE | ~2024-10-19 | CT_ITS ---
CLINICAL INDICATION: Epigastric pain COMPARISON: None. TECHNIQUE: Multiple contiguous axial images of the abdomen and pelvis were performed following the ad ministration of with 100 mL Omnipaque-350 intravenous contrast The dose-length product (DLP) was 1525.93 mGy-cm. Automated exposure control and iterative reconstruction technique were employed. FINDINGS/OBSERVATIONS: Visualized lower thorax: The bilateral lung bases are clear. The heart is of normal size, without pericardial effusion. Small hiatal hernia is present. Liver: The liver demonstrates homogeneous enhancement and is enlarged measuring 24 cm in longitudinal dimens ion. Gallbladder and biliary system: The gallbladder is only minimally distended, contains stones and is otherwise unremarkable. Pancreas: The pancreas enhances homogeneously without ductal dilatation. Spleen: The spleen enhances homogeneously and is borderline enlarged measuring 13cm in longitudinal dimension . Kidneys: The bilateral kidneys enhance symmetrically without hydronephrosis or renal calculi. Adrenal glands: Unremarkable. Gastrointestinal tract: Mural thickening within the distal esophagus within the hiatal hernia in the proximal stomach with tr rubia surrounding inflammatory change, suggesting possible proximal gastritis for which clinical correl ation is needed. Appendix: The appendix is of normal caliber (axial series, images 132 - 137). Vasculature: Unremarkable. Lymph nodes: No pathologically enlarged or morphologically suspicious lymph nodes within the retroperitoneum or at the root of the mesentery. Pelvic structures: The bladder is distended, and otherwise unremarkable. The uterus is anteverted and anteflexed and otherwise unremarkable. 2cm involuting cyst in the left ovary. Body wall and musculoskeletal: Complex fat-containing umbilical hernia. Degenerative disease in the lower lumbar spine No additional significant degenerative disease within the lower thoracic or lumbosacral spine. IMPRESSION: Findings suggesting proximal gastritis for which clinical correlation is needed. Cholelithiasis. Significant hepatomegaly measuring 24 cm in longitudinal dimension. Borderline splenomegaly. Reviewed, dictated and finalized at location A. IMPRESSION: Findings suggesting proximal gastritis for which clinical correlation is needed . Cholelithiasis. Significant hepatomegaly measuring 24 cm in longitudinal dimension. Borderline splenomegaly.
--- OUTSIDE RECORDS SUMMARY | 2024-10-19 07:01 | XMS_ITS | Patient Health Record ---
Author Organization Formerly [facility] Address [address] [place] [address] Care Team Providers Care Senior Applications Developer Name Role Phone Mateo Joshua Primary Care Provider [phone] Reason For Referral No Information Immunizations Vaccine Route Administration Date Status Comme nts COVID-19 Moderna Booster IM Intramuscular 01/16/2021 Administered COVID-19 Moderna 1ST IM Intramuscular 03/16/2020 Administered COVID-19 Moderna 1ST IM Intramuscular 04/13/2020 Administered EUA date 0. Screening reviewed and consent signed. Patient tolerated well. Plan Of Treatment No Information
[2024-10-19 07:19] VITALS: BP 149/90; PULSE 57; RESP 18; TEMP 36.5; O2SAT 100
[2024-10-19] MEDS: SODIUM CHLORIDE 0.9% IV 1,000 ML 999 ML IV CONT (07:50)
[2024-10-19] MEDS: ONDANSETRON INJ 4 MG/2 ML VIAL IV PUSH (07:51)
[2024-10-19] MEDS: HYDROmorphone HCL INJ (*CRX) 1 MG/ML SYR 0.5 MG IV PUSH (07:58)
[2024-10-19] MEDS: MAG HYDROX/AL HYDROX/SIMETH 30 ML UDC PO (07:58)
--- NOTE | 2024-10-19 08:02 | ED_ITS ---
HPI - General Adult General Chief complaint: Abdominal Pain Stated complaint: abd pain Time Seen by Provider: 10/19/24 07:09 History of Present Illness HPI narrative: This is a 28-year-old female presenting with epigastric pain. Patient says she woke up from sleep this morning with pressure in the epigastric area radiating to her back. It is constant, 8 out 10 intensity. She has had pain like this several times since she has delivered her child although never this severe. Associated with nausea without vomiting. Last bowel movement was this morning was loose. No history of gallbladder disease. She denies fevers chills chest pain difficulty breathing or urinary symptoms. Related Data Home Medications ?Medication ?Instructions ?Recorded ?Confirmed ?Last Taken ?Type vits no.126-ferrous fum 1 tablet PO DAILY 10/04/21 02/17/24 1 Day Ago History 28 mg iron-folic acid 800 mcg ~01/31/24 tablet (Classic ) Allergies Allergy/AdvReac Type Severity Reaction Status Date / Time No Known Allergies Allergy Verified 02/17/24 02:32 [facility] Family History Family History Father Multiple sclerosis Mother Diabetes mellitus Social History Social History Smoking status: Never smoker Substance use: never Do You Feel Safe in your Home?: Yes Lack of Transportation: No Lack of Food: Never True Current Housing: I Have Housing Concerned About Future Housing: No Difficulty Paying Gas/Electric Bills: No Difficulty Paying for Meds: No Currently Unemployed: No Education: Master's Degree or Higher Difficulty w/ Childcare or Family Care: No Spiritual care concerns: No Exam 2 Narrative: APPEARANCE: No apparent distress. Head: atraumatic. EYES: EOMI, NOSE: Atraumatic NECK: Trachea midline RESPIRATORY: No increased rate of breathing clear to auscultation CARDIOVASCULAR: RRR, no peripheral edema ABDOMINAL: Tenderness palpation in the epigastric area. No tenderness in the right upper quadrant right lower quadrant with rest the abdomen. MUSCULOSKELETAl: No obvious deformities NEURO: Alert. Moving 4/4 extremities SKIN:: Warm, dry. Normal color PSYCHIATRIC: Normal affect Course Vital Signs Vital signs: Vital Signs Temperature 97.7 F 10/19/24 07:19 Pulse Rate 57 L 10/19/24 07:19 Respiratory Rate 18 08/14/25 07:19 Blood Pressure 149/90 H 10/19/24 07:19 Pulse Oximetry 100 10/19/24 07:19 Oxygen Delivery Room Air 10/19/24 07:19 Temperature 97.7 F 10/19/24 07:19 Pulse Rate 57 L 10/19/24 07:19 Respiratory Rate 18 10/19/24 07:19 Blood Pressure 149/90 H 10/19/24 07:19 Pulse Oximetry 100 10/19/24 07:19 Oxygen Delivery Room Air 10/19/24 07:19 Medical Decision Making MDM Narrative Medical decision making narrative: -Course: 28-year-old female presenting for epigastric pain. Vital signs stable. Abdominal exam is benign. Laboratory studies within normal limits. CT abdomen pelvis showed gastritis and cholelithiasis. No evidence of cholecystitis. No elevations in the liver enzymes. Patient's presentation is more consistent with gastritis although biliary colic is consideration. Patient's pain was controlled in the ED and on re-evaluation she is resting comfortably in bed with no pain on abdominal exam. Vital signs are still stable. Results and presented diagnosis were discussed with the patient. Educated on low-fat diet. She will follow-up with her primary care physician for further management. -DDX includes but is not limited to: Gastritis, peptic ulcer disease, GERD, biliary colic, pancreatitis Vital Signs Vital Signs: Vital Signs Temperature 97.7 F 10/19/24 07:19 Pulse Rate 57 L 10/19/24 07:19 Respiratory Rate 18 10/19/24 07:19 Blood Pressure 149/90 H 10/19/24 07:19 Pulse Oximetry 100 10/19/24 07:19 Oxygen Delivery Room Air 10/19/24 07:19 Temperature 97.7 F 10/19/24 07:19 Pulse Rate 57 L 10/19/24 07:19 Respiratory Rate 18 10/19/24 07:19 Blood Pressure 149/90 H 10/19/24 07:19 Pulse Oximetry 100 10/19/24 07:19 Oxygen Delivery Room Air 10/19/24 07:19 Lab Data 10/19/24 07:52 10/19/24 07:52 Labs: Lab Results 10/19/24 10/19/24 Range/Units 07:52 08:22 WBC 10.6 H (4.5-10.0) K/mm3 RBC 4.53 (4.2-5.4) M/mm3 Hgb 12.8 D (12.0-15.0) g/dL Hct 39.9 (37.0-47.0) % MCV 88.1 (80-100) fl MCH 28.3 (26-34) pg MCHC 32.1 (32-36) g/dl RDW 13.6 (11.5-14.5) % Plt Count 377 H (150-375) k/mm3 MPV 9.7 (7.4-10.4) fl Immature Gran % (Auto) 0.3 (0-0.5) % Neut % (Auto) 70.7 (45.5-73.1) % Lymph % (Auto) 24.1 (18.3-44.2) % Miller % (Auto) 4.3 (2.6-8.5) % Eos % (Auto) 0.3 (0-4.4) % Baso % (Auto) 0.3 (0.2-1.2) % Lymph # (Auto) 2.55 (0.9-3.2) K/mm3 Miller # (Auto) 0.5 (0.1-0.6) K/mm3 Eos # (Auto) 0.0 (0-0.3) K/mm3 Baso # (Auto) 0.0 (0.0-0.1) K/mm3 Abs Immat Gran (auto) 0.03 (0.00-0.031) K/mm3 Absolute Neuts (auto) 7.5 H (1.3-6.7) K/mm3 Absolute Nucleated RBC 0.000 (0.0-0.012) K/mm3 Nucleated RBC % 0.0 (0.0-0.2) % Sodium 136 L (137-145) mmol/L Potassium 4.2 (3.4-5.0) mmol/L Chloride 105 (98-107) mmol/L Carbon Dioxide 21 L (22-30) mmol/L Anion Gap 10 (4-12) mmol/L BUN 15 (7-17) mg/dL Creatinine 0.64 L (0.7-1.0) mg/dL Estim Creat Clear Calc 139 ml/min Estimated GFR > 60 (59 - ) Glucose 131 H (65-110) mg/dL Calcium 10.0 (8.4-10.2) mg/dL Total Bilirubin 0.5 (0.2-1.3) mg/dL AST 33 (14-36) U/L ALT 24 (6-35) U/L Alkaline Phosphatase 68 (38-126) U/L Total Protein 8.4 H (6.3-8.2) g/dL Albumin 4.5 (3.5-5.1) g/dL Lipase 40 (23-300) U/L Urine Color Yellow (Yellow) Urine Appearance Clear (Clear) Urine pH 5.5 (5.0-9.0) Ur Specific [place] 1.025 (1.001-1.035) Urine Protein Negative (Negative) mg/dL Urine Glucose (UA) Negative (Negative) mg/dL Urine Ketones Negative (Negative) mg/dL Ur Blood (Man) Trace (Negative) Urine Nitrate Negative (Negative) Urine Bilirubin Negative (Negative) Urine Urobilinogen 0.2 (<2.0) mg/dL Leukocyte Esterase Rfl Negative (Negative) ESTEBAN/UL Urine RBC 0-2 (0-2) /hpf Urine WBC 0-5 (0-3) /hpf Ur Squamous Epith Cells None seen (Few) /hpf Urine Bacteria None seen /hpf Urine Casts 0-2 POC Urine HCG, Qual Negative (Negative) Influenza A (RT-PCR) Negative (Negative) Influenza B (RT-PCR) Negative (Negative) RSV (RT-PCR) Negative (Negative) SARS-CoV-2 RNA (RT-PCR) Negative (Negative) Discharge Plan Discharge Clinical Impression: Abdominal pain Patient Disposition: Home Condition: Stable Instructions: Antibiotic Form, Biliary Colic (ED), Diet for Stomach Ulcers and Gastritis (ED) Additional Instructions: You were seen in the ED for abdominal pain. Please trial a 6 week course of Pepcid. Please eat a low-fat diet in a here to the listed diet for stomach ulcers and gastritis. Please follow-up with your primary care physician in 1 week. If develops fevers severe abdominal pain intractable nausea vomiting return to ED for re-evaluation. Patient Language: Latvian Prescriptions: New famotidine [Pepcid] 20 mg tablet 20 mg PO BID 42 Days Qty: 84 0RF No Action Classic 28 mg iron- 800 mcg Tablet 1 tablet PO DAILY Follow-up/Referrals: UNKNOWN,DOCTOR [Primary Care Provider] -
[2024-10-19 08:04] LABS: Hematocrit 39.9 % (37.0-47.0); Hemoglobin 12.8 g/dL (12.0-15.0); Immature Granulocyte Percent A 0.3 % (0-0.5); Lymphocytes Absolute Auto 2.55 K/mm3 (0.9-3.2); Mean Corpuscular HGB Conc 32.1 g/dl (32-36); Mean Corpuscular Hemoglobin 28.3 pg (26-34); Mean Corpuscular Volume 88.1 fl (80-100); Nucleated Red Blood Cells Absolute Auto 0.000 K/mm3 (0.0-0.012); Nucleated Red Blood Cells Perc 0.0 % (0.0-0.2); Platelet Count Result 377 k/mm3 (150-375); Red Blood Count 4.53 M/mm3 (4.2-5.4); White Blood Count 10.6 K/mm3 (4.5-10.0)
[2024-10-19 08:11] LABS: Add Urine Microscopic? YES; Appearance Urine Clear (Clear); Glucose Urine UA Negative (Negative); Leukocyte Esterase Ur Negative LEU/UL (Negative); Nitrate Urine Negative (Negative); Non Pathogenic Casts 0-2; Specific Grav Ur 1.025 (1.001-1.035)
[2024-10-19 08:24] LABS: BEDSIDEPREGUCG Negative (Negative)
[2024-10-19 08:28] LABS: Alanine Aminotransferase 24 U/L (6-35); Albumin Level 4.5 g/dL (3.5-5.1); Alkaline Phosphatase 68 U/L (38-126); Anion Gap 10 mmol/L (4-12); Aspartate Amino Transferase 33 U/L (14-36); Bilirubin,Total 0.5 mg/dL (0.2-1.3); Blood Urea Nitrogen 15 mg/dL (7-17); Calcium 10.0 mg/dL (8.4-10.2); Carbon Dioxide 21 mmol/L (22-30); Chloride 105 mmol/L (98-107); Estimated CRCL calculation 139 ml/min; Estimated Glomerular Filt Rate > 60; Glucose 131 mg/dL (65-110); Lipase 40 U/L (23-300); Sodium 136 mmol/L (137-145); Total Protein 8.4 g/dL (6.3-8.2)
[2024-10-19 08:36] LABS: Potassium 4.2 mmol/L (3.4-5.0)
[2024-10-19 08:43] LABS: Influenza A QL RT-PCR Negative (Negative); Influenza B QL RT-PCR Negative (Negative); RSV RNA, RT-PCR Negative (Negative); SARS-CoV-2 RNA PCR Negative (Negative)
== END 2024-10-19 10:30 | disposition home or self-care (01) ==
PROVIDERS: Emergency Provider Emergency Medicine
DX: R10.13 Epigastric pain (principal); Z20.822 Contact with and (suspected) exposure to COVID-19; K80.20 Calculus of gallbladder without cholecystitis without obstruction; K29.70 Gastritis, unspecified, without bleeding; R16.0 Hepatomegaly, not elsewhere classified
CPT/HCPCS: 36415; 74177; 80053; 81001; 81025; 83690; 85025; 87637; 96361; 96374; 96375; 99284; A9270; J1171; J2405; J7030; Q9967

== ENCOUNTER 2024-11-15 14:31 | Emergency (ER) | payer BC, SELFPAY ==
--- NOTE | ~2024-11-15 | US_ITS ---
US abdomen limited INDICATION: Right upper quadrant pain. Positive Goldberg's sign. History of gallstones. PROCEDURE: Realtime right upper abdominal ultrasound. COMPARISON: No prior studies for comparison. FINDINGS: The pancreas is normal without focal mass or pancreatic ductal dilation. Liver echotexture is slightly increased, consistent with fatty infiltration. There is normal directional flow in the portal vein. There are gallstones. Gallbladder is contracted. Common bile duct measures 4 mm. Positive sonographic Goldberg's sign. IMPRESSION: 1: Cholelithiasis. 2: Fatty infiltration of the liver. Reviewed, dictated and finalized at location O.
--- NOTE | ~2024-11-15 | CT_ITS ---
EXAMINATION: CT abdomen pelvis w con DATE: 11/15/2024 15:55 INDICATION: Epigastric pain. Nausea and vomiting. TECHNIQUE: Computed tomography (CT) of the abdomen and pelvis was performed with 100 cc Omnipaque 350 intravenous contrast. The dose-length product was 1422.00 mGy-cm. Automated exposure control and iterative reconstruction technique were employed. COMPARISON: CT dated 10/19/2024. FINDINGS: Lung bases unremarkable. Heart size normal. No significant pleural or pericardial effusion. There are gallstones. The liver, spleen, pancreas, adrenal glands and kidneys are unremarkable. Small fat-containing umbilical hernia. No significant vascular abnormality. No lymphadenopathy. There is mildly dilated common bile duct measuring up to 9 mm. No obstructing stone or mass. There is an accessory splenule. IMPRESSION: 1. Cholelithiasis with mild dilation of the common bile duct and left hepatic duct. No obstructing stone or mass identified. Consider correlation with MRCP. Reviewed, dictated and finalized at location O. IMPRESSION: 1. Cholelithiasis with mild dilation of the common bile duct and left hepatic d uct. No obstructing stone or mass identified. Consider correlation with MRCP.
[2024-11-15 14:33] VITALS: BP 146/85; PULSE 71; RESP 16; TEMP 36.6; O2SAT 100
--- NOTE | 2024-11-15 14:53 | ED.ABDPAIN ---
HPI - Abdominal Pain General Chief Complaint: Abdominal Pain <Dennis Richter APRN - Last Filed: 11/15/24 14:55> Stated Complaint: GALLSTONES,RUQ PAIN <Dennis Richter APRN - Last Filed: 11/15/24 14:55> Time Seen by Provider: 11/15/24 16:35 <Dennis Richter APRN - Last Filed: 11/15/24 14:55> Focused HPI: 28-year-old female presents to the ER complaining of epigastric/right upper quadrant pain. Patient said it started today, she reports the pain shoots to her back. Patient says symptoms have have been going on for the last month. Patient was recently seen and diagnosed with gallstones and gastritis. Patient is sent home on Pepcid but she states Pepcid did not feel like was working and she stopped taking it after 3 weeks in. Patient said the pain got suddenly worse today. Patient reports some nausea but denies any vomiting or diarrhea. Patient denies any fevers, body aches, chills, urinary symptoms. GENERAL: Well-appearing, well-nourished, and in no acute distress. HEAD: Normocephalic, atraumatic. CHEST: Clear to auscultation. ?No respiratory distress. HEART: Regular rate and rhythm.? NEURO: ?Alert and oriented x3. GI: Abdomen soft, round, nondistended. Epigastric and right upper quadrant pain tender to palpation. Bowel sounds are present. No guarding or rigidity. Positive Goldberg sign. No rebound tenderness. Patient screened in triage and initial orders placed.? ?Additional care and disposition to be based upon?diagnostic testing and treatment. <Dennis Richter APRN - Last Filed: 11/15/24 14:55> History of Present Illness HPI narrative: Agree with HPI <Maxim Cortes MD - Last Filed: 11/15/24 22:00> Related Data Home Medications: Home Medications ?Medication ?Instructions ?Recorded ?Confirmed ?Last Taken ?Type vits no.126-ferrous fum 1 tablet PO DAILY 10/04/21 02/17/24 1 Day Ago History 28 mg iron-folic acid 800 mcg ~01/31/24 tablet (Classic ) <Dennis Richter APRN - Last Filed: 11/15/24 14:55> Allergies/Adverse Reactions: Allergies Allergy/AdvReac Type Severity Reaction Status Date / Time No Known Allergies Allergy Verified 11/15/24 14:32 <Dennis Richter APRN - Last Filed: 11/15/24 14:55> Review of Systems Review of Systems: Gen.: Denies fevers or chills Eyes: Denies eye pain or visual change ENT: Denies congestion Respiratory: Denies shortness of breath or cough CV: Denies chest pain or palpitations GI: As per HPI denies burning, urgency, frequency or hematuria Musculoskeletal: Denies back pain or muscle pain Neuro: Denies numbness, tingling, weakness or focal weakness Skin: Denies rash Except as documented, all other systems reviewed and negative <Maxim Cortes MD - Last Filed: 11/15/24 22:00> [facility] Family History Family History: Family History Father Multiple sclerosis Mother Diabetes mellitus <Dennis Richter APRN - Last Filed: 11/15/24 14:55> Social History Social History: Social History Smoking status: Never smoker Substance use: never Do You Feel Safe in your Home?: Yes Lack of Transportation: No Lack of Food: Never True Current Housing: I Have Housing Concerned About Future Housing: No Difficulty Paying Gas/Electric Bills: No Difficulty Paying for Meds: No Currently Unemployed: No Education: Master's Degree or Higher Difficulty w/ Childcare or Family Care: No Spiritual care concerns: No <Dennis Richter APRN - Last Filed: 11/15/24 14:55> Exam Narrative: APPEARANCE: No acute distress, nontoxic, resting in bed EYES: EOMI HEENT: Normocephalic, atraumatic, OMM RESPIRATORY: No respiratory distress Clear to auscultation bilaterally with no rhonchi wheezing or rales. CARDIOVASCULAR: Regular rate and rhythm without murmurs rubs or gallops. ABDOMINAL: Soft, nontender, nondistended, no rebound or guarding MUSCULOSKELETAl: Moves all extremities. No clubbing, cyanosis or edema. NEURO: Awake and alert. Following commands, speech normal, no focal deficits SKIN:: Warm, dry. No rashes lesions or abrasions PSYCHIATRIC: Normal affect/mood, <Maxim Cortes MD - Last Filed: 11/15/24 22:00> Course Vital Signs Vital signs: Vital Signs Temperature 97.8 F 11/15/24 14:33 Pulse Rate 71 11/15/24 14:33 Respiratory Rate 16 11/15/24 14:33 Blood Pressure 146/85 H 11/15/24 14:33 Pulse Oximetry 100 11/15/24 14:33 Oxygen Delivery Room Air 11/15/24 14:33 Temperature 97.8 F 11/15/24 14:33 Pulse Rate 77 11/15/24 16:41 Respiratory Rate 16 11/15/24 16:41 Blood Pressure 137/83 11/15/24 16:41 Pulse Oximetry 100 11/15/24 16:41 Oxygen Delivery Room Air 11/15/24 14:33 <Dennis Richter APRN - Last Filed: 11/15/24 14:55> Vital Signs Temperature 97.8 F 11/15/24 14:33 Pulse Rate 71 11/15/24 14:33 Respiratory Rate 16 11/15/24 14:33 Blood Pressure 146/85 H 11/15/24 14:33 Pulse Oximetry 100 11/15/24 14:33 Oxygen Delivery Room Air 11/15/24 14:33 Temperature 97.8 F 11/15/24 14:33 Pulse Rate 77 11/15/24 16:41 Respiratory Rate 16 11/15/24 16:41 Blood Pressure 137/83 11/15/24 16:41 Pulse Oximetry 100 11/15/24 16:41 Oxygen Delivery Room Air 11/15/24 14:33 <Maxim Cortes MD - Last Filed: 11/15/24 22:00> MDM - Abdominal Pain MDM Narrative Medical decision making narrative: 28-year-old female that presented to the ED for right upper quadrant abdominal pain. Patient was initially seen in triage with [facility]. On my initial evaluation, patient is in no acute distress, afebrile, hemodynamically stable. She had minimal right upper quadrant tenderness to palpation. She had a mild leukocytosis 11.1. Mildly elevated LFTs with AST and ALT at 72 and [address] UA likely contaminated. CT abdomen/pelvis showed cholelithiasis with mild common biliary duct dilatation but no obstruction. Right upper quadrant ultrasound showed cholelithiasis without cholecystitis. The suspect the patient did pass a gallstone since her pain has significantly improved. She has not been evaluated by a surgeon at this point for possible active surgery. She will be given a referral to surgery for this. Patient was agreeable to this plan. Given strict return precautions. <Maxim Cortes MD - Last Filed: 11/15/24 22:00> Differential Diagnosis Differential diagnosis: Likely other (Cholecystitis, cholelithiasis and pancreatitis, constipation, viral syndrome) <Maxim Cortes MD - Last Filed: 11/15/24 22:00> Medical Records Attestation: I reviewed the patient's medical records. <Maxim Cortes MD - Last Filed: 11/15/24 22:00> Lab Data Attestation: I reviewed the patient's lab results. <Maxim Cortes MD - Last Filed: 11/15/24 22:00> Result diagrams: 11/15/24 15:10 11/15/24 15:10 <Dennis Richter APRN - Last Filed: 11/15/24 14:55> Labs: Lab Results 11/15/24 11/15/24 Range/Units 15:10 15:13 WBC 11.1 H (4.5-10.0) K/mm3 RBC 4.44 (4.2-5.4) M/mm3 Hgb 12.5 (12.0-15.0) g/dL Hct 37.9 (37.0-47.0) % MCV 85.4 (80-100) fl MCH 28.2 (26-34) pg MCHC 33.0 (32-36) g/dl RDW 13.7 (11.5-14.5) % Plt Count 358 (150-375) k/mm3 MPV 9.7 (7.4-10.4) fl Immature Gran % (Auto) 0.2 (0-0.5) % Neut % (Auto) 67.7 (45.5-73.1) % Lymph % (Auto) 25.5 (18.3-44.2) % Hall % (Auto) 6.0 (2.6-8.5) % Eos % (Auto) 0.5 (0-4.4) % Baso % (Auto) 0.1 L (0.2-1.2) % Lymph # (Auto) 2.82 (0.9-3.2) K/mm3 Hall # (Auto) 0.7 H (0.1-0.6) K/mm3 Eos # (Auto) 0.1 (0-0.3) K/mm3 Baso # (Auto) 0.0 (0.0-0.1) K/mm3 Abs Immat Gran (auto) 0.02 (0.00-0.031) K/mm3 Absolute Neuts (auto) 7.5 H (1.3-6.7) K/mm3 Absolute Nucleated RBC 0.000 (0.0-0.012) K/mm3 Nucleated RBC % 0.0 (0.0-0.2) % Sodium 138 (137-145) mmol/L Potassium 3.7 (3.4-5.0) mmol/L Chloride 103 (98-107) mmol/L Carbon Dioxide 25 (22-30) mmol/L Anion Gap 10 (4-12) mmol/L BUN 15 (7-17) mg/dL Creatinine 0.66 L (0.7-1.0) mg/dL Estim Creat Clear Calc 133 ml/min Estimated GFR > 60 (59 - ) Glucose 117 H (65-110) mg/dL Calcium 9.2 (8.4-10.2) mg/dL Total Bilirubin 0.5 (0.2-1.3) mg/dL AST 72 H (14-36) U/L ALT 50 H (6-35) U/L Alkaline Phosphatase 74 (38-126) U/L Total Protein 8.3 H (6.3-8.2) g/dL Albumin 4.5 (3.5-5.1) g/dL Lipase 53 (23-300) U/L Urine Color Yellow (Yellow) Urine Appearance Cloudy H (Clear) Urine pH 6.0 (5.0-9.0) Ur Specific [place] 1.029 (1.001-1.035) Urine Protein Trace (Negative) mg/dL Urine Glucose (UA) Negative (Negative) mg/dL Urine Ketones Trace H (Negative) mg/dL Ur Blood (Man) Trace (Negative) Urine Nitrate Negative (Negative) Urine Bilirubin Negative (Negative) Urine Urobilinogen 1.0 (<2.0) mg/dL Leukocyte Esterase Rfl 1+ H (Negative) ESTEBAN/UL Urine RBC 3-5 H (0-2) /hpf Urine WBC 11-20 H (0-3) /hpf Ur Squamous Epith Cells Many H (Few) /hpf Urine Bacteria Rare /hpf Urine Casts 0-2 POC Urine HCG, Qual Negative (Negative) <Dennis Richter APRN - Last Filed: 11/15/24 14:55> Lab Results 11/15/24 11/15/24 Range/Units 15:10 15:13 WBC 11.1 H (4.5-10.0) K/mm3 RBC 4.44 (4.2-5.4) M/mm3 Hgb 12.5 (12.0-15.0) g/dL Hct 37.9 (37.0-47.0) % MCV 85.4 (80-100) fl MCH 28.2 (26-34) pg MCHC 33.0 (32-36) g/dl RDW 13.7 (11.5-14.5) % Plt Count 358 (150-375) k/mm3 MPV 9.7 (7.4-10.4) fl Immature Gran % (Auto) 0.2 (0-0.5) % Neut % (Auto) 67.7 (45.5-73.1) % Lymph % (Auto) 25.5 (18.3-44.2) % Hall % (Auto) 6.0 (2.6-8.5) % Eos % (Auto) 0.5 (0-4.4) % Baso % (Auto) 0.1 L (0.2-1.2) % Lymph # (Auto) 2.82 (0.9-3.2) K/mm3 [place] # (Auto) 0.7 H (0.1-0.6) K/mm3 Eos # (Auto) 0.1 (0-0.3) K/mm3 Baso # (Auto) 0.0 (0.0-0.1) K/mm3 Abs Immat Gran (auto) 0.02 (0.00-0.031) K/mm3 Absolute Neuts (auto) 7.5 H (1.3-6.7) K/mm3 Absolute Nucleated RBC 0.000 (0.0-0.012) K/mm3 Nucleated RBC % 0.0 (0.0-0.2) % Sodium 138 (137-145) mmol/L Potassium 3.7 (3.4-5.0) mmol/L Chloride 103 (98-107) mmol/L Carbon Dioxide 25 (22-30) mmol/L Anion Gap 10 (4-12) mmol/L BUN 15 (7-17) mg/dL Creatinine 0.66 L (0.7-1.0) mg/dL Estim Creat Clear Calc 133 ml/min Estimated GFR > 60 (59 - ) Glucose 117 H (65-110) mg/dL Calcium 9.2 (8.4-10.2) mg/dL Total Bilirubin 0.5 (0.2-1.3) mg/dL AST 72 H (14-36) U/L ALT 50 H (6-35) U/L Alkaline Phosphatase 74 (38-126) U/L Total Protein 8.3 H (6.3-8.2) g/dL Albumin 4.5 (3.5-5.1) g/dL Lipase 53 (23-300) U/L Urine Color Yellow (Yellow) Urine Appearance Cloudy H (Clear) Urine pH 6.0 (5.0-9.0) Ur Specific [place] 1.029 (1.001-1.035) Urine Protein Trace (Negative) mg/dL Urine Glucose (UA) Negative (Negative) mg/dL Urine Ketones Trace H (Negative) mg/dL Ur Blood (Man) Trace (Negative) Urine Nitrate Negative (Negative) Urine Bilirubin Negative (Negative) Urine Urobilinogen 1.0 (<2.0) mg/dL Leukocyte Esterase Rfl 1+ H (Negative) ESTEBAN/UL Urine RBC 3-5 H (0-2) /hpf Urine WBC 11-20 H (0-3) /hpf Ur Squamous Epith Cells Many H (Few) /hpf Urine Bacteria Rare /hpf Urine Casts 0-2 POC Urine HCG, Qual Negative (Negative) <Maxim Cortes MD - Last Filed: 11/15/24 22:00> Imaging Data Radiologist's impression: ITS Impressions Abdomen Ultrasound 11/15/24 15:15 IMPRESSION: 1: Cholelithiasis. 2: Fatty infiltration of the liver. Abdomen/Pelvis CT 11/15/24 16:04 IMPRESSION: 1. Cholelithiasis with mild dilation of the common bile duct and left hepatic duct. No obstructing stone or mass identified. Consider correlation with MRCP. <Dennis Richter APRN - Last Filed: 11/15/24 14:55> ITS Impressions Abdomen Ultrasound 11/15/24 15:15 IMPRESSION: 1: Cholelithiasis. 2: Fatty infiltration of the liver. Abdomen/Pelvis CT 11/15/24 16:04 IMPRESSION: 1. Cholelithiasis with mild dilation of the common bile duct and left hepatic duct. No obstructing stone or mass identified. Consider correlation with MRCP. <Maxim Cortes MD - Last Filed: 11/15/24 22:00> Discharge Plan Discharge Clinical Impression: Biliary colic Cholelithiasis Qualifiers: Cholelithiasis location: gallbladder Cholecystitis presence: without cholecystitis Biliary obstruction: without biliary obstruction Qualified Code(s): K80.20 - Calculus of gallbladder without cholecystitis without obstruction <Dennis Richter APRN - Last Filed: 11/15/24 14:55> Patient Disposition: Home <Dennis Richter APRN - Last Filed: 11/15/24 14:55> Condition: Stable <Dennis Richter APRN - Last Filed: 11/15/24 14:55> Instructions: Antibiotic Form, Gallstones (ED) <Dennis Richter APRN - Last Filed: 11/15/24 14:55> Additional Instructions: I suspect that you passed a gallstone which was the source of her symptoms. You were given a referral to Dr. Camargo, general surgery, call his office in the next week to schedule appointment to discuss a possible elective gallbladder surgery. Return the ED for any new or worsening symptoms. For pain, discomfort or temperature greater than or equal to 100.8 ?F please alternate the following 2 medications as needed. First medication- acetaminophen/Tylenol- 1000mg every 6-8 hours as needed for above indications. Second medication- ibuprofen/Motrin-600mg every 6-8 hours as needed for above indication. <Dennis Richter APRN - Last Filed: 11/15/24 14:55> Patient Language: Wolof <Dennis Richter APRN - Last Filed: 11/15/24 14:55> Prescriptions: New ondansetron 4 mg tablet,disintegrating 4 mg PO Q8H PRN (Reason: nausea and vomiting) Qty: 14 0RF No Action famotidine [Pepcid] 20 mg tablet 20 mg PO BID 42 Days Qty: 84 0RF Classic 28 mg iron- 800 mcg Tablet 1 tablet PO DAILY <Dennis Richter APRN - Last Filed: 11/15/24 14:55> Follow-up/Referrals: Coby,Marta Durham, JOSE [Primary Care Provider, Unknown] Leonid Camargo MD [Physician, General Surgery] <Dennis Richter APRN - Last Filed: 11/15/24 14:55>
--- OUTSIDE RECORDS SUMMARY | 2024-11-15 15:01 | XMS_ITS | Patient Health Record ---
Author Organization [facility] Address [address] [place] [address] Care Team Providers Care Tractor Distributor Name Role Phone Mateo Joshua Primary Care Provider Reason For Referral No Information Immunizations Vaccine Route Administration Date Status Comme nts COVID-19 Moderna 1ST IM Intramuscular 03/16/2020 Administered COVID-19 Moderna 1ST IM Intramuscular 04/13/2020 Administered EUA date 0. Screening reviewed and consent signed. Patient tolerated well. COVID-19 Moderna Booster IM Intramuscular 01/16/2021 Administered Plan Of Treatment No Information
[2024-11-15 15:15] LABS: BEDSIDEPREGUCG Negative (Negative)
[2024-11-15 15:19] LABS: Hematocrit 37.9 % (37.0-47.0); Hemoglobin 12.5 g/dL (12.0-15.0); Immature Granulocyte Percent A 0.2 % (0-0.5); Lymphocytes Absolute Auto 2.82 K/mm3 (0.9-3.2); Mean Corpuscular HGB Conc 33.0 g/dl (32-36); Mean Corpuscular Hemoglobin 28.2 pg (26-34); Mean Corpuscular Volume 85.4 fl (80-100); Nucleated Red Blood Cells Absolute Auto 0.000 K/mm3 (0.0-0.012); Nucleated Red Blood Cells Perc 0.0 % (0.0-0.2); Platelet Count Result 358 k/mm3 (150-375); Red Blood Count 4.44 M/mm3 (4.2-5.4); White Blood Count 11.1 K/mm3 (4.5-10.0)
[2024-11-15 15:25] LABS: Add Urine Microscopic? YES; Appearance Urine Cloudy (Clear); Glucose Urine UA Negative (Negative); Leukocyte Esterase Ur 1+ LEU/UL (Negative); Nitrate Urine Negative (Negative); Non Pathogenic Casts 0-2; Specific Grav Ur 1.029 (1.001-1.035)
[2024-11-15 15:29] LABS: Alanine Aminotransferase 50 U/L (6-35); Albumin Level 4.5 g/dL (3.5-5.1); Alkaline Phosphatase 74 U/L (38-126); Anion Gap 10 mmol/L (4-12); Aspartate Amino Transferase 72 U/L (14-36); Bilirubin,Total 0.5 mg/dL (0.2-1.3); Blood Urea Nitrogen 15 mg/dL (7-17); Calcium 9.2 mg/dL (8.4-10.2); Carbon Dioxide 25 mmol/L (22-30); Chloride 103 mmol/L (98-107); Estimated CRCL calculation 133 ml/min; Estimated Glomerular Filt Rate > 60; Glucose 117 mg/dL (65-110); Lipase 53 U/L (23-300); Potassium 3.7 mmol/L (3.4-5.0); Sodium 138 mmol/L (137-145); Total Protein 8.3 g/dL (6.3-8.2)
[2024-11-15 16:41] VITALS: BP 137/83; PULSE 77; RESP 16; O2SAT 100
== END 2024-11-15 17:15 | disposition home or self-care (01) ==
LOC: ANHED 16:52
PROVIDERS: Emergency Provider Student in an Organized Health Care Education/Training Program
DX: K80.20 Calculus of gallbladder without cholecystitis without obstruction (principal); K76.0 Fatty (change of) liver, not elsewhere classified
CPT/HCPCS: 36415; 74177; 76705; 80053; 81001; 81025; 83690; 85025; 99284; Q9967

== ENCOUNTER 2024-11-16 21:06 | Inpatient (IN) | payer BC, SELFPAY ==
--- NOTE | ~2024-11-16 | XR_ITS ---
XR ERCP Indication: Abdomen pain TECHNIQUE: Fluoroscopy used during ERCP procedure performed by [Kirill Condon MD] on 11/17/2024. 4 fluoroscopic images captured. FINDINGS: Correlate with procedure note. IMPRESSION: Fluoroscopy used during ERCP procedure. Reviewed, dictated and finalized at location O.
[2024-11-16 21:15] VITALS: BP 151/87; PULSE 83; RESP 16; TEMP 36.6; O2SAT 98
--- NOTE | 2024-11-16 23:10 | PC.NURSE ---
Pt presents to ED c/o worsening 10/10 abdominal pain , radiating to back, and n/v, onset 3am. Pt took Tylenol, advil and zofran with no relief.
[2024-11-16 23:12] VITALS: BP 147/95; PULSE 66; RESP 15; O2SAT 98
[2024-11-17] VITALS (28 sets, daily range): BP systolic 112–135; BP diastolic 67–89; PULSE 53–91; RESP 12–22; TEMP 36.4–36.8; O2SAT 94–100; BMI 42.1
[2024-11-17] MEDS: KETOROLAC 15 MG/ML VIAL (*BKC) IV PUSH (00:17)
[2024-11-17] MEDS: SODIUM CHLORIDE 0.9% IV 3,000 ML 999 ML IV CONT (00:18)
[2024-11-17] MEDS: HYDROmorphone HCL INJ (*CRX) 1 MG/ML SYR 0.5 MG IV PUSH ×4 (00:19→13:17)
[2024-11-17] MEDS: ONDANSETRON INJ 4 MG/2 ML VIAL IV PUSH ×3 (00:19→12:06)
[2024-11-17 00:28] LABS: BEDSIDEPREGUCG Negative (Negative)
--- NOTE | 2024-11-17 00:48 | ED.GENADULT ---
HPI - General Adult General Chief complaint: Abdominal Pain Stated complaint: abd pain Time Seen by Provider: 11/16/24 23:25 History of Present Illness HPI narrative: Patient is intermittently crying during the interview. This is a 28-year-old female presenting ED with chief complaint of epigastric/right upper quadrant pain. Patient has been having the pain intermittently over the last month but it became more severe last 2 days. It is now in the epigastric area radiating around the right side of her abdomen into her back. It is achy and sharp. It is severe in intensity. She has stopped taking the Pepcid but it tried Motrin Tylenol which did not seem to help. Associated symptoms include nausea and vomiting. She denies fevers chest pain difficulty breathing or urinary symptoms. Related Data Home Medications ?Medication ?Instructions ?Recorded ?Confirmed ?Last Taken ?Type vits no.126-ferrous fum 1 tablet PO DAILY 10/04/21 02/17/24 1 Day Ago History 28 mg iron-folic acid 800 mcg ~01/31/24 tablet (Classic ) Allergies Allergy/AdvReac Type Severity Reaction Status Date / Time No Known Allergies Allergy Verified 11/16/24 21:20 [facility] Family History Family History Father Multiple sclerosis Mother Diabetes mellitus Social History Social History Smoking status: Never smoker Substance use: never Do You Feel Safe in your Home?: Yes Lack of Transportation: No Lack of Food: Never True Current Housing: I Have Housing Concerned About Future Housing: No Difficulty Paying Gas/Electric Bills: No Difficulty Paying for Meds: No Currently Unemployed: No Education: Master's Degree or Higher Difficulty w/ Childcare or Family Care: No Spiritual care concerns: No Exam Narrative: APPEARANCE: No apparent distress. Head: atraumatic. EYES: EOMI, NOSE: Atraumatic NECK: Trachea midline RESPIRATORY: No increased rate of breathing CARDIOVASCULAR: RRR, ABDOMINAL: Tenderness in the epigastric and right upper quadrant area without guarding or rebound. Point of care right upper quadrant ultrasound showed gallstones in the gallbladder. Sonographic Goldberg's is equivocal. There is no thickening of the gallbladder or pericholecystic fluid. MUSCULOSKELETAl: No obvious deformities NEURO: Alert. Moving 4/4 extremities SKIN:: Warm, dry. Normal color PSYCHIATRIC: Normal affect Course Vital Signs Vital signs: Vital Signs Temperature 98 F 11/16/24 21:15 Pulse Rate 83 11/16/24 21:15 Respiratory Rate 16 11/16/24 21:15 Blood Pressure 151/87 H 11/16/24 21:15 Pulse Oximetry 98 11/16/24 21:15 Oxygen Delivery Room Air 11/16/24 21:15 Temperature 98 F 11/16/24 21:15 Pulse Rate 66 11/16/24 23:12 Respiratory Rate 15 11/16/24 23:12 Blood Pressure 147/95 H 11/16/24 23:12 Pulse Oximetry 98 11/16/24 23:12 Oxygen Delivery Room Air 11/16/24 23:12 Medical Decision Making MDM Narrative Medical decision making narrative: -Course: 28-year-old female presenting with epigastric/right upper quadrant pain. Physical exam shows tenderness in both the epigastric and right upper quadrant. Point care prep quadrant ultrasound showed gallstones in the gallbladder without gallbladder wall thickening or pericholecystic fluid. Sonographic Goldberg's is equivocal. Liver enzymes have increased sharply from her visit on the . Bilirubin is now 3.2 with AST and ALT around 900. Review of the CT from 11/15 shows dilation of the common bile duct and left hepatic duct. Patient is a young female so we will avoid radiation with another CT scan. Presentation concerning for choledocholithiasis. No fevers or white count to indicate cholangitis. Dr. Condon was consulted. Patient is NPO with expected GI intervention in the morning. -DDX includes but is not limited to: Peptic ulcer disease, gastritis, biliary disease Vital Signs Vital Signs: Vital Signs Temperature 98 F 11/16/24 21:15 Pulse Rate 83 11/16/24 21:15 Respiratory Rate 16 11/16/24 21:15 Blood Pressure 151/87 H 11/16/24 21:15 Pulse Oximetry 98 11/16/24 21:15 Oxygen Delivery Room Air 11/16/24 21:15 Temperature 98 F 11/16/24 21:15 Pulse Rate 66 11/16/24 23:12 Respiratory Rate 15 11/16/24 23:12 Blood Pressure 147/95 H 11/16/24 23:12 Pulse Oximetry 98 11/16/24 23:12 Oxygen Delivery Room Air 11/16/24 23:12 Lab Data 11/17/24 00:25 11/17/24 00:25 Labs: Lab Results 11/17/24 11/17/24 Range/Units 00:07 00:25 WBC 7.4 (4.5-10.0) K/mm3 RBC 4.52 (4.2-5.4) M/mm3 Hgb 13.0 (12.0-15.0) g/dL Hct 39.3 (37.0-47.0) % MCV 86.9 (80-100) fl MCH 28.8 (26-34) pg MCHC 33.1 (32-36) g/dl RDW 13.9 (11.5-14.5) % Plt Count 355 (150-375) k/mm3 MPV 10.3 (7.4-10.4) fl Immature Gran % (Auto) 0.3 (0-0.5) % Neut % (Auto) 65.7 (45.5-73.1) % Lymph % (Auto) 27.7 (18.3-44.2) % Worth % (Auto) 5.4 (2.6-8.5) % Eos % (Auto) 0.5 (0-4.4) % Baso % (Auto) 0.4 (0.2-1.2) % Lymph # (Auto) 2.04 (0.9-3.2) K/mm3 Worth # (Auto) 0.4 (0.1-0.6) K/mm3 Eos # (Auto) 0.0 (0-0.3) K/mm3 Baso # (Auto) 0.0 (0.0-0.1) K/mm3 Abs Immat Gran (auto) 0.02 (0.00-0.031) K/mm3 Absolute Neuts (auto) 4.8 (1.3-6.7) K/mm3 Absolute Nucleated RBC 0.000 (0.0-0.012) K/mm3 Nucleated RBC % 0.0 (0.0-0.2) % Sodium 138 (137-145) mmol/L Potassium 3.7 (3.4-5.0) mmol/L Chloride 102 (98-107) mmol/L Carbon Dioxide 26 (22-30) mmol/L Anion Gap 10 (4-12) mmol/L BUN 11 (7-17) mg/dL Creatinine 0.71 (0.7-1.0) mg/dL Estim Creat Clear Calc 123 ml/min Estimated GFR > 60 (59 - ) Glucose 107 (65-110) mg/dL Lactic Acid 0.7 (0.7-2.0) mmol/L Calcium 9.5 (8.4-10.2) mg/dL Total Bilirubin 3.2 H (0.2-1.3) mg/dL AST 895 H (14-36) U/L ALT 965 H (6-35) U/L Alkaline Phosphatase 238 H (38-126) U/L Total Protein 8.4 H (6.3-8.2) g/dL Albumin 4.5 (3.5-5.1) g/dL Lipase 70 (23-300) U/L POC Urine HCG, Qual Negative (Negative) Discharge Plan Discharge Clinical Impression: Choledocholithiasis Patient Disposition: Still a Patient Condition: Stable Instructions: Antibiotic Form Patient Language: Cambodian Prescriptions: No Action famotidine [Pepcid] 20 mg tablet 20 mg PO BID 42 Days Qty: 84 0RF Classic 28 mg iron- 800 mcg Tablet 1 tablet PO DAILY ondansetron 4 mg tablet,disintegrating 4 mg PO Q8H PRN (Reason: nausea and vomiting) Qty: 14 0RF Follow-up/Referrals: Coby,Marta Durham, [employer] [Primary Care Provider, Unknown]
[2024-11-17 00:58] LABS: Hematocrit 39.3 % (37.0-47.0); Hemoglobin 13.0 g/dL (12.0-15.0); Immature Granulocyte Percent A 0.3 % (0-0.5); Lymphocytes Absolute Auto 2.04 K/mm3 (0.9-3.2); Mean Corpuscular HGB Conc 33.1 g/dl (32-36); Mean Corpuscular Hemoglobin 28.8 pg (26-34); Mean Corpuscular Volume 86.9 fl (80-100); Nucleated Red Blood Cells Absolute Auto 0.000 K/mm3 (0.0-0.012); Nucleated Red Blood Cells Perc 0.0 % (0.0-0.2); Platelet Count Result 355 k/mm3 (150-375); Red Blood Count 4.52 M/mm3 (4.2-5.4); White Blood Count 7.4 K/mm3 (4.5-10.0)
[2024-11-17 01:12] LABS: Albumin Level 4.5 g/dL (3.5-5.1); Alkaline Phosphatase 238 U/L (38-126); Anion Gap 10 mmol/L (4-12); Bilirubin,Total 3.2 mg/dL (0.2-1.3); Blood Urea Nitrogen 11 mg/dL (7-17); Calcium 9.5 mg/dL (8.4-10.2); Carbon Dioxide 26 mmol/L (22-30); Chloride 102 mmol/L (98-107); Estimated CRCL calculation 123 ml/min; Estimated Glomerular Filt Rate > 60; Glucose 107 mg/dL (65-110); Lipase 70 U/L (23-300); Potassium 3.7 mmol/L (3.4-5.0); Sodium 138 mmol/L (137-145); Total Protein 8.4 g/dL (6.3-8.2)
[2024-11-17 01:34] LABS: Alanine Aminotransferase 965 U/L (6-35); Aspartate Amino Transferase 895 U/L (14-36)
[2024-11-17] MEDS: PIPERACILLIN/TAZOBACTAM SOD 3.375 GM in SODIUM CHLORIDE 0.9% IV 50 ML 100 ML IVPB ×3 (02:15→12:39)
--- NOTE | 2024-11-17 04:30 | ADMGEN ---
This patient, Noble Gar, was admitted to Medical Room 255-. Patient/family oriented to hospital policies and general routines including ID bracelet, bed and alarms, visiting hours, pain management, procedures, bathroom and other care routines, personal items, smoking policy, room service/diet, and visiting hours. Information on how to activate the Rapid Response Team has been discussed. Patient/Family are encouraged to report perceived risks to care and to ask questions if they do not understand what they are told or what they should do.
--- NOTE | 2024-11-17 06:03 | P.HP_ITS ---
H&P: HPI History of Present Illness Date/Time: 11/17/24 06:03 Chief Complaint: Abdominal pain Narrative: This is a 28-year-old female patient who came in with epigastric/right upper quadrant pain. The patient was seen in the emergency room on 11/15/2024 as well and then previously on 10/19/2024. The patient stated that she has been having right upper quadrant discomfort for at least the past 7 months. She had a baby 9 months ago and has gained some weight and stated that she has eaten poorly. The patient's pain has gotten worse over the last 2 days. She stated is sharp and severe in intensity. She tried Tylenol, Motrin, and Pepcid at home which did not relieve her discomfort. She had a CT scan on 10/19/2024 which shows that she has coli lithiasis and the patient stated that she has an appointment with surgery next week. She had an abdominal ultrasound on 11/15/2024 which shows cholelithiasis and fatty infiltration of the liver. On 11/15/2024 she also had abdominal pelvis CT which shows cholelithiasis with mild dilatation of the common bile duct and left hepatic duct. No obstructing stones or mass identified consider correlation with MRCP. The patient was started on Zosyn , Toradol, Zofran, Dilaudid, and IV fluids of normal saline in the emergency room. She stated her pain is now under control. She also had nausea and vomiting in the emergency room. GI has been consulted. Her initial white count was 11.1 and is now normal. Her AST is 895, ALT 965, alkaline phosphatase 238, and total protein 8.4. Lipase was within normal limits. Urine test is negative. She is being admitted to medical-surgical floor for inpatient status on the date of service of 11/17/2024 Review of Systems Constitutional: Constitutional: Reports as per HPI and Reports no additional constitutional complaints Eyes: Eyes: Reports as per HPI and Reports no additional eye complaints ENT: Reports no additional ear, nose, mouth, and throat complaints and Reports Normal hearing present Cardiovascular: Cardiovascular: Reports no additional cardiovascular complaints Respiratory: Respiratory: Reports as per HPI and Reports no additional respiratory complaints Gastrointestinal: Gastrointestinal: Reports as per HPI and Reports no additional gastrointestinal complaints Genitourinary: Genitourinary: Reports no additional female genitourinary complaints Musculoskeletal: Musculoskeletal: Reports no additional musculoskeletal complaints Integumentary/Breasts: Skin/Breast: Reports system reviewed and no additional complaints, except as docu Neurologic: Reports no additional neurologic complaints and Reports Normal hearing present Psychiatric: Psychiatric: Reports no additional psychiatric complaints and Reports as per HPI Hematologic/Lymphatic: Hematologic/Lymphatic: Reports no additional hematologic/lymphatic complaints Allergic/Immunologic: Allergic/Immunologic: Reports no additional allergic/immunologic complaints [facility] Surgical History Surgical History History of tonsillectomy and adenoidectomy Family History Family History (Updated 11/17/24 @ 06:12 by Cathy Yadav APRN) Father Multiple sclerosis Mother Diabetes mellitus Cholelithiasis Social History Social History (Updated 11/21/24 @ 11:57 by Cathy Yadav APRN) Social History: She currently lives with her and 2 children. She works at [employer]. She desires to have her as the power of bankruptcy attorney. Code status: Full code Smoking status: Never smoker Substance use: never Do You Feel Safe in your Home?: Yes Lack of Transportation: No Lack of Food: Never True Current Housing: I Have Housing Concerned About Future Housing: No Difficulty Paying Gas/Electric Bills: No Difficulty Paying for Meds: No Currently Unemployed: No Education: Master's Degree or Higher Difficulty w/ Childcare or Family Care: No Spiritual care concerns: No Meds Home Medications and Allergies Home Medications ?Medication ?Instructions ?Recorded ?Confirmed ?Type ondansetron 4 mg disintegrating 4 mg PO Q8H PRN nausea and 11/15/24 11/17/24 Rx tablet vomiting #14 tabs Allergies Allergy/AdvReac Type Severity Reaction Status Date / Time No Known Allergies Allergy Verified 11/16/24 21:20 Vital Signs Vital Signs - 24 hr 11/16/24 21:15 11/16/24 23:12 11/17/24 00:30 Temperature 98 F Pulse Rate 83 66 73 Respiratory Rate 16 15 15 Blood Pressure 151/87 H 147/95 H Pulse Oximetry 98 98 99 Oxygen Delivery Room Air Room Air 11/17/24 00:31 11/17/24 00:45 11/17/24 01:00 Temperature 98.1 F Pulse Rate 68 69 71 Respiratory Rate 15 19 15 Blood Pressure 115/79 Pulse Oximetry 98 95 Oxygen Delivery 11/17/24 01:15 11/17/24 01:30 11/17/24 02:00 Temperature Pulse Rate 66 77 84 Respiratory Rate 15 15 18 Blood Pressure Pulse Oximetry 96 98 95 Oxygen Delivery 11/17/24 02:15 11/17/24 02:30 11/17/24 02:45 Temperature Pulse Rate 73 74 67 Respiratory Rate 15 19 18 Blood Pressure 133/77 Pulse Oximetry 98 95 97 Oxygen Delivery 11/17/24 02:46 11/17/24 03:00 11/17/24 03:15 Temperature Pulse Rate 91 69 64 Respiratory Rate 16 18 19 Blood Pressure Pulse Oximetry 97 95 95 Oxygen Delivery 11/17/24 03:30 11/17/24 03:45 11/17/24 04:00 Temperature Pulse Rate 68 62 65 Respiratory Rate 19 16 19 Blood Pressure Pulse Oximetry 94 94 95 Oxygen Delivery 11/17/24 04:01 11/17/24 04:44 11/17/24 04:48 Temperature 97.5 F L Pulse Rate 57 L 60 Respiratory Rate 17 16 Blood Pressure 127/77 117/72 Pulse Oximetry 95 98 Oxygen Delivery Room Air Exam Const: General: cooperative, comfortable, no acute distress, well developed, awake, Physically active and well nourished Nutritional Appearance: well nourished Orientation/consciousness: oriented to person, oriented to place, oriented to time and patient oriented x3 Limitations: no limitations HENMT: Head: normal to inspection, No palpable skull fracture present, normocephalic, atraumatic and abrasion Ears: hearing grossly normal bilaterally Eyes: General: appearance normal, both eyes and all related structures Alignment and Position: alignment normal Periorbital: periorbital findings normal Eyelids: eyelids normal Cornea: corneas normal Pupils: Equal, round and reactive pupils present and Pupil accommodation reflex normal EOM: EOMs intact bilaterally Neck: Neck: normal visual inspection, full ROM, no lymphadenopathy and trachea midline Resp: Effort & Inspection: normal respiratory effort Auscultation: clear to auscultation bilaterally Cardio: Palpation: normal PMI Rate: regular rate Rhythm: regular rhythm Heart sounds: S1 normal heart sound present and S2 normal heart sound present Peripheral pulses: Peripheral pulses 2+ throughout GI: Inspection: normal to inspection Auscultation: normal bowel sounds Other: She denied any tenderness with light palpation of abdomen as well as deep palpation Skin: General skin exam: normal color Lesions: no lesions Rashes: no rashes Trauma: no lacerations or abrasions Wounds: no wounds Hair: normal Nails: normal Neuro: General: oriented to person, oriented to place, oriented to time and patient oriented x3 Cranial nerves: Yes Equal, round and reactive pupils present and Yes Normal hearing present Cognition (Neuro): normal cognition Speech: normal speech Motor exam (neuro): 5/5 motor strength present throughout Sensory Exam: normal sensation Extrem: General: normal to inspection Right upper extremity: normal to inspection and shoulder/upper arm Left upper extremity: normal to inspection and shoulder/upper arm Right lower extremity: normal to inspection Left lower extremity: normal to inspection Psych: Appearance: grossly normal Mental Status: mental status grossly normal Speech and movement: Normal speech and movement present Affect: normal affect Attitude: cooperative Thought process: Normal thought process present Thought content: Yes Normal thought content present Insight: Good insight present (Psych) Judgement: Good judgement present (Psych) H&P: Results Labs Labs: Short CBC 11/17/24 Range/Units 00:25 WBC 7.4 (4.5-10.0) K/mm3 Hgb 13.0 (12.0-15.0) g/dL Hct 39.3 (37.0-47.0) % Plt Count 355 (150-375) k/mm3 BMP 11/17/24 00:25 Sodium 138 Potassium 3.7 Chloride 102 Carbon Dioxide 26 BUN 11 Creatinine 0.71 Glucose 107 Calcium 9.5 Liver Function 11/17/24 Range/Units 00:25 Total Bilirubin 3.2 H (0.2-1.3) mg/dL AST 895 H (14-36) U/L ALT 965 H (6-35) U/L Alkaline Phosphatase 238 H (38-126) U/L Albumin 4.5 (3.5-5.1) g/dL Imaging CT scan - abdomen: Radiologist's impression: Assessment and Plan Assessment and plan (1) Choledocholithiasis: Code(s): K80.50 - Calculus of bile duct without cholangitis or cholecystitis without obstruction Status: Acute Assessment and Plan: -liver enzymes are elevated. Total bilirubin 3.2, AST 895, ALT 965, alkaline phosphatase 238, and total protein 8.4 -previous CT scans have shown cholelithiasis. The patient stated that she has an appointment with her surgeon next week. -CT scan is suspicious for choledocholithiasis -continue with anti nausea medicine -continue with Zosyn -continue with pain management -GI consult has been placed for possible ERCP, specialty input is greatly appreciated -daily comprehensive metabolic panel - Quality VTE Prophylaxis VTE prophylaxis: mechanical ordered
--- NOTE | 2024-11-17 07:08 | P.CONGI_ITS ---
Assessment and Plan Assessment and plan (1) Choledocholithiasis: Code(s): K80.50 - Calculus of bile duct without cholangitis or cholecystitis without obstruction Status: Acute Assessment and Plan: The patient has clinical and laboratory evidence of choledocholithiasis associated with her preexistent cholelithiasis. Will perform ERCP later today. Patient has an appointment with surgery next for laparoscopic cholecystectomy. GI Consult Note Consult date/time: 11/17/24 07:08 Reason for consult: Suspected choledocholithiasis HPI: Noble Gar is a 28-year-old woman with a seven-month history of intermittent, moderate to severe right upper quadrant pain. Her most recent episode, two days ago, was described as excruciating, a 10/10 on the pain scale. She presented to the emergency room at that time with the following lab results: AST 62, ALT 50, bilirubin 0.5, and alkaline phosphatase 74. She returned to the ER last night with another severe pain episode. Lab work showed a significant change: AST 895, ALT 965, bilirubin 3.2, and alkaline phosphatase 238. A CT scan from November 15, 2024, showed cholelithiasis with mild dilation of both the common bile duct (9 mm) and the left hepatic duct. The patient denies any fever or chills. Review of Systems 2 Review of Systems: Delivered a baby 9 mo ago, and gained significant weight. All systems reviewed & are unremarkable except as noted in HPI and below PMFSH Surgical History Surgical History History of tonsillectomy and adenoidectomy Family History Family History (Updated 11/17/24 @ 06:12 by Cathy Yadav APRN) Father Multiple sclerosis Mother Diabetes mellitus Cholelithiasis Social History Social History (Updated 11/17/24 @ 06:13 by Cathy Yadav APRN) Social History: She currently lives with her and 2 children. She works at [employer]. 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 Code status: Full code Smoking status: Never smoker Substance use: never Do You Feel Safe in your Home?: Yes Lack of Transportation: No Lack of Food: Never True Current Housing: I Have Housing Concerned About Future Housing: No Difficulty Paying Gas/Electric Bills: No Difficulty Paying for Meds: No Currently Unemployed: No Education: Master's Degree or Higher Difficulty w/ Childcare or Family Care: No Spiritual care concerns: No Meds Home Medications and Allergies Home Medications ?Medication ?Instructions ?Recorded ?Confirmed ?Type ondansetron 4 mg disintegrating 4 mg PO Q8H PRN nausea and 11/15/24 11/17/24 Rx tablet vomiting #14 tabs Allergies Allergy/AdvReac Type Severity Reaction Status Date / Time No Known Allergies Allergy Verified 11/16/24 21:20 Vital Signs Vital Signs - 24 hr 11/16/24 21:15 11/16/24 23:12 11/17/24 00:30 Temperature 98 F Pulse Rate 83 66 73 Respiratory Rate 16 15 15 Blood Pressure 151/87 H 147/95 H Pulse Oximetry 98 98 99 Oxygen Delivery Room Air Room Air 11/17/24 00:31 11/17/24 00:45 11/17/24 01:00 Temperature 98.1 F Pulse Rate 68 69 71 Respiratory Rate 15 19 15 Blood Pressure 115/79 Pulse Oximetry 98 95 Oxygen Delivery 11/17/24 01:15 11/17/24 01:30 11/17/24 02:00 Temperature Pulse Rate 66 77 84 Respiratory Rate 15 15 18 Blood Pressure Pulse Oximetry 96 98 95 Oxygen Delivery 11/17/24 02:15 11/17/24 02:30 11/17/24 02:45 Temperature Pulse Rate 73 74 67 Respiratory Rate 15 19 18 Blood Pressure 133/77 Pulse Oximetry 98 95 97 Oxygen Delivery 11/17/24 02:46 11/17/24 03:00 11/17/24 03:15 Temperature Pulse Rate 91 69 64 Respiratory Rate 16 18 19 Blood Pressure Pulse Oximetry 97 95 95 Oxygen Delivery 11/17/24 03:30 11/17/24 03:45 11/17/24 04:00 Temperature Pulse Rate 68 62 65 Respiratory Rate 19 16 19 Blood Pressure Pulse Oximetry 94 94 95 Oxygen Delivery 11/17/24 04:01 11/17/24 04:44 11/17/24 04:48 Temperature 97.5 F L Pulse Rate 57 L 60 Respiratory Rate 17 16 Blood Pressure 127/77 117/72 Pulse Oximetry 95 98 Oxygen Delivery Room Air Exam 2 Narrative: Anicteric. Abdomen: Soft, nontender, nondistended, no organomegaly. Results Labs 11/17/24 00:25 11/17/24 00:25 Labs: Short CBC 11/17/24 Range/Units 00:25 WBC 7.4 (4.5-10.0) K/mm3 Hgb 13.0 (12.0-15.0) g/dL Hct 39.3 (37.0-47.0) % Plt Count 355 (150-375) k/mm3 BMP 11/17/24 00:25 Sodium 138 Potassium 3.7 Chloride 102 Carbon Dioxide 26 BUN 11 Creatinine 0.71 Glucose 107 Calcium 9.5 Liver Function 11/17/24 Range/Units 00:25 Total Bilirubin 3.2 H (0.2-1.3) mg/dL AST 895 H (14-36) U/L ALT 965 H (6-35) U/L Alkaline Phosphatase 238 H (38-126) U/L Albumin 4.5 (3.5-5.1) g/dL
[2024-11-17] MEDS: SODIUM CHLORIDE 0.9% IV 1,000 ML 125 ML IV CONT (07:50)
--- NOTE | 2024-11-17 13:09 | P.PNIM_ITS ---
Progress Note: A&P Assessment and Plan (1) Choledocholithiasis: Code(s): K80.50 - Calculus of bile duct without cholangitis or cholecystitis without obstruction Status: Acute Assessment and Plan: -liver enzymes are elevated. Total bilirubin 3.2, AST 895, ALT 965, alkaline phosphatase 238, and total protein 8.4 -previous CT scans have shown cholelithiasis. The patient stated that she has an appointment with her surgeon next week. -CT scan is suspicious for choledocholithiasis -continue with anti nausea medicine -continue with Zosyn -continue with pain management -GI consult has been placed for possible ERCP, specialty input was greatly be appreciated -daily comprehensive metabolic panel ercp today GI consulted and following continue pain/nause mngmnt Time Spent With Patient Time with patient: 25 - 35 minutes Subjective Date/time seen: 11/17/24 13:09 Interval history: This is a 28-year-old female patient who came in with epigastric/right upper quadrant pain. The patient was seen in the emergency room on 11/15/2024 as well and then previously on 10/19/2024. The patient stated that she has been having right upper quadrant discomfort for at least the past 7 months. She had a baby 9 months ago and has gained some weight and eating poorly. The patient's pain has gotten worse over the last 2 days. She stated is sharp and severe in intensity. She tried Tylenol, Motrin, and Pepcid at home which did not relieve her discomfort. She had a CT scan on 10/19/2024 which shows that she has coli lithiasis and the patient stated that she has an appointment with surgery next week. She had an abdominal ultrasound on 11/15/2024 which shows cholelithiasis and fatty infiltration of the liver. On 11/15/2024 she also had abdominal pelvis CT which shows cholelithiasis with mild dilatation of the common bile duct and left hepatic duct. No obstructing stones or mass identified consider correlation with MRCP. The patient was started on Zosyn in the emergency room, Toradol, Zofran, Dilaudid, and IV fluids of normal saline. She stated her pain is now under control. She also had nausea and vomiting in the emergency room. GI has been consulted. Her initial white count was 11.1 and is now normal. Her AST is 895, ALT 965, alkaline phosphatase 238, and total protein 8.4. Lipase was within normal limits. Urine test is negative. She is being admitted to medical-surgical floor for inpatient status on the date of service of 11/17/2024. Pt is seen and examined. GI was consulted. ERCP today. Review of Systems Review of Systems: All systems reviewed & are unremarkable except as noted in HPI and below Constitutional: Constitutional: Reports no additional constitutional complaints Eyes: Eyes: Reports no additional eye complaints ENT: Reports Normal hearing present Cardiovascular: Cardiovascular: Reports no additional cardiovascular complaints Respiratory: Respiratory: Reports no additional respiratory complaints Gastrointestinal: Gastrointestinal: Reports no additional gastrointestinal complaints Neurologic: Reports Normal hearing present Psychiatric: Psychiatric: Reports as per HPI Exam Const: General: cooperative, comfortable, no acute distress, well developed, awake, Physically active and well nourished Orientation/consciousness: oriented to person, oriented to place, oriented to time and patient oriented x3 HENMT: Head: normal to inspection, No palpable skull fracture present and normocephalic Ears: hearing grossly normal bilaterally Eyes: General: appearance normal, both eyes and all related structures Alignment and Position: alignment normal Periorbital: periorbital findings normal Eyelids: eyelids normal Cornea: corneas normal Pupils: Equal, round and reactive pupils present and Pupil accommodation reflex normal EOM: EOMs intact bilaterally Neck: Neck: normal visual inspection, full ROM and no lymphadenopathy Resp: Effort & Inspection: normal respiratory effort Auscultation: clear to auscultation bilaterally Cardio: Palpation: normal PMI Rate: regular rate Rhythm: regular rhythm Peripheral pulses: Peripheral pulses 2+ throughout GI: Inspection: normal to inspection Auscultation: normal bowel sounds Other: She denied any tenderness with light palpation of abdomen as well as deep palpation Skin: General skin exam: normal color Lesions: no lesions Rashes: no rashes Trauma: no lacerations or abrasions Wounds: no wounds Hair: normal Nails: normal Neuro: General: oriented to person, oriented to place, oriented to time and patient oriented x3 Cranial nerves: Yes Equal, round and reactive pupils present and Yes Normal hearing present Cognition (Neuro): normal cognition Speech: normal speech Motor exam (neuro): 5/5 motor strength present th roughout Sensory Exam: normal sensation Extrem: General: normal to inspection Psych: Appearance: grossly normal Mental Status: mental status grossly normal Speech and movement: Normal speech and movement present Affect: normal affect Attitude: cooperative Thought process: Normal thought process present Insight: Good insight present (Psych) Judgement: Good judgement present (Psych) Objective Data Vital Signs Vital Signs: Vital Signs - 24 hr 11/16/24 21:15 11/16/24 23:12 11/17/24 00:30 Temperature 98 F Pulse Rate 83 66 73 Respiratory Rate 16 15 15 Blood Pressure 151/87 H 147/95 H Pulse Oximetry 98 98 99 Oxygen Delivery Room Air Room Air 11/17/24 00:31 11/17/24 00:45 11/17/24 01:00 Temperature 98.1 F Pulse Rate 68 69 71 Respiratory Rate 15 19 15 Blood Pressure 115/79 Pulse Oximetry 98 95 Oxygen Delivery 11/17/24 01:15 11/17/24 01:30 11/17/24 02:00 Temperature Pulse Rate 66 77 84 Respiratory Rate 15 15 18 Blood Pressure Pulse Oximetry 96 98 95 Oxygen Delivery 11/17/24 02:15 11/17/24 02:30 11/17/24 02:45 Temperature Pulse Rate 73 74 67 Respiratory Rate 15 19 18 Blood Pressure 133/77 Pulse Oximetry 98 95 97 Oxygen Delivery 11/17/24 02:46 11/17/24 03:00 11/17/24 03:15 Temperature Pulse Rate 91 69 64 Respiratory Rate 16 18 19 Blood Pressure Pulse Oximetry 97 95 95 Oxygen Delivery 11/17/24 03:30 11/17/24 03:45 11/17/24 04:00 Temperature Pulse Rate 68 62 65 Respiratory Rate 19 16 19 Blood Pressure Pulse Oximetry 94 94 95 Oxygen Delivery 11/17/24 04:01 11/17/24 04:44 11/17/24 04:48 Temperature 97.5 F L Pulse Rate 57 L 60 Respiratory Rate 17 16 Blood Pressure 127/77 117/72 Pulse Oximetry 95 98 Oxygen Delivery Room Air 11/17/24 07:56 11/17/24 08:05 Temperature Pulse Rate 74 Respiratory Rate Blood Pressure Pulse Oximetry 95 95 Oxygen Delivery Room Air Room Air Intake/Output Intake/Output: Intake & Output 0911/15/24 11/16/24 11/17/24 23:59 23:59 23:59 23:59 Intake Total 3100 Output Total 0 Balance 3100 Meds/Results Medications: Active Medications Generic Name Dose Route Start Last Admin Trade Name Freq PRN Reason Stop Dose Admin Hydromorphone HCl 0.5 mg 11/17/24 02:45 11/17/24 09:43 Hydromorphone Hcl Inj (*Crx) 1 Mg/Ml Syr IV PUSH 0.5 mg Q4H PRN Administration Pain Rated 7-10 Piperacillin Sod/Tazobactam 50 mls @ 100 mls/hr 11/17/24 08:00 11/17/24 12:39 Sod 3.375 gm/ Sodium Chloride IVPB 100 mls/hr Q6HR HAWA Administration Sodium Chloride 1,000 mls @ 125 mls/hr 11/17/24 06:35 11/17/24 07:50 Normal Saline Iv IV CONT 125 mls/hr .Q8H HAWA Administration Ondansetron HCl 4 mg 11/17/24 06:33 11/17/24 12:06 Ondansetron Inj 4 Mg/2 Ml Vial IV PUSH 4 mg Q4H PRN Administration Nausea And Vomiting Labs Labs: Laboratory Results - last 24 hr 11/17/24 11/17/24 00:07 00:25 WBC 7.4 RBC 4.52 Hgb 13.0 Hct 39.3 MCV 86.9 MCH 28.8 MCHC 33.1 RDW 13.9 Plt Count 355 MPV 10.3 Immature Gran % (Auto) 0.3 Neut % (Auto) 65.7 Lymph % (Auto) 27.7 [place] % (Auto) 5.4 Eos % (Auto) 0.5 Baso % (Auto) 0.4 Lymph # (Auto) 2.04 [place] # (Auto) 0.4 Eos # (Auto) 0.0 Baso # (Auto) 0.0 Abs Immat Gran (auto) 0.02 Absolute Neuts (auto) 4.8 Absolute Nucleated RBC 0.000 Nucleated RBC % 0.0 Sodium 138 Potassium 3.7 Chloride 102 Carbon Dioxide 26 Anion Gap 10 BUN 11 Creatinine 0.71 Estim Creat Clear Calc 123 Estimated GFR > 60 Glucose 107 Lactic Acid 0.7 Calcium 9.5 Total Bilirubin 3.2 H AST 895 H ALT 965 H Alkaline Phosphatase 238 H Total Protein 8.4 H Albumin 4.5 Lipase 70 POC Urine HCG, Qual Negative Quality VTE Prophylaxis VTE prophylaxis: mechanical ordered
--- NOTE | 2024-11-17 13:25 | PC.NURSE ---
To GI Lab per wheelchair , IV RFA. Report given to Janet SOL.
[2024-11-17] MEDS: INDOMETHACIN 50 MG SUPP.RECT 100 MG RECTAL (13:47)
[2024-11-17] MEDS: SIMETHICONE ORAL SUSPENSION 20 MG/0.3 ML 30 ML BOTTLE 1.8 ML PO (13:48)
[2024-11-17] MEDS: LACTATED RINGERS 1,000 ML 150 ML IV CONT (14:01)
--- NOTE | 2024-11-17 14:08 | P.PNAN_ITS ---
Anes - Initial Pre Proc Eval Procedure: Operation Date: 11/17/24 14:45 Proposed Procedures p Endoscopic Retro Cholangiopancreatogram - Kirill Condon MD Date/Time: 11/17/24 14:08 Surgeon: Naga Kidd MD Pre Op Diagnosis: Choledocolithiasis Patient Data Age: 28 Gender: F Height: 1.63 m Weight: 111.4 kg Last Vital Signs Temp 36.8 C 11/17/24 13:56 Pulse 71 11/17/24 13:56 Resp 18 11/17/24 13:56 BP 124/85 11/17/24 13:56 Pulse Ox 100 11/17/24 13:56 O2 Del Method Room Air 11/17/24 13:56 Allergies Allergy/AdvReac Type Severity Reaction Status Date / Time No Known Allergies Allergy Verified 11/16/24 21:20 Home Medications ?Medication ?Instructions ?Recorded ?Confirmed ?Type ondansetron 4 mg disintegrating 4 mg PO Q8H PRN nausea and 11/15/24 11/17/24 Rx tablet vomiting #14 tabs Laboratory Tests 11/17/24 11/17/24 00:07 00:25 WBC 7.4 K/mm3 (4.5-10.0) RBC 4.52 M/mm3 (4.2-5.4) Hgb 13.0 g/dL (12.0-15.0) Hct 39.3 % (37.0-47.0) MCV 86.9 fl (80-100) MCH 28.8 pg (26-34) MCHC 33.1 g/dl (32-36) RDW 13.9 % (11.5-14.5) Plt Count 355 k/mm3 (150-375) MPV 10.3 fl (7.4-10.4) Immature Gran % (Auto) 0.3 % (0-0.5) Neut % (Auto) 65.7 % (45.5-73.1) Lymph % (Auto) 27.7 % (18.3-44.2) [place] % (Auto) 5.4 % (2.6-8.5) Eos % (Auto) 0.5 % (0-4.4) Baso % (Auto) 0.4 % (0.2-1.2) Lymph # (Auto) 2.04 K/mm3 (0.9-3.2) [place] # (Auto) 0.4 K/mm3 (0.1-0.6) Eos # (Auto) 0.0 K/mm3 (0-0.3) Baso # (Auto) 0.0 K/mm3 (0.0-0.1) Abs Immat Gran (auto) 0.02 K/mm3 (0.00-0.031) Absolute Neuts (auto) 4.8 K/mm3 (1.3-6.7) Absolute Nucleated RBC 0.000 K/mm3 (0.0-0.012) Nucleated RBC % 0.0 % (0.0-0.2) Sodium 138 mmol/L (137-145) Potassium 3.7 mmol/L (3.4-5.0) Chloride 102 mmol/L (98-107) Carbon Dioxide 26 mmol/L (22-30) Anion Gap 10 mmol/L (4-12) BUN 11 mg/dL (7-17) Creatinine 0.71 mg/dL (0.7-1.0) Estim Creat Clear Calc 123 ml/min Estimated GFR > 60 (59 - ) Glucose 107 mg/dL (65-110) Lactic Acid 0.7 mmol/L (0.7-2.0) Calcium 9.5 mg/dL (8.4-10.2) Total Bilirubin 3.2 H mg/dL (0.2-1.3) AST 895 H U/L (14-36) ALT 965 H U/L (6-35) Alkaline Phosphatase 238 H U/L (38-126) Total Protein 8.4 H g/dL (6.3-8.2) Albumin 4.5 g/dL (3.5-5.1) Lipase 70 U/L (23-300) POC Urine HCG, Qual Negative (Negative) Patient hx anesthesia problems: none Family hx anesthesia problems: none Results Review: All pre-operative results and documents have been reviewed as part of the pre- operative evaluation. [facility] Surgical History Surgical History History of tonsillectomy and adenoidectomy Family History Family History (Updated 11/17/24 @ 06:12 by Cathy Yadav APRN) Father Multiple sclerosis Mother Diabetes mellitus Cholelithiasis Social History Social History (Updated 11/17/24 @ 06:13 by Cathy Yadav APRN) Social History: She currently lives with her and 2 children. She works at [employer]. She desires to have her is the power of consumer attorney. Code status: Full code Smoking status: Never smoker Substance use: never Do You Feel Safe in your Home?: Yes Lack of Transportation: No Lack of Food: Never True Current Housing: I Have Housing Concerned About Future Housing: No Difficulty Paying Gas/Electric Bills: No Difficulty Paying for Meds: No Currently Unemployed: No Education: Master's Degree or Higher Difficulty w/ Childcare or Family Care: No Spiritual care concerns: No Anes - Eval Final PreProcedure Day of Procedure 11/17/24 14:08 Patient weight: morbidly obese Heart: regular rate and rhythm Lungs: clear to auscultation Airway: Mallampati scale class III Neurological: alert and oriented Last oral intake: >/= 8 hours ASA classification: III Emergent: no Anesthetic plan: proceed Anesthesia type and monitoring: general ETT and standard monitoring Results Review: All pre-operative results and documents have been reviewed as part of the pre- operative evaluation. Informed Consent: The patient's anesthetic plan and its attendant risks and benefits were discussed with the patient/family/POA. Questions were solicited and answers provided to the satisfaction of the patient/family/POA.
--- NOTE | 2024-11-17 15:06 | WPDGIPROGNO ---
Progress Note: A&P Assessment and Plan (1) Choledocholithiasis: Code(s): K80.50 - Calculus of bile duct without cholangitis or cholecystitis without obstruction Status: Acute Assessment and Plan: See ERCP report. Distal common bile duct stone successfully removed. Will observe patient overnight, and if she does not develop abdominal pain she can be discharged tomorrow morning. Subjective Date/time seen: 11/17/24 15:06 Objective Data Vital Signs Vital Signs: Vital Signs - 24 hr 11/16/24 21:15 11/16/24 23:12 11/17/24 00:30 Temperature 98 F Pulse Rate 83 66 73 Respiratory Rate 16 15 15 Blood Pressure 151/87 H 147/95 H Pulse Oximetry 98 98 99 Oxygen Delivery Room Air Room Air 11/17/24 00:31 11/17/24 00:45 11/17/24 01:00 Temperature 98.1 F Pulse Rate 68 69 71 Respiratory Rate 15 19 15 Blood Pressure 115/79 Pulse Oximetry 98 95 Oxygen Delivery 11/17/24 01:15 11/17/24 01:30 11/17/24 02:00 Temperature Pulse Rate 66 77 84 Respiratory Rate 15 15 18 Blood Pressure Pulse Oximetry 96 98 95 Oxygen Delivery 11/17/24 02:15 11/17/24 02:30 11/17/24 02:45 Temperature Pulse Rate 73 74 67 Respiratory Rate 15 19 18 Blood Pressure 133/77 Pulse Oximetry 98 95 97 Oxygen Delivery 11/17/24 02:46 11/17/24 03:00 11/17/24 03:15 Temperature Pulse Rate 91 69 64 Respiratory Rate 16 18 19 Blood Pressure Pulse Oximetry 97 95 95 Oxygen Delivery 11/17/24 03:30 11/17/24 03:45 11/17/24 04:00 Temperature Pulse Rate 68 62 65 Respiratory Rate 19 16 19 Blood Pressure Pulse Oximetry 94 94 95 Oxygen Delivery 11/17/24 04:01 11/17/24 04:44 11/17/24 04:48 Temperature 97.5 F L Pulse Rate 57 L 60 Respiratory Rate 17 16 Blood Pressure 127/77 117/72 Pulse Oximetry 95 98 Oxygen Delivery Room Air 11/17/24 07:56 11/17/24 08:05 11/17/24 13:56 Temperature 98.3 F Pulse Rate 74 71 Respiratory Rate 18 Blood Pressure 124/85 Pulse Oximetry 95 95 100 Oxygen Delivery Room Air Room Air Room Air Intake/Output Intake/Output: Intake & Output 11/14/24 11/15/24 11/16/24 11/17/24 23:59 23:59 23:59 23:59 Intake Total 3305 Output Total 0 Balance 3305 Meds/Results Medications: Active Medications Generic Name Dose Route Start Last Admin Trade Name Freq PRN Reason Stop Dose Admin Hydromorphone HCl 0.5 mg 11/17/24 02:45 11/17/24 09:43 Hydromorphone Hcl Inj (*Crx) 1 Mg/Ml Syr IV PUSH 0.5 mg Q4H PRN Administration Pain Rated 7-10 Sodium Chloride 1,000 mls @ 125 mls/hr 11/17/24 06:35 11/17/24 07:50 Normal Saline Iv IV CONT 125 mls/hr .Q8H HAWA Administration Lactated Ringer's 1,000 mls @ 150 mls/hr 11/17/24 13:55 11/17/24 15:03 Lr - Lactated Ringers Iv IV CONT 150 mls/hr .Q6H40M HAWA Infusion Ondansetron HCl 4 mg 11/17/24 06:33 11/17/24 12:06 Ondansetron Inj 4 Mg/2 Ml Vial IV PUSH 4 mg Q4H PRN Administration Nausea And Vomiting Labs Labs: Laboratory Results - last 24 hr 11/17/24 11/17/24 00:07 00:25 WBC 7.4 RBC 4.52 Hgb 13.0 Hct 39.3 MCV 86.9 MCH 28.8 MCHC 33.1 RDW 13.9 Plt Count 355 MPV 10.3 Immature Gran % (Auto) 0.3 Neut % (Auto) 65.7 Lymph % (Auto) 27.7 [place] % (Auto) 5.4 Eos % (Auto) 0.5 Baso % (Auto) 0.4 Lymph # (Auto) 2.04 [place] # (Auto) 0.4 Eos # (Auto) 0.0 Baso # (Auto) 0.0 Abs Immat Gran (auto) 0.02 Absolute Neuts (auto) 4.8 Absolute Nucleated RBC 0.000 Nucleated RBC % 0.0 Sodium 138 Potassium 3.7 Chloride 102 Carbon Dioxide 26 Anion Gap 10 BUN 11 Creatinine 0.71 Estim Creat Clear Calc 123 Estimated GFR > 60 Glucose 107 Lactic Acid 0.7 Calcium 9.5 Total Bilirubin 3.2 H AST 895 H ALT 965 H Alkaline Phosphatase 238 H Total Protein 8.4 H Albumin 4.5 Lipase 70 POC Urine HCG, Qual Negative
--- NOTE | 2024-11-17 16:03 | PC.NURSE ---
Returned from GI Lab. Report received from Lisbet
[2024-11-17] MEDS: ACETAMINOPHEN 325 MG TABLET PO (21:38)
[2024-11-18 04:54] VITALS: BP 123/69; PULSE 67; RESP 16; TEMP 36.8; O2SAT 97
[2024-11-18 05:05] LABS: Hematocrit 33.9 % (37.0-47.0); Hemoglobin 10.8 g/dL (12.0-15.0); Immature Granulocyte Percent A 0.4 % (0-0.5); Lymphocytes Absolute Auto 1.88 K/mm3 (0.9-3.2); Mean Corpuscular HGB Conc 31.9 g/dl (32-36); Mean Corpuscular Hemoglobin 28.1 pg (26-34); Mean Corpuscular Volume 88.1 fl (80-100); Nucleated Red Blood Cells Absolute Auto 0.000 K/mm3 (0.0-0.012); Nucleated Red Blood Cells Perc 0.0 % (0.0-0.2); Platelet Count Result 264 k/mm3 (150-375); Red Blood Count 3.85 M/mm3 (4.2-5.4); White Blood Count 6.8 K/mm3 (4.5-10.0)
[2024-11-18 05:20] LABS: Alanine Aminotransferase 651 U/L (6-35); Albumin Level 3.6 g/dL (3.5-5.1); Alkaline Phosphatase 215 U/L (38-126); Anion Gap 9 mmol/L (4-12); Aspartate Amino Transferase 397 U/L (14-36); Bilirubin,Total 1.3 mg/dL (0.2-1.3); Blood Urea Nitrogen 5 mg/dL (7-17); Calcium 7.8 mg/dL (8.4-10.2); Carbon Dioxide 19 mmol/L (22-30); Chloride 108 mmol/L (98-107); Estimated CRCL calculation 153 ml/min; Estimated Glomerular Filt Rate > 60; Glucose 90 mg/dL (65-110); Potassium 3.8 mmol/L (3.4-5.0); Sodium 136 mmol/L (137-145); Total Protein 6.8 g/dL (6.3-8.2)
[2024-11-18] MEDS: SODIUM CHLORIDE 0.9% IV 1,000 ML 125 ML IV CONT (07:25)
[2024-11-18] MEDS: ACETAMINOPHEN 325 MG TABLET PO (08:08)
[2024-11-18 08:11] VITALS: RESP 16; O2SAT 97
--- NOTE | 2024-11-18 08:47 | WPDGIPROGNO ---
Progress Note: A&P Assessment and Plan (1) Choledocholithiasis: Code(s): K80.50 - Calculus of bile duct without cholangitis or cholecystitis without obstruction Status: Acute Assessment and Plan: Patient doing clinically well. Transaminases bilirubin in good decreasing trend. She is stable to be discharged home. she has an upcoming appointment with surgery for cholecystectomy. She is advised to refrain from alcohol and fatty foods, since a gallbladder biliary colic can still be a possibility. Subjective Date/time seen: 11/18/24 08:47 Objective Data Vital Signs Vital Signs: Vital Signs - 24 hr 11/17/24 13:56 11/17/24 15:05 11/17/24 15:15 Temperature 98.3 F 98.1 F Pulse Rate 71 68 65 Respiratory Rate 18 22 H 21 H Blood Pressure 124/85 112/67 114/72 Pulse Oximetry 100 99 100 Oxygen Delivery Room Air Simple Face Mask Simple Face Mask Oxygen Flow Rate 6 6 11/17/24 15:25 11/17/24 15:35 11/17/24 15:45 Temperature Pulse Rate 71 75 79 Respiratory Rate 21 H 19 19 Blood Pressure 123/81 129/84 130/89 Pulse Oximetry 100 100 100 Oxygen Delivery Simple Face Mask Room Air Room Air Oxygen Flow Rate 6 11/17/24 15:55 11/17/24 20:00 11/17/24 20:01 Temperature 97.6 F Pulse Rate 63 53 L Respiratory Rate 21 H 12 Blood Pressure 135/80 128/73 Pulse Oximetry 100 97 Oxygen Delivery Room Air Room Air Oxygen Flow Rate 11/18/24 04:54 11/18/24 08:11 Temperature 98.3 F Pulse Rate 67 Respiratory Rate 16 16 Blood Pressure 123/69 Pulse Oximetry 97 97 Oxygen Delivery Room Air Oxygen Flow Rate Intake/Output Intake/Output: Intake & Output 11/15/24 11/16/24 11/17/24 11/18/24 23:59 23:59 23:59 23:59 Intake Total 4670.0 200 Output Total 0 Balance 4670.0 200 Meds/Results Medications: Active Medications Generic Name Dose Route Start Last Admin Trade Name Freq PRN Reason Stop Dose Admin Acetaminophen 325 mg 11/17/24 21:28 11/18/24 08:08 Acetaminophen 325 Mg Tablet PO 325 mg Q4H PRN Administration Mild Pain (1-3) or Fever Hydromorphone HCl 0.5 mg 11/17/24 02:45 11/17/24 09:43 Hydromorphone Hcl Inj (*Crx) 1 Mg/Ml Syr IV PUSH 0.5 mg Q4H PRN Administration Pain Rated 7-10 Sodium Chloride 1,000 mls @ 125 mls/hr 11/17/24 06:35 11/18/24 07:25 Normal Saline Iv IV CONT 125 mls/hr .Q8H HAWA Administration Ondansetron HCl 4 mg 11/17/24 06:33 11/17/24 12:06 Ondansetron Inj 4 Mg/2 Ml Vial IV PUSH 4 mg Q4H PRN Administration Nausea And Vomiting Phenol 1 spray 11/17/24 21:28 Phenol/Sod Pheno [place] (*Bkc) MUCOUS MEM PRN PRN Sore Throat Radiology Results: ITS Impressions Endo Retro Cholangiopancreatogram 11/17/24 15:14 IMPRESSION: Fluoroscopy used during ERCP procedure. Labs Labs: Laboratory Results - last 24 hr 11/18/24 04:40 WBC 6.8 RBC 3.85 L Hgb 10.8 L Hct 33.9 L MCV 88.1 MCH 28.1 MCHC 31.9 L RDW 13.8 Plt Count 264 MPV 10.2 Immature Gran % (Auto) 0.4 Neut % (Auto) 65.5 Lymph % (Auto) 27.7 [place] % (Auto) 6.2 Eos % (Auto) 0.1 Baso % (Auto) 0.1 L Lymph # (Auto) 1.88 [place] # (Auto) 0.4 Eos # (Auto) 0.0 Baso # (Auto) 0.0 Abs Immat Gran (auto) 0.03 Absolute Neuts (auto) 4.4 Absolute Nucleated RBC 0.000 Nucleated RBC % 0.0 Sodium 136 L Potassium 3.8 Chloride 108 H Carbon Dioxide 19 L Anion Gap 9 BUN 5 L D Creatinine 0.56 L Estim Creat Clear Calc 153 Estimated GFR > 60 Glucose 90 Calcium 7.8 L Total Bilirubin 1.3 AST 397 H ALT 651 H Alkaline Phosphatase 215 H Total Protein 6.8 Albumin 3.6
--- NOTE | 2024-11-18 10:32 | P.DS_ITS ---
DS: Admitting Diagnosis Discharge Date 11/18 Admitting Diagnosis abd pain DS: Discharge Diagnosis Discharge Diagnosis (1) Choledocholithiasis: Code(s): K80.50 - Calculus of bile duct without cholangitis or cholecystitis without obstruction Status: Acute DS: Summary Hospital Course Hospital Course: This is a 28-year-old female patient who came in with epigastric/right upper quadrant pain. The patient was seen in the emergency room on 11/15/2024 as well and then previously on 10/19/2024. The patient stated that she has been having right upper quadrant discomfort for at least the past 7 months. She had a baby 9 months ago and has gained some weight and eating poorly. The patient's pain has gotten worse over the last 2 days. She stated is sharp and severe in intensity. She tried Tylenol, Motrin, and Pepcid at home which did not relieve her discomfort. She had a CT scan on 10/19/2024 which shows that she has coli lithiasis and the patient stated that she has an appointment with surgery next week. She had an abdominal ultrasound on 11/15/2024 which shows cholelithiasis and fatty infiltration of the liver. On 11/15/2024 she also had abdominal pelvis CT which shows cholelithiasis with mild dilatation of the common bile duct and left hepatic duct. No obstructing stones or mass identified consider correlation with MRCP. The patient was started on Zosyn in the emergency room, Toradol, Zofran, Dilaudid, and IV fluids of normal saline. She stated her pain is now under control. She also had nausea and vomiting in the emergency room. GI has been consulted. Her initial white count was 11.1 and is now normal. Her AST is 895, ALT 965, alkaline phosphatase 238, and total protein 8.4. Lipase was within normal limits. Urine test is negative. She is being admitted to medical-surgical floor for inpatient status on the date of service of 11/17/2024. #Choledocholithiasis ercp on 11/[address] Condon. Distal common bile duct stone successfully removed. Labs imporved, tolerated food well, ok for discharge per GI-no need for antibiotics as no leukocytosis or cholangitis. She is to have cholecystectomy this coming . Advised to avoid alcohol and fatty foods. Status at Discharge Functional status at discharge: independent ambulation Overall status at discharge: patient is progressing back to baseline Time Spent with Patient Time attestation: Total time spent providing and/or coordinating discharge services: Time spent: Greater than 30 minutes Exam Const: General: cooperative, comfortable, no acute distress, well developed, awake, Physically active and well nourished Nutritional Appearance: well nourished Orientation/consciousness: oriented to person, oriented to place, oriented to time and patient oriented x3 Limitations: no limitations HENMT: Head: normal to inspection, No palpable skull fracture present, normocephalic, atraumatic and abrasion Ears: hearing grossly normal bilaterally Eyes: General: appearance normal, both eyes and all related structures Alignment and Position: alignment normal Periorbital: periorbital findings normal Eyelids: eyelids normal Cornea: corneas normal Pupils: Equal, round and reactive pupils present and Pupil accommodation reflex normal EOM: EOMs intact bilaterally Neck: Neck: normal visual inspection, full ROM, no lymphadenopathy and trachea midline Resp: Effort & Inspection: normal respiratory effort Auscultation: clear to auscultation bilaterally Cardio: Palpation: normal PMI Rate: regular rate Rhythm: regular rhythm Heart sounds: S1 normal heart sound present and S2 normal heart sound present Peripheral pulses: Peripheral pulses 2+ throughout GI: Inspection: normal to inspection Auscultation: normal bowel sounds Other: She denied any tenderness with light palpation of abdomen as well as deep palpation Skin: General skin exam: normal color Lesions: no lesions Rashes: no rashes Trauma: no lacerations or abrasions Wounds: no wounds Hair: normal Nails: normal Neuro: General: oriented to person, oriented to place, oriented to time and patient oriented x3 Cranial nerves: Yes Equal, round and reactive pupils present and Yes Normal hearing present Cognition (Neuro): normal cognition Speech: normal speech Motor exam (neuro): 5/5 motor strength present throughout Sensory Exam: normal sensation Extrem: General: normal to inspection Right upper extremity: normal to inspection and shoulder/upper arm Left upper extremity: normal to inspection and shoulder/upper arm Right lower extremity: normal to inspection Left lower extremity: normal to inspection Psych: Appearance: grossly normal Mental Status: mental status grossly normal Speech and movement: Normal speech and movement present Affect: normal affect Attitude: cooperative Thought process: Normal thought process present Insight: Good insight present (Psych) Judgement: Good judgement present (Psych) DS: Data Data Completed and Pending Labs on day of discharge: Labs from last 24 hours 11/18/24 04:40 WBC 6.8 RBC 3.85 L Hgb 10.8 L Hct 33.9 L MCV 88.1 MCH 28.1 MCHC 31.9 L RDW 13.8 Plt Count 264 MPV 10.2 Immature Gran % (Auto) 0.4 Neut % (Auto) 65.5 Lymph % (Auto) 27.7 [place] % (Auto) 6.2 Eos % (Auto) 0.1 Baso % (Auto) 0.1 L Lymph # (Auto) 1.88 [place] # (Auto) 0.4 Eos # (Auto) 0.0 Baso # (Auto) 0.0 Abs Immat Gran (auto) 0.03 Absolute Neuts (auto) 4.4 Absolute Nucleated RBC 0.000 Nucleated RBC % 0.0 Sodium 136 L Potassium 3.8 Chloride 108 H Carbon Dioxide 19 L Anion Gap 9 BUN 5 L D Creatinine 0.56 L Estim Creat Clear Calc 153 Estimated GFR > 60 Glucose 90 Calcium 7.8 L Total Bilirubin 1.3 AST 397 H ALT 651 H Alkaline Phosphatase 215 H Total Protein 6.8 Albumin 3.6 Discharge Plan Discharge Attending physician on discharge: Tree Feldman Discharging Clinician: Loni Mott Patient Disposition: Home Activity: july shower Diet: low fat Discharge Instructions: Avoid alcohol, fatty foods. PLease keep your leeanna with surgery this . Patient Instructions: Antibiotic Form Patient Language: French Stand Alone Forms: General Discharge Information Follow-up/Referrals: CobyMarta, APPELLATE LAW CLERK [Primary Care Provider, Unknown] - 2 Weeks Discharge Medications: Continued ondansetron 4 mg tablet,disintegrating 4 mg PO Q8H PRN (Reason: nausea and vomiting) Qty: 14 0RF Date of admission: 11/17/24 02:45 Primary Care Provider: AmandaMarta Admitting Provider: Naga Kidd Attending physician on admission: Naga Kidd Condition: Stable Quality VTE Prophylaxis VTE prophylaxis: mechanical ordered Hospitalist MIPS Heart Failure (Exclusion) Patient has history of Heart Transplant or Left Ventricular Assistive Device?: No IF YES, STOP HERE Heart Failure (Qualifier) Patient has current or prior documentation of LVEF less than or equal to 40%, or mod/servere depressed LVSF?: No IF NO, STOP HERE
== END 2024-11-18 12:25 | disposition home or self-care (01) | DRG 446 ==
LOC: ANHED 11-17 02:43 → ANH2MED 11-17 06:37
PROVIDERS: Internal Medicine Gastroenterology; Nurse Practitioner; Admitting Provider Family Medicine; Emergency Provider Emergency Medicine; Visit Provider Nurse Practitioner
PROC: 0FC98ZZ Extirpation of Matter from Common Bile Duct, Via Natural or Artificial Opening Endoscopic (ICD-10-PCS; CPT 43260; principal; 2024-11-17 14:45)
DX: K80.50 Calculus of bile duct without cholangitis or cholecystitis without obstruction (principal)
CPT/HCPCS: 36415; 74329; 80053; 81025; 83605; 83690; 85025; 96361; 96365; 96375; 96376; 99285; A9270; J0330; J1100; J1171; J1885; J2003; J2405; J2543; J2704; J7030; J7120; Q9966

== ENCOUNTER 2024-12-01 08:27 | Outpatient (CLI) | payer BC, SELFPAY ==
--- OUTSIDE RECORDS SUMMARY | 2024-12-01 08:34 | XMS_ITS | Patient Health Record ---
Author Organization [facility] Address [address] [place] [address] Care Team Providers Care Director Radio News Name Role Phone Mateo Joshua Primary Care Provider [phone] Reason For Referral No Information Immunizations Vaccine Route Administration Date Status Comme nts COVID-19 Moderna 1ST IM Intramuscular 03/16/2020 Administered COVID-19 Moderna 1ST IM Intramuscular 04/13/2020 Administered EUA date 0. Screening reviewed and consent signed. Patient tolerated well. COVID-19 Moderna Booster IM Intramuscular 01/16/2021 Administered Plan Of Treatment No Information
[2024-12-01 09:12] LABS: Alanine Aminotransferase 56 U/L (6-35); Albumin Level 4.5 g/dL (3.5-5.1); Alkaline Phosphatase 89 U/L (38-126); Amylase 59 U/L (30-110); Aspartate Amino Transferase 34 U/L (14-36); Bilirubin,Total 0.5 mg/dL (0.2-1.3); Total Protein 8.1 g/dL (6.3-8.2)
== END 2024-12-01 08:28 | disposition home or self-care (01) ==
LOC: ANHSURGERY 08:32
PROVIDERS: Visit Provider Surgery
DX: K80.20 Calculus of gallbladder without cholecystitis without obstruction (principal); K80.50 Calculus of bile duct without cholangitis or cholecystitis without obstruction
CPT/HCPCS: 36415; 80076; 82150

== ENCOUNTER 2024-12-08 01:22 | Day surgery (SDC) | payer BC, SELFPAY ==
[2024-11-24 14:51] VITALS: BMI 42.2
--- NOTE | 2024-11-24 15:13 | PC.NURSE ---
[facility] has started construction of its new state of the art ER which will open Spring 2026. With this, we anticipate parking may be a challenge for some our surgical patients and families. Parking spaces are limited but are available for all Surgical, obstetrics, and ER patients sharing this lot. If you arrive and find you are having a hard time finding a parking space, please note that we understand the challenges, please drive around the hospital and park near Hospital Entrance 1. When you enter this entrance, you can ask a volunteer to direct or take you back to the surgical waiting area to check in. We appreciate everyone?s understanding of these expected challenges while we build for your future. Report to the Outpatient Waiting Room, entrance under the green pavilion located off [address], at time _11:00AM on date 12/08/24 . Planned Procedure Time: 1:00PM .? Time changes happen often and if your time is changed the preop area will call you the afternoon before. - You and your visitor will be asked to self-screen and do not enter if you have any COVID symptoms. Please call surgeon if you need to reschedule. - A mask is optional within the hospital at this time. Patients may have clear liquids (water, carbonated beverages, clear teas, apple juice) until 3 hours prior to surgery with a maximum of 20 ounces. - No food from midnight until time of surgery and no smoking, or chewing tobacco (or any form of nicotine). No chewing gum, candy or mints. Take only the following medications with a SIP of water on the morning of surgery: ___NONE DO NOT STOP ANY OF YOUR OTHER PRESCRIPTION MEDICATIONS PRIOR TO SURGERY EXCEPT THE FOLLOWING Hold all vitamins and supplements for 3 days per anesthesiologist. Medications to discontinue per physician N/A Date to take last dose____N/A Please no make-up, nail tunisian, hairspray, perfume, deodorant, or body powder the day of surgery.? No jewelry (including any body piercings) or valuables the day of surgery, leave them at home.? Please take a shower or bath the night before, or the morning of, surgery with an antibacterial soap.? Wear comfortable, loose fitting clothing.? - Jewelry must be removed prior to entering the operating room.? Rings and piercings that are not removed may be cut off. - The hospital will not accept responsibility for valuables.? - Please leave all valuables, including medications, at home the day of surgery. If you are going home after surgery, a licensed national dedicated truck driver must drive you home.? - NO public transportation without another adult if you receive anesthesia. - We recommend that an adult stay with you for 24 hours following discharge. - We also recommend that you do not drive, make important decision, drink alcoholic beverages, or take any drugs that were not prescribed by your health care provider for at least 24 hours after your discharge time. Follow any additional instructions given to you from your surgeon. Telephone instructions given to __LOGYN and asked if any additional questions and then verbalized understanding. Patient advised to call surgeon office or pre surgery nurse liaison [phone] if any additional questions.
[2024-12-08] VITALS (9 sets, daily range): BP systolic 117–150; BP diastolic 66–97; PULSE 59–108; RESP 12–18; TEMP 36.2–37.2; O2SAT 99–100; BMI 40.8
--- OUTSIDE RECORDS SUMMARY | 2024-12-08 01:25 | XMS_ITS | Patient Health Record ---
Author Organization [facility] Address [address] [place] [address] Care Team Providers Care Foundry Tender Name Role Phone Mateo Joshua Primary Care Provider [phone] Reason For Referral No Information Immunizations Vaccine Route Administration Date Status Comme nts COVID-19 Moderna 1ST IM Intramuscular 03/16/2020 Administered COVID-19 Moderna 1ST IM Intramuscular 04/13/2020 Administered EUA date 0. Screening reviewed and consent signed. Patient tolerated well. COVID-19 Moderna Booster IM Intramuscular 01/16/2021 Administered Plan Of Treatment No Information
[2024-12-08] MEDS: LACTATED RINGERS 1,000 ML 30 ML IV CONT ×2 (10:00→13:08)
[2024-12-08] MEDS: KETOROLAC 15 MG/ML VIAL (*BKC) IV PUSH ×2 (10:15→12:59)
[2024-12-08] MEDS: SCOPOLAMINE 1 MG PATCH 1 PATCH TRANSDERM (10:15)
[2024-12-08] MEDS: ACETAMINOPHEN 500 MG TABLET 1000 MG PO (10:15)
--- NOTE | 2024-12-08 11:23 | P.PNAN_ITS ---
Anes - Initial Pre Proc Eval Procedure: Operation Date: 12/08/24 11:30 Proposed Procedures p Laparoscopic Cholecystectomy, Possible Open - Leonid Camargo MD Date/Time: 12/08/24 11:23 Surgeon: Leonid Camargo MD Pre Op Diagnosis: Symp Choledocholithiasis Patient Data Age: 28 Gender: F Height: 1.63 m Weight: 111.6 kg Allergies Allergy/AdvReac Type Severity Reaction Status Date / Time No Known Allergies Allergy Verified 12/08/24 09:51 Home Medications ?Medication ?Instructions ?Recorded ?Confirmed ?Type No Home Medications 11/23/24 11/24/24 H istory Patient hx anesthesia problems: none Family hx anesthesia problems: none Results Review: All pre-operative results and documents have been reviewed as part of the pre- operative evaluation. [facility] Past Medical History Medical History (Updated 12/08/24 @ 11:24 by Jossue Acevedo MD) Obesity Surgical History Surgical History History of tonsillectomy and adenoidectomy Family History Family History Father Multiple sclerosis Mother Diabetes mellitus Cholelithiasis Social History Social History (Updated 11/21/24 @ 11:57 by Cathy Yadav APRN) Social History: She currently lives with her and 2 children. She works at [employer]. She desires to have her as the power of compliance attorney. Code status: Full code Smoking status: Never smoker Alcohol intake: never Substance use: never Substance use type: does not use Do You Feel Safe in your Home?: Yes Lack of Transportation: No Lack of Food: Never True Current Housing: I Have Housing Concerned About Future Housing: No Difficulty Paying Gas/Electric Bills: No Difficulty Paying for Meds: No Currently Unemployed: No Education: Master's Degree or Higher Difficulty w/ Childcare or Family Care: No Living arrangements: with family Spiritual care concerns: No Anes - Eval Final PreProcedure Day of Procedure 12/08/24 11:23 Patient weight: morbidly obese Heart: regular rate and rhythm Lungs: clear to auscultation Airway: Mallampati scale class II Neurological: alert and oriented Last oral intake: >/= 8 hours ASA classification: III Emergent: no Anesthetic plan: proceed Anesthesia type and monitoring: general ETT and standard monitoring Results Review: All pre-operative results and documents have been reviewed as part of the pre- operative evaluation. Informed Consent: The patient's anesthetic plan and its attendant risks and benefits were discussed with the patient/family/POA. Questions were solicited and answers provided to the satisfaction of the patient/family/POA.
--- NOTE | 2024-12-08 11:30 | WPDHPUPDATE1 ---
History and Physical Update Update Date/Time: 12/08/24 11:30 History and Physical has been reviewed, including an updated exam of the patient. There are NO changes in the patient's condition. Risks, benefits, and alternatives have been discussed and questions answered. Patient agrees to proceed with procedure.
[2024-12-08] MEDS: ceFAZolin 2 GM in SODIUM CHLORIDE 0.9% IV 50 ML 100 ML IVPB (11:34)
[2024-12-08 12:08] LABS: BEDSIDEPREGUCG Negative (Negative)
--- NOTE | 2024-12-08 12:40 | S_PTH ---
PATIENT: Noble Gar LOC: [facility] U#:[id number] AGE/SX: 28/F ROOM: RE12/08/[address]: Leonid Camargo MD : 1995 BED: DIS: 12/08/2024 SPEC #: [id number] RECD: 12/08/24 13:26 STATUS: LOGAN RELeonardo #: [id number] CINTHIA: 12/08/24 12:[address]: Leonid Camargo DEPT: [facility] RECD BY: Raffi Longo ENTERED: 12/08/24 13:26 SP TYPE: Surgical OTHR DR: Marta Tenorio, NEONATAL INTENSIVE CARE NURSE Tissues: A - Gallbladder Procedures: Hematoxylin and Eosin Stain Gross and Microscopic Level 3
[2024-12-08] MEDS: fentaNYL CITRATE INJ (*CRX) 100 MCG/2 ML VIAL 25 MCG IV PUSH ×2 (13:38→13:59)
[2024-12-08] MEDS: ONDANSETRON INJ 4 MG/2 ML VIAL IV PUSH (13:41)
[2024-12-08] MEDS: oxyCODONE HCL (*CRX) 5 MG TAB IR PO (14:18)
--- NOTE | 2024-12-08 14:35 | PM.OP ---
Procedure Note - Brief Procedure Note - Brief Date of procedure: 12/08/24 Symp Choledocholithiasis Post-op diagnosis: Other ( Chronic cholecystitis secondary to cholelithiasis) Procedure performed: Laparoscopic cholecystectomy Surgeon: Leonid Camargo MD Electron Microprobe Operator: Jamilah GLOVER Anesthesia: GETA Estimated blood loss (mL): 50 Drains: No Packing: No Pathology: Yes ( gallbladder and contents to pathology) Complications: No immediate complications Condition: Stable Disposition: PACU
--- NOTE | 2024-12-08 23:58 | W.PM.PROC2 ---
Procedure Note - Detailed Date of Procedure 12/08/24 Pre-op Diagnosis Symp Choledocholithiasis Post-op Diagnosis Other ( Chronic cholecystitis secondary to cholelithiasis) Procedure Performed Laparoscopic cholecystectomy Surgeon Leonid Camargo MD Screw Machine Adjuster Automatic Jamilah Murray [facility] Anesthesia General Indications Patient is a 28-year-old female who had epigastric pain and was worked up and found to have choledocholithiasis. She underwent ERCP and extraction of common bile duct stone. Imaging also revealed residual cholelithiasis. She presents now for a laparoscopic cholecystectomy. Findings The patient gallbladder was distended with multiple gallstones. Gallbladder wall was chronically thickened. She appeared to have chronic cholecystitis secondary to cholelithiasis. There were no adhesions of the bowel to the gallbladder. Description of Procedure After informed consent was obtained patient was brought to the operating room where she was placed supine position and general endotracheal anesthesia was administered. The abdomen was then prepped and draped usual sterile fashion. A time-out was then performed correctly identifying the patient as well as the procedure to be performed. She was given perioperative IV antibiotics. I then proceeded to enter the abdomen left upper quadrant utilizing a 5mm Optiview port. I then insufflated to adequate pneumoperitoneum of 15mmHg CO2. I then placed a 5mm periumbilical trocar port as well as a 10mm epigastric trocar port and 2 right lateral subcostal trocar ports. The gallbladder was held at the dome and elevated over the right half liver towards the right shoulder. The gallbladder wall was thickened and multiple gallstones were noted in the gallbladder. There were no adhesions of the duodenum, stomach, omentum, or colon to the gallbladder although the gallbladder did appear to be chronically inflamed. I then proceeded to strip down the visceral peritoneum off the gallbladder and eventually identified what appeared to be the cystic duct. The cystic duct was dissected out circumferentially. The cystic artery was identified posterior medial to the duct and dissected out circumferentially as well. Posterior wall of the infundibular gallbladder was dissected free of the liver plate until the critical view was obtained. At this point I then placed 2 clips proximally cystic duct and 2 clips distally high on infundibular gallbladder. The cystic duct was divided with Endo Bernard. The cystic artery was then clipped and divided similar fashion. The gallbladder was resected off the liver utilizing electrocautery without spilling any gallstones or any bile. Once the gallbladder was free from liver is placed into an Endo-Catch bag and brought out through the epigastric port site. The gallbladder gallstones within were sent to pathology for examination. I then irrigated out the right upper quadrant the abdomen the gallbladder fossa with copious amounts sterile saline solution. Hemostasis was excellent. No evidence of bile leak was seen. I then aspirated the fluid from the right upper quadrant the abdomen from the pelvis. I then removed all the trocar ports under direct visualization all port sites appeared hemostatic. I then allowed the abdomen decompressed. The 10mm epigastric trocar port site and the 5mm umbilical trocar port site were both closed utilizing 0 Vicryl sutures. The skin edges in all the port sites were then approximated utilizing a running subcuticular 4 Monocryl suture. The incisions were then cleaned the skin glue was applied. The patient tolerated the procedure well no complications. All sponges, needles, and instrument counts were correct at the end procedure. EBL was _50__cc. The patient was awakened and taken to recovery in stable and satisfactory condition. Implants None Estimated Blood Loss 50 Drains No Packing No Pathology Yes ( gallbladder and gallstones to pathology) Complications No immediate complications Condition Stable Disposition PACU [facility] Billing Surgery - Charge Forward: Surgery Billing
== END 2024-12-08 14:58 | disposition home or self-care (01) ==
PROVIDERS: Visit Provider Surgery
PROC: 0FT44ZZ Resection of Gallbladder, Percutaneous Endoscopic Approach (ICD-10-PCS; CPT 47562; principal; 2024-12-08 11:30)
DX: K80.10 Calculus of gallbladder with chronic cholecystitis without obstruction (principal); E66.01 Morbid (severe) obesity due to excess calories; Z68.41 Body mass index [BMI] 40.0-44.9, adult
CPT/HCPCS: 47562; 88304; J0690; A9270; J1100; J1885; J2003; J2250; J2405; J2704; J3010; J7120